=== PATIENT | male | born 1995 | race Caucasian/White ===

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

== ENCOUNTER 2017-02-19 11:28 | Emergency (ER) | payer SELFPAY ==
[~2017-02-19] VITALS: Ht 188 cm; Wt 82.2 kg
[~2017-02-19 11:28] MED LIST changes: +TAMS0.4C38 PO
[2017-02-19 11:32] VITALS: TEMP 36.6; Ht 188 cm; Wt 82.2 kg
[2017-02-19] MEDS ORDERED: ONDANSETRON INJ 2 MG/ML 2 ML VIAL IV STA (11:57)
[2017-02-19] MEDS ORDERED: MoRPHine SULFATE 10 MG/ML CARP/VIAL IV STA (11:57)
[2017-02-19] MEDS ORDERED: SODIUM CHLORIDE 0.9% 1000ML 1,000 ML IV STA (11:57)
[2017-02-19] MEDS ORDERED: KETOROLAC TROMETHAMINE 30 MG/ML VIAL IV STA (11:57)
[2017-02-19] MEDS ORDERED: TAMSULOSIN HCL 0.4 MG CAP PO ONE (12:00)
[2017-02-19 12:14] LABS: URINE APPEARANCE TURBID (CLEAR); URINE BILIRUBIN NEG (NEG); URINE COLOR YELLOW; URINE NITRITE NEG (NEG); URINE PH >= 9.0 (4.5-7.5); URINE SPECIFIC GRAVITY 1.022 (1.000-1.030); UROBILINOGEN NEG (NEG); ZZUR CULT IF INDIC CLEAN CATCH NO
[2017-02-19 12:31] LABS: MANUAL MICROSCOPIC REQUIRED? NO; REVIEW REQ? NO
[2017-02-19 12:34] LABS: SULFASALICYLIC ACID NEG (NEG)
[2017-02-19 12:35] LABS: BASO % 0.2 %; BASO ABS # 0.02 K/uL (0-0.2); COMPLETE YES; EOS % 0.4 %; IG% 0.2 %; LYMPH % 17.4 %; LYMPH ABS # 1.67 K/uL (1.2-3.4); MEAN CELL VOLUME 89.9 fL (80-100); MEAN CORPUSCULAR HEMOGLOBIN 32.1 pg (25-34); MEAN CORPUSCULAR HGB CONC 35.7 g/dl (32-36); MEAN PLATELET VOLUME 10.6 fL (7.4-10.4); MONO % 9.1 %; NEUT % 72.7 %; PLATELET COUNT 213 K/uL (130-400); RED BLOOD COUNT 4.67 M/uL (4.7-6.1); WHITE BLOOD COUNT 9.61 K/uL (4.8-10.8)
[2017-02-19 12:46] LABS: ALT/SGPT 20 U/L (12-78); BLOOD UREA NITROGEN 17 mg/dl (7-18); BUN/CREATININE RATIO 14.6 (10-20); CALCIUM 9.6 mg/dl (8.5-10.1); CARBON DIOXIDE 27 mmol/L (21-32); CHLORIDE 105 mmol/L (98-107); CREATININE 1.19 mg/dl (0.60-1.40); GLUCOSE 117 mg/dl (70-99); POTASSIUM 3.4 mmol/L (3.5-5.1); SODIUM 140 mmol/L (136-145)
--- NOTE | 2017-02-19 12:48 | DIAGNOSTIC IMAGING REPORT ---
CT SCAN OF THE ABDOMEN AND PELVIS WITHOUT IV CONTRAST CLINICAL HISTORY: Right flank pain. COMPARISON STUDY: Abdominal CT dated 07/11/2016 TECHNIQUE: CT scan of the abdomen and pelvis is performed from the lung bases to the proximal femora. Images are reviewed in the axial, sagittal, and coronal planes. IV contrast was not administered for this examination as per the front clinician. A dose lowering technique was utilized adhering to the principles of ALARA. CT DOSE: 661.50 mGy.cm FINDINGS: Lung bases: The heart is normal in size and without pericardial effusion. The lung bases are clear. Liver: The unenhanced liver is normal in size, contour, and attenuation. There is no intrahepatic biliary ductal dilatation. Gallbladder: Unremarkable. Spleen: Normal in size and attenuation. Pancreas: Unremarkable. Adrenal glands: Unremarkable. Kidneys: The unenhanced kidneys are normal in size. There is a 10 mm obstructing calculus identified at the right vesicoureteral junction seen on image #387. This causes moderate right hydroureteronephrosis. There is an additional 5 mm calculus in the distal right ureter approximately 1.5 cm above the larger stone seen on image #379. There are at least 2 additional nonobstructing right renal calculi measuring up to 4 mm. No left renal calculi are identified and there is no left-sided hydronephrosis. There is no evidence of contour deforming renal mass lesion. Abdominal vasculature: The abdominal aorta is normal in course and caliber. Bowel: There is mild to moderate colonic fecal retention. No bowel obstruction is seen. The appendix is well-visualized and normal. Peritoneum: There is no intraperitoneal free air or abdominal ascites. There is a small fat-containing umbilical hernia. Lymphadenopathy: None. Pelvic viscera: The bladder is decompressed and grossly unremarkable. The prostate and seminal vesicles are normal as visualized. Skeletal structures: No lytic or blastic lesions are seen. IMPRESSION: 1. There is a 10 mm obstructing calculus at the right vesicoureteral junction. This causes moderate right hydroureteronephrosis. 2. There is a second calculus in distal right ureter measuring 5 mm. This is located just above the larger and more distal stone. 3. Additional small nonobstructing right renal calculi as above. No left renal calculi are seen. Electronically signed by: Tramaine Garcia M.D. 02/19/2017 12:46 PM Dictated Date/Time: 02/19/2017 12:39 PM
[2017-02-19 12:49] LABS: ALKALINE PHOSPHATASE 96 U/L (45-117); AST/SGOT 20 U/L (15-37)
[2017-02-19] MEDS ORDERED: MoRPHine SULFATE 4 MG/ML 1 ML CARP\\VIAL IV STA (13:14)
[2017-02-19 13:24] VITALS: BP 119/71; PULSE 75; O2SAT 98
--- NOTE | 2017-02-19 14:01 | EMERGENCY ROOM VISIT NOTE ---
History First contact with patient: 11:50 Chief Complaint: FLANK PAIN Stated Complaint: KIDNEY PAIN History of Present Illness The patient is a 21 year old male who presents to the Emergency Room with complaints of right flank pain which started at 8:00 this morning. He rates the pain at a 9 out of 10. He states it starts in the back and comes around his right side. The patient admits to nausea but denies any vomiting. The patient denies any change in bowel habits. The patient does admit to hematuria but denies any other urinary symptoms of frequency, urgency, dysuria. The patient has had multiple kidney stones over the past 18 months. He has seen Dr. Phoenix in the past. He has passed all his stones. He has never needed surgery. Review of Systems 10 system review was performed and was negative unless stated otherwise history of present illness. Family History Kidney disease Kidney stones Social History Smoking Status: Current Every Day Smoker Drug Use: marijuana Marital Status: single Housing Status: lives with family Current/Historical Medications No Active Prescriptions or Reported Meds Physical Exam Vital Signs Date Time Temp Pulse Resp B/P (MAP) Pulse Ox O2 Delivery O2 Flow Rate FiO2 02/19/17 13:24 75 18 119/71 98 Room Air 02/19/17 11:32 36.6 93 18 144/81 99 Room Air Physical Exam GENERAL: 21-year-old white male appears uncomfortable secondary to flank pain. MENTAL STATUS: Alert and oriented 3. MOUTH: Mucosa is moist NECK: Supple, no lymphadenopathy noted. No carotid bruits noted. LUNGS: Clear auscultation without wheezes rales or rhonchi. CARDIAC: Regular rate and rhythm without murmur. Pulses is full and equal throughout. BACK: No CVA tenderness noted. ABDOMEN: Positive bowel sounds all 4 quadrants. Soft, nontender to palpation without organomegaly or masses. EXTREMITIES: No cyanosis or edema noted. Medical Decision & Procedures ER Provider Diagnostic Interpretation: CT SCAN OF THE ABDOMEN AND PELVIS WITHOUT IV CONTRAST CLINICAL HISTORY: Right flank pain. COMPARISON STUDY: Abdominal CT dated 07/11/2016 TECHNIQUE: CT scan of the abdomen and pelvis is performed from the lung bases to the proximal femora. Images are reviewed in the axial, sagittal, and coronal planes. IV contrast was not administered for this examination as per the front clinician. A dose lowering technique was utilized adhering to the principles of ALARA. CT DOSE: 661.50 mGy.cm FINDINGS: Lung bases: The heart is normal in size and without pericardial effusion. The lung bases are clear. Liver: The unenhanced liver is normal in size, contour, and attenuation. There is no intrahepatic biliary ductal dilatation. Gallbladder: Unremarkable. Spleen: Normal in size and attenuation. Pancreas: Unremarkable. Adrenal glands: Unremarkable. Kidneys: The unenhanced kidneys are normal in size. There is a 10 mm obstructing calculus identified at the right vesicoureteral junction seen on image #387. This causes moderate right hydroureteronephrosis. There is an additional 5 mm calculus in the distal right ureter approximately 1.5 cm above the larger stone seen on image #379. There are at least 2 additional nonobstructing right renal calculi measuring up to 4 mm. No left renal calculi are identified and there is no left-sided hydronephrosis. There is no evidence of contour deforming renal mass lesion. Abdominal vasculature: The abdominal aorta is normal in course and caliber. Bowel: There is mild to moderate colonic fecal retention. No bowel obstruction is seen. The appendix is well-visualized and normal. Peritoneum: There is no intraperitoneal free air or abdominal ascites. There is a small fat-containing umbilical hernia. Lymphadenopathy: None. Pelvic viscera: The bladder is decompressed and grossly unremarkable. The prostate and seminal vesicles are normal as visualized. Skeletal structures: No lytic or blastic lesions are seen. IMPRESSION: 1. There is a 10 mm obstructing calculus at the right vesicoureteral junction. This causes moderate right hydroureteronephrosis. 2. There is a second calculus in distal right ureter measuring 5 mm. This is located just above the larger and more distal stone. 3. Additional small nonobstructing right renal calculi as above. No left renal calculi are seen. Electronically signed by: Tramaine Garcia M.D. 02/19/2017 12:46 PM Dictated Date/Time: 02/19/2017 12:39 PM Laboratory Results 02/19/17 12:13 Red Blood Count 4.67, Mean Corpuscular Volume 89.9, Mean Corpuscular Hemoglobin 32.1, Mean Corpuscular Hemoglobin Concent 35.7, Mean Platelet Volume 10.6, Neutrophils (%) (Auto) 72.7, Lymphocytes (%) (Auto) 17.4, Monocytes (%) (Auto) 9.1, Eosinophils (%) (Auto) 0.4, Basophils (%) (Auto) 0.2, Neutrophils # (Auto) 6.99, Lymphocytes # (Auto) 1.67, Monocytes # (Auto) 0.87, Eosinophils # (Auto) 0.04, Basophils # (Auto) 0.02 02/19/17 12:13 Test 02/19/17 12:02 02/19/17 12:13 Urine Color YELLOW Urine Appearance TURBID (CLEAR) Urine pH >= 9.0 (4.5-7.5) Urine Specific [place] 1.022 (1.000-1.030) Urine Protein NEG (NEG) Urine Glucose (UA) NEG (NEG) Urine Ketones NEG (NEG) Urine Occult Blood TRACE (NEG) Urine Nitrite NEG (NEG) Urine Bilirubin NEG (NEG) Urine Urobilinogen NEG (NEG) Urine Leukocyte Esterase NEG (NEG) Urine WBC (Auto) 1-5 /hpf (0-5) Urine RBC (Auto) 5-10 /hpf (0-4) Urine Hyaline Casts (Auto) 1-5 /lpf (0-5) Urine Epithelial Cells (Auto) 5-10 /lpf (0-5) Urine Bacteria (Auto) NEG (NEG) White Blood Count 9.61 K/uL (4.8-10.8) Red Blood Count 4.67 M/uL (4.7-6.1) Hemoglobin 15.0 g/dL (14.0-18.0) Hematocrit 42.0 % (42-52) Mean Corpuscular Volume 89.9 fL (80-100) Mean Corpuscular Hemoglobin 32.1 pg (25-34) Mean Corpuscular Hemoglobin Concent 35.7 g/dl (32-36) Platelet Count 213 K/uL (130-400) Mean Platelet Volume 10.6 fL (7.4-10.4) Neutrophils (%) (Auto) 72.7 % Lymphocytes (%) (Auto) 17.4 % Monocytes (%) (Auto) 9.1 % Eosinophils (%) (Auto) 0.4 % Basophils (%) (Auto) 0.2 % Neutrophils # (Auto) 6.99 K/uL (1.4-6.5) Lymphocytes # (Auto) 1.67 K/uL (1.2-3.4) Monocytes # (Auto) 0.87 K/uL (0.11-0.59) Eosinophils # (Auto) 0.04 K/uL (0-0.5) Basophils # (Auto) 0.02 K/uL (0-0.2) RDW Standard Deviation 40.1 fL (36.4-46.3) RDW Coefficient of Variation 12.3 % (11.5-14.5) Immature Granulocyte % (Auto) 0.2 % Immature Granulocyte # (Auto) 0.02 K/uL (0.00-0.02) Anion Gap 8.0 mmol/L (3-11) Est Creatinine Clear Calc Drug Dose 116.1 ml/min Estimated GFR () 102.0 Estimated GFR (Non- 88.0 BUN/Creatinine Ratio 14.6 (10-20) Calcium Level 9.6 mg/dl (8.5-10.1) Total Bilirubin 0.2 mg/dl (0.2-1) Direct Bilirubin < 0.1 mg/dl (0-0.2) Aspartate Amino Transf (AST/SGOT) 20 U/L (15-37) Alanine Aminotransferase (ALT/SGPT) 20 U/L (12-78) Alkaline Phosphatase 96 U/L (45-117) Total Protein 7.2 gm/dl (6.4-8.2) Albumin 4.0 gm/dl (3.4-5.0) Lipase 159 U/L (73-393) Medications Administered Medications (Trade) Dose Ordered Sig/Alejandro Route Start Time Stop Time Status Last Admin Dose Admin Sodium Chloride 1,000 ml @ 999 mls/hr Q1H1M STAT IV 02/19/17 11:57 02/19/17 12:57 DC 02/19/17 12:25 999 MLS/HR Ondansetron HCl (Zofran Inj) 4 mg NOW STAT IV 02/19/17 11:57 02/19/17 12:03 DC 02/19/17 12:25 4 MG Morphine Sulfate (MoRPHine SULFATE INJ) 6 mg NOW STAT IV 02/19/17 11:57 02/19/17 12:03 DC 02/19/17 12:27 6 MG Ketorolac Tromethamine (Toradol Inj) 30 mg NOW STAT IV 02/19/17 11:57 02/19/17 12:03 DC 02/19/17 12:26 30 MG Tamsulosin HCl (Flomax Cap) 0.4 mg NOW ONCE PO 02/19/17 12:00 02/19/17 12:03 DC 02/19/17 12:25 0.4 MG Morphine Sulfate (MoRPHine SULFATE INJ) 4 mg NOW STAT IV 02/19/17 13:14 02/19/17 13:15 DC 02/19/17 13:27 4 MG ED Course The patient was evaluated. IV access was obtained. The patient's EMR and medication list were reviewed. The patient was given 1 L of normal saline wide- open. The patient was given morphine 6 mg IV, Toradol 30 mg IV and Zofran 4 mg IV push. The patient was also given Flomax 0.4 mg by mouth. CBC and differential, renal profile, LFTs and lipase levels were ordered. Urinalysis was ordered. CT stone study was ordered and interpreted by the radiologist as above with a 10 mm obstructing stone at the right UV junction, a distal ureter stone at 5 mm and also 2 stones in the right kidney. There is moderate [place]. Labs are reviewed. White count was normal. Renal function was normal. The patient was reevaluated and initially was feeling better but then his pain came back. I discussed the case with Dr. Thapa who agreed with treatment plan. Consulted Maya renteria with [facility] u[facility] about the patient. She stated we can get his pain under control he could go home and follow-up with them tomorrow. The patient was given additional 4 mg of morphine and his pain was a 2 or 3 out of 10. He will is in agreement with going home but was instructed if he has any fever, uncontrolled nausea vomiting, uncontrolled pain and returns immediately. He will follow up with urology at 5 PM tomorrow. The patient was discharged home in stable condition.. Medical Decision Differential diagnosis include UTI, pyelonephritis, ureteral calculi [place] Drug Monitoring [place] Search Results: patient reviewed within database Medication Reconcilliation Current Medication List: was personally reviewed by me Blood Pressure Screening Patient's blood pressure: Normal blood pressure Impression Primary Impression: Ureteral calculus, right Departure Information Dispostion Home / Self-Care Condition GOOD Prescriptions No Active Prescriptions or Reported Meds Referrals No Doctor, Assigned (PCP) Elton Phoenix M.D. Forms HOME CARE DOCUMENTATION FORM, IMPORTANT VISIT INFORMATION Patient Instructions Kidney Stones - [facility], My [facility] Additional Instructions Drink a lot of water. Ibuprofen 600 mg every 6 hours with food for pain. Take OxyIR as instructed for more severe pain. Do not drive while taking the OxyIR. Take Flomax as prescribed. Take Zofran as needed for nausea. Keep scheduled appointment with urology tomorrow at 5 PM. If you experience any uncontrolled abdominal pain, uncontrolled nausea vomiting, fever return to ER immediately for admission.
[2017-02-19] MEDS ORDERED: TAMS0.4C38 PO (14:04)
[2017-02-19] MEDS ORDERED: OXYC1TAB3 PO (14:04)
[2017-02-19] MEDS ORDERED: ONDA4TAB10 SL (14:04)
[2017-02-22] MEDS ORDERED: PHEN-775 PO (09:10)
[2017-02-22] MEDS ORDERED: OXYC7.5T65 PO (09:10)
== END 2017-02-19 14:12 | disposition home or self-care (01) ==
LOC: C.EDB 11:30
DX: N13.2 Hydronephrosis with renal and ureteral calculous obstruction (principal); Z87.442 Personal history of urinary calculi; Z84.1 Family history of disorders of kidney and ureter; F17.210 Nicotine dependence, cigarettes, uncomplicated; F12.90 Cannabis use, unspecified, uncomplicated

== ENCOUNTER → 2017-02-22 | Day surgery (SDC) | payer SELFPAY ==
[2017-02-21 15:31] VITALS: Ht 188 cm; Wt 77.3 kg
[~2017-02-22] VITALS: Ht 188 cm; Wt 77.3 kg
[~2017-02-22] MED LIST changes: +ATROPINE SULFATE 0.1 MG/ML 5ML SYR IV PRN; +CIPROFLOXACIN 400MG / D5W IV SCH; +DEXAMETHASONE SOD INJ 4 MG/ML VIAL IV PRN; +EpHEDrine SULFATE INJ 50 MG/ML AMP IV PRN; +FENTANYL CITRATE INJ 50 MCG/1 ML 2 ML VIAL IV PRN; +FENTANYL CITRATE INJ 50 MCG/1 ML 2 ML VIAL ONE; +KETOROLAC TROMETHAMINE 30 MG/ML VIAL IV. PRN; +LABETALOL HCL IV 5 MG/ML 20ML IV PRN; +LACTATED RINGER'S 1000ML 1,000 ML IV SCH; +LIDOCAINE HCL 2% 2 ML VIAL (20MG/ML) ONE; +METOCLOPRAMIDE HCL INJ 5 MG/ML 2 ML VIAL IV PRN; +MIDAZOLAM HCL 1 MG/ML 2ML VIAL ONE; +MoRPHine SULFATE 10 MG/ML CARP/VIAL IV PRN; +ONDANSETRON INJ 2 MG/ML 2 ML VIAL IV PRN; +ONDANSETRON INJ 2 MG/ML 2 ML VIAL ONE; +OXYC7.5T65 PO; +OXYCODONE/ACETAMINOPHEN 5-325 TAB PO PRN; +PHEN-775 PO; +PHENYLEPHRINE 100MCG/ML 5ML SYR IV PRN; -PROM12.57 PO; +PROPOFOL IV EMULSION 10 MG/ML 20 ML VIAL IV ONE; -TAMS0.4C38 PO
--- NOTE | 2017-02-22 08:06 | History & Physical Bridge - [place] ---
H&P Re-Evaluation Bridge Note: I have examined the patient, reviewed the History & Physical and in the interval since the performance of the History & Physical I have noted the following changes of clinical significance: Renal Right stone. No changes noted
--- NOTE | 2017-02-22 09:15 | Discharge Instructions ---
Discharge Instructions Date of Service Feb 22, 2017. Admission Reason for Admission: Stones Discharge Discharge Diagnosis / Problem: Stone Discharge Goals Goal(s): Decrease discomfort, Improve function Activity Recommendations Activity Limitations: resume your previous activity Lifting Limitations: none Exercise/Sports Limitations: none May Resume Sexual Activity: when tolerated Shower/Bathe: no limitations . Instructions / Follow-Up Instructions / Follow-Up May have blood in urine. May have discomfort or burning with urination. May have bruising on flank or back. Current Hospital Diet Hospital Diet(s): Regular Diet Discharge Diet Recommended Diet: Regular Diet Procedures Procedures Performed: Right Extracorporeal Shock Wave Lithotripsy - Ureteral Pending Studies Studies pending at discharge: no Medical Emergencies . Who to Call and When: Medical Emergencies: If at any time you feel your situation is an emergency, please call 911 immediately. . Non-Emergent Contact Non-Emergency issues call your: Primary Care Provider, Urologist Call Non-Emergent contact if: you have a fever, temperature is above 101, temperature is above 101.5, your pain is not controlled, your pain is worsening . . "Provider Documentation" section prepared by Zach Brown,. . VTE Core Measure Inpt VTE Proph given/why not?: SCD's
--- NOTE | 2017-02-22 09:25 | [facility] Operative Report ---
Operative Report Operative Date Feb 22, 2017. Pre-Operative Diagnosis Right Ureteral Stone Post-Operative Diagnosis Same as pre-op Procedure(s) Performed Right Extracorporeal Shock Wave Lithotripsy - Ureteral Surgeon Dr. [facility] Director Surgeon(s) None Estimated Blood Loss 0 mL Findings Large Right stone Ureter Specimens None Anesthesia General Complication(s) None Disposition Recovery Room / PACU Indications Large right stone with symptoms. History of multiple stones. Risks and benefits discussed at length. Patient agreeable and consented. Description of Procedure Patient was consented and brought back to the operating room. Patient was placed under anesthesia in the supine position. Patient was prepped and draped in the regular sterile fashion. A time out was completed. With the time out completed, The patient was assessed with fluoroscopy. The stone was identified and position was triangulated. At this point, the shock waves commenced. The stone was monitored throughout the process with fluoroscopy to assess progression and maintain position. The stone was pulverized with 3000 shocks to the large right stone at a maximum voltage of 6. With the stone treated, the procedure ended. The patient was cleaned, aroused from anesthesia, and transferred to the pacu in stable condition having tolerated the procedure well with no complications. I was present and participated in all aspects of the procedure. The patient will be monitored in the PACU until transferred. I attest to the content of the Intraoperative Record and any orders documented therein. Any exceptions are noted below.
[2017-02-22 10:42] VITALS: TEMP 36.3
--- NOTE | 2017-02-22 11:11 | Anesthesia Progress Nt - [facility] ---
Anesthesia Post Op Note Date & Time Feb 22, 2017 at 11:11 Vital Signs Pain Intensity: 4.0 Vital Signs Past 12 Hours Date Time Temp Pulse Resp B/P (MAP) Pulse Ox O2 Delivery O2 Flow Rate FiO2 02/22/17 10:42 36.3 94 18 127/90 (102) 96 Room Air 02/22/17 10:37 88 16 99 02/22/17 10:37 91 16 02/22/17 10:35 129/80 02/22/17 10:34 36.9 99 Room Air 02/22/17 10:32 100 13 02/22/17 10:32 96 13 99 02/22/17 10:31 95 15 02/22/17 10:31 96 15 99 02/22/17 10:30 131/82 02/22/17 10:26 78 5 02/22/17 10:26 77 5 99 02/22/17 10:25 124/73 02/22/17 10:21 78 9 02/22/17 10:21 78 9 99 02/22/17 10:20 123/72 02/22/17 10:16 77 6 02/22/17 10:16 77 6 100 02/22/17 10:15 125/67 02/22/17 10:11 83 0 02/22/17 10:11 82 0 99 02/22/17 10:10 119/76 02/22/17 10:06 87 10 96 02/22/17 10:06 87 10 02/22/17 10:05 129/70 02/22/17 10:03 86 17 02/22/17 10:03 86 17 96 02/22/17 10:01 124/74 02/22/17 09:58 84 6 97 02/22/17 09:58 84 6 02/22/17 09:57 82 7 02/22/17 09:57 84 7 96 02/22/17 09:55 126/76 02/22/17 09:52 89 20 02/22/17 09:52 88 20 95 02/22/17 09:50 122/78 02/22/17 09:47 115/73 02/22/17 09:47 36.7 83 16 115/73 97 Mask 8 02/22/17 07:46 37.1 100 18 123/85 (98) 94 Room Air Notes Mental Status: alert / awake / arousable, participated in evaluation Pt Amnestic to Procedure: Yes Nausea / Vomiting: adequately controlled Pain: adequately controlled Airway Patency, RR, SpO2: stable & adequate BP & HR: stable & adequate Hydration State: stable & adequate Anesthetic Complications: no major complications apparent
[2017-02-22 11:14] VITALS: BP 132/80; PULSE 85; O2SAT 96
== END | disposition home or self-care (01) ==
LOC: X.SURG 07:31
PROVIDERS: ATTEND Urology
DX: N20.1 Calculus of ureter (principal); L98.9 Disorder of the skin and subcutaneous tissue, unspecified; N20.0 Calculus of kidney; F99 Mental disorder, not otherwise specified; G47.33 Obstructive sleep apnea (adult) (pediatric); F17.200 Nicotine dependence, unspecified, uncomplicated; Z85.828 Personal history of other malignant neoplasm of skin; Z80.1 Family history of malignant neoplasm of trachea, bronchus and lung; Z80.8 Family history of malignant neoplasm of other organs or systems

== ENCOUNTER 2017-06-16 17:17 | Emergency (ER) | payer OTHER ==
[~2017-06-16] VITALS: Ht 190.5 cm; Wt 75.2 kg
[~2017-06-16 17:17] MED LIST changes: -ATROPINE SULFATE 0.1 MG/ML 5ML SYR IV PRN; -CIPROFLOXACIN 400MG / D5W IV SCH; -DEXAMETHASONE SOD INJ 4 MG/ML VIAL IV PRN; -EpHEDrine SULFATE INJ 50 MG/ML AMP IV PRN; -FENTANYL CITRATE INJ 50 MCG/1 ML 2 ML VIAL IV PRN; -FENTANYL CITRATE INJ 50 MCG/1 ML 2 ML VIAL ONE; -KETOROLAC TROMETHAMINE 30 MG/ML VIAL IV. PRN; -LABETALOL HCL IV 5 MG/ML 20ML IV PRN; -LACTATED RINGER'S 1000ML 1,000 ML IV SCH; -LIDOCAINE HCL 2% 2 ML VIAL (20MG/ML) ONE; -METOCLOPRAMIDE HCL INJ 5 MG/ML 2 ML VIAL IV PRN; -MIDAZOLAM HCL 1 MG/ML 2ML VIAL ONE; -MoRPHine SULFATE 10 MG/ML CARP/VIAL IV PRN; -ONDANSETRON INJ 2 MG/ML 2 ML VIAL IV PRN; -ONDANSETRON INJ 2 MG/ML 2 ML VIAL ONE; -OXYCODONE/ACETAMINOPHEN 5-325 TAB PO PRN; -PHEN-775 PO; -PHENYLEPHRINE 100MCG/ML 5ML SYR IV PRN; -PROPOFOL IV EMULSION 10 MG/ML 20 ML VIAL IV ONE
[2017-06-16] MEDS ORDERED: NALOXONE HCL 0.4 MG/1 ML VIAL/CARP ONE (17:31)
[2017-06-16 17:45] VITALS: TEMP 36.8; Ht 190.5 cm; Wt 75.2 kg
--- NOTE | 2017-06-16 17:45 | EMERGENCY ROOM VISIT NOTE ---
History Report prepared by Constantine: Chantale Luis Under the Supervision of: Dr. Radha Saul D.O. First contact with patient: 17:28 Chief Complaint: OVERDOSE (INTENTIONAL) Stated Complaint: OVERDOSE History of Present Illness The patient is a 22 year old male who presents to the Emergency Room brought in by EMS with complaints episodic unresponsiveness [employer]. The patient admits to using Fentanyl today. He states that his girlfriend Lucie tried to convince him not to take the drugs. He reports taking 100 mcg Fentanyl today. He also reports taking 6 mg Clonazepam last night prior to taking an unknown amount of Xanax. Per EMS, the patient's mother notified emergency services when the patient became unresponsive. They state the patient was unconscious with agonal breathing of two to four times per minute upon arrival. EMS administered 0.4 mg Narcan IN and the patient began to wake up. He was then administered 0.4 mg Narcan IV. Patient began to maintain his own respirations. The patient states that he chewed Fentanyl patches. He remembers waking up in the ambulance. He states that he has used Fentanyl in the past, though he had never used this type of Fentanyl before. He reports a regular use of Xanax, though he does not believe he has anxiety problems. He reports a history of Heroin use one year ago. He states his use of Fentanyl was not intentional. He denies any thoughts of self harm. He reports using "all of the above," types of drugs. He does not believe his drug use is a problem. He has a history of kidney stones. 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 Review of Systems See HPI for pertinent positives & negatives. A total of 10 systems reviewed and were otherwise negative. Past Medical & Surgical Medical Problems: (1) Kidney calculi Family History Family history was reviewed; no changes noted. Social History Smoking Status: Current Every Day Smoker Alcohol Use: occasionally Drug Use: marijuana, other (Heroin, Xanax, Fentanyl) Marital Status: in relationship Housing Status: lives with family Occupation Status: unemployed Current/Historical Medications No Active Prescriptions or Reported Meds Allergies Coded Allergies: Nickel (Verified Allergy, Mild, RASH -- FROM CHEAP JEWELRY, 02/22/17) NO KNOWN DRUG ALLERGIES (Verified Allergy, Unknown, ., 02/22/17) Physical Exam Vital Signs Date Time Temp Pulse Resp B/P (MAP) Pulse Ox O2 Delivery O2 Flow Rate FiO2 06/16/17 22:36 106 18 117/65 95 06/16/17 22:19 97 Room Air 06/16/17 22:00 106 18 117/65 95 Room Air 06/16/17 21:35 115 06/16/17 19:59 108 16 135/91 99 Room Air 06/16/17 19:18 93 18 133/82 99 Room Air 06/16/17 17:45 36.8 112 12 131/83 96 Room Air 06/16/17 17:35 110 Physical Exam GENERAL: alert, tearful, well nourished, no distress, non-toxic. EYE EXAM: normal conjunctiva, PERRL and EOM's grossly intact OROPHARYNX: no exudate, no erythema, lips, buccal mucosa, and tongue normal and mucous membranes are moist NECK: supple, no nuchal rigidity, no adenopathy, non-tender LUNGS: Slightly decreased breath sounds, no wheezes, rhonchi, or rales. Normal chest wall mechanics HEART: no murmurs, S1 normal and S2 normal ABDOMEN: abdomen soft, non-tender, normo-active bowel sounds, no masses, no rebound or guarding. BACK: Back is symmetrical on inspection and there is no deformity, no midline tenderness, no CVA tenderness. SKIN: no rashes and no bruising UPPER EXTREMITIES: upper extremities are grossly normal. LOWER EXTREMITIES: No pitting edema. NEURO EXAM: Normal sensorium, cranial nerves II-XII grossly intact, normal speech, no gross weakness of arms, no gross weakness of legs. Medical Decision & Procedures ER Provider Diagnostic Interpretation: Radiology results have been interpreted by the radiologist and reviewed by me. CHEST ONE VIEW PORTABLE CLINICAL HISTORY: agonal resp/OD dyspnea COMPARISON STUDY: 02/21/2017 FINDINGS: The bones soft tissues and hemidiaphragms are normal. The cardiomediastinal silhouette is normal. The lungs are clear. The pulmonary vasculature is normal. IMPRESSION: Negative chest. The above report was generated using voice recognition software. It may contain grammatical, syntax or spelling errors. Electronically signed by: Kar Curry M.D. 06/16/2017 6:05 PM Dictated Date/Time: 06/16/2017 6:04 PM KUB CLINICAL HISTORY: nausea, od pain COMPARISON STUDY: 03/04/2017 FINDINGS: The soft tissues, psoas shadows, renal outlines and intestinal gas pattern appear normal. There is no evidence for bowel obstruction. No abnormal abdominal calcifications are seen. IMPRESSION: Normal study. The above report was generated using voice recognition software. It may contain grammatical, syntax or spelling errors. Electronically signed by: Kar Curry M.D. 06/16/2017 8:52 PM Dictated Date/Time: 06/16/2017 8:51 PM Medications Administered Medications (Trade) Dose Ordered Sig/Alejandro Route Start Time Stop Time Status Last Admin Dose Admin Ondansetron HCl (Zofran Inj) 4 mg NOW STAT IV 06/16/17 19:53 06/16/17 19:55 DC 06/16/17 19:57 4 MG ED Course 1730: The patient was evaluated in room B7. A complete history and physical exam was performed. 1946: I reassessed the patient at this time. I spoke with the patient's family. 1952: Ordered Zofran 4 mg IV 2134: I reassessed the patient at this time. He is feeling better and resting comfortably. I discussed the results and treatment plan with the patient. I answered all pertaining questions that he had. He expressed understanding and verbalized agreement. The patient will be discharged home. Medical Decision Differential diagnosis: Etiologies such as toxicologic, infection, hypoglycemia, electrolyte abnormalities, cardiac sources, intracerebral event, neurologic, as well as others were entertained. Patient did not require any additional Narcan while here, did not require any oxygen supplementation was never hypoxic. Ambulatory pulse ox was normal also. Patient with no additional respiratory distress. On re-exams patient denied any cough or trouble breathing. Discussed with patient at length risks of recreational drug use. Offered additional resources for rehabilitation and outpatient counseling which she declined. Patient states he feels that he can "handle this myself". Discussed with patient and family symptoms to watch and return for, palpitations long-term of recreational drug use, they verbalized understanding were agreeable with plan. No evidence of anoxic brain injury, no dysrhythmias, low suspicion for aspiration pneumonia or pulmonary edema, no evidence or history of trauma. Patient was tolerating by mouth here in and related with a steady gait at time of discharge. Patient's heart rate 90s upon entering the room, however with any additional questioning or movement, heart rate would increase to lower 100s. I feel this is likely related to the stress and anxiety of the situation. Patient tolerating by mouth, possible component of mild dehydration. Doubt occult infectious etiology, doubt PE. Medication Reconcilliation Current Medication List: was personally reviewed by me Blood Pressure Screening Patient's blood pressure: Elevated blood pressure Blood pressure disposition: Elevated BP felt to be situational Impression Primary Impression: Overdose Additional Impression: Narcotic abuse Scribe Attestation The scribe's documentation has been prepared under my direction and personally reviewed by me in its entirety. I confirm that the note above accurately reflects all work, treatment, procedures, and medical decision making performed by me. Departure Information Dispostion Home / Self-Care Prescriptions No Active Prescriptions or Reported Meds Referrals Elton Abarca M.D. (PCP) Forms HOME CARE DOCUMENTATION FORM, IMPORTANT VISIT INFORMATION, WORK / SCHOOL INSTRUCTIONS Patient Instructions My [facility] Additional Instructions Do not use illegal drugs. Use of illegal drugs can result in [facility]ci health complications, incarceration, and even . Complications of your diminished breathing can include aspiration pneumonia and fluid on the lungs. If you have any cough, develop trouble breathing, fevers, vomiting, dizziness, weakness, or you have any other new concerns, please return to the emergency room. Problem Qualifiers Primary Impression: Overdose Encounter type: initial encounter Injury intent: accidental or unintentional Qualified Codes: T50.901A - Poisoning by unspecified drugs, medicaments and biological substances, accidental (unintentional), initial encounter
--- NOTE | 2017-06-16 18:06 | DIAGNOSTIC IMAGING REPORT ---
CHEST ONE VIEW PORTABLE CLINICAL HISTORY: agonal resp/OD dyspnea COMPARISON STUDY: 02/21/2017 FINDINGS: The bones soft tissues and hemidiaphragms are normal. The cardiomediastinal silhouette is normal. The lungs are clear. The pulmonary vasculature is normal. IMPRESSION: Negative chest. The above report was generated using voice recognition software. It may contain grammatical, syntax or spelling errors. Electronically signed by: Kar Curry M.D. 06/16/2017 6:05 PM Dictated Date/Time: 06/16/2017 6:04 PM
[2017-06-16] MEDS ORDERED: ONDANSETRON INJ 2 MG/ML 2 ML VIAL IV STA (19:53)
--- NOTE | 2017-06-16 20:53 | DIAGNOSTIC IMAGING REPORT ---
KUB CLINICAL HISTORY: nausea, od pain COMPARISON STUDY: 03/04/2017 FINDINGS: The soft tissues, psoas shadows, renal outlines and intestinal gas pattern appear normal. There is no evidence for bowel obstruction. No abnormal abdominal calcifications are seen. IMPRESSION: Normal study. The above report was generated using voice recognition software. It may contain grammatical, syntax or spelling errors. Electronically signed by: Kar Curry M.D. 06/16/2017 8:52 PM Dictated Date/Time: 06/16/2017 8:51 PM
[2017-06-16 22:36] VITALS: BP 117/65; PULSE 106; O2SAT 95
== END 2017-06-16 22:37 | disposition home or self-care (01) ==
LOC: EDBD 17:17 → C.EDB 17:19
DX: T50.901A Poisoning by unspecified drugs, medicaments and biological substances, accidental (unintentional), initial encounter (principal); F19.10 Other psychoactive substance abuse, uncomplicated; Z87.442 Personal history of urinary calculi

== ENCOUNTER 2017-06-19 01:39 | Inpatient (IN) | payer OTHER ==
[~2017-06-19] VITALS: Ht 193 cm; Wt 74.3 kg
[2017-06-19 03:06] LABS: BASO % 0.2 %; BASO ABS # 0.02 K/uL (0-0.2); EOS % 0.5 %; EOS ABS # 0.04 K/uL (0-0.5); HEMATOCRIT 44.2 % (42-52); HEMOGLOBIN 15.5 g/dL (14.0-18.0); IG# 0.01 K/uL (0.00-0.02); LYMPH % 18.7 %; LYMPH ABS # 1.56 K/uL (1.2-3.4); MEAN CELL VOLUME 89.1 fL (80-100); MEAN CORPUSCULAR HEMOGLOBIN 31.3 pg (25-34); MEAN CORPUSCULAR HGB CONC 35.1 g/dl (32-36); MEAN PLATELET VOLUME 10.5 fL (7.4-10.4); MONO % 7.2 %; NEUT % 73.3 %; NEUT ABS # 6.13 K/uL (1.4-6.5); PLATELET COUNT 217 K/uL (130-400); RED CELL DISTRIBUTION WIDTH CV 12.4 % (11.5-14.5); WHITE BLOOD COUNT 8.36 K/uL (4.8-10.8)
[2017-06-19 03:26] LABS: ALBUMIN 3.9 gm/dl (3.4-5.0); ALT/SGPT 22 U/L (12-78); AST/SGOT 16 U/L (15-37); BLOOD UREA NITROGEN 7 mg/dl (7-18); CALCIUM 9.2 mg/dl (8.5-10.1); CARBON DIOXIDE 28 mmol/L (21-32); CREATININE 1.09 mg/dl (0.60-1.40); GLUCOSE 92 mg/dl (70-99); POTASSIUM 3.4 mmol/L (3.5-5.1); SODIUM 140 mmol/L (136-145)
[2017-06-19 03:37] LABS: ALKALINE PHOSPHATASE 98 U/L (45-117); TOTAL PROTEIN 7.2 gm/dl (6.4-8.2)
--- NOTE | 2017-06-19 03:45 | EMERGENCY ROOM VISIT NOTE ---
History Report prepared by Constantine: Paty Rodriguez Under the Supervision of: Dr. Bonita Gonzalez M.D. First contact with patient: 01:50 Chief Complaint: MENTAL HEALTH EVALUATION Stated Complaint: SUICIDAL History of Present Illness The patient is a 22 year old male who presents to the Emergency Room for a mental health evaluation. The patient states that he was staying at a friend's house that is a female when he was kicked out. He reports that he had been staying there for 2 days. He states that he was awoken by his ex-best friend that has been starting rumors about him and told to leave. He states that the rumors about him doing hard drugs. The patient reports that the woman did not want him around her kids if he was. He states that when he left he started having suicidal thoughts. He states that he was looking for Fentanyl to overdose on by eating it. He notes that he was here for a Fentanyl overdose three days ago, but that was accidental and was not to commit suicide. The patient's aunt reports that she has been checking up on him since his overdose and when he told her he was having suicidal thoughts tonight, she tried to get him on the phone with the suicide hotline. She reports that it would not go through. She reports that she told him to come to the ED tonight. The aunt states that she lives in [place], but friends were able to get him to bring him here. She reports that she met him here and tried to get a hold of his father. The patient states that he lives with his mother and they are on good terms. He states that he let her know that he was coming to the ED before leaving. The patient reports that he recently has been using methamphetamines, cocaine, Klonopin, and Fentanyl. He states that he only had Klonopin today and notes that he is not prescribed it. He states that he has been using for a month and prior had been sober for 6 months. He denies the woman he was staying with using drugs and reports that she was trying to help him get clean. The patient notes that he has had suicidal thoughts in the past a lot and denies ever being inpatient for mental health. Source of History: patient, family Onset: this evening Position: other (global) Quality: other (mental health) Timing: other (episode) Note: The patient complains of suicidal thoughts. Review of Systems See HPI for pertinent positives & negatives. A total of 10 systems reviewed and were otherwise negative. Past Medical & Surgical Medical Problems: (1) Benzodiazepine abuse, continuous (2) Cannabis abuse (3) Depression (4) Intentional fentanyl overdose (5) Kidney calculi (6) Methamphetamine abuse (7) Nicotine dependence (8) Opiate abuse, continuous Family History Kidney disease Kidney stones Social History Smoking Status: Current Every Day Smoker Alcohol Use: occasionally Drug Use: cocaine, marijuana, other (methamphetamines and Klonopin) Marital Status: in relationship Housing Status: lives with family Occupation Status: unemployed Current/Historical Medications No Active Prescriptions or Reported Meds Allergies Coded Allergies: Nickel (Verified Allergy, Mild, RASH -- FROM CHEAP JEWELRY, 06/19/17) NO KNOWN DRUG ALLERGIES (Verified Allergy, Unknown, ., 06/19/17) Physical Exam Vital Signs Date Time Temp Pulse Resp B/P (MAP) Pulse Ox O2 Delivery O2 Flow Rate FiO2 06/19/17 03:32 95 14 121/67 99 06/19/17 01:43 36.7 86 18 117/78 98 Room Air Physical Exam Vital signs reviewed. General: Well-appearing, in no significant distress. HEENT: No scleral icterus, PERRLA, neck supple. Atraumatic. Cardiovascular: Regular rate and rhythm, no extra sounds. Pulmonary: Clear to auscultation bilaterally, normal work of breathing. Abdomen: Soft, nontender, nondistended, positive bowel sounds. Musculoskeletal: Atraumatic, no peripheral edema. Neurologic: Patient awake alert and oriented x 3, full strength in all 4 extremities. Cranial nerves 2 through 12 grossly intact. Skin: Warm, dry, no rash Psych: Positive SI with a plan. No HI. Medical Decision & Procedures Laboratory Results 06/19/17 02:54 Red Blood Count 4.96, Mean Corpuscular Volume 89.1, Mean Corpuscular Hemoglobin 31.3, Mean Corpuscular Hemoglobin Concent 35.1, Mean Platelet Volume 10.5, Neutrophils (%) (Auto) 73.3, Lymphocytes (%) (Auto) 18.7, Monocytes (%) (Auto) 7.2, Eosinophils (%) (Auto) 0.5, Basophils (%) (Auto) 0.2, Neutrophils # (Auto) 6.13, Lymphocytes # (Auto) 1.56, Monocytes # (Auto) 0.60, Eosinophils # (Auto) 0.04, Basophils # (Auto) 0.02 06/19/17 02:54 Test 06/19/17 01:55 06/19/17 02:54 Urine Color YELLOW Urine Appearance CLOUDY (CLEAR) Urine pH 6.5 (4.5-7.5) Urine Specific [place] 1.016 (1.000-1.030) Urine Protein NEG (NEG) Urine Glucose (UA) NEG (NEG) Urine Ketones NEG (NEG) Urine Occult Blood 1+ (NEG) Urine Nitrite NEG (NEG) Urine Bilirubin NEG (NEG) Urine Urobilinogen NEG (NEG) Urine Leukocyte Esterase NEG (NEG) Urine WBC (Auto) 1-5 /hpf (0-5) Urine RBC (Auto) 10-30 /hpf (0-4) Urine Hyaline Casts (Auto) 1-5 /lpf (0-5) Urine Epithelial Cells (Auto) 5-10 /lpf (0-5) Urine Bacteria (Auto) NEG (NEG) Urine Opiates Screen NEG (NEG) Urine Methadone, Qualitative NEG (NEG) Urine Barbiturates NEG (NEG) Urine Phencyclidine (PCP) Level NEG (NEG) Ur Amphetamine/Methamphetamine POS (NEG) MDMA (Ecstasy) Screen NEG (NEG) Urine Benzodiazepines Screen NEG (NEG) Urine Cocaine Metabolite NEG (NEG) Urine Marijuana (THC) POS (NEG) White Blood Count 8.36 K/uL (4.8-10.8) Red Blood Count 4.96 M/uL (4.7-6.1) Hemoglobin 15.5 g/dL (14.0-18.0) Hematocrit 44.2 % (42-52) Mean Corpuscular Volume 89.1 fL (80-100) Mean Corpuscular Hemoglobin 31.3 pg (25-34) Mean Corpuscular Hemoglobin Concent 35.1 g/dl (32-36) Platelet Count 217 K/uL (130-400) Mean Platelet Volume 10.5 fL (7.4-10.4) Neutrophils (%) (Auto) 73.3 % Lymphocytes (%) (Auto) 18.7 % Monocytes (%) (Auto) 7.2 % Eosinophils (%) (Auto) 0.5 % Basophils (%) (Auto) 0.2 % Neutrophils # (Auto) 6.13 K/uL (1.4-6.5) Lymphocytes # (Auto) 1.56 K/uL (1.2-3.4) Monocytes # (Auto) 0.60 K/uL (0.11-0.59) Eosinophils # (Auto) 0.04 K/uL (0-0.5) Basophils # (Auto) 0.02 K/uL (0-0.2) RDW Standard Deviation 40.0 fL (36.4-46.3) RDW Coefficient of Variation 12.4 % (11.5-14.5) Immature Granulocyte % (Auto) 0.1 % Immature Granulocyte # (Auto) 0.01 K/uL (0.00-0.02) Anion Gap 6.0 mmol/L (3-11) Est Creatinine Clear Calc Drug Dose 117.1 ml/min Estimated GFR () 112.6 Estimated GFR (Non- 97.2 BUN/Creatinine Ratio 6.1 (10-20) Calcium Level 9.2 mg/dl (8.5-10.1) Total Bilirubin 0.4 mg/dl (0.2-1) Direct Bilirubin < 0.1 mg/dl (0-0.2) Aspartate Amino Transf (AST/SGOT) 16 U/L (15-37) Alanine Aminotransferase (ALT/SGPT) 22 U/L (12-78) Alkaline Phosphatase 98 U/L (45-117) Total Protein 7.2 gm/dl (6.4-8.2) Albumin 3.9 gm/dl (3.4-5.0) Thyroid Stimulating Hormone (TSH) 0.270 uIu/ml (0.300-4.500) Salicylates Level 2.4 mg/dl (2.8-20) Acetaminophen Level < 2 ug/ml (10-30) Ethyl Alcohol mg/dL < 3.0 mg/dl (0-3) Laboratory results per my review. ED Course 0218: Past medical records reviewed. The patient was evaluated in room A6. A complete history and physical examination was performed. 0344: The patient is medically cleared. 0539: The patient will be further evaluated by [facility]. Medical Decision Differential diagnosis: Etiologies such as mood disorder, infection, hypoglycemia, electrolyte abnormalities, cardiac sources, intracerebral event, toxicologic, neurologic, as well as others were entertained. This patient was evaluated and appeared to be in no significant distress. Patient is medically cleared and referred for mental health evaluation. He has been accepted to [facility] on a 201 basis. Medication Reconcilliation Current Medication List: was personally reviewed by me Blood Pressure Screening Patient's blood pressure: Normal blood pressure Blood pressure disposition: Did not require urgent referral Impression Primary Impression: Mood disorder Additional Impression: Suicidal ideation Scribe Attestation The scribe's documentation has been prepared under my direction and personally reviewed by me in its entirety. I confirm that the note above accurately reflects all work, treatment, procedures, and medical decision making performed by me. Departure Information Dispostion Mental Health Acute Care Prescriptions No Active Prescriptions or Reported Meds Referrals Elton Abarca M.D. (PCP) Patient Instructions [facility] Problem Qualifiers
[2017-06-19] MEDS ORDERED: NURSING VERBAL MED ORDER ONE (05:30)
[2017-06-19 05:31] VITALS: O2SAT 96
[2017-06-19] MEDS ORDERED: ACETAMINOPHEN 325 MG TAB PO PRN (05:45)
[2017-06-19] MEDS ORDERED: hydrOXYzine HCL 25 MG TAB PO PRN (05:45)
[2017-06-19] MEDS ORDERED: CLONIDINE HCL 0.1 MG TAB PO PRN (05:45)
[2017-06-19] MEDS ORDERED: NICOTINE POLACRILEX 2 MG GUM MT PRN (05:45)
[2017-06-19] MEDS ORDERED: SODIUM CHLORIDE 0.65% NA SOLN 45 ML (OCEAN) PRN (05:45)
[2017-06-19] MEDS ORDERED: BISMUTH SUBSALICYLATE PER ML OMNICELL CHARGE PO PRN (05:45)
[2017-06-19] MEDS ORDERED: MAGNESIUM HYDROXIDE SUSP 30 ML UDC PO PRN (05:45)
[2017-06-19] MEDS ORDERED: ALUMINUM/MAGNESIUM SUSP 30 ML UDC PO PRN (05:45)
[2017-06-19 06:05] VITALS: BP 117/62; PULSE 78; TEMP 36.7; BMI 19.9
[2017-06-19 06:59] VITALS: BP 117/62; PULSE 78; TEMP 36.7
[2017-06-19] MEDS: NICOTINE 21 MG/24 HR TDSY EXT SCH (09:00)
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
[2017-06-20 04:21] VITALS: Ht 193 cm; Wt 74.3 kg
[2017-06-20 06:41] VITALS: BP_SYST 111; BP_SYST 118; BP_DIAS 72; BP_DIAS 75; PULSE 75; PULSE 99; TEMP 36.4
[2017-06-20] MEDS: NICOTINE 21 MG/24 HR TDSY EXT SCH (07:56)
[2017-06-20] MEDS ORDERED: SERTRALINE HCL 50 MG TAB PO ONE (11:30)
--- NOTE | 2017-06-20 13:59 | Psychiatric Progress Notes ---
Progress Note Date of Service Jun 20, 2017. Interval History David Ceron is a 22-year-old male with a history of polysubstance abuse who was admitted on Jun 19, 2017 at 05:24 after he presented to the emergency room with suicidal thoughts to overdose on fentanyl. He currently lives in [place] with his mother and her boyfriend, has no psychiatric history, and no outpatient providers. He was admitted on a 201 voluntary commitment. Patient is admitted from home and was brought to the ED with a friend. Chief Complaint "I am doing about the same ". Subjective Patient was seen & assessed interval progress reviewed with Nursing. Staff reports the patient was irritable yesterday and refused dinner, medications, and activities. They state he appears to be more pleasant today. Family meeting is scheduled with the patient's mother this morning at 11:00. Duty to warn was discussed in regard to potential threats to his "ex best friend". Patient was seen today to assess progress since admission. Patient states his mood is about the same, rating it a 4/10 (10=best). We discussed the patient's substance abuse, and patient denies need for treatment at this time stating, "I was doing well managing it on my own." Patient has a family meeting with his mother this morning, and patient was informed they would likely discuss this more during that meeting. Patient was consented for start of sertraline 25 mg during his admission H&P yesterday. He states he is agreeable to starting that today. Patient denies current suicidal ideation, stating "I feel like if I am on the right medication I will be okay." He denies HI, hallucinations, and other psychosis. He denies additional concerns or needs today. Patient signed 72-hour notice this morning after his family meeting, telling staff he did not want to be here any longer. He then requested meeting with this provider. This was done with his mother in the room with his permission, "to let her ask questions too." Patient is calm and pleasant. We discussed meaning of the 72 hour notice, the plan to continue to titrate dosing of sertraline, and working to establish outpatient psychiatric providers. Patient is agreeable to this. Review of Systems Psych: denies symptoms other than stated above Constitutional: denied Cardiovascular: denied GI: denied Neurologic: denied Remainder of 10 body systems also reviewed and denied other than noted above. Sleep Information Total Hours of Sleep: 7.00 Meal Information Percent of Breakfast Consumed: 10 Percent of Lunch Consumed: 0 Percent of Dinner Consumed: 0 Mental Status Exam During interview pt is: alert and oriented, cooperative Appearance: disheveled (long, unkempt hair) Eye contact is: fair Motor behavior is: no abnormal motor movements Speech: normal in rate, rhythm & volume (more pleasant today) Affect: depressed, constricted Mood is: depressed Thought process: goal directed, clear, coherent Thought content: reality based without delusions Suicidal thought are: denied (previous plan to overdose on fentanyl patches), Plan: denied, Intent: denied Homicidal thoughts are: denied (now denying plan to harm friend) Hallucinations: denies auditory, denies visual Cognition: memory grossly intact, attention grossly intact, language grossly intact Intelligence estimated to be: average Insight: limited Judgement: limited Impression Patient is appearing much more pleasant today. He is interested in starting a trial of sertraline, and we will order a 25 mg dose to be given now with 50 mg qAM starting tomorrow if tolerating well. He remains unwilling to consider substance abuse treatment at this time, and discussed this at length during his family meeting with the social human services assistants. We will continue to encourage this during his stay. He denies suicidal ideation at this time, as well as stating he has no intention to harm his friend. We will plan to continue to monitor language about this friend, as duty to warn may be required. He requires inpatient treatment at this time due to significant risk of harm to self or others if discharged prematurely. Duty to warn will need to be enacted prior to discharge if patient is agreeable to disclosing name. Plan (1) Depression 06/19 -Differential includes substance-induced depression, major depressive disorder, bipolar disorder, and personality disorder. The patient has not had a significant period of sobriety, to the primary recommendation is for substance abuse treatment and sobriety, as many of his mood symptoms could be explained by his drug abuse. -TSH was low, will add a free T4 to assess for thyroid disease. -Spoke with mother today for collateral information, and will schedule a family meeting with mother, whom he is living with. Encouraged her to consider making participation in substance abuse treatment and requirements of returning home, as he is very poorly motivated to change. -Patient would like to start an antidepressant, and after discussion with him, I believe the benefits outweigh the risks. He was advised that antidepressants should be taken daily, that he will need to abstain from substance use in order to see the full benefit of the medication, and that some illicit or recreational drugs may interact with the medication or cause health problems. He would like a trial of sertraline, as he took some from a friend and tolerated it well. Will start 25 mg daily today, and titrate up as tolerated. We reviewed the common side effects, including GI distress. 06/20 - Sertraline 25mg one-time dose ordered. Will order 50mg qAM starting tomorrow. - Will continue to recommend substance abuse treatment at discharge. - Free T4 wnl at 1.18. - Continue to encourage participation in group programming. (2) Suicidal ideation -Every 15 minute checks for safety. -Encourage group attendance and participation, work on healthy coping skills and a discharge safety plan. -Mother confirms no access to guns, and she is going to look for his knife and secure it prior to discharge. (3) Opiate abuse, continuous -Patient abusing fentanyl, and history of heroin abuse. -Provide psychoeducation about the risks of ongoing substance abuse, and recommendations for abstinence. He is unwilling to consider substance abuse treatment, but we will continue to offer education and encourage him to reconsider this, as his substance abuse is severe and if he continues, is at high risk for negative outcomes including . -Would not prescribe any controlled substances to this patient due to the high risk of abuse, misuse, overdose, and negative outcomes. -Recommend substance abuse treatment at discharge, preferably inpatient rehab followed by a [facility] house, due to the high risk of immediate relapse without intensive treatment. Brief intervention was greater than 5 min in length. Brief interventions include: 1. Assess Readiness to Quit, 2. Advise: Help Patient to Reduce or Abstain from Alcohol, 3. Agree: Set Specific, Feasible Goals, 4. Assist: Anticipate barriers, Problem-Solving Solutions. Social work to 5. Arrange: Referrals to appropriate treatment. Summary of intervention: The patient is in precontemplation stage with regards to transtheoretical model of change. The patient is advised to decrease alcohol consumption due to depressant effects and risk of interactions with prescription medications. The patient did not agree to any substance abuse treatment, but was advised that we will continue to offer education and encourage him to reconsider this, and he will be provided with recovery materials to continue to education self on how to cope with their condition without drinking. (4) Benzodiazepine abuse, continuous Patient abusing illicit benzodiazepines, reports taking them several times a month, so low risk for withdrawal. We will monitor vital signs and assess for withdrawal symptoms. Would not prescribe him any controlled substances given the high risk of abuse/ misuse. (5) Methamphetamine abuse Abusing meth daily for the past several weeks. (6) Cannabis abuse Abusing cannabis daily; provide psychoeducation regarding risks of continued substance abuse and recommendations for abstinence as above. (7) Nicotine dependence Smoking cessation education, nicotine patch, and gum as needed. Discharge / Aftercare Planning Primary Care Physician: Name: Dr. Abarca Therapist: Name: luly Brigadier: Name: luly Visit Code E&M Code: 32275 Inventory Assets Strengths: Supportive mother, has housing Needs: Improved insight into substance abuse issues, substance abuse treatment, safety plan Risk Factors Assessment Male: Yes : Yes /single/: Yes Higher / Fall in social status: No Health problems: No Mental Health Diagnoses: No Substance use disorders: Yes Previous attempt: Yes (Admits his fentanyl overdose on June 16, 2017 was a suicide attempt) Previous attempt;highly lethal: Yes Family history of suicide: No Previous psychiatric stay: No Hopelessness: Yes Smoker: Yes Protective Factors Assessment Hinduism beliefs: No : No Responsible for young children: No Employed: No Stable relationships: No Supportive family: Yes Good rapport with provider: No Data Vital Signs Last 24 Hrs: Date Time Temp Pulse Resp B/P (MAP) Pulse Ox O2 Delivery O2 Flow Rate FiO2 06/20/17 06:41 36.4 75 16 118/72 99 111/75 Meds Administered Last 24 Hrs: Meds Administered (Past 24Hrs) Medications (Trade) Dose Ordered Sig/Alejandro Route Start Time Stop Time Status Last Admin Dose Admin Hydroxyzine HCl (Vistaril Tab) 25 mg Q4H PRN PO 06/19/17 05:45 07/19/17 05:44 06/20/17 04:00 25 MG Nicotine (Nicoderm Cq 21MG Patch) 1 patch QAM EXT 06/19/17 09:00 07/19/17 08:59 06/20/17 07:56 1 PATCH Sertraline HCl (Zoloft Tab) 25 mg ONE ONCE PO 06/20/17 11:30 06/20/17 11:45 DC 06/20/17 12:15 25 MG Problem Qualifiers (1) Depression: Depression Type: unspecified Qualified Codes: F32.9 - Major depressive disorder, single episode, unspecified
[2017-06-21] MEDS: hydrOXYzine HCL 25 MG TAB PO PRN ×2 (00:07→23:08)
[2017-06-21 06:33] VITALS: BP_SYST 100; BP_SYST 108; BP_DIAS 55; BP_DIAS 57; PULSE 102; PULSE 83; TEMP 36.9
[2017-06-21] MEDS: NICOTINE 21 MG/24 HR TDSY EXT SCH (09:14)
[2017-06-21] MEDS: SERTRALINE HCL 50 MG TAB PO SCH (09:14)
--- NOTE | 2017-06-21 11:27 | Psychiatric Progress Notes ---
Progress Note Date of Service Jun 21, 2017. Interval History David Ceron is a 22-year-old male with a history of polysubstance abuse who was admitted on Jun 19, 2017 at 05:24 after he presented to the emergency room with suicidal thoughts to overdose on fentanyl. He currently lives in [place] with his mother and her boyfriend, has no psychiatric history, and no outpatient providers. He was admitted on a 201 voluntary commitment. Patient is admitted from home and was brought to the ED with a friend. Chief Complaint "I'm great, thanks". Subjective Patient was seen & assessed interval progress reviewed with Treatment Team. Staff reports the patient's appetite and sleep have been improving during the course of his hospitalization. Pt rated himself a "9" last evening stating, "wanting to be stress-free". Pt was seen today to assess progress since admission. Pt states that he is having a good day today and was able to attend groups yesterday evening and this morning. He currently reports feeling tired and is observed lying in bed. He denies any side effects to his first dose of Zoloft 50mg this morning and states, "I can tell it's been working". Substance abuse treatment options were discussed and patient [facility], and is agreeable to an initial appointments stating, "that way if I need to I can go, but I don't have to". Pt states he was able to achieve a period of sobriety on his own, and thinks he will be able to again. He was encouraged to utilize the supports, however. He has been referred to [facility] for aftercare and medication management. We again reviewed the meaning of his 72-hour notice, as he requested at this encounter to leave. Pt is agreeable to staying until Saturday when his 72-hour notice expires. We discussed the patient's violent threats toward his ex-friend, and patient stated, "I've cooled off, I know violence isn't the way to solve things. I don't think it's in my best interest for him to be a part of my life, but I think I could talk things out with him if we saw each other again." Pt continues to decline to offer the individual's name. Pt denies SI/HI, A/V hallucinations, and other psychosis at this encounter. He denies concerns or needs today. Review of Systems Psych: denies symptoms other than stated above Constitutional: denied Cardiovascular: denied GI: denied Neurologic: denied Remainder of 10 body systems also reviewed and denied other than noted above. Sleep Information Total Hours of Sleep: 6.00 Meal Information Percent of Breakfast Consumed: 100 Percent of Lunch Consumed: 75 Percent of Dinner Consumed: 75 Mental Status Exam During interview pt is: alert and oriented, cooperative Appearance: appropriately dressed (in casual clothing), disheveled (hair unkempt, resting in bed) Eye contact is: fair Motor behavior is: no abnormal motor movements (pt observed while resting in bed) Speech: normal in rate, rhythm & volume Affect: blunted (appears less depressed on the unit) Mood is: other ("I'm great!") Thought process: goal directed, clear, coherent Thought content: reality based without delusions Suicidal thought are: denied (plan to overdose on fentanyl patches prior to admission), Plan: denied, Intent: denied Homicidal thoughts are: denied (states he does not plan to harm his friend) Hallucinations: denies auditory, denies visual Cognition: memory grossly intact, attention grossly intact, language grossly intact Intelligence estimated to be: average Insight: limited Judgement: limited Impression Patient continues to be pleasant and cooperative. He is observed to be interacting appropriately with other patients on the unit. Pt states he is tolerating Zoloft 50mg. His 72-hour notice remains in place and he is hoping for discharge sooner than its expiration on 06/23. Will continue to monitor for mood and language concerning ex-friend. At this point, would remain appropriate for the patient to stay to the end of his 72-hour notice due to concern for harm to self or others if discharged prematurely. He has been more agreeable to the treatment plan and offered resources, such as substance abuse treatment, as his stay progresses. Duty to warn will need to be enacted prior to discharge if patient is agreeable to disclosing name. Plan (1) Depression 06/19 -Differential includes substance-induced depression, major depressive disorder, bipolar disorder, and personality disorder. The patient has not had a significant period of sobriety, to the primary recommendation is for substance abuse treatment and sobriety, as many of his mood symptoms could be explained by his drug abuse. -TSH was low, will add a free T4 to assess for thyroid disease. -Spoke with mother today for collateral information, and will schedule a family meeting with mother, whom he is living with. Encouraged her to consider making participation in substance abuse treatment and requirements of returning home, as he is very poorly motivated to change. -Patient would like to start an antidepressant, and after discussion with him, I believe the benefits outweigh the risks. He was advised that antidepressants should be taken daily, that he will need to abstain from substance use in order to see the full benefit of the medication, and that some illicit or recreational drugs may interact with the medication or cause health problems. He would like a trial of sertraline, as he took some from a friend and tolerated it well. Will start 25 mg daily today, and titrate up as tolerated. We reviewed the common side effects, including GI distress. 06/20 - Sertraline 25mg one-time dose ordered. Will order 50mg qAM starting tomorrow. - Will continue to recommend substance abuse treatment at discharge. - Free T4 wnl at 1.18. - Continue to encourage participation in group programming. 06/21 - Continue medications as above. - Likely discharge over weekend, with expiration of 72-hour notice on Saturday , 06/23. (2) Suicidal ideation -Every 15 minute checks for safety. -Encourage group attendance and participation, work on healthy coping skills and a discharge safety plan. -Mother confirms no access to guns, and she is going to look for his knife and secure it prior to discharge. (3) Opiate abuse, continuous -Patient abusing fentanyl, and history of heroin abuse. -Provide psychoeducation about the risks of ongoing substance abuse, and recommendations for abstinence. He is unwilling to consider substance abuse treatment, but we will continue to offer education and encourage him to reconsider this, as his substance abuse is severe and if he continues, is at high risk for negative outcomes including . -Would not prescribe any controlled substances to this patient due to the high risk of abuse, misuse, overdose, and negative outcomes. -Recommend substance abuse treatment at discharge, preferably inpatient rehab followed by a group home house, due to the high risk of immediate relapse without intensive treatment. Brief intervention was greater than 5 min in length. Brief interventions include: 1. Assess Readiness to Quit, 2. Advise: Help Patient to Reduce or Abstain from Alcohol, 3. Agree: Set Specific, Feasible Goals, 4. Assist: Anticipate barriers, Problem-Solving Solutions. Social work to 5. Arrange: Referrals to appropriate treatment. Summary of intervention: The patient is in precontemplation stage with regards to transtheoretical model of change. The patient is advised to decrease alcohol consumption due to depressant effects and risk of interactions with prescription medications. The patient did not agree to any substance abuse treatment, but was advised that we will continue to offer education and encourage him to reconsider this, and he will be provided with recovery materials to continue to education self on how to cope with their condition without drinking. 06/21 - Agreeable to initial appointment with [facility], unable to guarantee that he will follow through with ongoing treatment after discharge. (4) Benzodiazepine abuse, continuous Patient abusing illicit benzodiazepines, reports taking them several times a month, so low risk for withdrawal. We will monitor vital signs and assess for withdrawal symptoms. Would not prescribe him any controlled substances given the high risk of abuse/ misuse. 06/21 - Agreeable to initial appointment with [facility], unable to guarantee that he will follow through with ongoing treatment after discharge. (5) Methamphetamine abuse Abusing meth daily for the past several weeks. (6) Cannabis abuse Abusing cannabis daily; provide psychoeducation regarding risks of continued substance abuse and recommendations for abstinence as above. 06/21 - Agreeable to initial appointment with [facility], unable to guarantee that he will follow through with ongoing treatment after discharge. (7) Nicotine dependence Smoking cessation education, nicotine patch, and gum as needed. Discharge / Aftercare Planning Primary Care Physician: Name: Dr. Abarca Psychiatrist: Name: [facility] Date of Appointment: Jun 25, 2017 Time of Appointment: 12:45 p.m. Appointment Notes: [facility]ake with L[facility] Pacheco [facility] Therapist: Name: [facility] Date of Appointment: Jun 25, 2017 Time of Appointment: 12:45 p.m. Appointment Notes: Intake with Lacy Pacheco [facility] Patient Financial Services Coordinator: Name: luly Visit Code E&M Code: 68920 Inventory Assets Strengths: Supportive mother, has housing Needs: Improved insight into substance abuse issues, substance abuse treatment, safety plan Risk Factors Assessment Male: Yes : Yes /single/: Yes Higher / Fall in social status: No Health problems: No Mental Health Diagnoses: No Substance use disorders: Yes Previous attempt: Yes (Admits his fentanyl overdose on June 16, 2017 was a suicide attempt) Previous attempt;highly lethal: Yes Family history of suicide: No Previous psychiatric stay: No Hopelessness: Yes Smoker: Yes Protective Factors Assessment Restorationism beliefs: No : No Responsible for young children: No Employed: No Stable relationships: No Supportive family: Yes Good rapport with provider: No Data Vital Signs Last 24 Hrs: Date Time Temp Pulse Resp B/P (MAP) Pulse Ox O2 Delivery O2 Flow Rate FiO2 06/21/17 06:33 36.9 83 18 100/55 102 108/57 Meds Administered Last 24 Hrs: Meds Administered (Past 24Hrs) Medications (Trade) Dose Ordered Sig/Alejandro Route Start Time Stop Time Status Last Admin Dose Admin Miscellaneous (Remove Nicoderm Patch) 1 ea QAM N/A 06/20/17 09:00 07/20/17 08:59 06/21/17 09:14 1 EA Sertraline HCl (Zoloft Tab) 25 mg ONE ONCE PO 06/20/17 11:30 06/20/17 11:45 DC 06/20/17 12:15 25 MG Sertraline HCl (Zoloft Tab) 50 mg QAM PO 06/21/17 09:00 07/21/17 08:59 06/21/17 09:14 50 MG Problem Qualifiers (1) Depression: Depression Type: unspecified Qualified Codes: F32.9 - Major depressive disorder, single episode, unspecified
[2017-06-22 07:07] VITALS: BP_SYST 106; BP_SYST 109; BP_DIAS 62; BP_DIAS 73; PULSE 59; PULSE 61; TEMP 36.6
[2017-06-22] MEDS: SERTRALINE HCL 50 MG TAB PO SCH (09:25)
[2017-06-22] MEDS: NICOTINE 21 MG/24 HR TDSY EXT SCH (10:05)
--- NOTE | 2017-06-22 13:45 | Psychiatric Progress Notes ---
Progress Note Date of Service Jun 22, 2017. Interval History David Ceron is a 22-year-old male with a history of polysubstance abuse who was admitted on Jun 19, 2017 at 05:24 after he presented to the emergency room with suicidal thoughts to overdose on fentanyl. He currently lives in [place] with his mother and her boyfriend, has no psychiatric history, and no outpatient providers. He was admitted on a 201 voluntary commitment. Patient is admitted from home and was brought to the ED with a friend. Chief Complaint "Being here has been a lot more helpful than I expected it to be". Subjective Patient was seen & assessed interval progress reviewed with Nursing. Staff reports the patient has been doing well with interactions with peers. He has been participating in group programming as part of his treatment. Pt has a signed 72-hour notice which expires in the morning on 06/23. Pt was seen today along with Dr. Vallejo, psychiatrist covering the weekend. Pt states that he feels his mood has been improving during his hospitalization and he has been better able to reflect on his current stressors. Pt states he is planning to have an appointment set up at either [facility] or [facility] for substance abuse treatment. Pt was able to engage in a lengthy discussion about his substance abuse history and willingness for treatment. He states he has been able to maintain sobriety for 6-8 months at a time in the past. His most recent period of drug use started 1 month ago and the patient is interested in sobriety again. He is willing to participate in outpatient treatment to assist with this goal. We discussed the patient rescinding his 72-hour notice sharing that he would likely be discharged on Saturday; however, the patient is unwilling to do this and does not clearly meet criteria at this time for 302 petition. Pt states that his SI has subsided and that he no longer has HI toward his friend. He plans to cut ties with this friend as he works toward sobriety, stating he probably will not be in contact with him again. Pt does not report other concerns or needs at this time. Review of Systems Psych: denies symptoms other than stated above Constitutional: denied Cardiovascular: denied GI: denied Neurologic: denied Remainder of 10 body systems also reviewed and denied other than noted above. Sleep Information Total Hours of Sleep: 5.50 Meal Information Percent of Breakfast Consumed: 100 Percent of Lunch Consumed: 60 Percent of Dinner Consumed: 100 Mental Status Exam During interview pt is: alert and oriented, cooperative Appearance: appropriately dressed (in t-shirt and scrub pants), disheveled ( hair and facial hair are unkempt) Eye contact is: good Motor behavior is: steady gait & station, no abnormal motor movements Speech: normal in rate, rhythm & volume Affect: blunted (less depressed; better able to engage in discussion) Mood is: other ("much better") Thought process: goal directed, clear, coherent Thought content: reality based without delusions Suicidal thought are: denied (plan to overdose on fentanyl patches prior to admission), Plan: denied, Intent: denied Homicidal thoughts are: denied (states he does not plan to harm his friend) Hallucinations: denies auditory, denies visual Cognition: memory grossly intact, attention grossly intact, language grossly intact Intelligence estimated to be: consistent with level of education Insight: fair Judgement: fair Impression Patient is cooperative with interaction and is agreeable to discussing more of his substance use history. Pt is planning to look into outpatient substance abuse treatment more closely upon discharge, but is willing to be set up with an initial appointment at either [facility] or [facility]. Pt sounds invested in establishing sobriety; however, understands that he may require extra supports to be successful and is willing for this. He continues to deny interest in inpatient D&A rehabilitation. Pt unwilling to rescind 72-hour notice and does not meet criteria at this time for 302 petition. Will likely be discharged tomorrow at the expiration of his 72-hour notice. Pt requires inpatient mental health treatment at this time in order to successfully arrange aftercare for outpatient D&A treatment/therapy and maintain improvement in mood for a period of time to ensure safe discharge. Pt needs to complete safety plan prior to discharge if planning to leave tomorrow morning. Plan (1) Depression 06/19 -Differential includes substance-induced depression, major depressive disorder, bipolar disorder, and personality disorder. The patient has not had a significant period of sobriety, to the primary recommendation is for substance abuse treatment and sobriety, as many of his mood symptoms could be explained by his drug abuse. -TSH was low, will add a free T4 to assess for thyroid disease. -Spoke with mother today for collateral information, and will schedule a family meeting with mother, whom he is living with. Encouraged her to consider making participation in substance abuse treatment and requirements of returning home, as he is very poorly motivated to change. -Patient would like to start an antidepressant, and after discussion with him, I believe the benefits outweigh the risks. He was advised that antidepressants should be taken daily, that he will need to abstain from substance use in order to see the full benefit of the medication, and that some illicit or recreational drugs may interact with the medication or cause health problems. He would like a trial of sertraline, as he took some from a friend and tolerated it well. Will start 25 mg daily today, and titrate up as tolerated. We reviewed the common side effects, including GI distress. 06/20 - Sertraline 25mg one-time dose ordered. Will order 50mg qAM starting tomorrow. - Will continue to recommend substance abuse treatment at discharge. - Free T4 wnl at 1.18. - Continue to encourage participation in group programming. 06/21 - Continue medications as above. - Likely discharge over weekend, with expiration of 72-hour notice on Saturday , 06/23. 06/22 - Continue Sertraline 50mg dialy - Pt will need to complete safety plan prior to discharge tomorrow - Interested in appointment at either [facility] or [facility] for outpatient D&A treatment - Expiration of 72-hour notice tomorrow 06/23 around 11:00; unwilling to rescind at this time (2) Suicidal ideation -Every 15 minute checks for safety. -Encourage group attendance and participation, work on healthy coping skills and a discharge safety plan. -Mother confirms no access to guns, and she is going to look for his knife and secure it prior to discharge. 06/22 - Denying SI for the past few days. (3) Opiate abuse, continuous -Patient abusing fentanyl, and history of heroin abuse. -Provide psychoeducation about the risks of ongoing substance abuse, and recommendations for abstinence. He is unwilling to consider substance abuse treatment, but we will continue to offer education and encourage him to reconsider this, as his substance abuse is severe and if he continues, is at high risk for negative outcomes including . -Would not prescribe any controlled substances to this patient due to the high risk of abuse, misuse, overdose, and negative outcomes. -Recommend substance abuse treatment at discharge, preferably inpatient rehab followed by a assisted house, due to the high risk of immediate relapse without intensive treatment. Brief intervention was greater than 5 min in length. Brief interventions include: 1. Assess Readiness to Quit, 2. Advise: Help Patient to Reduce or Abstain from Alcohol, 3. Agree: Set Specific, Feasible Goals, 4. Assist: Anticipate barriers, Problem-Solving Solutions. Social work to 5. Arrange: Referrals to appropriate treatment. Summary of intervention: The patient is in precontemplation stage with regards to transtheoretical model of change. The patient is advised to decrease alcohol consumption due to depressant effects and risk of interactions with prescription medications. The patient did not agree to any substance abuse treatment, but was advised that we will continue to offer education and encourage him to reconsider this, and he will be provided with recovery materials to continue to education self on how to cope with their condition without drinking. 06/21 - Agreeable to initial appointment with [facility], unable to guarantee that he will follow through with ongoing treatment after discharge. (4) Benzodiazepine abuse, continuous Patient abusing illicit benzodiazepines, reports taking them several times a month, so low risk for withdrawal. We will monitor vital signs and assess for withdrawal symptoms. Would not prescribe him any controlled substances given the high risk of abuse/ misuse. 06/21 - Agreeable to initial appointment with [facility], unable to guarantee that he will follow through with ongoing treatment after discharge. (5) Methamphetamine abuse Abusing meth daily for the past several weeks. (6) Cannabis abuse Abusing cannabis daily; provide psychoeducation regarding risks of continued substance abuse and recommendations for abstinence as above. 06/21 - Agreeable to initial appointment with [facility], unable to guarantee that he will follow through with ongoing treatment after discharge. (7) Nicotine dependence Smoking cessation education, nicotine patch, and gum as needed. Discharge / Aftercare Planning Primary Care Physician: Name: Dr. Abarca Psychiatrist: Name: [facility] Date of Appointment: Jun 25, 2017 Time of Appointment: 12:45 p.m. Appointment Notes: [facility]: Name: [facility] Date of Appointment: Jun 25, 2017 Time of Appointment: 12:45 p.m. Appointment Notes: [facility] Physician: Name: luly Visit Code E&M Code: 42552 Inventory Assets Strengths: Supportive mother, has housing Needs: Improved insight into substance abuse issues, substance abuse treatment, safety plan Risk Factors Assessment Male: Yes : Yes /single/: Yes Higher / Fall in social status: No Health problems: No Mental Health Diagnoses: No Substance use disorders: Yes Previous attempt: Yes (Admits his fentanyl overdose on June 16, 2017 was a suicide attempt) Previous attempt;highly lethal: Yes Family history of suicide: No Previous psychiatric stay: No Hopelessness: Yes Smoker: Yes Protective Factors Assessment [employer]ology beliefs: No : No Responsible for young children: No Employed: No Stable relationships: No Supportive family: Yes Good rapport with provider: No Data Vital Signs Last 24 Hrs: Date Time Temp Pulse Resp B/P (MAP) Pulse Ox O2 Delivery O2 Flow Rate FiO2 06/22/17 07:07 36.6 59 16 106/62 61 109/73 Meds Administered Last 24 Hrs: Meds Administered (Past 24Hrs) Medications (Trade) Dose Ordered Sig/Alejandro Route Start Time Stop Time Status Last Admin Dose Admin Sertraline HCl (Zoloft Tab) 50 mg QAM PO 06/21/17 09:00 07/21/17 08:59 06/22/17 09:25 50 MG Problem Qualifiers (1) Depression: Depression Type: unspecified Qualified Codes: F32.9 - Major depressive disorder, single episode, unspecified
[2017-06-22] MEDS: hydrOXYzine HCL 25 MG TAB PO PRN (21:08)
[2017-06-23 07:12] VITALS: BP_SYST 120; BP_SYST 121; BP_DIAS 72; BP_DIAS 83; PULSE 56; PULSE 81; TEMP 36.6
[2017-06-23] MEDS: NICOTINE 21 MG/24 HR TDSY EXT SCH (09:43)
[2017-06-23] MEDS: SERTRALINE HCL 50 MG TAB PO SCH (09:44)
--- NOTE | 2017-06-23 09:56 | Discharge Instructions ---
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 Glucose 92 Calcium Level 9.2 Total Bilirubin 0.4 Direct Bilirubin < 0.1 Aspartate Amino Transferase (AST) 16 Alanine Aminotransferase (ALT) 22 Alkaline Phosphatase 98 Total Protein 7.2 Albumin 3.9 Thyroid Stimulating Hormone (TSH) 0.270 Salicylates Level 2.4 Acetaminophen Level < 2 Ethyl Alcohol mg/dL < 3.0 Free Thyroxine 1.18 Total Time Total Time Spent (min): Greater than 30 minutes Total Time Included: examination of the patient, discharge planning, medication reconciliation Tobacco Cessation at Discharge Smoking Status: Current Every Day Smoker FDA approved Prescription: nicotine replacement product (patch and gum, toaddress further counselings in appts as described above, declined chantix/ bupropion) Problem Qualifiers (1) Depression: Depression Type: unspecified Qualified Codes: F32.9 - Major depressive disorder, single episode, unspecified (2) Nicotine dependence: Nicotine product type: cigarettes
[2017-06-23] MEDS ORDERED: ZLF50 PO (09:59)
[2017-06-23] MEDS ORDERED: NCR2 MT (09:59)
[2017-06-23] MEDS ORDERED: NICO21DI4 EXT (09:59)
== END 2017-06-23 10:52 | disposition home or self-care (01) | DRG 881 ==
LOC: C.EDB 01:40 → C.MHU 05:24
PROVIDERS: ADMIT Student in an Organized Health Care Education/Training Program; ATTEND Psychiatry & Neurology Psychiatry
DX: F32.9 Major depressive disorder, single episode, unspecified (principal); R45.851 Suicidal ideations; F11.10 Opioid abuse, uncomplicated; F12.10 Cannabis abuse, uncomplicated; F17.200 Nicotine dependence, unspecified, uncomplicated; Z81.8 Family history of other mental and behavioral disorders

== ENCOUNTER 2017-08-13 04:13 | Inpatient (IN) | payer OTHER ==
[~2017-08-13] VITALS: Ht 190.5 cm; Wt 85.9 kg
[~2017-08-13 04:13] MED LIST changes: +NCR2 MT; +NICO21DI4 EXT; -OXYC1TAB3 PO; -OXYC7.5T65 PO; +ZLF50 PO
[2017-08-13] MEDS ORDERED: ONDANSETRON INJ 2 MG/ML 2 ML VIAL IV STA (04:32)
[2017-08-13] MEDS ORDERED: KETOROLAC TROMETHAMINE 30 MG/ML VIAL IV STA (04:32)
[2017-08-13] MEDS ORDERED: SERT1TAB71 PO (04:36)
[2017-08-13 04:46] LABS: BASO % 0.3 %; BASO ABS # 0.04 K/uL (0-0.2); EOS % 1.3 %; EOS ABS # 0.18 K/uL (0-0.5); HEMATOCRIT 45.5 % (42-52); HEMOGLOBIN 16.5 g/dL (14.0-18.0); IG# 0.03 K/uL (0.00-0.02); LYMPH % 33.6 %; LYMPH ABS # 4.51 K/uL (1.2-3.4); MEAN CELL VOLUME 90.1 fL (80-100); MEAN CORPUSCULAR HEMOGLOBIN 32.7 pg (25-34); MEAN CORPUSCULAR HGB CONC 36.3 g/dl (32-36); MEAN PLATELET VOLUME 9.8 fL (7.4-10.4); MONO % 8.3 %; MONO ABS # 1.11 K/uL (0.11-0.59); NEUT % 56.3 %; NEUT ABS # 7.55 K/uL (1.4-6.5); PLATELET COUNT 282 K/uL (130-400); RED CELL DISTRIBUTION WIDTH CV 12.9 % (11.5-14.5); RED CELL DISTRIBUTION WIDTH SD 42.1 fL (36.4-46.3); WHITE BLOOD COUNT 13.42 K/uL (4.8-10.8)
[2017-08-13 05:09] LABS: ALBUMIN 4.3 gm/dl (3.4-5.0); CALCIUM 9.8 mg/dl (8.5-10.1); CREATININE 1.21 mg/dl (0.60-1.40); POTASSIUM 3.3 mmol/L (3.5-5.1)
[2017-08-13 05:12] LABS: TOTAL PROTEIN 8.2 gm/dl (6.4-8.2)
[2017-08-13] MEDS ORDERED: MoRPHine SULFATE 4 MG/ML 1 ML CARP\\VIAL IV STA (05:27)
[2017-08-13] MEDS ORDERED: CEFTRIAXONE SOD INJ 1 GM ADDVIAL IV STA (05:34)
[2017-08-13 06:55] VITALS: O2SAT 97; Ht 190.5 cm; Wt 85.9 kg
[2017-08-13] MEDS ORDERED: ALUMINUM/MAGNESIUM/SIMETH (MAALOX MAX) 30 ML UDC PO PRN (07:00)
[2017-08-13] MEDS ORDERED: HYDROmorphone INJ 0.5 MG/0.5 ML SYR IV PRN (07:00)
[2017-08-13] MEDS ORDERED: ZOLPIDEM TARTRATE 5 MG TAB PO PRN (07:00)
[2017-08-13] MEDS ORDERED: ACETAMINOPHEN 325 MG TAB PO PRN (07:00)
[2017-08-13] MEDS ORDERED: ONDANSETRON INJ 2 MG/ML 2 ML VIAL IV PRN (07:00)
[2017-08-13] MEDS ORDERED: POLYETHYLENE (MIRALAX) 17 GM PACK PO PRN (07:00)
[2017-08-13] MEDS ORDERED: MAGNESIUM HYDROXIDE SUSP 30 ML UDC PO PRN (07:00)
--- NOTE | 2017-08-13 07:16 | History and Physical ---
History & Physical Date & Time of Service: Aug 13, 2017 at 07:01 Chief Complaint: Vomiting,Kidney Pain Primary Care Physician: Elton Abarca M.D. History of Present Illness Source: patient, hospital records 22 y/o M Hx polysubstance abuse, depression, recurrent renal calculi - required lithotripsy 02/2017. Developed acute R flank pain, rigors, nausea and vomiting. He presented to the ER where a CT abdomen was able to confirm a 10mm obstructing calculus at the R UV junction with resultant hydronephrosis. A UA is equivocal. Mild leukocytosis is present. The pt is afebrile on admission. Past Medical/Surgical History 1) Recurrent renal calculi - required lithotripsy 02/2017 2) Polysubstance abuse - including Benzodiazepines, THC, Methamphetamine, opiates 3) Depression - admitted with suicidal ideation 06/2017 Family History Kidney disease Kidney stones Social History Smokes one pack daily - has abused benzos, THC, opiates and meth at various times - states his primary addiction has been meth Smoking Status: Current Every Day Smoker Drug Use: cocaine, marijuana, other Marital Status: in relationship Occupational Status: unemployed Allergies Coded Allergies: Nickel (Verified Allergy, Mild, RASH -- FROM CHEAP JEWELRY, 08/13/17) Home Medications Scheduled Sertraline Hcl (Zoloft), 50 MG PO QAM Review of Systems Constitutional: + chills Eyes: No worsening of vision ENT: No hearing loss, No unusual epistaxis, No nasal symptoms Respiratory: No cough, No sputum, No wheezing Cardiovascular: No chest pain Abdomen: + nausea, + vomiting, No pain Musculoskeletal: No joint pain, No muscle pain Genitourinary - Male: + dysuria, No hematuria Neurologic: No memory loss, No paralysis Psychiatric: No depression symptoms Endocrine: No fatigue Hematologic / Lymphatic: No abnormal bleeding/bruising Integumentary: No rash Physical Exam Vital Signs Date Time Temp Pulse Resp B/P (MAP) Pulse Ox O2 Delivery O2 Flow Rate FiO2 08/13/17 06:43 79 18 110/47 97 Room Air 08/13/17 05:43 70 18 139/80 97 Room Air 08/13/17 04:19 36.5 76 20 138/87 99 Room Air General Appearance: WD/WN, no apparent distress Head: normocephalic Eyes: normal inspection ENT: normal ENT inspection, pharynx normal Neck: supple, no JVD Respiratory/Chest: chest non-tender, lungs clear, normal breath sounds Cardiovascular: regular rate, rhythm, no edema, no gallop Abdomen/GI: normal bowel sounds, + pertinent finding (Tender R flank) Back: normal inspection, + right CVA tenderness Extremities/Musculoskelatal: normal inspection, no calf tenderness, normal capillary refill 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, no motor/sensory deficits, alert, oriented x 3 Skin: normal color Diagnostics Laboratory Results Results Past 24 Hours Test 08/13/17 04:32 08/13/17 04:34 Range/Units Urine Color RED Urine Appearance TURBID CLEAR Urine pH 4.5-7.5 Urine Specific [place] 1.026 1.000-1.030 Urine Protein POS NEG Urine Glucose (UA) NEG Urine Ketones NEG Urine Occult Blood NEG Urine Nitrite NEG Urine Bilirubin NEG Urine Urobilinogen NEG Urine Leukocyte Esterase NEG Urine RBC >30 0-4 /hpf Urine WBC >30 0-5 /hpf Urine Epithelial Cells >30 0-5 /lpf Urine Bacteria 1+ NEG Urine Mucus PRESENT NONE PRSENT White Blood Count 13.42 4.8-10.8 K/uL Red Blood Count 5.05 4.7-6.1 M/uL Hemoglobin 16.5 14.0-18.0 g/dL Hematocrit 45.5 42-52 % Mean Corpuscular Volume 90.1 80-100 fL Mean Corpuscular Hemoglobin 32.7 25-34 pg Mean Corpuscular Hemoglobin Concent 36.3 32-36 g/dl Platelet Count 282 130-400 K/uL Mean Platelet Volume 9.8 7.4-10.4 fL Neutrophils (%) (Auto) 56.3 % Lymphocytes (%) (Auto) 33.6 % Monocytes (%) (Auto) 8.3 % Eosinophils (%) (Auto) 1.3 % Basophils (%) (Auto) 0.3 % Neutrophils # (Auto) 7.55 1.4-6.5 K/uL Lymphocytes # (Auto) 4.51 1.2-3.4 K/uL Monocytes # (Auto) 1.11 0.11-0.59 K/uL Eosinophils # (Auto) 0.18 0-0.5 K/uL Basophils # (Auto) 0.04 0-0.2 K/uL RDW Standard Deviation 42.1 36.4-46.3 fL RDW Coefficient of Variation 12.9 11.5-14.5 % Immature Granulocyte % (Auto) 0.2 % Immature Granulocyte # (Auto) 0.03 0.00-0.02 K/uL Sodium Level 135 136-145 mmol/L Potassium Level 3.3 3.5-5.1 mmol/L Chloride Level 102 98-107 mmol/L Carbon Dioxide Level 25 21-32 mmol/L Anion Gap 8.0 3-11 mmol/L Blood Urea Nitrogen 15 7-18 mg/dl Creatinine 1.21 0.60-1.40 mg/dl Est Creatinine Clear Calc Drug Dose 116.4 ml/min Estimated GFR () 99.3 Estimated GFR (Non- 85.7 BUN/Creatinine Ratio 12.6 10-20 Random Glucose 101 70-99 mg/dl Calcium Level 9.8 8.5-10.1 mg/dl Total Bilirubin 0.7 0.2-1 mg/dl Direct Bilirubin 0.1 0-0.2 mg/dl Aspartate Amino Transf (AST/SGOT) 18 15-37 U/L Alanine Aminotransferase (ALT/SGPT) 37 12-78 U/L Alkaline Phosphatase 116 45-117 U/L Total Protein 8.2 6.4-8.2 gm/dl Albumin 4.3 3.4-5.0 gm/dl Microbiology Results 08/13/17 Urine Culture, Received Pending Diagnostic Radiology CT abdomen: 10 mm calculus at R UV junction with hydronephrosis Impression Assessment and Plan 22 y/o M Hx polysubstance abuse, depression, recurrent renal calculi - required lithotripsy 02/2017. Developed acute R flank pain, rigors, nausea and vomiting. He presented to the ER where a CT abdomen was able to confirm a 10mm obstructing calculus at the R UV junction with resultant hydronephrosis. A UA is equivocal. Mild leukocytosis is present. The pt is afebrile on admission. 1) Obstructing calculus - Urology is consulted. The pt received narcotics and Toradol. Aggressive IVF provided. Placed on Ceftriaxone due to suspected infection. 2) Polysubstance abuse - states that he has been clean for several months, however, we should minimize narcotic use as possible. 3) Depression - cont Sertraline Full code - SCDs pending likely procedure total time for this admit including review of labs, meds, imaging, records - discussion with pt and ER attending - 35 min Resuscitation Status VTE Prophylaxis Will order VTE Prophylaxis: Yes
--- NOTE | 2017-08-13 07:36 | DIAGNOSTIC IMAGING REPORT ---
ABDOMEN AND PELVIS CT WITHOUT CONTRAST CT DOSE: 771.01 mGy.cm HISTORY: right flank pain TECHNIQUE: Multiaxial CT images of the abdomen and pelvis were performed without the use of intravenous and oral contrast according to the standard department stone protocol. A dose lowering technique was utilized adhering to the principles of ALARA. COMPARISON STUDY: Abdomen and pelvis CT 02/19/2017. FINDINGS: There is a 9 x 5 mm obstructing stone within the distal right ureter immediately proximal to the right ureterovesical junction. This results in moderate right hydroureteronephrosis. There is an additional punctate stone seen within both kidneys. No left-sided hydronephrosis. The lung bases are clear. No fractures within the visualized osseous structures. The unenhanced liver, spleen, adrenal glands, and pancreas are unremarkable. Normal gallbladder. No retroperitoneal lymphadenopathy. The bladder is not well-distended. Suboptimal evaluation for bowel pathology due to the lack of intravenous and oral contrast. However, there is no definite bowel wall thickening or obstruction. Normal appendix. IMPRESSION: 1. A 9 x 5 mm obstructing stone within the distal right ureter resulting in moderate right hydroureteronephrosis. 2. Additional punctate bilateral renal calculi. Electronically signed by: Oleg Murdock M.D. 08/13/2017 7:35 AM Dictated Date/Time: 08/13/2017 7:31 AM
[2017-08-13] MEDS ORDERED: IV FLUIDS COMPLETED PRN (07:45)
[2017-08-13 08:18] VITALS: BP 144/73; PULSE 77; TEMP 36.6; O2SAT 98
[2017-08-13 08:30] VITALS: O2SAT 98
[2017-08-13] MEDS ORDERED: POTASSIUM CHLORIDE 20 MEQ TABCR PO STA (08:56)
[2017-08-13] MEDS: SERTRALINE HCL 50 MG TAB PO SCH (09:40)
[2017-08-13] MEDS: D5NSS + 20MEQ KCL 1,000 ML IV SCH ×3 (09:47→22:25)
[2017-08-13] MEDS ORDERED: TAMSULOSIN HCL 0.4 MG CAP PO ONE (11:45)
--- NOTE | 2017-08-13 12:01 | Urology Consultation ---
History General Date of Service: Aug 13, 2017. Chief Complaint: right flank pain Primary Care Physician: Elton Abarca M.D. Pt seen a urologist before?: Yes (Dr. Brown) If yes, why?: nephrolithiasis History of Present Illness 22 yo male with a hx of polysubstance abuse and suicidal ideations presents to [facility] with c/o 1 day and a half of right flank pain and n/v. CT scan showing a 9mm distal right ureteral stone near the UVJ. The pt has a hx of nephrolithiasis for which he had ESWL for a 1cm stone last fall. He reports his pain has improved this morning. Denies n/v. He is afebrile. White count of 13.42 on admission. Cr is normal at 1.21. UC&S is pending. Imaging Imaging: CT Laboratory Last 24 Hours Test 08/13/17 04:32 08/13/17 04:34 Urine Color RED Urine Appearance TURBID Urine pH Urine Specific [place] 1.026 Urine Protein POS Urine Glucose (UA) Urine Ketones Urine Occult Blood Urine Nitrite Urine Bilirubin Urine Urobilinogen Urine Leukocyte Esterase Urine RBC >30 /hpf Urine WBC >30 /hpf Urine Epithelial Cells >30 /lpf Urine Bacteria 1+ Urine Mucus PRESENT White Blood Count 13.42 K/uL Red Blood Count 5.05 M/uL Hemoglobin 16.5 g/dL Hematocrit 45.5 % Mean Corpuscular Volume 90.1 fL Mean Corpuscular Hemoglobin 32.7 pg Mean Corpuscular Hemoglobin Concent 36.3 g/dl Platelet Count 282 K/uL Mean Platelet Volume 9.8 fL Neutrophils (%) (Auto) 56.3 % Lymphocytes (%) (Auto) 33.6 % Monocytes (%) (Auto) 8.3 % Eosinophils (%) (Auto) 1.3 % Basophils (%) (Auto) 0.3 % Neutrophils # (Auto) 7.55 K/uL Lymphocytes # (Auto) 4.51 K/uL Monocytes # (Auto) 1.11 K/uL Eosinophils # (Auto) 0.18 K/uL Basophils # (Auto) 0.04 K/uL RDW Standard Deviation 42.1 fL RDW Coefficient of Variation 12.9 % Immature Granulocyte % (Auto) 0.2 % Immature Granulocyte # (Auto) 0.03 K/uL Sodium Level 135 mmol/L Potassium Level 3.3 mmol/L Chloride Level 102 mmol/L Carbon Dioxide Level 25 mmol/L Anion Gap 8.0 mmol/L Blood Urea Nitrogen 15 mg/dl Creatinine 1.21 mg/dl Est Creatinine Clear Calc Drug Dose 116.4 ml/min Estimated GFR () 99.3 Estimated GFR (Non- 85.7 BUN/Creatinine Ratio 12.6 Random Glucose 101 mg/dl Calcium Level 9.8 mg/dl Total Bilirubin 0.7 mg/dl Direct Bilirubin 0.1 mg/dl Aspartate Amino Transf (AST/SGOT) 18 U/L Alanine Aminotransferase (ALT/SGPT) 37 U/L Alkaline Phosphatase 116 U/L Total Protein 8.2 gm/dl Albumin 4.3 gm/dl Problem List Medical Problems: (1) Cyst of epididymis Status: Acute (2) Hematuria Status: Acute (3) Kidney stone Status: Acute (4) Mood disorder Status: Acute (5) Narcotic abuse Status: Acute (6) Overdose Status: Acute (7) Renal calculus, right Status: Acute (8) Renal colic on right side Status: Acute (9) Right flank pain Status: Acute (10) Suicidal ideation Status: Acute (11) Symptoms involving urinary system Status: Acute (12) Ureteral calculus, right Status: Acute Past History depression (admitted with suicidal ideation 06/2017), kidney stones, other ( polysubstance abuse- including benzos, THC, methamphetamine, opiates) Past Surgical History: lithotripsy Family History Kidney disease Kidney stones Social History Hx Tobacco Use In Past Year?: Yes (1 PPD) Smokin pack/day Drug use: cocaine, marijuana, other Marital status: in relationship Occupation status: unemployed Allergies Coded Allergies: Nickel (Verified Allergy, Mild, RASH -- FROM CHEAP JEWELRY, 08/13/17) Medications Home Medications: Home Meds and Scripts Medications Dose Route/Sig Max Daily Dose Days Date Category Zoloft (Sertraline Hcl) 50 Mg Tab 50 Mg PO QAM 08/13/17 Reported Inpatient Medications: Current Inpatient Medications Medications (Trade) Dose Ordered Sig/Alejandro Route Start Time Stop Time Status Last Admin Dose Admin Acetaminophen (Tylenol Tab) 650 mg Q4H PRN PO 08/13/17 07:00 09/12/17 06:59 Al Hydrox/Mg Hydrox/Simethicone (Maalox Max Susp) 15 ml Q4H PRN PO 08/13/17 07:00 09/12/17 06:59 Magnesium Hydroxide (Milk Of Magnesia Susp) 30 ml Q6H PRN PO 08/13/17 07:00 09/12/17 06:59 Polyethylene (Miralax Powder Packet) 17 gm DAILY PRN PO 08/13/17 07:00 09/12/17 06:59 Zolpidem Tartrate (Ambien Tab) 5 mg HSZ PRN PO 08/13/17 07:00 09/12/17 06:59 Ondansetron HCl (Zofran Inj) 4 mg Q6H PRN IV 08/13/17 07:00 09/12/17 06:59 Hydromorphone HCl (Dilaudid Inj) 0.5 mg Q3H PRN IV 08/13/17 07:00 08/27/17 06:59 08/13/17 08:44 0.5 MG Ceftriaxone Sodium 1 gm/ Dextrose 50 ml @ 100 mls/hr Q24H IV 08/14/17 08:00 08/24/17 07:59 Potassium Chloride/Dextrose/ Sod Cl 1,000 ml @ 150 mls/hr Q6H40M IV 08/13/17 08:30 08/13/17 21:49 08/13/17 09:47 150 MLS/HR Sertraline HCl (Zoloft Tab) 50 mg QAM PO 08/13/17 09:00 09/12/17 08:59 08/13/17 09:40 50 MG Miscellaneous (Iv Fluids Completed) 1 ea PRN PRN N/A 08/13/17 07:45 08/13/18 07:44 Ketorolac Tromethamine (Toradol Inj) 30 mg Q6H PRN IV 08/13/17 10:00 08/18/17 09:59 Review of Systems Review of Systems Constitutional: No fever, No chills Eyes: No double vision Neurological: No dizzy Endocrine: No excessive thirst Gastrointestinal: No abdominal pain, No nausea, No vomiting Cardiovascular: No chest pain Respiratory: No shortness of breath Skin: No rash Musculoskeletal: No back pain Male : No painful urination, No blood in urine Physical Exam Vital Signs: Vital Signs Past 12 Hours Date Time Temp Pulse Resp B/P (MAP) Pulse Ox O2 Delivery O2 Flow Rate FiO2 08/13/17 08:30 98 Room Air 08/13/17 08:18 36.6 77 18 144/73 (96) 98 Room Air 08/13/17 06:55 97 Room Air 08/13/17 06:43 79 18 110/47 97 Room Air 08/13/17 05:43 70 18 139/80 97 Room Air 08/13/17 04:19 36.5 76 20 138/87 99 Room Air Physical Exam: General Appearance: no apparent distress Eyes: bilateral eyes normal inspection ENT: hearing grossly normal Neck: no JVD Respiratory/Chest: no respiratory distress, no accessory muscle use Cardiovascular: no JVD Extremities: normal inspection Neurologic/Psychiatric: alert, normal mood/affect, oriented x 3 Skin: normal color Assessment & Plan Assessment & Plan A/P: Distal right ureteral stone AFVSS. Treatment options discussed with the pt today have included a trial of passage with MET, cysto with stent placement today, vs ESWL this 08-16-. The pt prefers ESWL this 08-16 if pain is manageable. Will plan to observe today. Will feed him a diet today, and make him NPO after midnight. Will start Flomax. Strain all urine. KUB and labs in AM. Thanks for the consult. Will continue to follow along with primary service.
[2017-08-13 14:59] VITALS: BP_SYST 106; BP_SYST 114; BP_SYST 130; BP_DIAS 64; BP_DIAS 68; BP_DIAS 84; PULSE 64; TEMP 36.6; O2SAT 98
--- NOTE | 2017-08-13 15:25 | Progress Note ---
Progress Note Date of Service Aug 13, 2017. Progress Note Mr. Ceron was admitted early this AM for obstructing 10 mm R renal calculi with hydronephrosis. Pain is currently managed just tired and trying to rest. Not much of an appetite at this time and will monitor. Urology is following with possible ESWL on Saturday. Rocephin initiated for possible UTI with Cx pending. Patient currently stable. Reviewed: Pt Seen/Exam by Me History Physician [employer]or supervision Note: I interviewed and examined the patient. Discussed with RADHA Saul and agree with findings and plan as documented in the note. Any exceptions or clarifications are listed here: Patient improved now, still some pain in the right flank, is eating dinner, no further nausea vomiting. Remains afebrile. Vitals reviewed NAD, alert awake oriented 3 RRR no MGR Clear to auscultation bilaterally, breathing unlabored, no wheezes crackles or rhonchi Abdomen positive bowel sounds soft nontender, positive right CVA tenderness Extremities no edema 22-year-old male here with right-sided 9 mm ureterolithiasis with right-sided hydronephrosis and mild acute renal insufficiency. Abnormal UA suggestive of infection but no fever. Has leukocytosis. -Plan to continue antibiotics, follow urine cultures -Start Flomax, continue IV fluids -Appreciate urology consultation-plan for lithotripsy on Saturday Documented By: Mulu Manuel
[2017-08-13] MEDS ORDERED: NURSING VERBAL MED ORDER ONE (17:30)
[2017-08-13] MEDS ORDERED: TAMSULOSIN HCL 0.4 MG CAP PO SCH (21:00)
[2017-08-13] MEDS: KETOROLAC TROMETHAMINE 30 MG/ML VIAL IV PRN (21:24)
[2017-08-13 22:31] VITALS: BP_SYST 112; BP_SYST 126; BP_SYST 136; BP_DIAS 61; BP_DIAS 75; BP_DIAS 76; PULSE 82; PULSE 83; PULSE 90; TEMP 37.3; O2SAT 96
--- NOTE | 2017-08-13 22:48 | EMERGENCY ROOM VISIT NOTE ---
History First contact with patient: 04:26 Chief Complaint: FLANK PAIN Stated Complaint: VOMITING,KIDNEY PAIN History of Present Illness The patient is a 22 year old male who presents to the Emergency Room with complaints of sudden onset of right flank pain that radiates to his groin described as severe, 8 out of 10. Nothing makes it better or worse. He has had stones before and symptoms feel similar. Patient also complains of vomiting secondary to pain. Patient denies chest pain, dyspnea, fever, chills, cough, congestion, dysuria. Dr. Phoenix he believes this is urologist. Review of Systems An 10 system review of systems was completed with positives and pertinent negatives listed in the HPI. Past Medical/Surgical History Medical Problems: (1) Benzodiazepine abuse, continuous (2) Cannabis abuse (3) Depression (4) Hydronephrosis due to obstruction of ureter (5) Intentional fentanyl overdose (6) Kidney calculi (7) Methamphetamine abuse (8) Nicotine dependence (9) Opiate abuse, continuous (10) Pyelonephritis Family History Kidney disease Kidney stones Social History Smoking Status: Current Every Day Smoker Alcohol Use: occasionally Drug Use: cocaine, marijuana, other Marital Status: in relationship Housing Status: lives with family Occupation Status: unemployed Current/Historical Medications Scheduled Sertraline Hcl (Zoloft), 50 MG PO QAM Physical Exam Vital Signs Date Time Temp Pulse Resp B/P (MAP) Pulse Ox O2 Delivery O2 Flow Rate FiO2 08/13/17 06:43 79 18 110/47 97 Room Air 08/13/17 05:43 70 18 139/80 97 Room Air 08/13/17 04:19 36.5 76 20 138/87 99 Room Air Physical Exam VITALS: Vitals are noted on the nurse's note and reviewed by myself. Vital signs stable. GENERAL: Pleasant male who appears in pain, in no acute distress, nondiaphoretic , well-developed well-nourished. SKIN: Capillary reflex less than 2 seconds. HEENT: Normocephalic. PERRLA. EOMI. Nares patent. Mucous membranes moist. Neck is supple without nuchal rigidity. HEART: Regular rate and rhythm without murmurs gallops or rubs. LUNGS: Clear to auscultation bilaterally without wheezes, rales or rhonchi. No retractions or accessory muscle use. ABDOMEN: Positive bowel sounds x 4. Normal tympanic percussion. Soft, nontender, without masses or organomegaly. Wellington sign negative. No guarding or rebound tenderness. No CVA tenderness MUSCULOSKELETAL: No gross musculoskeletal defects. NEURO: Patient was alert and oriented to person place and time. Normal sensation to light and sharp touch. No focal neurological deficits. Medical Decision & Procedures Laboratory Results 08/13/17 04:34 Red Blood Count 5.05, Mean Corpuscular Volume 90.1, Mean Corpuscular Hemoglobin 32.7, Mean Corpuscular Hemoglobin Concent 36.3, Mean Platelet Volume 9.8, Neutrophils (%) (Auto) 56.3, Lymphocytes (%) (Auto) 33.6, Monocytes (%) (Auto) 8.3, Eosinophils (%) (Auto) 1.3, Basophils (%) (Auto) 0.3, Neutrophils # (Auto) 7.55, Lymphocytes # (Auto) 4.51, Monocytes # (Auto) 1.11, Eosinophils # (Auto) 0.18, Basophils # (Auto) 0.04 08/13/17 04:34 Test 08/13/17 04:32 08/13/17 04:34 Urine Color RED Urine Appearance TURBID (CLEAR) Urine pH (4.5-7.5) Urine Specific [place] 1.026 (1.000-1.030) Urine Protein POS (NEG) Urine Glucose (UA) (NEG) Urine Ketones (NEG) Urine Occult Blood (NEG) Urine Nitrite (NEG) Urine Bilirubin (NEG) Urine Urobilinogen (NEG) Urine Leukocyte Esterase (NEG) Urine RBC >30 /hpf (0-4) Urine WBC >30 /hpf (0-5) Urine Epithelial Cells >30 /lpf (0-5) Urine Bacteria 1+ (NEG) Urine Mucus PRESENT (NONE PRSENT) White Blood Count 13.42 K/uL (4.8-10.8) Red Blood Count 5.05 M/uL (4.7-6.1) Hemoglobin 16.5 g/dL (14.0-18.0) Hematocrit 45.5 % (42-52) Mean Corpuscular Volume 90.1 fL (80-100) Mean Corpuscular Hemoglobin 32.7 pg (25-34) Mean Corpuscular Hemoglobin Concent 36.3 g/dl (32-36) Platelet Count 282 K/uL (130-400) Mean Platelet Volume 9.8 fL (7.4-10.4) Neutrophils (%) (Auto) 56.3 % Lymphocytes (%) (Auto) 33.6 % Monocytes (%) (Auto) 8.3 % Eosinophils (%) (Auto) 1.3 % Basophils (%) (Auto) 0.3 % Neutrophils # (Auto) 7.55 K/uL (1.4-6.5) Lymphocytes # (Auto) 4.51 K/uL (1.2-3.4) Monocytes # (Auto) 1.11 K/uL (0.11-0.59) Eosinophils # (Auto) 0.18 K/uL (0-0.5) Basophils # (Auto) 0.04 K/uL (0-0.2) RDW Standard Deviation 42.1 fL (36.4-46.3) RDW Coefficient of Variation 12.9 % (11.5-14.5) Immature Granulocyte % (Auto) 0.2 % Immature Granulocyte # (Auto) 0.03 K/uL (0.00-0.02) Anion Gap 8.0 mmol/L (3-11) Est Creatinine Clear Calc Drug Dose 116.4 ml/min Estimated GFR () 99.3 Estimated GFR (Non- 85.7 BUN/Creatinine Ratio 12.6 (10-20) Calcium Level 9.8 mg/dl (8.5-10.1) Total Bilirubin 0.7 mg/dl (0.2-1) Direct Bilirubin 0.1 mg/dl (0-0.2) Aspartate Amino Transf (AST/SGOT) 18 U/L (15-37) Alanine Aminotransferase (ALT/SGPT) 37 U/L (12-78) Alkaline Phosphatase 116 U/L (45-117) Total Protein 8.2 gm/dl (6.4-8.2) Albumin 4.3 gm/dl (3.4-5.0) Medications Administered Medications (Trade) Dose Ordered Sig/Alejandro Route Start Time Stop Time Status Last Admin Dose Admin Ketorolac Tromethamine (Toradol Inj) 15 mg NOW STAT IV 08/13/17 04:32 08/13/17 04:34 DC 08/13/17 04:37 15 MG Ondansetron HCl (Zofran Inj) 4 mg NOW STAT IV 08/13/17 04:32 08/13/17 04:34 DC 08/13/17 04:35 4 MG Morphine Sulfate (MoRPHine SULFATE INJ) 4 mg NOW STAT IV 08/13/17 05:27 08/13/17 05:28 DC 08/13/17 05:39 4 MG Ceftriaxone Sodium (Rocephin Inj) 1 gm NOW STAT IV 08/13/17 05:34 08/13/17 05:35 DC 08/13/17 05:42 1 GM ED Course Prior records/ancillary studies reviewed. Triage Nursing notes reviewed. The patient's history was concerning for right flank pain. Differential diagnosis: Etiologies such as renal colic, appendicitis, diverticulitis, mesenteric ischemia, aortic pathology, infections, inflammatory bowel disease, PUD, biliary pathology, UTI, as well as others were entertained. Physical examination findings: As above. ER treatment provided: Toradol, Zofran, home pack OxyIR On reassessment the patient felt better. Diagnostic interpretation by me: The labs revealed stable H&H urinalysis revealed hematuria and greater than 30 white blood cells and sent for culture. Imaging studies: CT of the abdomen and pelvis concerning for 10 mm calculi of the right ureterovesicular junction Consultation: A consultation was placed with Dr. Jordan, hospitalist. It appears that the patient has isolated renal colic from a right sided stone that was 10 mm with moderate hydro-ureter and urine was dirty appearing and was started on antibiotics. Patient was still in severe amount of pain. Medicine was consulted for possible admission. Patient is agreeable to treatment plan. By the evaluation outlined above emergent etiologies such as appendicitis, diverticulitis, mesenteric ischemia, aortic pathology, inflammatory bowel disease, PUD, biliary pathology , as well as others were deemed relatively unlikely. The pt informed about the findings as listed above. All questions were answered and pleased with the treatment. Case reviewed with my attending The chart was completed utilizing [employer] voice recognition software. Grammatical errors, random word insertions, pronoun errors, and incomplete sentences are an occassional consequence of this system due to software limitations, ambient noise, and hardware issues. Any formal questions or concerns about the content, text, or information contained within the body of this dictation should be directly addressed to the physician psych assistant for clarification. Medical Decision As above [place] Drug Monitoring Program Search Results: patient reviewed within database, no issues identified Medication Reconcilliation Current Medication List: was personally reviewed by me Blood Pressure Screening Patient's blood pressure: Normal blood pressure Impression Primary Impression: Renal colic on right side Departure Information Dispostion Being Evaluated By Hospitalist Condition GOOD Referrals Elton Abarca M.D. (PCP) Patient Instructions [facility]
[2017-08-14] MEDS: D5NSS + 20MEQ KCL 1,000 ML IV SCH ×2 (04:30→11:46)
[2017-08-14] MEDS ORDERED: NICOTINE 14 MG/24 HR TDSY TD SCH (06:45)
--- NOTE | 2017-08-14 07:56 | DIAGNOSTIC IMAGING REPORT ---
KUB HISTORY: right ureteral stone COMPARISON: Abdomen and pelvis CT 08/13/2017. FINDINGS: The bowel gas pattern is unremarkable. There are no dilated loops of small bowel to suggest an obstruction. There is again noted a 9 x 5 mm stone within the right ureterovesical junction. Additional small calcifications in the deep pelvis likely represent phleboliths. The patient's known punctate bilateral renal calculi are obscured by overlying bowel. No pneumoperitoneum or pneumatosis. IMPRESSION: A 9 x 5 mm stone within the right ureterovesical junction which is not significantly changed in position. Electronically signed by: Oleg Murdock M.D. 08/14/2017 7:55 AM Dictated Date/Time: 08/14/2017 7:53 AM
[2017-08-14] MEDS ORDERED: CEFTRIAXONE SOD INJ 1 GM in DEXTROSE 5% ADD-VANTAGE 50ML 50 ML IV SCH (08:00)
[2017-08-14 08:34] LABS: HEMATOCRIT 43.5 % (42-52); HEMOGLOBIN 15.2 g/dL (14.0-18.0); MEAN CELL VOLUME 92.6 fL (80-100); MEAN CORPUSCULAR HEMOGLOBIN 32.3 pg (25-34); MEAN CORPUSCULAR HGB CONC 34.9 g/dl (32-36); MEAN PLATELET VOLUME 10.1 fL (7.4-10.4); PLATELET COUNT 228 K/uL (130-400); RED CELL DISTRIBUTION WIDTH CV 12.8 % (11.5-14.5); RED CELL DISTRIBUTION WIDTH SD 43.6 fL (36.4-46.3)
[2017-08-14] MEDS: SERTRALINE HCL 50 MG TAB PO SCH (08:48)
[2017-08-14] MEDS: KETOROLAC TROMETHAMINE 30 MG/ML VIAL IV PRN (08:48)
[2017-08-14 08:59] VITALS: BP 110/78; PULSE 74; TEMP 37.3; O2SAT 97
[2017-08-14 09:14] LABS: CREATININE 1.11 mg/dl (0.60-1.40); POTASSIUM 3.3 mmol/L (3.5-5.1)
[2017-08-14] MEDS ORDERED: POTASSIUM CHLORIDE 20 MEQ TABCR PO STA (09:41)
--- NOTE | 2017-08-14 10:14 | Progress Note ---
Subjective Date of Service: Aug 14, 2017. Subjective Pt evaluation today including: conversation w/ patient, chart review, lab review Voiding: no voiding problems 22 yo male with 9mm right UVJ stone. Pt continues to c/o intermittent right flank pain 11/12. Currently pain free. Denies n/v. + gross hematuria. KUB reviewed this morning. The stone is visible. White count has normalized since admission. Problem List Medical Problems: (1) Cyst of epididymis Status: Acute (2) Hematuria Status: Acute (3) Kidney stone Status: Acute (4) Mood disorder Status: Acute (5) Narcotic abuse Status: Acute (6) Overdose Status: Acute (7) Renal calculus, right Status: Acute (8) Renal colic on right side Status: Acute (9) Renal colic on right side Status: Acute (10) Right flank pain Status: Acute (11) Suicidal ideation Status: Acute (12) Symptoms involving urinary system Status: Acute (13) Ureteral calculus, right Status: Acute Review of Systems Constitutional: No fever, No chills Respiratory: No shortness of breath Cardiac: No chest pain Abdomen: No pain, No nausea, No vomiting Male : + hematuria Heme: No abnormal bleeding/bruising Objective Vital Signs Date Time Temp Pulse Resp B/P (MAP) Pulse Ox O2 Delivery O2 Flow Rate FiO2 08/14/17 08:59 37.3 74 16 110/78 (89) 97 Room Air 08/13/17 23:40 Room Air 08/13/17 22:31 37.3 90 17 126/76 (93) 96 Room Air 82 136/75 (95) 83 112/61 (78) 08/13/17 15:30 Room Air 08/13/17 14:59 36.6 64 18 106/68 (81) 98 Room Air 114/64 (81) 130/84 (99) Physical Exam General Appearance: no apparent distress Eyes: normal inspection ENT: hearing grossly normal Neck: no JVD Respiratory/Chest: lungs clear, normal breath sounds, no respiratory distress, no accessory muscle use Cardiovascular: regular rate, rhythm, no JVD Abdomen: normal bowel sounds, non tender, soft Extremities: normal inspection Neurologic/Psychiatric: alert, normal mood/affect, oriented x 3 Skin: normal color Laboratory Results Last 24 Hours Test 08/14/17 08:02 White Blood Count 7.70 K/uL Red Blood Count 4.70 M/uL Hemoglobin 15.2 g/dL Hematocrit 43.5 % Mean Corpuscular Volume 92.6 fL Mean Corpuscular Hemoglobin 32.3 pg Mean Corpuscular Hemoglobin Concent 34.9 g/dl RDW Standard Deviation 43.6 fL RDW Coefficient of Variation 12.8 % Platelet Count 228 K/uL Mean Platelet Volume 10.1 fL Sodium Level 140 mmol/L Potassium Level 3.3 mmol/L Chloride Level 107 mmol/L Carbon Dioxide Level 28 mmol/L Anion Gap 5.0 mmol/L Blood Urea Nitrogen 9 mg/dl Creatinine 1.11 mg/dl Est Creatinine Clear Calc Drug Dose 126.9 ml/min Estimated GFR () 110.2 Estimated GFR (Non- 95.1 BUN/Creatinine Ratio 8.1 Random Glucose 90 mg/dl Calcium Level 9.0 mg/dl Magnesium Level 2.2 mg/dl Assessment and Plan A/P: 9mm right UVJ stone AFVSS. No evidence for sepsis. The pt's pain is currently controlled. Once again discussed cysto with stent placement vs ESWL this Saturday. The pt continues to prefer ESWL and avoid stent placement if possible. Will plan for right ESWL this Saturday on 08-16. Will discontinue Toradol for this reason. Avoid all NSAIDs and anticoagulation. Will need pain control with other alternative medications. Risks and benefits of the procedure discussed with the pt. All questions answered. Pt agreeable to the procedure at this time. Will check a pre-op chest x-ray and EKG give his hx of smoking and polysubstance abuse. Will provide a diet today. The pt is to f/u in our office upon discharge to complete ESWL scheduling. Pt OK for d/c home from [facility] if pain can be controlled on oral pain medication.
[2017-08-14] MEDS ORDERED: OXYCODONE/ACETAMINOPHEN 5-325 TAB PO PRN (10:30)
--- NOTE | 2017-08-14 11:22 | DIAGNOSTIC IMAGING REPORT ---
CHEST 2 VIEWS ROUTINE HISTORY: pre-op COMPARISON: Chest 06/16/2017. FINDINGS: The lungs are clear. Cardiac silhouette is normal in size. No pleural effusions. No pneumothorax. IMPRESSION: No acute process. Electronically signed by: Oleg Murdock M.D. 08/14/2017 11:21 AM Dictated Date/Time: 08/14/2017 11:20 AM
[2017-08-14] MEDS ORDERED: OXYC-57 PO (15:07)
[2017-08-14] MEDS ORDERED: FLM4 PO (15:07)
[2017-08-14] MEDS ORDERED: CPR500 PO (15:09)
--- NOTE | 2017-08-14 15:13 | Discharge Instructions ---
Discharge Instructions Date of Service Aug 14, 2017. Admission Reason for Admission: Hydronephrosis Due To Obstruction Of Ureter Discharge Discharge Diagnosis / Problem: Kidney Stone Discharge Goals Goal(s): Decrease discomfort, Improve function, Increase independence Activity Recommendations Activity Limitations: resume your previous activity . Instructions / Follow-Up Instructions / Follow-Up Renal Stone: - Please see the urologist when you leave here. - Start Ciprofloxacin twice a day tomorrow as you had antibiotics today - Plan for lithotripsy on Saturday. No Ibuprofen, Advil, Mortin, Aspirin prior to this - You may use Tylenol and will give some Percocet for pain - Continue Flomax daily to help with urinary flow until you get the stone removed Tobacco use-it is VERY IMPORTANT for you to QUIT SMOKING to help prevent you from having NUMEROUS future medical problems. Current Hospital Diet Patient's current hospital diet: Regular Diet Discharge Diet Recommended Diet: Regular Diet Pending Studies Studies pending at discharge: no Medical Emergencies . Who to Call and When: Medical Emergencies: If at any time you feel your situation is an emergency, please call 911 immediately. . Non-Emergent Contact Non-Emergency issues call your: Primary Care Provider Call Non-Emergent contact if: you have a fever, your pain is concerning you, you have any medication questions . . "Provider Documentation" section prepared by Mariella Saul. . [place] Drug Monitoring Program Search Results: patient reviewed within database, no issues identified
[2017-08-14 15:17] VITALS: BP 150/89; PULSE 81; TEMP 37.1; O2SAT 96
[2017-08-14 15:53] VITALS: BP 150/89; PULSE 81; TEMP 37.1; O2SAT 96
[2017-08-14] MEDS ORDERED: ONDA4TAB10 SL (18:27)
--- NOTE | 2017-08-14 20:22 | Discharge Summary ---
Discharge Summary Date of Service Aug 14, 2017. Discharge Summary Admission Date: Aug 13, 2017 at 17:50 Discharge Date: Aug 14, 2017 Discharge Disposition: Home Principal Diagnosis: R Obstructing Renal Stone with Hydronephrosis Problems/Secondary Diagnoses: 1) Recurrent renal calculi - required lithotripsy 02/2017 2) Polysubstance abuse - including Benzodiazepines, THC, Methamphetamine, opiates 3) Depression - admitted with suicidal ideation 06/2017 Hypokalemia Tobacco user Procedures: ABDOMEN AND PELVIS CT WITHOUT CONTRAST FINDINGS: There is a 9 x 5 mm obstructing stone within the distal right ureter immediately proximal to the right ureterovesical junction. This results in moderate right hydroureteronephrosis. There is an additional punctate stone seen within both kidneys. No left-sided hydronephrosis. The lung bases are clear. No fractures within the visualized osseous structures. The unenhanced liver, spleen, adrenal glands, and pancreas are unremarkable. Normal gallbladder. No retroperitoneal lymphadenopathy. The bladder is not well-distended. Suboptimal evaluation for bowel pathology due to the lack of intravenous and oral contrast. However, there is no definite bowel wall thickening or obstruction. Normal appendix. IMPRESSION: 1. A 9 x 5 mm obstructing stone within the distal right ureter resulting in moderate right hydroureteronephrosis. 2. Additional punctate bilateral renal calculi. Consultations: 1. Urology Medication Reconciliation New Medications: Ciprofloxacin (Ciprofloxacin HCl) 500 Mg Tab 500 MG PO BID for 5 Days, #10 TABS Start on 08/15. Ondasetron Odt (Zofran Odt) 4 Mg Tab 4 MG SL Q6H for Nausea for 3 Days, #12 TAB Oxycodone/Acetaminophen 5MG/325MG (Percocet 5MG/325MG) Tab 1-2 TAB PO Q4H PRN for Pain for 3 Days, #20 TAB PAIN Tamsulosin HCl (Tamsulosin HCl) 0.4 Mg Cap 0.4 MG PO HS for 14 Days, #14 CAP Continued Medications: Sertraline Hcl (Zoloft) 50 Mg Tab 50 MG PO QAM, TAB Discharge Exam Review of Systems: Constitutional: No fever, No chills ENT: No nasal symptoms, No sore throat Respiratory: No cough, No shortness of breath Cardiovascular: No chest pain Abdomen: No pain, No nausea, No vomiting, No diarrhea, No constipation Musculoskeletal: No swelling, No calf pain Genitourinary - Male: + problem reported (denies flank pain), No hematuria, No dysuria Hematologic / Lymphatic: No abnormal bleeding/bruising Physical Exam: General Appearance: WD/WN, no apparent distress Eyes: sclerae normal ENT: hearing grossly normal Neck: supple, no JVD, trachea midline Respiratory/Chest: lungs clear, normal breath sounds, no respiratory distress, no accessory muscle use Cardiovascular: regular rate, rhythm, no gallop, no murmur Abdomen / GI: normal bowel sounds, non tender, soft, + pertinent finding ( no CVA tenderness) Extremities: no pedal edema Neurologic/Psychiatric: alert, oriented x 3 Skin: normal color, warm/dry Hospital Course ADMISSION: 22 y/o M Hx polysubstance abuse, depression, recurrent renal calculi - required lithotripsy 02/2017. Developed acute R flank pain, rigors, nausea and vomiting. He presented to the ER where a CT abdomen was able to confirm a 10mm obstructing calculus at the R UV junction with resultant hydronephrosis. A UA is equivocal. Mild leukocytosis is present. The pt is afebrile on admission. HOSPITAL COURSE: Mr. Ceron was admitted for R obstructing renal calculi with hydronephrosis. He opted for ESWL which will be performed on Wednesday 08/16 by [facility]. His UA was suggestive of UTI however Cx with no growth. Utilized Rocephin which resolved his leukocytosis and will complete a course of Ciprofloxacin BID x 7 days given plans for lithotripsy. Will continue Flomax and Zofran if nausea would occur. Did give a 3 days supply of Percocet and he was looked-up in the portal. Would continue to monitor given his H/O polysubstance abuse. Pain currently controlled and tolerated diet. Was instructed to go to the Urology office after discharge today prior to seeing them on Saturday. Total Time Spent: Greater than 30 minutes This includes examination of the patient, discharge planning, medication reconciliation, and communication with other providers. Discharge Instructions Please refer to the electronic Patient Visit Report (Discharge Instructions) for additional information. Additional Copies To Elton Abarca M.D. 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 Discussed with RADHA Saul and agree with findings and plan as documented in the note. Any exceptions or clarifications are listed here: Patient improved now, no further pain in the right flank, is eating, no further nausea vomiting. Remains afebrile. No growth on urine culture Vitals reviewed NAD, alert awake oriented 3 RRR no MGR Clear to auscultation bilaterally, breathing unlabored, no wheezes crackles or rhonchi Abdomen positive bowel sounds soft nontender, no further right CVA tenderness Extremities no edema 22-year-old male here with right-sided 9 mm ureterolithiasis with right-sided hydronephrosis and mild acute renal insufficiency. Abnormal UA suggestive of infection but no fever. Had leukocytosis which now resolved Creatinine improved. Received IV fluids, Flomax, pain control, IV Rocephin, and urology consultation -Discharge on Flomax, Cipro, Percocet as needed pain, encouraged p.o. fluids -Plan for follow-up with urology on Saturday for lithotripsy -Hypokalemia-replaced with oral and IV potassium Stable for discharge to home Tobacco abuse-Strongly encouraged to quit smoking and discussed the use of nicotine replacement therapy for this. Documented By: Mulu Manuel
== END 2017-08-14 16:14 | disposition home or self-care (01) | DRG 694 ==
LOC: C.EDB 04:13 → C.MSW 06:51 → ENRESERV 07:17 → OBSVTOIN 17:50
PROVIDERS: ADMIT Internal Medicine; ATTEND Family Medicine
DX: N13.2 Hydronephrosis with renal and ureteral calculous obstruction (principal); E87.6 Hypokalemia; F11.10 Opioid abuse, uncomplicated; F12.10 Cannabis abuse, uncomplicated; F32.9 Major depressive disorder, single episode, unspecified; F17.200 Nicotine dependence, unspecified, uncomplicated; F19.10 Other psychoactive substance abuse, uncomplicated; Z87.442 Personal history of urinary calculi; Z84.1 Family history of disorders of kidney and ureter

== ENCOUNTER → 2017-08-16 | Day surgery (SDC) | payer OTHER ==
--- NOTE | 2017-08-15 17:05 | [facility] History and Physical ---
History General Date of Service: Aug 15, 2017. Chief Complaint: right flank pain Primary Care Physician: Elton Abarca M.D. Pt seen a urologist before?: Yes (Dr. Brown ) If yes, why?: nephrolithiasis History of Present Illness 22 yo male with hx of nephrolithiasis. Previous ESWL last fall for a 1cm stone. Pt seen in the hospital this week for right flank pain. CT showing a 9mm distal right ureteral stone. KUB from 08-14-17 showed persistent stone at the right UVJ. Pt continues to experience intermittent right flank pain. He declined a stent while inpatient, and preferred right ESWL. Imaging Imaging: CT, KUB Laboratory Labs were reviewed and are within normal limits unless listed below. Labs are available in the chart and at [facility] Problem List Medical Problems: (1) Cyst of epididymis Status: Acute (2) Hematuria Status: Acute (3) Kidney stone Status: Acute (4) Mood disorder Status: Acute (5) Narcotic abuse Status: Acute (6) Overdose Status: Acute (7) Renal calculus, right Status: Acute (8) Renal colic on right side Status: Acute (9) Renal colic on right side Status: Acute (10) Right flank pain Status: Acute (11) Suicidal ideation Status: Acute (12) Symptoms involving urinary system Status: Acute (13) Ureteral calculus, right Status: Acute Past History Past Medical History: depression (admitted with suicidal ideation 06/2017), kidney stones, other (polysubstance abuse- including benzos, THC, methamphetamine, opiates) Past Surgical History: lithotripsy Family History kidney stones, renal disease Social History Hx Tobacco Use In Past Year?: Yes (1 PPD) Smoking Status: Current Every Day Smoker (1 pack per day ) Drug use: cocaine, marijuana, other (benzos, methamphetamine, opiates) Marital status: in relationship Occupation status: unemployed Allergies Coded Allergies: Nickel (Verified Allergy, Mild, RASH -- FROM [employer], 08/13/17) Medications Home Medications: Home Meds and Scripts Medications Dose Route/Sig Max Daily Dose Days Date Category Dose Instructions Zofran Odt (Ondansetron HCl) 4 Mg Tab 4 Mg SL Q6H 3 08/14/17 Rx Ciprofloxacin HCl (Ciprofloxacin) 500 Mg Tab 500 Mg PO BID 5 08/14/17 Rx Start on 08/15. Percocet 5MG/325MG (Oxycodone/Acetaminophen) Tab 1-2 Tab PO Q4H PRN 3 08/14/17 Rx PAIN Tamsulosin HCl 0.4 Mg Cap 0.4 Mg PO HS 14 08/14/17 Rx Zoloft (Sertraline Hcl) 50 Mg Tab 50 Mg PO QAM 08/13/17 Reported Review of Systems Review of Systems Constitutional: No fever, No chills Eyes: No double vision Neurological: No dizzy Endocrine: No excessive thirst, No too hot, No too cold Gastrointestinal: + abdominal pain (intermittent right flank pain ), No nausea , No vomiting Cardiovascular: No chest pain Respiratory: No shortness of breath Skin: No rash Musculoskeletal: No back pain Male : No painful urination, No blood in urine Physical Exam Physical Exam: General Appearance: no apparent distress Eyes: bilateral eyes normal inspection ENT: hearing grossly normal Neck: supple, no JVD Respiratory/Chest: lungs clear, normal breath sounds, no respiratory distress, no accessory muscle use Cardiovascular: regular rate, rhythm, no JVD Gastrointestinal: Abdomen: normal abdomen, pertinent finding (bowel sounds present all 4 quadrants, soft, non-tender, No HSM ) Extremities: normal inspection Neurologic/Psychiatric: alert, normal mood/affect, oriented x 3 Skin: normal color Assessment & Plan Assessment & Plan Treatment Planned: ESWL Assessment & Plan: A/P: 9mm right UVJ stone Will plan to proceed with right ESWL. Risks and benefits of the procedure discussed with the pt. All questions answered. Pt agrees to the procedure at this time.
[~2017-08-16] MED LIST changes: +ATROPINE SULFATE 0.1 MG/ML 5ML SYR IV PRN; +CPR500 PO; +EpHEDrine SULFATE INJ 50 MG/ML AMP IV PRN; +FENTANYL CITRATE INJ 50 MCG/1 ML 2 ML VIAL IV PRN; +FLM4 PO; +FLUMAZENIL 0.1 MG/1 ML 10 ML VIAL IV PRN; +HYDROmorphone INJ 2 MG/ML SYR/VIAL IV PRN; +LABETALOL HCL IV 5 MG/ML 20ML IV PRN; +MEPERIDINE HCL 25 MG/ML CARP IV PRN; +NALOXONE HCL 0.4 MG/1 ML VIAL/CARP IV PRN; -NCR2 MT; -NICO21DI4 EXT; +ONDA4TAB10 SL; +ONDANSETRON INJ 2 MG/ML 2 ML VIAL IV PRN; +OXYC-57 PO; +PHENYLEPHRINE 100MCG/ML 5ML SYR IV PRN; +SERT1TAB71 PO; -ZLF50 PO
--- NOTE | 2017-08-16 10:36 | DIAGNOSTIC IMAGING REPORT ---
KUB HISTORY: Follow-up study in a patient with right-sided kidney stone N20.0 COMPARISON: KUB 08/14/2017, CT 08/13/2017 FINDINGS: The bowel gas pattern is non-obstructive. There is no organomegaly. The previously noted linear 7 mm calculus of the right distal ureter is not identified. Renal shadows are partially obscured by bowel gas. Bilateral nephrolithiasis is not appreciated by plain film radiography. Phleboliths of the pelvis. No pneumoperitoneum or pneumatosis. No fracture. IMPRESSION: The previously noted 7 mm calculus of the distal right ureter is not identified. Electronically signed by: Kaushik Arvizu M.D. 08/16/2017 10:34 AM Dictated Date/Time: 08/16/2017 10:32 AM
== END | disposition home or self-care (01) ==
LOC: X.SURG 09:36
PROVIDERS: ATTEND Urology
DX: N20.0 Calculus of kidney (principal); Z53.8 Procedure and treatment not carried out for other reasons; F32.9 Major depressive disorder, single episode, unspecified; F17.200 Nicotine dependence, unspecified, uncomplicated; F14.10 Cocaine abuse, uncomplicated; F12.10 Cannabis abuse, uncomplicated; Z87.442 Personal history of urinary calculi; Z84.1 Family history of disorders of kidney and ureter

== ENCOUNTER → 2017-08-29 | Outpatient (CLI) | payer OTHER ==
[~2017-08-29] MED LIST changes: -ATROPINE SULFATE 0.1 MG/ML 5ML SYR IV PRN; -EpHEDrine SULFATE INJ 50 MG/ML AMP IV PRN; -FENTANYL CITRATE INJ 50 MCG/1 ML 2 ML VIAL IV PRN; -FLUMAZENIL 0.1 MG/1 ML 10 ML VIAL IV PRN; -HYDROmorphone INJ 2 MG/ML SYR/VIAL IV PRN; -LABETALOL HCL IV 5 MG/ML 20ML IV PRN; -MEPERIDINE HCL 25 MG/ML CARP IV PRN; -NALOXONE HCL 0.4 MG/1 ML VIAL/CARP IV PRN; -ONDA4TAB10 SL; -ONDANSETRON INJ 2 MG/ML 2 ML VIAL IV PRN; -PHENYLEPHRINE 100MCG/ML 5ML SYR IV PRN
--- NOTE | 2017-08-29 11:20 | DIAGNOSTIC IMAGING REPORT ---
EXAMINATION: RENAL ULTRASOUND CLINICAL HISTORY: N20.0 [id number] COMPARISON STUDY: 10/15/2016 FINDINGS: The right kidney measures 11.3 cm. The left kidney measures 10.7 cm. There is no evidence of hydronephrosis. There are no renal masses. No renal calculi were visualized on ultrasonographic evaluation. The bladder was not well-distended. Neither ureteral jet was visualized. The spleen is mildly prominent measuring 12.6 cm IMPRESSION : 1. No renal masses identified 2. No evidence of hydronephrosis. Electronically signed by: Brenden Pritchard M.D. 08/29/2017 11:19 AM Dictated Date/Time: 08/29/2017 11:18 AM
== END | disposition home or self-care (01) ==
LOC: C.ULTR 10:42
PROVIDERS: ATTEND Urology
DX: N20.0 Calculus of kidney (principal)

== ENCOUNTER 2020-04-25 20:21 | Inpatient (IN) ==
[2020-04-25] MEDS ORDERED: LACTATED RINGER'S 1,000 ML IV SCH (21:15)
[2020-04-25] MEDS ORDERED: ONDANSETRON INJ 2 MG/ML 2 ML VIAL IV STA ×2 (21:16→22:03)
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
[2020-04-25 21:38] LABS: Basophils # (auto) 0.01 K/uL (0-0.2); Basophils % (auto) 0.1 %; Hematocrit (blood only) 39.3 % (42-52); Hemoglobin 12.8 g/dL (14.0-18.0); Immature Granulocytes # (auto) 0.04 K/uL (0.00-0.02); Immature Granulocytes % (auto) 0.3 %; Lymphocytes # (auto) 1.93 K/uL (1.2-3.4); Lymphocytes % (auto) 14.6 %; Mean Corpuscular Hgb Conc 32.6 g/dL (32-36); Mean Corpuscular Volume 88.9 fL (80-100); Mean Platelet Volume 9.7 fL (7.4-10.4); Monocytes # (auto) 1.26 K/uL (0.11-0.59); Monocytes % (auto) 9.5 %; Neutrophils # (auto) 10.01 K/uL (1.4-6.5); Neutrophils % (auto) 75.5 %; Platelet Count 484 K/uL (130-400); RDW Coefficient of Variation 13.3 % (11.5-14.5); RDW Standard Deviation 43.5 fL (36.4-46.3); Red Blood Count 4.42 M/uL (4.7-6.1); White Blood Count 13.25 K/uL (4.8-10.8)
[2020-04-25 21:49] LABS: INR 1.2 (0.9-1.1); Partial Thromboplastin Time 27.6 Seconds (21.0-31.0); Prothrombin Time 12.9 Seconds (9.0-12.0)
[2020-04-25 21:56] LABS: Alanine Aminotransferase 37 U/L (12-78); Albumin Level 3.3 gm/dl (3.4-5.0); Aspartate Aminotransferase 32 U/L (15-37); BUN Creatinine Ratio 35.6 (10-20); Blood Urea Nitrogen 22 mg/dl (7-18); Calcium 10.8 mg/dl (8.5-10.1); Carbon Dioxide 30 mmol/L (21-32); Chloride 100 mmol/L (98-107); Creatinine Clr Calc Pharmacy 186.2 ml/min; Est GFR (African American) > 150.0; Est GFR (Non-African American) 140.8; Glucose 112 mg/dl (70-99); Magnesium 1.9 mg/dl (1.8-2.4); Potassium 3.5 mmol/L (3.5-5.1); Sodium 139 mmol/L (136-145)
[2020-04-25 22:01] LABS: Albumin Globulin Ratio 0.6 (0.9-2); Alkaline Phosphatase 108 U/L (45-117); Bilirubin,Total 0.2 mg/dl (0.2-1); Globulin 5.4 gm/dl (2.5-4.0); Total Protein 8.7 gm/dl (6.4-8.2); Troponin I < 0.015 ng/ml (0-0.045)
[2020-04-25 22:20] LABS: Appearance Urine Turbid (Clear); Bacteria Urine Automated 2+ (Negative); Blood Urine 3+ (Negative); Color Urine Dark Yellow; Epithelial Cell Urine Auto >30 /lpf (0-5); Glucose Urine UA Negative (Negative); Ketones Urine 1+ (Negative); Leukocyte Esterase Urine 3+ (Negative); Nitrite Urine Negative (Negative); Protein Urine 2+ (Negative); Specific Gravity Urine 1.033 (1.000-1.030); Urobilinogen Urine Negative (Negative); WBC Urine Automated >30 /hpf (0-5)
[2020-04-25] MEDS ORDERED: LACTATED RINGER'S 1,000 ML IV ONE (22:29)
[2020-04-25 22:41] LABS: Bilirubin Urine Negative (Negative); Ictotest Urine Negative (Negative)
[2020-04-25 23:07] LABS: Calcium Oxalate Crystals Urine Present (None Prsent)
[2020-04-25] MEDS ORDERED: PIPERACILL/TAZOBAC CONSULT ACTIVE PRN (23:17)
[2020-04-25] MEDS ORDERED: PIPERACILLIN/TAZOBACTAM 4.5 GM/120 ML BAG IV ONE (23:17)
[2020-04-25] MEDS ORDERED: METOCLOPRAMIDE HCL INJ 5 MG/ML 2 ML VIAL IV ONE (23:39)
[2020-04-25] MEDS ORDERED: D5W AND 1/2NSS 1,000 ML IV SCH (23:45)
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
[2020-04-26] MEDS ORDERED: COLLOIDAL OATMEAL TOP SCH (03:12)
[2020-04-26] MEDS ORDERED: VANCOMYCIN HCL 1,000 MG in SODIUM CHLORIDE 0.9% 250 ML IV SCH (03:12)
[2020-04-26] MEDS ORDERED: VANCOMYCIN CONSULT ACTIVE PRN (03:12)
[2020-04-26] MEDS ORDERED: D5W AND LACTATED RINGERS 1,000 ML IV SCH (03:12)
[2020-04-26] MEDS ORDERED: PIPERACILL/TAZOBAC CONSULT ACTIVE PRN (03:12)
[2020-04-26] MEDS ORDERED: MAGNESIUM HYDROXIDE SUSP 30 ML UDC PO PRN (03:12)
[2020-04-26] MEDS ORDERED: ACETAMINOPHEN 500 MG TAB PO PRN (03:12)
[2020-04-26] MEDS ORDERED: MELATONIN 3 MG TAB PO PRN (03:17)
[2020-04-26] MEDS ORDERED: SIMETHICONE 80 MG CHEW PO PRN (03:19)
[2020-04-26] MEDS ORDERED: VANCOMYCIN HCL 1,750 MG in SODIUM CHLORIDE 0.9% 500 ML IV SCH (04:00)
[2020-04-26] MEDS: PIPERACILLIN/TAZOBACTAM 3.375 GM in DEXTROSE 5% 100 ML IV SCH ×3 (07:10→21:40)
--- NOTE | 2020-04-26 08:02 | XRay Report ---
XR chest 1V portable CLINICAL HISTORY: SEPSIS COMPARISON STUDY: 06/16/2017 FINDINGS: The cardiac and mediastinal contours are normal. There is no evidence of focal pulmonary co nsolidation. There is no evidence of failure. No pleural effusions are visualized.[There is a thoraci c dextroscoliosis. Postsurgical changes are present within the cervical spine IMPRESSION: No active disease in the chest. ACT 112: Negative or not required by law. Electronically signed by: Brenden Pritchard M.D. 04/26/2020 8:01 AM
[2020-04-26 08:14] LABS: Basophils # (auto) 0.02 K/uL (0-0.2); Basophils % (auto) 0.2 %; Eosinophils # (auto) 0.06 K/uL (0-0.5); Eosinophils % (auto) 0.5 %; Hematocrit (blood only) 35.2 % (42-52); Hemoglobin 11.3 g/dL (14.0-18.0); Immature Granulocytes # (auto) 0.03 K/uL (0.00-0.02); Immature Granulocytes % (auto) 0.2 %; Lymphocytes # (auto) 2.33 K/uL (1.2-3.4); Lymphocytes % (auto) 18.4 %; Mean Corpuscular Hemoglobin 28.8 pg (25-34); Mean Corpuscular Hgb Conc 32.1 g/dL (32-36); Mean Corpuscular Volume 89.8 fL (80-100); Mean Platelet Volume 9.8 fL (7.4-10.4); Monocytes # (auto) 1.25 K/uL (0.11-0.59); Monocytes % (auto) 9.9 %; Neutrophils # (auto) 8.97 K/uL (1.4-6.5); Neutrophils % (auto) 70.8 %; Platelet Count 394 K/uL (130-400); RDW Coefficient of Variation 13.5 % (11.5-14.5); RDW Standard Deviation 44.6 fL (36.4-46.3); Red Blood Count 3.92 M/uL (4.7-6.1); White Blood Count 12.66 K/uL (4.8-10.8)
--- NOTE | 2020-04-26 08:33 | CT Scan Report ---
CT OF THE ABDOMEN AND PELVIS WITHOUT CONTRAST CLINICAL HISTORY: Nausea and vomiting. History of stones. COMPARISON STUDY: CT of the abdomen and pelvis August 13, 2017. KUB August 16, 2017. TECHNIQUE: Axial images of the abdomen and pelvis were obtained without IV contrast. Images were revi ewed in the axial, sagittal, and coronal planes. Automated exposure control was utilized for the minor dy. A dose lowering technique was utilized adhering to the principles of ALARA. FINDINGS: Visualized portions of the lower chest demonstrate subpleural left lower lobe opacity sugge stive of atelectasis. A few small left renal calculi measure up to 3 mm. There are no ureteral calcul i and there is no hydronephrosis or hydroureter. There are multiple small bladder calculi within the left posterior aspect of the bladder. A Dewitt balloon is present within the bladder as well as gas. B ladder is collapsed. No pneumatosis, free air or portal venous gas is present. Evaluation of the abdo men and pelvis is suboptimal on this unenhanced exam. Liver, spleen, adrenal glands and pancreas are unremarkable. The stomach is fluid-filled and distended. The first and second portions of the duodenu m are also fluid-filled and distended. There is caliber change of the duodenum at the level of the ao rta and superior mesenteric artery. The distance between these 2 vessels is diminished. The angle is also decreased. There is minimal presacral infiltration. No lymphadenopathy is present. There is no b iliary or pancreatic ductal dilatation. Note is made of a suspected right sided sacral decubitus ulce r. There is no CT evidence for osteomyelitis. IMPRESSION: 1. Fluid-filled, distended stomach and proximal to mid duodenum with caliber change at the level of t he abdominal aorta and SMA with decreased distance between these vessels. The findings favor SMA synd michael. 2. Small left renal calculi. Small bladder calculi. No ureteral calculi or hydronephrosis. 3. Suspected right-sided sacral decubitus ulcer. No CT evidence for osteomyelitis. ACT 112: Negative or not required by law. Electronically signed by: Akshat Eli M.D. 04/26/2020 8:32 AM
[2020-04-26 08:52] LABS: Alanine Aminotransferase 34 U/L (12-78); Albumin Globulin Ratio 0.7 (0.9-2); Albumin Level 2.9 gm/dl (3.4-5.0); Alkaline Phosphatase 91 U/L (45-117); Aspartate Aminotransferase 28 U/L (15-37); BUN Creatinine Ratio 36.9 (10-20); Bilirubin,Total 0.3 mg/dl (0.2-1); Blood Urea Nitrogen 19 mg/dl (7-18); Carbon Dioxide 31 mmol/L (21-32); Chloride 103 mmol/L (98-107); Creatinine Clr Calc Pharmacy 215.1 ml/min; Est GFR (African American) > 150.0; Est GFR (Non-African American) > 150.0; Globulin 4.4 gm/dl (2.5-4.0); Glucose 104 mg/dl (70-99); Potassium 2.9 mmol/L (3.5-5.1); Sodium 141 mmol/L (136-145); Total Protein 7.3 gm/dl (6.4-8.2)
[2020-04-26] MEDS ORDERED: COLLAGENASE OINT 30 GM TUBE TOP SCH (09:00)
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
[2020-04-26] MEDS: OXYBUTYNIN CHLORIDE 5 MG TAB PO SCH ×2 (09:27→21:38)
[2020-04-26] MEDS: MECLIZINE 12.5 MG TAB PO SCH ×3 (09:27→21:38)
[2020-04-26] MEDS: POLYETHYLENE (MIRALAX) 17 GM PACK PO SCH ×2 (09:27→21:38)
[2020-04-26] MEDS: bisacodyL 10 MG SUPP PR SCH (09:27)
[2020-04-26] MEDS: NYSTATIN POWDER 15GM BTL EXT SCH (09:27)
[2020-04-26] MEDS: SERTRALINE HCL 50 MG TABLET PO SCH (09:28)
[2020-04-26] MEDS: SENNA 8.6 MG TAB PO SCH (09:28)
[2020-04-26] MEDS: GABAPENTIN 300 MG CAP PO SCH ×3 (09:28→21:38)
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
[2020-04-26] MEDS: VANCOMYCIN HCL 1,250 MG in SODIUM CHLORIDE 0.9% 250 ML IV SCH ×2 (12:35→19:59)
[2020-04-26] MEDS: POTASSIUM CHLORIDE / WTR 10 MEQ/100 ML PLCT IV SCH ×4 (12:38→17:41)
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
--- NOTE | 2020-04-26 14:45 | XRay Report ---
XR chest 1V portable HISTORY: 25 years-old Male Acute Hypoxia COMPARISON: Chest radiograph 04/25/2020 TECHNIQUE: Portable AP view of the chest FINDINGS: Cardiac mediastinal and hilar silhouettes are unchanged. The patient is mildly rotated towards the le ft. No pneumothorax, pleural effusion, airspace consolidation or overt pulmonary edema. Bones appear grossly intact. An enteric tube courses below the diaphragm outside the [id number]. Fusion hardwar e of the cervical and upper thoracic spine redemonstrated. IMPRESSION: No acute process. ACT 112: Negative or not required by law. The above report was generated using voice recognition software. It may contain grammatical, syntax o r spelling errors. Electronically signed by: Kaushik Arvizu M.D. 04/26/2020 2:44 PM
--- NOTE | 2020-04-26 14:49 | Hospitalist Progress Note ---
Date of Service April 26, 2020 Assessment & Plan (1) SMAS (superior mesenteric artery syndrome): On CT: Fluid-filled, distended stomach and proximal to mid duodenum with caliber change at the level of the abdominal aorta and SMA with decreased distance between these vessels. The findings favor SMA syndrome. GI and gen surg saw patient - both recommending vascular surgery consult. Unfortunately we do not have any coverage for vascular surgery until May. At this point, patient is stable and abdomen is benign although he will not be able to feel increased pain. Will continue serial abdominal assessments, NG tube, IVF, electrolyte replacement and monitor. I discussed the situation with the patient that we do not have vascular surgery at this time but that I did not feel he needed urgent surgical care and we could see how conservative measures go. His goal is to be at home for John and really wants to avoid transferring to tertiary care or surgery and so would prefer to go this conservative route for now. -continue IVF - NPO - NG tube - if worsens will need to transfer to tertiary care for vascular surgery - antibiotic coverage with IV Zosyn and vancomycin (2) Neurogenic bladder: Patient had Dewitt as his self cath supplies did not come in this week Urology was consulted - no intervention necessary at this time Possible UTI though UA is consistent with indweling catheter, culture growing probable pseudomonas Continue antibiotic coverage (3) Sacral decubitus ulcer, stage IV: Wound care consulted and dressing changed, awaiting recs Continue Zosyn/vanc BC pending (4) Paraplegia following spinal cord injury: (5) Leukocytosis: GI vs UTI vs sacral decubitus infection Continue Zosyn/vanc repeat cbc am (6) Hypoxia: CXR is clear, dopplers lower extremities pending Continuous pulse ox, vital signs q4h Consulted pulm (7) Hypokalemia: Replaced repeat bmp am (8) DVT prophylaxis: Enoxaparin Admission and Anticipated Discharge Date Admission Date: April 26, 2020 Subjective This morning Mr. Ceron was feeling better, not nauseas. However toward afternoon he had desaturation event that was alleviated with suctioning and increased supplemental O2. I returned to the bedside at which time he was rolled on his left side so that wound care could administer to his pressure ulcer. His saturations dropped into the 60s and he felt sob. He was returned to his back to recover which took a number of minutes and 10L on oxymask. When he was back around 90% he was rolled again to finish up putting dressings over his wounds and he again desaturated. He was awake and alert the whole time but did report sob. He recovered his saturations again after laying on his back. Tramaine Jiménez PA-C was on the floor and came to check the patient bedside as pulmonary was consulted. He will place orders for doppler lower extremities and chest Xray Review of Systems Respiratory: + dyspnea; no cough Cardiovascular: no chest pain and no palpitations Gastrointestinal: no abdominal pain, no nausea and no vomiting Genitourinary: no dysuria and no urinary hesitancy Musculoskeletal: quadriplegic, cannot feel below nipple line Integumentary: pressure ulcer Neurologic: + paralysis Physical Exam Physical Exam: General: no distress Eyes: normal inspection, PERLL Respiratory: chest non tender, clear to auscultation, normal breath sounds, no respiratory distress, no accessory muscle use Cardiac: regular rate and rhythm, no rub or gallop, no murmur, no edema, no jvd GI/: active bowel sounds, no abd pain or tenderness, soft, non distended Extremities: quadriplegic, some use of arms but weak with hand contracture Neuro/Psych: alert and oriented x 3, normal mood and affect Skin: normal color, dry Results & Data Results & Data ([facility]) Vital Signs (Past 12 Hours) Vital Signs Temp Pulse Resp BP BP Pulse Ox 04/26/20 07:22 36.9 C 78 15 100/58 L 94 04/26/20 03:18 36.3 C L 80 18 119/61 95 PG Care Time/CCT Total # of Minutes Spent Total Time Spent with Patient: Total time spent is greater than 50% in coord ination of care (as documented) at patient's floor/unit and/or counseling patient: Coding Level of Care Code 85248 Subseq Hosp Care Lvl 3 Diagnoses SMAS (superior mesenteric artery syndrome) K55.1 Neurogenic bladder N31.9 Sacral decubitus ulcer, stage IV L89.154 Paraplegia following spinal cord injury G82.20 Leukocytosis D72.829 Hypoxia R09.02 Hypokalemia E87.6 DVT prophylaxis Z29.9
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
[2020-04-26] MEDS ORDERED: POTASSIUM CHLORIDE 40 MEQ in SODIUM CHLORIDE 0.9% 1000ML 1,000 ML IV SCH (15:00)
--- NOTE | 2020-04-26 15:35 | Ultrasound Report ---
ULTRASOUND BILATERAL LOWER EXTREMITY VENOUS CLINICAL HISTORY: Hypoxia. Paraplegia. COMPARISON STUDY: No priors. TECHNIQUE: Portable real-time, grayscale, and color Doppler sonography of the deep veins of the right and left lower extremity was performed from the inguinal crease to the calf. Compression and augment ation were utilized. FINDINGS: There is no sonographic evidence of deep venous thrombosis identified in the right or left lower extremity. The common femoral, superficial femoral, and popliteal veins are patent and normally compressible bilaterally. The greater saphenous vein and the profunda femoris vein at the junction w ith the common femoral vein are clear in both legs. The visualized calf veins are patent bilaterally. IMPRESSION: There is no sonographic evidence of deep venous thrombosis identified in the right or lef t lower extremity. ACT 112: Negative or not required by law. Electronically signed by: Tramaine Garcia M.D. 04/26/2020 3:33 PM
--- NOTE | 2020-04-26 16:12 | Electrocardiogram Report ---
Test Reason : Blood Pressure : / mmHG Vent. Rate : 074 BPM Atrial Rate : 074 BPM P-R Int : 134 ms QRS Dur : 094 ms QT Int : 496 ms P-R-T Axes : -09 050 065 degrees QTc Int : 550 ms Normal sinus rhythm Incomplete right bundle branch block Nonspecific ST and T wave abnormality Prolonged QT Abnormal ECG When compared with ECG of 14-AUG-2017 10:04, Incomplete right bundle branch block is now Present QT has lengthened Confirmed by Rishi Sapp ([id number]) on 04/26/2020 4:12:33 PM Referred By: REFERRED SELF Confirmed By:Rishi Sapp
[2020-04-26] MEDS ORDERED: guaiFENesin 600 MG TABCR PO SCH (21:00)
--- NOTE | 2020-04-26 23:23 | Billing Data ---
Date of Service April 26, 2020 Coding Level of Care Code 55810 Initial Inpt Care Lvl 3
[2020-04-27] MEDS ORDERED: NSS + 20MEQ KCL 20 MEQ/1,000 ML BAG IV SCH (01:00)
[2020-04-27] MEDS: VANCOMYCIN HCL 1,250 MG in SODIUM CHLORIDE 0.9% 250 ML IV SCH (04:58)
[2020-04-27] MEDS: PIPERACILLIN/TAZOBACTAM 3.375 GM in DEXTROSE 5% 100 ML IV SCH ×3 (05:02→23:19)
[2020-04-27] MEDS: POLYETHYLENE (MIRALAX) 17 GM PACK PO SCH ×2 (08:56→21:40)
[2020-04-27] MEDS: MECLIZINE 12.5 MG TAB PO SCH ×3 (08:56→21:39)
[2020-04-27] MEDS: OXYBUTYNIN CHLORIDE 5 MG TAB PO SCH ×2 (08:56→21:39)
[2020-04-27] MEDS: GABAPENTIN 300 MG CAP PO SCH ×3 (08:57→21:40)
[2020-04-27] MEDS: SERTRALINE HCL 50 MG TABLET PO SCH (08:57)
[2020-04-27] MEDS: SENNA 8.6 MG TAB PO SCH (08:57)
[2020-04-27 09:29] LABS: Basophils # (auto) 0.02 K/uL (0-0.2); Basophils % (auto) 0.1 %; Eosinophils % (auto) 0.7 %; Hematocrit (blood only) 39.6 % (42-52); Hemoglobin 12.5 g/dL (14.0-18.0); Immature Granulocytes # (auto) 0.03 K/uL (0.00-0.02); Immature Granulocytes % (auto) 0.2 %; Lymphocytes # (auto) 1.79 K/uL (1.2-3.4); Lymphocytes % (auto) 12.9 %; Mean Corpuscular Hemoglobin 28.8 pg (25-34); Mean Corpuscular Hgb Conc 31.6 g/dL (32-36); Mean Corpuscular Volume 91.2 fL (80-100); Mean Platelet Volume 9.7 fL (7.4-10.4); Monocytes # (auto) 1.76 K/uL (0.11-0.59); Monocytes % (auto) 12.7 %; Neutrophils # (auto) 10.17 K/uL (1.4-6.5); Neutrophils % (auto) 73.4 %; Platelet Count 324 K/uL (130-400); RDW Coefficient of Variation 13.4 % (11.5-14.5); RDW Standard Deviation 44.7 fL (36.4-46.3); Red Blood Count 4.34 M/uL (4.7-6.1); White Blood Count 13.87 K/uL (4.8-10.8)
[2020-04-27 09:55] LABS: BUN Creatinine Ratio 20.3 (10-20); Calcium 10.1 mg/dl (8.5-10.1); Creatinine Clr Calc Pharmacy 121.9 ml/min; Potassium 3.2 mmol/L (3.5-5.1)
[2020-04-27] MEDS: bisacodyL 10 MG SUPP PR SCH (10:15)
[2020-04-27] MEDS ORDERED: POTASSIUM CHLORIDE 40 MEQ in D5W AND 1/2NSS 1,000 ML IV SCH (10:30)
[2020-04-27] MEDS: ENOXAPARIN INJ 40 MG/0.4 ML SYR SQ SCH (10:33)
[2020-04-27] MEDS: NYSTATIN POWDER 15GM BTL EXT SCH (10:33)
--- NOTE | 2020-04-27 11:22 | Hospitalist Progress Note ---
Date of Service April 27, 2020 Assessment & Plan (1) SMAS (superior mesenteric artery syndrome): On CT: Fluid-filled, distended stomach and proximal to mid duodenum with caliber change at the level of the abdominal aorta and SMA with decreased distance between these vessels. The findings favor SMA syndrome. GI and gen surg saw patient - both recommending vascular surgery consult. Unfortunately we do not have any coverage for vascular surgery until May. At this point, patient is stable and abdomen is benign although he will not be able to feel increased pain. Will continue serial abdominal assessments, NG tube, IVF, electrolyte replacement and monitor. I discussed the situation with the patient that we do not have vascular surgery at this time but that I did not feel he needed urgent surgical care and we could see how conservative measures go. His goal is to be at home for John and really wants to avoid transferring to tertiary care or surgery and so would prefer to go this conservative route for now. -continue IVF but will change to D51/2 NSS 40 k x bag and then 20K after that due to hypernatremia and hypokalemia - NPO - NG tube - patient apparently was drinking water and having ice chips overnight so not sure how accurate his NG tube output is but this morning he has been reliably NPO per nursing and already had put out 300 mls at the time of my assessment. Patient requested that the NG tube be removed and he be allowed to drink Gatorade, will hold off at the moment and monitor output. KUB does not show obstruction today. - Lactic acid 0.9 today - belly is soft with bowel sounds but as patient would not be able to alert us to increased abdominal pain will monitor lactic acid. - if worsens will need to transfer to tertiary care for vascular surgery - antibiotic coverage with IV Zosyn and vancomycin (2) Urinary tract infection: Patient had Dewitt as his self cath supplies did not come in this week Urology was consulted - no intervention necessary at this time Possible UTI though UA is consistent with indweling catheter, culture growing probable pseudomonas Continue antibiotic coverage (3) Hypokalemia: Replaced, IVF as above bmp am (4) Sacral decubitus ulcer, stage IV: Wound care consulted - wound vac placed Continue Zosyn - will dc vancomycin as wound culture growing gram negative but would have a low threshold to resume MRSA coverage should patient worsen as wound cultures can be somewhat unreliable. BC ngtd (5) Hypoxia: 04/26 with sats in the 60s when being rolled for wound care CXR is clear, dopplers lower extremities negative for DVT Will order d-dimer today as still requiring oxygen KUB showed maybe a lower lobe opacity, will await d-dimer and order chest CT vs CXR depending on result Continuous pulse ox, vital signs q4h D - dimer 04/27 1500 - will send for CTA chest Consulted pulm (6) Neurogenic bladder: (7) Hypercalcemia: Calcium corrects to 11 PTH low, vitamin D low Will check TSH tomorrow morning Unclear source of hypercalcemia at present (8) Hypernatremia: Na 148 - will change IVF from NSS 20k to D51/2NSS 40K and then 20K after one bag. Recheck bmp am (9) Paraplegia following spinal cord injury: (10) Nephrolithiasis: (11) H/O polydrug abuse: (12) DVT prophylaxis: Enoxaparin Admission and Anticipated Discharge Date Admission Date: April 26, 2020 Subjective Mr. Ceron feels much better today, no nausea. He requests that the NG tube be removed and he be able to drink Gatorade. He thinks he is passing gas (by smell, he cannot feel it due to paralysis). He does not feel sob. Sats are being maintained on 2L NC Review of Systems Constitutional: no fever, no chills and no body aches Respiratory: no cough and no dyspnea Cardiovascular: no chest pain and no dyspnea Gastrointestinal: no abdominal pain, no nausea and no vomiting Genitourinary: no dysuria and no urinary hesitancy Musculoskeletal: no back pain and no joint pain Integumentary: no rash Physical Exam Physical Exam: General: no distress Eyes: normal inspection, PERLL Respiratory: chest non tender, clear to auscultation, normal breath sounds, no respiratory distress, no accessory muscle use Cardiac: regular rate and rhythm, no rub or gallop, no murmur, no edema, no jvd GI/: active bowel sounds, no abd pain or tenderness, soft, non distended Extremities: paralysis from nipple line down, weakness bilateral arms with hand contractures Neuro/Psych: alert and oriented x 3, normal mood and affect Skin: normal color, dry Results & Data Results & Data ([facility]) Vital Signs (Past 12 Hours) Vital Signs Temp Pulse Resp BP Pulse Ox Pulse Ox 04/27/20 08:30 95 04/27/20 07:21 36.4 C L 58 L 18 137/83 92 04/27/20 03:31 36.9 C 58 L 18 134/71 97 04/26/20 23:37 37.0 C 76 17 125/69 96 PG Care Time/CCT Total # of Minutes Spent Total Time Spent with Patient: Total time spent is greater than 50% in coordination of care (as documented) at patient's floor/unit and/or counseling patient: Coding Level of Care Code 58439 Subseq Hosp Care Lvl 3 Diagnoses SMAS (superior mesenteric artery syndrome) K55.1 Urinary tract infection T83.511A; N39.0 Encounter type: initial encounter Indwelling urinary catheter type: indwelling urethral catheter Urinary tract infection type: catheter-associated UTI Hypokalemia E87.6 Sacral decubitus ulcer, stage IV L89.154 Hypoxia R09.02 Neurogenic bladder N31.9 Hypercalcemia E83.52 Hypernatremia E87.0 Paraplegia following spinal cord injury G82.20 Nephrolithiasis N20.0 H/O polydrug abuse F19.11 DVT prophylaxis Z29.9 (1) Urinary tract infection Encounter type: initial encounter Indwelling urinary catheter type: indwelling urethral catheter Urinary tract infection type: catheter-associated UTI Qualified Code(s): T83.511A - Infection and inflammatory reaction due to indwelling urethral catheter, initial encounter; N39.0 - Urinary tract infection, site not specified
--- NOTE | 2020-04-27 11:25 | XRay Report ---
KUB CLINICAL HISTORY: Small bowel obstruction. COMPARISON STUDY: CT of the abdomen and pelvis April 25, 2020. FINDINGS: Tip of nasogastric tube is within the gastric antrum. There is no evidence for a bowel obst ruction by radiography. There is possible left basilar opacity. Sensitivity is diminished on this sup ine exam, but there is no evidence for free air. IMPRESSION: 1. No evidence for a small bowel obstruction. 2. Interval placement of a nasogastric tube. Probable decrease in gastric distention, difficult to as sess by radiography. 3. Possible of lower lung opacity. ACT 112: Negative or not required by law. Electronically signed by: Akshat Eli M.D. 04/27/2020 11:24 AM
[2020-04-27] MEDS ORDERED: VANCOMYCIN TROUGH ONE (11:30)
[2020-04-27 12:12] LABS: D Dimer 1540 ug/L FEU (0-500)
[2020-04-27] MEDS ORDERED: OPTIRAY 320 125ml IV ONE (13:25)
--- NOTE | 2020-04-27 13:46 | CT Scan Report ---
CT ANGIOGRAM OF THE CHEST CLINICAL HISTORY: Dyspnea. Atypical chest pain. COMPARISON STUDY: Chest x-ray dated 04/26/2020. TECHNIQUE: Following the IV administration of 120 cc of Optiray 320, CT angiogram of the chest was pe rformed from the upper abdomen to the thoracic inlet utilizing the pulmonary embolus protocol. Images are reviewed in the axial, sagittal, and coronal planes. 3-D MIPS images are created and assessed. I V contrast was administered without complication. A dose lowering technique was utilized adhering to the principles of ALARA. CT DOSE: 966.24 mGycm FINDINGS: Thyroid: Imaged portions of the thyroid gland are normal in size and attenuation. Thoracic aorta: The thoracic aorta is normal in caliber and demonstrates standard 3-vessel arch anato my. No dissection is seen. Pulmonary vasculature: The pulmonary trunk is normal in caliber. There are no filling defects identif ied in main, lobar, or segmental pulmonary branches to suggest pulmonary embolus. Heart: The heart is normal in size and without pericardial effusion. Lungs and pleural spaces: Evaluation of the lung parenchyma is degraded by motion artifact. Small ble bs are present at the right apex. There is complete near complete consolidation throughout the left l ower lobe and mild volume loss. Debris-filled the left lower lobe bronchus. Segmental atelectasis is also noted in the lingula. Subsegmental atelectasis is at the right lung base. There is no pleural ef fusion. Debris is noted in the trachea. Mediastinum: There is no mediastinal lymphadenopathy. Ingris: Clear. Axillae: There is no axillary lymphadenopathy. Upper abdomen: An enteric tube extends below the diaphragm into the stomach. There are small nonobstr ucting left renal calculi. Skeletal structures: No lytic or blastic bony lesions are seen. Multiple mild compression deformities are seen in the upper thoracic spine. Extensive fusion hardware is seen at the cervicothoracic junct ion. IMPRESSION: 1. There is no evidence of pulmonary embolus in the main, lobar, or segmental pulmonary arteries. 2. There is near complete consolidation throughout the left lower lobe with mild associated volume lo ss. Additionally, debris-filled the left lower lobe airways. Correlate clinically for evidence of pne umonia, possibly aspiration related. 3. Segmental atelectasis is seen in the lingula. Dependent atelectasis is noted in the right lung bas e. 4. An enteric tube extends below the diaphragm into the stomach. 5. Left-sided nephrolithiasis. ACT 112: Negative or not required by law. Electronically signed by: Tramaine Garcia M.D. 04/27/2020 1:44 PM
[2020-04-27] MEDS: D5W AND 1/2NSS + 20MEQ KCL 20 MEQ/1,000 ML BAG IV SCH (21:40)
[2020-04-28] MEDS: PIPERACILLIN/TAZOBACTAM 3.375 GM in DEXTROSE 5% 100 ML IV SCH ×3 (05:33→21:18)
[2020-04-28] MEDS ORDERED: ALBUT/IPRATROP 3MG/0.5MG NEB 3 ML VIAL ONE (08:35)
[2020-04-28] MEDS: ALBUT/IPRATROP 3MG/0.5MG NEB 3 ML VIAL NEB SCH ×4 (08:45→19:08)
[2020-04-28 09:32] LABS: Hematocrit (blood only) 37.9 % (42-52); Hemoglobin 11.8 g/dL (14.0-18.0); Mean Corpuscular Hemoglobin 28.3 pg (25-34); Mean Corpuscular Hgb Conc 31.1 g/dL (32-36); Mean Corpuscular Volume 90.9 fL (80-100); Mean Platelet Volume 9.5 fL (7.4-10.4); Platelet Count 302 K/uL (130-400); RDW Coefficient of Variation 13.6 % (11.5-14.5); Red Blood Count 4.17 M/uL (4.7-6.1); White Blood Count 10.08 K/uL (4.8-10.8)
[2020-04-28] MEDS: MECLIZINE 12.5 MG TAB PO SCH ×3 (09:37→20:25)
[2020-04-28] MEDS: OXYBUTYNIN CHLORIDE 5 MG TAB PO SCH ×2 (09:38→20:25)
[2020-04-28] MEDS: GABAPENTIN 300 MG CAP PO SCH ×3 (09:38→20:25)
[2020-04-28] MEDS: bisacodyL 10 MG SUPP PR SCH (09:39)
[2020-04-28] MEDS: POLYETHYLENE (MIRALAX) 17 GM PACK PO SCH ×2 (09:39→20:23)
[2020-04-28] MEDS: NYSTATIN POWDER 15GM BTL EXT SCH (09:39)
[2020-04-28] MEDS: SENNA 8.6 MG TAB PO SCH (09:40)
[2020-04-28] MEDS: SERTRALINE HCL 50 MG TABLET PO SCH (09:40)
[2020-04-28] MEDS: ENOXAPARIN INJ 40 MG/0.4 ML SYR SQ SCH (09:40)
[2020-04-28 09:48] LABS: BUN Creatinine Ratio 15.3 (10-20); Calcium 9.8 mg/dl (8.5-10.1); Est GFR (African American) 142.3; Est GFR (Non-African American) 122.8; Magnesium 1.9 mg/dl (1.8-2.4)
[2020-04-28 09:58] LABS: Phosphorus 3.1 mg/dl (2.5-4.9); Thyroid Stimulating Hormone 0.357 uIu/ml (0.300-4.500)
[2020-04-28] MEDS: D5W AND 1/2NSS + 20MEQ KCL 20 MEQ/1,000 ML BAG IV SCH (10:33)
[2020-04-28] MEDS: POTASSIUM CHLORIDE 40 MEQ in D5W AND 1/2NSS 1,000 ML/1,000 ML BAG IV SCH (13:12)
--- NOTE | 2020-04-28 14:48 | Hospitalist Progress Note ---
Date of Service April 28, 2020 Assessment & Plan (1) SMAS (superior mesenteric artery syndrome): On CT: Fluid-filled, distended stomach and proximal to mid duodenum with caliber change at the level of the abdominal aorta and SMA with decreased distance between these vessels. The findings favor SMA syndrome. GI and gen surg saw patient - both recommending vascular surgery consult. Unfortunately we do not have any coverage for vascular surgery until May. At this point, patient is stable and abdomen is benign although he will not be able to feel increased pain. Will continue serial abdominal assessments, NG tube, IVF, electrolyte replacement and monitor. I discussed the situation with the patient that we do not have vascular surgery at this time but that I did not feel he needed urgent surgical care and we could see how conservative measures go. His goal is to be at home for John and really wants to avoid transferring to tertiary care or surgery and so would prefer to go this conservative route for now. -continue IVF but will change to D51/2 NSS 40 k x bag and then 20K after that due to hypernatremia and hypokalemia - NPO with chips and sips - NG tube dc'd 04/27 - KUB does not show obstruction 04/27 - Lactic acid 0.9 today - belly is soft with bowel sounds but as patient would not be able to alert us to increased abdominal pain will monitor lactic acid. - antibiotic coverage with IV Zosyn - Called [facility] to consult with their vascular surgeon, Dr. Tovar. He said that SMA syndrome is a general surgery issue not a vascular one and referred me back to general surgery. I did discuss with surgery the patient's case and should he require surgery he would need to transfer but at this point we can keep him here and monitor while providing conservative care. May need to reconsult GI for ways to increase calorie intake if he is not able to tolerate a high calorie liquid diet as weight gain needed to open the angle of the SMA back up. (2) Urinary tract infection: Patient had Dewitt as his self cath supplies did not come in this week Urology was consulted - no intervention necessary at this time Possible UTI though UA is consistent with indwelling catheter, culture growing pseudomonas and kiley Continue antibiotic coverage (3) Hypokalemia: Replaced, IVF as above bmp am (4) Sacral decubitus ulcer, stage IV: Wound care consulted - wound vac placed Continue Zosyn - discontinued vancomycin as wound culture growing pseudomonas but would have a low threshold to resume MRSA coverage should patient worsen as wound cultures can be somewhat unreliable. BC ngtd (5) Hypoxia: 04/26 with sats in the 60s when being rolled for wound care Initally CXR was clear however patient still hypoxic 04/27 so D-dimer was ordered and was elevated - CTA negative for PE - did show consolidation LLL - discussed with with pulmonology who feel it represents mucous plugging/aspiration - will order chest PT and possible bronch am KUB showed maybe a lower lobe opacity, will await d-dimer and order chest CT vs CXR depending on result Continuous pulse ox, vital signs q4h Consulted pulm (6) Neurogenic bladder: (7) Hypercalcemia: Calcium corrects to 11 PTH low, vitamin D low TSH low normal Unclear source of hypercalcemia at present (8) Hypernatremia: Resolved - continue IVF D5 1/2 nss 40K at 100 ml/hr (9) Paraplegia following spinal cord injury: (10) Nephrolithiasis: (11) H/O polydrug abuse: (12) DVT prophylaxis: Enoxaparin - will hold for tomorrow morning in preparation for bronchoscopy Admission and Anticipated Discharge Date Admission Date: April 26, 2020 Subjective Mr. Ceron is tolerating having the NG tube out well, he is able to have chips and sips. He has no complaints. Review of Systems Constitutional: no fever, no chills and no body aches Respiratory: no cough and no dyspnea Cardiovascular: no chest pain and no dyspnea on exertion Gastrointestinal: no abdominal pain, no nausea and no vomiting Genitourinary: no dysuria and no urinary hesitancy Musculoskeletal: no back pain and no joint pain Integumentary: no rash Physical Exam Physical Exam: General: no distress Eyes: normal inspection, PERLL Respiratory: chest non tender, clear to auscultation, normal breath sounds, no respiratory distress, no accessory muscle use Cardiac: regular rate and rhythm, no rub or gallop, no murmur, no edema, no jvd GI/: active bowel sounds, no abd pain or tenderness, soft, non distended Extremities: paralysis from nipple line down, weakness bilateral arms with hand contractures Neuro/Psych: alert and oriented x 3, normal mood and affect Skin: normal color, dry Results & Data Results & Data ([facility]) Vital Signs (Past 12 Hours) Vital Signs Temp Pulse Resp BP Pulse Ox 04/28/20 08:49 70 18 96 04/28/20 07:34 36.7 C 64 18 119/65 94 04/28/20 05:37 94 04/28/20 03:30 97 PG Care Time/CCT Total # of Minutes Spent Total Time Spent with Patient: Total time spent is greater than 50% in coordination of care (as documented) at patient's floor/unit and/or counseling patient: Coding Level of Care Code 20323 Subseq Hosp Care Lvl 3 Diagnoses SMAS (superior mesenteric artery syndrome) K55.1 Urinary tract infection T83.511A; N39.0 Encounter type: initial encounter Indwelling urinary catheter type: indwelling urethral catheter Urinary tract infection type: catheter-associated UTI Hypokalemia E87.6 Sacral decubitus ulcer, stage IV L89.154 Hypoxia R09.02 Neurogenic bladder N31.9 Hypercalcemia E83.52 Hypernatremia E87.0 Paraplegia following spinal cord injury G82.20 Nephrolithiasis N20.0 H/O polydrug abuse F19.11 DVT prophylaxis Z29.9 (1) Urinary tract infection Encounter type: initial encounter Indwelling urinary catheter type: indwelling urethral catheter Urinary tract infection type: catheter-associated UTI Qualified Code(s): T83.511A - Infection and inflammatory reaction due to indwelling urethral catheter, initial encounter; N39.0 - Urinary tract infection, site not specified
--- NOTE | 2020-04-28 15:55 | Pulmonology Progress Note ---
Date of Service April 28, 2020 Assessment & Plan (1) Atelectasis: CT chest 04/27/2020 personally reviewed: Atelectasis/collapse on the left lower lobe. Motion artifact. No mediastinal lymphadenopathy. No clear infiltrate appreciated --Left lower lobe collapse/atelectasis The likelihood of mucous plugging is high Patient does have poor cough reflex since he has a likely injury Chest vest therapy along with CoughAssist Mucomyst twice daily Guaifenesin Repeat chest x-ray in the morning If there is no improvement in the chest x-ray will do bronchoscopy. --Hypoxia Most likely from the collapse of the left lower lobe Improved from before Patient was saturating 96% on room air while laying on the right side at the time of examination Continue with O2 supplementation Risk and benefits of the procedure explained to the patient in depth. He understands and would go ahead with the procedure if needed. Consent signed, witnessed, dated and put in the chart Plan: N.p.o. post midnight Based on the chest x-ray in the morning was decided the patient will need bronchoscopy Continue with CoughAssist and chest vest therapy 4 times daily. Mucomyst nebulized twice daily along with DuoNeb's. Please note the above document was generated using voice recognition software. It may contain grammatical, syntax or spelling errors.Any formal questions or concerns about the content, text or information contained within the body of this dictation should be directly addressed to the provider for clarification. (2) Hypoxia: Admission and Anticipated Discharge Date Admission Date: April 26, 2020 Subjective Patient seen and examined at bedside. No acute distress, no dizziness overnight. NGT has been removed since yesterday. Patient is able to tolerate ice chips and little bit of water. Denies any belly pain. Shortness of breath is improved as per the patient. He did bring up a lot of phlegm after the NG tube was taken out yesterday. He is tolerating CoughAssist as well as chest vest. Denies any chest pain Review of Systems Review of Systems: All systems reviewed & are unremarkable except as noted in Subjective Physical Exam Physical Exam: Constitutional: No acute distress HEENT: EOMI, PERRLA, tracheostomy scar appreciated Respiratory system: Decreased air entry bilaterally, no wheeze, no rhonchi, no crackles CVS: S1-S2 positive, no murmurs or gallops Abdomen: Soft, nontender, nondistended, positive bowel sounds x4 Extremities: +2 pulses bilaterally radialis/ dorsalis pedis, no cyanosis, no edema Neuro: Awake alert oriented x3 Psych: Normal mood and affect G/U: Positive [place] Skin: no rashes, warm and dry Lymphatic: no cervical or axillary lymphadenopathy Results & Data Results & Data ([facility]) Vital Signs (Past 12 Hours) Vital Signs Temp Pulse Resp BP Pulse Ox 04/28/20 08:49 70 18 96 04/28/20 07:34 36.7 C 64 18 119/65 94 04/28/20 05:37 94 04/28/20 09:22 04/28/20 09:22 PG Care Time/CCT Total # of Minutes Spent Total Time Spent with Patient: Total time spent is greater than 50% in coord ination of care (as documented) at patient's floor/unit and/or counseling patient: Coding Level of Care Code 32524 Subseq Hosp Care Lvl 3 Diagnoses Atelectasis J98.11 Hypoxia R09.02
[2020-04-28] MEDS: ACETYLCYSTEINE 20% INHAL SOLN 4ML ***DISPENSED BY RESP. INH SCH ×2 (19:08→19:16)
[2020-04-29] MEDS ORDERED: D5W AND 1/2NSS 1,000 ML IV SCH
[2020-04-29] MEDS: POTASSIUM CHLORIDE 40 MEQ in D5W AND 1/2NSS 1,000 ML/1,000 ML BAG IV SCH ×2 (01:14→11:06)
[2020-04-29] MEDS: PIPERACILLIN/TAZOBACTAM 3.375 GM in DEXTROSE 5% 100 ML IV SCH ×3 (05:45→21:57)
[2020-04-29] MEDS: ALBUT/IPRATROP 3MG/0.5MG NEB 3 ML VIAL NEB SCH ×3 (07:09→20:09)
[2020-04-29] MEDS: ACETYLCYSTEINE 20% INHAL SOLN 4ML ***DISPENSED BY RESP. INH SCH ×2 (07:10→20:09)
--- NOTE | 2020-04-29 07:10 | XRay Report ---
XR chest 1V portable CLINICAL HISTORY: LLL collapse/mucous plugging COMPARISON STUDY: 04/26/2020 FINDINGS: The heart is normal in size. There is no focal pulmonary consolidation. There are no pleura l effusions. Postsurgical changes are present within the cervicothoracic spine. There is been interva l removal of the nasogastric tube.[ IMPRESSION: No active disease in the chest. ACT 112: Negative or not required by law. Electronically signed by: Brenden Pritchard M.D. 04/29/2020 7:08 AM
[2020-04-29 07:41] LABS: Basophils # (auto) 0.01 K/uL (0-0.2); Basophils % (auto) 0.1 %; Eosinophils # (auto) 0.24 K/uL (0-0.5); Eosinophils % (auto) 2.9 %; Hematocrit (blood only) 37.7 % (42-52); Hemoglobin 12.1 g/dL (14.0-18.0); Immature Granulocytes # (auto) 0.01 K/uL (0.00-0.02); Immature Granulocytes % (auto) 0.1 %; Lymphocytes # (auto) 2.21 K/uL (1.2-3.4); Lymphocytes % (auto) 26.8 %; Mean Corpuscular Hemoglobin 28.7 pg (25-34); Mean Corpuscular Hgb Conc 32.1 g/dL (32-36); Mean Corpuscular Volume 89.5 fL (80-100); Mean Platelet Volume 9.8 fL (7.4-10.4); Monocytes # (auto) 0.72 K/uL (0.11-0.59); Monocytes % (auto) 8.7 %; Neutrophils # (auto) 5.06 K/uL (1.4-6.5); Neutrophils % (auto) 61.4 %; Platelet Count 302 K/uL (130-400); RDW Coefficient of Variation 13.6 % (11.5-14.5); RDW Standard Deviation 44.6 fL (36.4-46.3); Red Blood Count 4.21 M/uL (4.7-6.1); White Blood Count 8.25 K/uL (4.8-10.8)
[2020-04-29] MEDS: SERTRALINE HCL 50 MG TABLET PO SCH (08:07)
[2020-04-29] MEDS: GABAPENTIN 300 MG CAP PO SCH ×3 (08:07→19:56)
[2020-04-29] MEDS: SENNA 8.6 MG TAB PO SCH (08:07)
[2020-04-29] MEDS: OXYBUTYNIN CHLORIDE 5 MG TAB PO SCH ×2 (08:08→19:55)
[2020-04-29] MEDS: bisacodyL 10 MG SUPP PR SCH (08:08)
[2020-04-29] MEDS: NYSTATIN POWDER 15GM BTL EXT SCH (08:08)
[2020-04-29] MEDS: MECLIZINE 12.5 MG TAB PO SCH ×3 (08:08→19:56)
[2020-04-29 08:16] LABS: BUN Creatinine Ratio 11.4 (10-20); Calcium 9.9 mg/dl (8.5-10.1); Creatinine Clr Calc Pharmacy 127.5 ml/min; Est GFR (African American) 141.7; Est GFR (Non-African American) 122.2; Potassium 3.7 mmol/L (3.5-5.1)
--- NOTE | 2020-04-29 08:41 | Pulmonology Progress Note ---
Date of Service April 29, 2020 Assessment & Plan (1) Atelectasis: CT chest 04/27/2020 personally reviewed: Atelectasis/collapse on the left lower lobe. Motion artifact. No mediastinal lymphadenopathy. No clear infiltrate appreciated --Left lower lobe collapse/atelectasis The likelihood of mucous plugging is high Patient does have poor cough reflex since he has history of cervical spine C4-C7 injury Chest vest therapy along with CoughAssist Mucomyst twice daily Guaifenesin --Hypoxia Most likely from the collapse of the left lower lobe Improved from before Patient was saturating 96% on room air while laying on the right side at the time of examination Continue with O2 supplementation Risk and benefits of the procedure explained to the patient in depth. He understands and would go ahead with the procedure if needed. Consent signed, witnessed, dated and put in the chart Plan: Chest x-ray from today shows resolvent of the left lower lobe collapse. No need for bronchoscopy. Recommend continuing with CoughAssist and chest vest therapy 4 times daily. Mucomyst nebulized twice daily along with DuoNeb's. Patient will benefit from CoughAssist as well as chest vest therapy even on discharge as he has poor cough from the previous surgery that he had to the cervical spine. No further recommendations from pulmonary perspective. Please recall if needed. Please note the above document was generated using voice recognition software. It may contain grammatical, syntax or spelling errors.Any formal questions or concerns about the content, text or information contained within the body of this dictation should be directly addressed to the provider for clarification. Admission and Anticipated Discharge Date Admission Date: April 26, 2020 Subjective Patient seen and examined at bedside. No acute distress, no adverse events overnight. Patient has been using incentive spirometry using up to 2050ml He has been using chest vest as well as CoughAssist. Denies any chest pain, shortness of breath significantly improved. Cough is decreased in intensity and the phlegm is also decreasing amount. Patient was lying on his bed mildly rotated to the left. Saturation was 98% on room air. He was not in any acute respiratory distress. Review of Systems Review of Systems: All systems reviewed & are unremarkable except as noted in Subjective Physical Exam Physical Exam: Constitutional: No acute distress HEENT: EOMI, PERRLA, tracheostomy scar appreciated Respiratory system: Decreased air entry bilaterally, no wheeze, no rhonchi, no crackles CVS: S1-S2 positive, no murmurs or gallops Abdomen: Soft, nontender, nondistended, positive bowel sounds x4 Extremities: +2 pulses bilaterally radialis/ dorsalis pedis, no cyanosis, no edema Neuro: Awake alert oriented x3 Psych: Normal mood and affect G/U: Positive Dewitt Skin: no rashes, warm and dry Lymphatic: no cervical or axillary lymphadenopathy Results & Data Results & Data ([facility]) Vital Signs (Past 12 Hours) Vital Signs Temp Pulse Pulse Resp BP Pulse Ox 04/29/20 07:12 74 18 95 04/29/20 06:52 37 C 73 16 113/68 94 04/28/20 22:52 36.8 C 88 16 97/56 L 96 04/29/20 07:23 04/29/20 07:23 PG Care Time/CCT Total # of Minutes Spent Total Time Spent with Patient: Total time spent is greater than 50% in coordination of care (as documented) at patient's floor/unit and/or counseling patient: Coding Level of Care Code 57839 Subseq Hosp Care Lvl 3 Diagnoses Atelectasis J98.11
[2020-04-29] MEDS: POLYETHYLENE (MIRALAX) 17 GM PACK PO SCH ×2 (09:27→19:54)
[2020-04-29] MEDS: D5W AND 1/2NSS + 20MEQ KCL 20 MEQ/1,000 ML BAG IV SCH ×2 (10:26→19:56)
--- NOTE | 2020-04-29 16:01 | Hospitalist Progress Note ---
Date of Service April 29, 2020 Assessment & Plan (1) SMAS (superior mesenteric artery syndrome): On CT: Fluid-filled, distended stomach and proximal to mid duodenum with caliber change at the level of the abdominal aorta and SMA with decreased distance between these vessels. The findings favor SMA syndrome. GI and gen surg saw patient - both recommending vascular surgery consult. Unfortunately we do not have any coverage for vascular surgery until May. Called [facility] 04/27 to consult with their vascular surgeon, Dr. Tovar. He said that SMA syndrome is a general surgery issue not a vascular one and referred me back to general surgery. I did discuss with surgery the patient's case and should he require surgery he would need to transfer, but at this point we can keep him here and monitor while providing conservative care. May need to reconsult GI for ways to increase calorie intake if he is not able to tolerate a high calorie liquid diet as weight gain is needed to open the angle of the SMA back up. -continue IVF D51/2 NSS 20 k x bag and then 20K after that due to hypernatremia and hypokalemia - Advanced diet to clear liquids 04/29 - as above will need to try and advance patient to high calorie liquid diet to promote weight gain. - NG tube dc'd 04/27 - KUB does not show obstruction 04/27 - Lactic acid 0.9 04/28 (2) Urinary tract infection: Patient had Palmer as his self cath supplies did not come in this week Urology was consulted - no intervention necessary at this time Possible UTI though UA is consistent with indwelling catheter, culture growing pseudomonas Continue antibiotic coverage with Zosyn Patient will need urology follow up at discharge (3) Hypokalemia: Replaced, IVF as above bmp am (4) Sacral decubitus ulcer, stage IV: Wound care consulted - wound vac placed Continue Zosyn - discontinued vancomycin as wound culture growing pseudomonas and kiley but would have a low threshold to resume MRSA coverage should patient worsen as wound cultures can be somewhat unreliable. BC ngtd Patient will need to follow with the Wound Center at discharge (5) Hypoxia: 04/26 with sats in the 60s when being rolled for wound care Initally CXR was clear however patient still hypoxic 04/27 so D-dimer was ordered and was elevated - CTA negative for PE - did show consolidation LLL - discussed with with pulmonology who feel it represents mucous plugging/aspiration - ordered chest PT and repeat CXR 04/29 without consolidation. No plans for bronchoscopy at this time Discontinue continuous pulse ox as patient's saturations have been stable. Will continue vital signs q4h Appreciate pulmonology assistance (6) Neurogenic bladder: Self caths at home - continue palmer catheter here (7) Hypercalcemia: Calcium corrects to 10.9 PTH low, vitamin D low TSH low normal Unclear source of hypercalcemia at present, continue to monitor (8) Hypernatremia: Resolved - continue IVF D5 1/2 nss 20K at 100 ml/hr (9) Paraplegia following spinal cord injury: (10) Nephrolithiasis: (11) H/O polydrug abuse: (12) DVT prophylaxis: Enoxaparin Admission and Anticipated Discharge Date Admission Date: April 26, 2020 Subjective Mr. Ceron is feeling better today. No nausea or vomiting, not short of breath today. Patient's mother updated over the phone Review of Systems Constitutional: no fever, no chills and no body aches Respiratory: no cough and no dyspnea Cardiovascular: no chest pain and no palpitations Gastrointestinal: no nausea and no vomiting Genitourinary: no dysuria and no urinary hesitancy (cannot feel bladder due to paraplegia) Musculoskeletal: no back pain and no joint pain Physical Exam Physical Exam: General: no distress Eyes: normal inspection, PERLL Respiratory: chest non tender, clear to auscultation, normal breath sounds, no respiratory distress, no accessory muscle use Cardiac: regular rate and rhythm, no rub or gallop, no murmur, no edema, no jvd GI/: active bowel sounds, no abd pain or tenderness, soft, non distended Extremities: normal range of motion, normal strength, non tender Neuro/Psych: alert and oriented x 3, normal mood and affect Skin: normal color, dry Results & Data Results & Data ([facility]) Vital Signs (Past 12 Hours) Vital Signs Temp Pulse Resp BP Pulse Ox 04/29/20 14:59 36.9 C 83 16 102/60 97 04/29/20 11:27 86 18 96 04/29/20 07:12 74 18 95 04/29/20 06:52 37 C 73 16 113/68 94 PG Care Time/CCT Total # of Minutes Spent Total Time Spent with Patient: Total time spent is greater than 50% in coordination of care (as documented) at patient's floor/unit and/or counseling patient: Coding Level of Care Code 59853 Subseq Hosp Care Lvl 3 Diagnoses SMAS (superior mesenteric artery syndrome) K55.1 Urinary tract infection T83.511A; N39.0 Encounter type: initial encounter Indwelling urinary catheter type: indwelling urethral catheter Urinary tract infection type: catheter-associated UTI Hypokalemia E87.6 Sacral decubitus ulcer, stage IV L89.154 Hypoxia R09.02 Neurogenic bladder N31.9 Hypercalcemia E83.52 Hypernatremia E87.0 Paraplegia following spinal cord injury G82.20 Nephrolithiasis N20.0 H/O polydrug abuse F19.11 DVT prophylaxis Z29.9 (1) Urinary tract infection Encounter type: initial encounter Indwelling urinary catheter type: indwelling urethral catheter Urinary tract infection type: catheter-associated UTI Qualified Code(s): T83.511A - Infection and inflammatory reaction due to indwelling urethral catheter, initial encounter; N39.0 - Urinary tract infection, site not specified
[2020-04-30] MEDS: D5W AND 1/2NSS + 20MEQ KCL 20 MEQ/1,000 ML BAG IV SCH ×3 (05:20→23:39)
[2020-04-30] MEDS: PIPERACILLIN/TAZOBACTAM 3.375 GM in DEXTROSE 5% 100 ML IV SCH ×3 (05:21→21:38)
[2020-04-30 06:36] LABS: Hematocrit (blood only) 39.1 % (42-52); Hemoglobin 12.5 g/dL (14.0-18.0); Mean Corpuscular Hemoglobin 28.5 pg (25-34); Mean Corpuscular Volume 89.1 fL (80-100); Mean Platelet Volume 10.4 fL (7.4-10.4); Platelet Count 340 K/uL (130-400); RDW Coefficient of Variation 13.6 % (11.5-14.5); RDW Standard Deviation 44.7 fL (36.4-46.3); Red Blood Count 4.39 M/uL (4.7-6.1); White Blood Count 7.01 K/uL (4.8-10.8)
[2020-04-30 07:08] LABS: Albumin Level 2.8 gm/dl (3.4-5.0); BUN Creatinine Ratio 7.4 (10-20); Calcium 9.9 mg/dl (8.5-10.1); Creatinine Clr Calc Pharmacy 137.1 ml/min; Est GFR (African American) 145.9; Est GFR (Non-African American) 125.9; Potassium 3.5 mmol/L (3.5-5.1)
[2020-04-30 07:11] LABS: Albumin Globulin Ratio 0.6 (0.9-2); Bilirubin,Total 0.4 mg/dl (0.2-1); Globulin 4.6 gm/dl (2.5-4.0); Total Protein 7.4 gm/dl (6.4-8.2)
[2020-04-30] MEDS: ALBUT/IPRATROP 3MG/0.5MG NEB 3 ML VIAL NEB SCH ×4 (07:20→22:01)
[2020-04-30] MEDS: ACETYLCYSTEINE 20% INHAL SOLN 4ML ***DISPENSED BY RESP. INH SCH ×2 (07:20→22:01)
[2020-04-30] MEDS: bisacodyL 10 MG SUPP PR SCH (08:55)
[2020-04-30] MEDS: MECLIZINE 12.5 MG TAB PO SCH ×3 (08:56→20:49)
[2020-04-30] MEDS: OXYBUTYNIN CHLORIDE 5 MG TAB PO SCH ×2 (08:56→20:49)
[2020-04-30] MEDS: GABAPENTIN 300 MG CAP PO SCH ×3 (08:56→20:49)
[2020-04-30] MEDS: POLYETHYLENE (MIRALAX) 17 GM PACK PO SCH ×2 (08:56→20:19)
[2020-04-30] MEDS: SENNA 8.6 MG TAB PO SCH (08:56)
[2020-04-30] MEDS: SERTRALINE HCL 50 MG TABLET PO SCH (08:56)
[2020-04-30] MEDS: ENOXAPARIN INJ 40 MG/0.4 ML SYR SQ SCH (08:57)
[2020-04-30] MEDS: NYSTATIN POWDER 15GM BTL EXT SCH (08:57)
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
[2020-04-30] MEDS: ONDANSETRON INJ 2 MG/ML 2 ML VIAL IV PRN (20:52)
[2020-04-30] MEDS: PROMETHAZINE HCL 12.5 MG in SODIUM CHLORIDE 0.9% 50 ML IV PRN (23:35)
[2020-05-01] MEDS: ONDANSETRON INJ 2 MG/ML 2 ML VIAL IV PRN ×3 (03:09→16:38)
[2020-05-01] MEDS: PIPERACILLIN/TAZOBACTAM 3.375 GM in DEXTROSE 5% 100 ML IV SCH ×3 (05:53→21:32)
[2020-05-01] MEDS: PROMETHAZINE HCL 12.5 MG in SODIUM CHLORIDE 0.9% 50 ML IV PRN ×3 (06:03→19:37)
[2020-05-01] MEDS: ACETYLCYSTEINE 20% INHAL SOLN 4ML ***DISPENSED BY RESP. INH SCH (07:39)
[2020-05-01] MEDS: ALBUT/IPRATROP 3MG/0.5MG NEB 3 ML VIAL NEB SCH ×2 (07:39→11:21)
[2020-05-01 07:47] LABS: Basophils # (auto) 0.01 K/uL (0-0.2); Basophils % (auto) 0.1 %; Eosinophils # (auto) 0.02 K/uL (0-0.5); Eosinophils % (auto) 0.2 %; Hemoglobin 12.6 g/dL (14.0-18.0); Immature Granulocytes # (auto) 0.02 K/uL (0.00-0.02); Immature Granulocytes % (auto) 0.2 %; Lymphocytes # (auto) 1.25 K/uL (1.2-3.4); Lymphocytes % (auto) 13.5 %; Mean Corpuscular Hemoglobin 28.8 pg (25-34); Mean Corpuscular Hgb Conc 32.3 g/dL (32-36); Mean Platelet Volume 10.5 fL (7.4-10.4); Monocytes # (auto) 0.42 K/uL (0.11-0.59); Monocytes % (auto) 4.5 %; Neutrophils # (auto) 7.57 K/uL (1.4-6.5); Neutrophils % (auto) 81.5 %; Platelet Count 385 K/uL (130-400); RDW Coefficient of Variation 13.6 % (11.5-14.5); RDW Standard Deviation 44.8 fL (36.4-46.3); Red Blood Count 4.38 M/uL (4.7-6.1); White Blood Count 9.29 K/uL (4.8-10.8)
[2020-05-01 08:04] LABS: Alanine Aminotransferase 95 U/L (12-78); Albumin Level 3.1 gm/dl (3.4-5.0); Aspartate Aminotransferase 26 U/L (15-37); BUN Creatinine Ratio 9.1 (10-20); Blood Urea Nitrogen 7 mg/dl (7-18); Calcium 10.5 mg/dl (8.5-10.1); Carbon Dioxide 29 mmol/L (21-32); Chloride 101 mmol/L (98-107); Creatinine Clr Calc Pharmacy 148.2 ml/min; Est GFR (African American) > 150.0; Glucose 134 mg/dl (70-99); Magnesium 1.9 mg/dl (1.8-2.4); Potassium 3.8 mmol/L (3.5-5.1); Sodium 137 mmol/L (136-145)
[2020-05-01 08:07] LABS: Albumin Globulin Ratio 0.6 (0.9-2); Alkaline Phosphatase 117 U/L (45-117); Bilirubin,Total 0.4 mg/dl (0.2-1); Globulin 4.8 gm/dl (2.5-4.0); Total Protein 7.9 gm/dl (6.4-8.2)
[2020-05-01] MEDS: bisacodyL 10 MG SUPP PR SCH (09:30)
[2020-05-01] MEDS: OXYBUTYNIN CHLORIDE 5 MG TAB PO SCH ×2 (09:30→20:28)
[2020-05-01] MEDS: MECLIZINE 12.5 MG TAB PO SCH ×3 (09:30→20:28)
[2020-05-01] MEDS: POLYETHYLENE (MIRALAX) 17 GM PACK PO SCH ×2 (09:31→20:28)
[2020-05-01] MEDS: CHOLECALCIFEROL 1,000 UNITS 25 MCG TAB PO SCH (09:31)
[2020-05-01] MEDS: GABAPENTIN 300 MG CAP PO SCH ×3 (09:31→20:28)
[2020-05-01] MEDS: SERTRALINE HCL 50 MG TABLET PO SCH (09:31)
[2020-05-01] MEDS: NYSTATIN POWDER 15GM BTL EXT SCH (09:31)
[2020-05-01] MEDS: SENNA 8.6 MG TAB PO SCH (09:31)
[2020-05-01] MEDS: ENOXAPARIN INJ 40 MG/0.4 ML SYR SQ SCH (09:32)
[2020-05-01] MEDS: D5W AND 1/2NSS + 20MEQ KCL 20 MEQ/1,000 ML BAG IV SCH ×2 (09:58→21:30)
--- NOTE | 2020-05-01 09:59 | XRay Report ---
XR KUB/Abdomen 1 view CLINICAL HISTORY: SMA syndrome COMPARISON STUDY: 04/27/2020 FINDINGS: The enteric tube has been removed. There is markedly improved aeration of the left lung bas e. A bladder catheter is visualized. The abdomen is relatively gasless. There is no pathologic bowel dilatation. There is suspected mild splenomegaly IMPRESSION: 1. Nonobstructive bowel gas pattern 2. Interval removal of the enteric tube 3. Interval placement of a bladder catheter 4. Mild splenomegaly 5. Marked interval improvement in the aeration of the left lung base ACT 112: Negative or not required by law. Electronically signed by: Brenden Pritchard M.D. 05/01/2020 9:58 AM
[2020-05-01] MEDS ORDERED: ALBUT/IPRATROP 3MG/0.5MG NEB 3 ML VIAL NEB PRN (12:45)
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
[2020-05-01] MEDS ORDERED: ACETAMINOPHEN 1,000 MG/100 ML VIAL IV STA (22:33)
--- NOTE | 2020-05-01 22:33 | Communication Note ---
Date of Service: May 01, 2020 Patient continuing to have worsening emesis. Brown/yellow emesis not feculent. Secondary to bowel obstruction likely SMA syndrome. Will replace NG tube on low intermittent suction and keep patient NPO. IV tylenol for discomfort.
[2020-05-02] MEDS: PIPERACILLIN/TAZOBACTAM 3.375 GM in DEXTROSE 5% 100 ML IV SCH ×2 (06:12→14:51)
[2020-05-02] MEDS ORDERED: ACETAMINOPHEN 1,000 MG/100 ML VIAL IV PRN (06:46)
--- NOTE | 2020-05-02 07:57 | XRay Report ---
KUB HISTORY: NG tube placement COMPARISON: KUB 05/01/2020. FINDINGS: Slightly rotated study. Nasogastric tube terminates below the diaphragm and likely extends into the stomach. There appears to be moderate to severe distention of the gas-filled stomach.. No r enal calculi. No ureteral calculi. No pneumoperitoneum or pneumatosis. IMPRESSION: The nasogastric tube extends below the diaphragm and likely terminates in the stomach. There appears to be moderate to severe distention of the stomach. ACT 112: Negative or not required by law. Electronically signed by: Oleg Murdock M.D. 05/02/2020 7:56 AM
[2020-05-02] MEDS: D5W AND 1/2NSS + 20MEQ KCL 20 MEQ/1,000 ML BAG IV SCH (08:01)
--- NOTE | 2020-05-02 08:24 | XRay Report ---
XR chest 1V portable CLINICAL HISTORY: SOB COMPARISON STUDY: No previous studies for comparison. FINDINGS: The cardiac and mediastinal contours are normal. There is no evidence of focal pulmonary co nsolidation. There is no evidence of failure. No pleural effusions are visualized.[There is been inte rval insertion of an enteric tube, which passes into the stomach. Postsurgical changes are present wi thin the cervicothoracic spine IMPRESSION: 1. Insertion of an enteric tube which passes into the stomach 2. No active disease in the chest. ACT 112: Negative or not required by law. Electronically signed by: Brenden Pritchard M.D. 05/02/2020 8:23 AM
[2020-05-02 08:31] LABS: Creatinine Clr Calc Pharmacy 140.6 ml/min; Est GFR (African American) 147.5; Est GFR (Non-African American) 127.2
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
[2020-05-02] MEDS ORDERED: PANTOprazole 40 MG in SYRINGE 0 ML IV SCH (09:40)
[2020-05-02] MEDS: POLYETHYLENE (MIRALAX) 17 GM PACK PO SCH (09:46)
[2020-05-02] MEDS: MECLIZINE 12.5 MG TAB PO SCH (09:46)
[2020-05-02] MEDS: SERTRALINE HCL 50 MG TABLET PO SCH (09:46)
[2020-05-02] MEDS: SENNA 8.6 MG TAB PO SCH (09:46)
[2020-05-02] MEDS: ENOXAPARIN INJ 40 MG/0.4 ML SYR SQ SCH (09:46)
[2020-05-02] MEDS: CHOLECALCIFEROL 1,000 UNITS 25 MCG TAB PO SCH (09:46)
[2020-05-02] MEDS: NYSTATIN POWDER 15GM BTL EXT SCH (09:46)
[2020-05-02] MEDS: OXYBUTYNIN CHLORIDE 5 MG TAB PO SCH (09:46)
[2020-05-02] MEDS: GABAPENTIN 300 MG CAP PO SCH (09:46)
--- NOTE | 2020-05-02 09:53 | Gastroenterology Progress Note ---
Date of Service May 02, 2020 Assessment & Plan (1) SMAS (superior mesenteric artery syndrome): Given patient has continued to need NG suction and relapsed with advancement of diet, it seems as though he has exhausted conservative measures. I agree with general surgery that he needs to be transferred for the initial recommendation of obtaining a vascular surgery consult. (2) Hematemesis: Questionably related to NG trauma. -Continue Protonix 40 mg BID -Can add Carafate liquid four times daily -Continue to monitor H/H and monitor for further bleeding Admission and Anticipated Discharge Date Admission Date: April 26, 2020 Supervising Physician Co-Signing Physician Notes I personally evaluated the patient and agree with the findings as documented by Eleanor Remy, PAC Exam: abd: soft, nt, nd agree with transfer to tertiary center at this time for SMA syndrome, has not responded to conservative treatment. Subjective Patient is a 25 yo male with SMA syndrome. He has been on NG suction for several days. His diet was advanced last night. He reports that after the advancement, he began having nausea and vomiting. There was reportedly visible blood in the emesis. He reports that since re-insertion of the NG tube he has not had further issues. H/H is 12.6/39.0. He denies other complaints. Review of Systems Constitutional: + fatigue Respiratory: no cough Cardiovascular: no chest pain Gastrointestinal: + nausea, + vomiting and + hematemesis now resolved Physical Exam Constitutional: well developed Neck: normal visual inspection Respiratory: normal respiratory effort Cardiovascular: Extremities: no edema Gastrointestinal (Abdomen): Percussion/Palpation: abdomen soft; abdomen nontender Musculoskeletal: Head/Neck/Chest: normocephalic Psychiatric: A+Ox3, euthymic affect Results & Data Results & Data ([facility]) Vital Signs (Past 12 Hours) Vital Signs Temp Pulse Resp BP Pulse Ox 05/02/20 07:39 36.5 C 119 H 16 95/55 L 84 L 05/02/20 04:26 115 H 24 87 L 05/02/20 04:19 119 H 87 L 05/02/20 04:16 120 H 87 L 05/02/20 04:15 84 L 05/02/20 03:54 91 05/02/20 03:53 120 H 89 L 05/02/20 00:16 36.7 C 84 14 137/89 94 Laboratory Results 04/30/20 04/30/20 04/29/20 Range/Units 06:12 06:12 07:23 WBC 7.01 (4.8-10.8) K/uL RBC 4.39 L (4.7-6.1) M/uL Hgb 12.5 L (14.0-18.0) g/dL Hct 39.1 L (42-52) % MCV 89.1 (80-100) fL MCH 28.5 (25-34) pg MCHC 32.0 (32-36) g/dL RDW Std Deviation 44.7 (36.4-46.3) fL RDW Coeff of Stephen 13.6 (11.5-14.5) % Plt Count 340 (130-400) K/uL MPV 10.4 (7.4-10.4) fL Sodium 141 (136-145) mmol/L Potassium 3.5 (3.5-5.1) mmol/L Chloride 107 (98-107) mmol/L Carbon Dioxide 26 (21-32) mmol/L Anion Gap 8.0 (3-11) BUN 6 L (7-18) mg/dl Creatinine 0.80 (0.6-1.4) mg/dl Est Cr Clr Drug Dosing 137.1 ml/min Est GFR ( Amer) 145.9 Est GFR (Non-Af Amer) 125.9 BUN/Creatinine Ratio 7.4 L (10-20) Glucose 99 (70-99) mg/dl Calcium 9.9 (8.5-10.1) mg/dl Total Bilirubin 0.4 (0.2-1) mg/dl AST 39 H (15-37) U/L ALT 115 H (12-78) U/L Alkaline Phosphatase 117 (45-117) U/L Total Protein 7.4 (6.4-8.2) gm/dl Albumin 2.8 L 2.7 L (3.4-5.0) gm/dl Globulin 4.6 H (2.5-4.0) gm/dl Albumin/Globulin Ratio 0.6 L (0.9-2) Diagnostic Findings CT OF THE ABDOMEN AND PELVIS WITHOUT CONTRAST CLINICAL HISTORY: Nausea and vomiting. History of stones. COMPARISON STUDY: CT of the abdomen and pelvis August 13, 2017. KUB August 16, 2017. TECHNIQUE: Axial images of the abdomen and pelvis were obtained without IV contrast. Images were reviewed in the axial, sagittal, and coronal planes. Automated exposure control was utilized for the study. A dose lowering technique was utilized adhering to the principles of ALARA. FINDINGS: Visualized portions of the lower chest demonstrate subpleural left lower lobe opacity suggestive of atelectasis. A few small left renal calculi measure up to 3 mm. There are no ureteral calculi and there is no hydronephrosis or hydroureter. There are multiple small bladder calculi within the left posterior aspect of the bladder. A Dewitt balloon is present within the bladder as well as gas. Bladder is collapsed. No pneumatosis, free air or portal venous gas is present. Evaluation of the abdomen and pelvis is suboptimal on this unenhanced exam. Liver, spleen, adrenal glands and pancreas are unremarkable. The stomach is fluid-filled and distended. The first and second portions of the duodenum are also fluid-filled and distended. There is caliber change of the duodenum at the level of the aorta and superior mesenteric artery. The distance between these 2 vessels is diminished. The angle is also decreased. There is minimal presacral infiltration. No lymphadenopathy is present. There is no biliary or pancreatic ductal dilatation. Note is made of a suspected right sided sacral decubitus ulcer. There is no CT evidence for osteomyelitis. IMPRESSION: 1. Fluid-filled, distended stomach and proximal to mid duodenum with caliber change at the level of the abdominal aorta and SMA with decreased distance between these vessels. The findings favor SMA syndrome. 2. Small left renal calculi. Small bladder calculi. No ureteral calculi or hydronephrosis. 3. Suspected right-sided sacral decubitus ulcer. No CT evidence for osteomyelitis. CBC Results Results Complete Blood Count Results: RBC 4.37 M/uL (4.7-6.1) L 05/02/20 WBC 18.72 K/uL (4.8-10.8) H 05/02/20 Hgb 12.5 g/dL (14.0-18.0) L 05/02/20 Hct 38.8 % (42-52) L 05/02/20 Plt Count 420 K/uL (130-400) H 05/02/20 PG Care Time/CCT Total # of Minutes Spent Total Time Spent with Patient: Total time spent is greater than 50% in coordination of care (as documented) at patient's floor/unit and/or counseling patient: Coding Level of Care Code 17576 Subseq Hosp Care Lvl 3 Diagnoses SMAS (superior mesenteric artery syndrome) K55.1 Hematemesis K92.0
--- NOTE | 2020-05-02 10:10 | XRay Report ---
XR chest 1V portable CLINICAL HISTORY: hypoxia COMPARISON STUDY: 05/02/2020 FINDINGS: The cardiac and mediastinal contours remain stable. An enteric tube passes the stomach. The re are postsurgical changes within the cervicothoracic spine.[There is no failure. There is no focal pulmonary consolidation. There are no pleural effusions. IMPRESSION: No active disease in the chest. ACT 112: Negative or not required by law. Electronically signed by: Brenden Pritchard M.D. 05/02/2020 10:09 AM
[2020-05-02] MEDS: bisacodyL 10 MG SUPP PR SCH (10:24)
[2020-05-02 10:57] LABS: Hematocrit (blood only) 38.8 % (42-52); Hemoglobin 12.5 g/dL (14.0-18.0); Mean Corpuscular Hemoglobin 28.6 pg (25-34); Mean Corpuscular Volume 88.8 fL (80-100); Mean Platelet Volume 10.1 fL (7.4-10.4); Platelet Count 420 K/uL (130-400); RDW Coefficient of Variation 13.5 % (11.5-14.5); RDW Standard Deviation 43.6 fL (36.4-46.3); Red Blood Count 4.37 M/uL (4.7-6.1); White Blood Count 18.72 K/uL (4.8-10.8)
[2020-05-02 11:05] LABS: Mean Corpuscular Hgb Conc 32.2 g/dL (32-36)
[2020-05-02 11:06] LABS: Base Excess ABG 7.4 mEq/L (-9-1.8); HCO3 ABG 32 mmol/L (19-24); Oxygen Saturation ABG 96.1 % (90-95); PCO2 ABG 42 mmHg (35-46); PO2 ABG 76 mmHg (80-95); pH ABG 7.49 (7.35-7.45)
[2020-05-02 11:07] LABS: Allen Test Pos (Pos)
[2020-05-02 11:09] LABS: INR 1.7 (0.9-1.1); Partial Thromboplastin Time 27.3 Seconds (21.0-31.0); Prothrombin Time 17.2 Seconds (9.0-12.0)
[2020-05-02 11:18] LABS: Albumin Level 3.1 gm/dl (3.4-5.0); BUN Creatinine Ratio 14.7 (10-20); Calcium 10.1 mg/dl (8.5-10.1); Creatinine Clr Calc Pharmacy 121.9 ml/min; Potassium 3.2 mmol/L (3.5-5.1)
[2020-05-02 11:22] LABS: Albumin Globulin Ratio 0.7 (0.9-2); Bilirubin,Total 0.5 mg/dl (0.2-1); Globulin 4.8 gm/dl (2.5-4.0); Total Protein 7.9 gm/dl (6.4-8.2)
[2020-05-02] MEDS ORDERED: NSS + 20MEQ KCL 20 MEQ/1,000 ML BAG IV SCH (11:30)
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
[2020-05-02] MEDS: POTASSIUM CHLORIDE / WTR 10 MEQ/100 ML PLCT IV SCH ×3 (12:37→14:32)
[2020-05-02 15:20] LABS: Hematocrit (blood only) 37.6 % (42-52); Hemoglobin 12.2 g/dL (14.0-18.0); Mean Corpuscular Hemoglobin 28.8 pg (25-34); Mean Corpuscular Hgb Conc 32.4 g/dL (32-36); Mean Corpuscular Volume 88.9 fL (80-100); Platelet Count 409 K/uL (130-400); RDW Coefficient of Variation 13.6 % (11.5-14.5); RDW Standard Deviation 44.6 fL (36.4-46.3); Red Blood Count 4.23 M/uL (4.7-6.1); White Blood Count 16.29 K/uL (4.8-10.8)
== END 2020-05-02 18:00 | disposition short-term general hospital (02) | DRG 393 ==
LOC: ED 20:21 → SUATTDRO 04-26 02:07 → 3W 04-26 02:07 → 1E 05-02 08:03

== ENCOUNTER 2020-05-18 03:09 | Inpatient (IN) ==
[~2020-05-18 03:09] MED LIST changes: -CPR500 PO; -FLM4 PO; -OXYC-57 PO; -SERT1TAB71 PO; +VANCOMYCIN HCL 750 MG in SODIUM CHLORIDE 0.9% 250 ML IV SCH
[2020-05-18] MEDS ORDERED: SODIUM CHLORIDE 0.9% 1000ML 1,000 ML IV ONE ×2 (03:31→05:06)
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
[2020-05-18 03:58] LABS: Basophils # (auto) 0.01 K/uL (0-0.2); Basophils % (auto) 0.1 %; Eosinophils # (auto) 0.01 K/uL (0-0.5); Eosinophils % (auto) 0.1 %; Hematocrit (blood only) 34.9 % (42-52); Hemoglobin 11.5 g/dL (14.0-18.0); Immature Granulocytes # (auto) 0.06 K/uL (0.00-0.02); Immature Granulocytes % (auto) 0.4 %; Lymphocytes # (auto) 2.13 K/uL (1.2-3.4); Lymphocytes % (auto) 12.9 %; Mean Corpuscular Hemoglobin 28.1 pg (25-34); Mean Corpuscular Volume 85.3 fL (80-100); Mean Platelet Volume 10.1 fL (7.4-10.4); Monocytes # (auto) 1.48 K/uL (0.11-0.59); Neutrophils # (auto) 12.84 K/uL (1.4-6.5); Neutrophils % (auto) 77.5 %; Platelet Count 423 K/uL (130-400); RDW Coefficient of Variation 14.4 % (11.5-14.5); RDW Standard Deviation 45.3 fL (36.4-46.3); Red Blood Count 4.09 M/uL (4.7-6.1); White Blood Count 16.53 K/uL (4.8-10.8)
[2020-05-18 04:08] LABS: INR 1.3 (0.9-1.1); Partial Thromboplastin Ratio 1.1; Partial Thromboplastin Time 30.8 Seconds (21.0-31.0)
[2020-05-18 04:16] LABS: Alanine Aminotransferase 67 U/L (12-78); Albumin Level 2.7 gm/dl (3.4-5.0); Aspartate Aminotransferase 28 U/L (15-37); BUN Creatinine Ratio 27.3 (10-20); Blood Urea Nitrogen 19 mg/dl (7-18); Calcium 9.7 mg/dl (8.5-10.1); Carbon Dioxide 25 mmol/L (21-32); Chloride 95 mmol/L (98-107); Est GFR (African American) > 150.0; Est GFR (Non-African American) 132.3; Glucose 103 mg/dl (70-99); Magnesium 1.9 mg/dl (1.8-2.4); Sodium 130 mmol/L (136-145)
[2020-05-18 04:19] LABS: Albumin Globulin Ratio 0.5 (0.9-2); Alkaline Phosphatase 193 U/L (45-117); Bilirubin,Total 0.7 mg/dl (0.2-1); Total Protein 8.7 gm/dl (6.4-8.2)
[2020-05-18] MEDS ORDERED: ACETAMINOPHEN SUSP 1000 MG/31.2 ML UDP PO STA (04:26)
[2020-05-18 04:37] LABS: Influenza A virus by PCR Negative (Neg); Influenza B virus by PCR Negative (Neg); RSV by PCR Negative (Neg); SARS CoV2 RNA(COVID-19) InHosp NEGATIVE (Negative)
[2020-05-18 05:35] LABS: Appearance Urine Turbid (Clear); Bacteria Urine Automated 1+ (Negative); Blood Urine 1+ (Negative); Color Urine Dark Yellow; Epithelial Cell Urine Auto >30 /lpf (0-5); Glucose Urine UA Negative (Negative); Ketones Urine 3+ (Negative); Leukocyte Esterase Urine 3+ (Negative); Nitrite Urine Positive (Negative); Protein Urine 2+ (Negative); Specific Gravity Urine 1.034 (1.000-1.030); Urobilinogen Urine Negative (Negative); WBC Urine Automated >30 /hpf (0-5); pH Urine 6.5 (4.5-7.5)
[2020-05-18 05:38] LABS: Bilirubin Urine 1+ (Negative)
[2020-05-18 05:48] LABS: Cast Urine Automated 0 /lpf (0-5); RBC Urine Automated 0-4 /hpf (0-4)
[2020-05-18] MEDS ORDERED: PIPERACILL/TAZOBAC CONSULT ACTIVE PRN ×2 (06:24→08:49)
[2020-05-18] MEDS ORDERED: PIPERACILLIN/TAZOBACTAM 4.5 GM/120 ML BAG IV ONE (06:24)
--- NOTE | 2020-05-18 06:59 | XRay Report ---
XR chest 1V portable CLINICAL HISTORY: Sepsis. COMPARISON STUDY: Chest radiograph May 02, 2020. FINDINGS: Lung volumes are normal. Lungs are clear. There is no pneumothorax or pleural effusion. Car diac size is normal. Mediastinal contours are normal. There is no evidence for pulmonary edema. Posto perative findings within the cervicothoracic spine are partially imaged. Lucency under the right merna diaphragm suggest pneumoperitoneum. IMPRESSION: 1. No acute cardiopulmonary findings. 2. Lucency under the right hemidiaphragm suggestive of pneumoperitoneum. By report, recent gastrojeju nostomy tube has been placed which can explain this finding. Findings discussed with Dr. Davis at [facility] e of dictation. ACT 112: Negative or not required by law. Electronically signed by: Akshat Eli M.D. 05/18/2020 6:58 AM
[2020-05-18] MEDS: SODIUM CHLORIDE 0.9% 500 ML IV SCH ×2 (07:19→10:46)
[2020-05-18] MEDS ORDERED: ONDANSETRON INJ 2 MG/ML 2 ML VIAL IV PRN (08:49)
[2020-05-18] MEDS ORDERED: POLYETHYLENE (MIRALAX) 17 GM PACK PO PRN (08:49)
[2020-05-18] MEDS ORDERED: MELATONIN 3 MG TAB PO PRN (08:59)
[2020-05-18] MEDS: SODIUM CHLORIDE 0.9% 1000ML 1,000 ML IV SCH ×2 (10:48→19:08)
[2020-05-18] MEDS: ENOXAPARIN INJ 40 MG/0.4 ML SYR SQ SCH (10:50)
[2020-05-18] MEDS: SENNA 8.6 MG TAB PO SCH (10:50)
[2020-05-18] MEDS: DAKIN'S SOLN 0.25% HALF STRENGTH 473ML BTL EXT SCH ×2 (10:51→22:16)
[2020-05-18] MEDS: NYSTATIN POWDER 15GM BTL EXT SCH ×2 (10:51→22:16)
[2020-05-18] MEDS: PIPERACILLIN/TAZOBACTAM 3.375 GM in DEXTROSE 5% 100 ML IV SCH ×2 (12:10→20:40)
--- NOTE | 2020-05-18 14:32 | Electrocardiogram Report ---
Test Reason : Blood Pressure : / mmHG Vent. Rate : 124 BPM Atrial Rate : 124 BPM P-R Int : 230 ms QRS Dur : 118 ms QT Int : 276 ms P-R-T Axes : 000 064 018 degrees QTc Int : 396 ms Poor data quality, interpretation may be adversely affected Sinus tachycardia with 1st degree A-V block Incomplete right bundle branch block Abnormal ECG When compared with ECG of 09-MAY-2020 08:23, DE interval has increased Confirmed by Rishi Sapp ([id number]) on 05/18/2020 2:32:33 PM Referred By: REFERRED SELF Confirmed By:Rishi Sapp
[2020-05-18] MEDS: FIBERSOURCE HN 1.2 CAL 1000 ML BAG GJT SCH (17:00)
[2020-05-18] MEDS ORDERED: VANCOMYCIN CONSULT ACTIVE PRN (18:12)
--- NOTE | 2020-05-18 18:12 | History & Physical Report ---
Date of Service May 18, 2020 Assessment & Plan (1) SIRS (systemic inflammatory response syndrome): Overall concern for infectious etiology with recent GJ tube placement. Large decubitus ulcer present on admission down to the sacrum cannot exclude concomitant infection also with abnormal urinalysis and previous history of neurogenic bladder with previous Pseudomonas cannot exclude that as a source. Cannot explain the bacillus culture from the fourth subsequently will be admitted blood cultures obtained urine culture obtained surgical consultation for large decubitus ulcer Patient was initiated on Zosyn therapy in the emergency department patient has no history of MRSA will initiate vancomycin therapy at this time pending culture results as it can also cover the bacillus species (2) Sacral decubitus ulcer, stage III: Very large sacral decubitus ulcer. Wound care is a very appreciated and management of this issue will General surgical consultation for but likely debridement (3) SMAS (superior mesenteric artery syndrome): Patient returns from [facility] where he had a GJ tube placed for superior mesenteric artery syndrome (4) Neurogenic bladder: History of neurogenic bladder with places him at risk for recurrent infection (5) Depression: Patient currently not on any medication, will discussion with the patient whether he wishes to begin this (6) Severe protein-calorie malnutrition: Patient is markedly underweight BMI of 16 greatly appreciate dietary nutrition consultation initiating tube feeds at this time we will also initiate thiamine therapy to avoid refeeding syndrome and follow laboratories (7) DVT prophylaxis: Lovenox therapy Patient is a full code Admission and Anticipated Discharge Date Admission Date: May 18, 2020 History of Present Illness Primary Care Provider: Pacheco Schultz MD Patient presents after recent discharge from [facility] after prolonged inpatient stay for superior mesenteric artery syndrome with a GJ tube. Patient was progressively weak and lightheaded. In the emergency department there was concern for dehydration and he was given intravenous fluids he has a large sacral decubitus ulcer present on admission which is a least a stage IV which could be a portal of infection and an abnormal urinalysis with concern for UTI. Interestingly there was a blood culture positive for bacillus on 09 May. Patient is very thin he is paraplegic and can only move his upper extremities with weakness to movement Allergies Allergy/AdvReac Type Severity Reaction Status Date / Time nickel Allergy Mild RASH -- Verified 05/18/20 04:07 FROM [employer] Home Medications Medication Instructions Recorded Confirmed Type bisacodyl 10 mg rectal suppository 10 mg TN UD 04/25/20 05/18/20 History collagenase clostridium histo. 250 1 applic TOPICAL QAM 04/25/20 05/18/20 History unit/gram topical ointment enoxaparin 40 mg/0.4 mL 40 mg SUBCUT QAM 04/25/20 05/18/20 History subcutaneous syringe gabapentin 300 mg capsule 600 mg PO TID cap 04/25/20 05/18/20 History magnesium hydroxide 400 mg/5 mL 30 ml PO DAILY PRN 04/25/20 05/18/20 History oral suspension melatonin 3 mg capsule 3 mg PO HS PRN 04/25/20 05/18/20 History nystatin 100,000 unit/gram topical 1 applic TOPICAL AMHS 04/25/20 05/18/20 History powder oxybutynin chloride 5 mg tablet 5 mg PO AMHS 04/25/20 05/18/20 History polyethylene glycol 3350 17 17 g PO DAILY PRN 04/25/20 05/18/20 History gram/dose oral powder sennosides 8.6 mg capsule 17.2 mg PO DAILY 04/25/20 05/18/20 History acetaminophen [Tylenol Extra 1,000 mg PO Q8 PRN 05/18/20 05/18/20 History Strength] alum-mag hydroxide-simeth [Mylanta] 30 ml PO Q4 PRN 05/18/20 05/18/20 History fluoxetine [Prozac] 0 mg PO UD 05/18/20 05/18/20 History fpgoghxg-pidoihakcf-xdwhzlvfi 1 applic TOPICAL QAM 05/18/20 05/18/20 History [Neosporin (nrc-mzj-imbpc)] omeprazole 40 mg PO BID 05/18/20 05/18/20 History sodium hypochlorite [Dakin's 1 applic TOPICAL AMHS 05/18/20 05/18/20 History Solution] Past Med/Surg History Medical History Benzodiazepine abuse, continuous Hydronephrosis due to obstruction of ureter Intentional fentanyl overdose Kidney calculi Methamphetamine abuse Opiate abuse, continuous Pyelonephritis Surgical History Status post lumbar spine surgery for decompression of spinal cord Family History Grandmother (Paternal) Lung cancer Stroke Grandmother (Maternal) Stroke Denies family history of Ovarian cancer Prostate cancer Myocardial infarction Breast cancer Colorectal cancer Social History Smoking Status: Former smoker Second Hand Exposure: No; Do You Dip or Chew Tobacco: No; Tobacco Cessation Education Requested by Patient: No Hx Alcohol Use: No Hx Substance Use: Yes Last Used Substance: Unknown Substance Use Type Other:: history, benzo abuse history Preferred Language: British Communication Ability: in OR Visual Impairment: No Limitations Hearing Ability: Normal Floral Department Specialist Required: No Beliefs That Will Affect Care: None Current Living Situation: Parent current occupational status: disabled Other Information That Helps Us Care for You: No Feels Safe at Home: Yes Safety Concerns: Feels Safe At This Time Physical Activity Frequency: Does not Exercise Assistive Devices: None Review of Systems Review of Systems: Patient is significantly debilitated and ill-appearing no headache, blurry or double vision no speech or swallowing issues does have some coughing with eating at times no chest pain, pressure or palpitations no shortness of breath, cough or wheezes no abdominal pain, GJ tube placed in abdomen no dysuria, hematuria or frequency no focal joint pain or swelling no back pain, CVA tenderness or radicular pain Pre-existing sacral decubitus ulcer Paraplegic no complaints of anxiety or depression.. Physical Exam Physical Exam: The patient appeared extremely thin BMI of 16 fatigued and mild to moderate distress Vital signs as documented. Blood pressure is lower Head exam is normocephalic atraumatic no scleral icterus Neck is without JVD, thyromegaly, or carotid bruits. Lungs are clear to auscultation, creased breath sounds at the bases Cardiac exam, Rhythm is regular.. No murmurs, rubs or gallops. Abdominal exam reveals normal bowel sounds, soft non tender, G-tube is in place Extremities are nonedematous atrophic bilaterally Neurologic exam is alert and oriented, cannot move his lower extremities has movement of his upper extremities against gravity Skin is stage IV decubitus on his sacrum approximately 3 to 4 cm in size down to the bone with surrounding black necrotic skin Results & Data Results & Data ([facility]) Vital Signs (Past 12 Hours) Vital Signs Temp Pulse Pulse Pulse Resp BP BP 05/18/20 15:45 99.1 F 103 H 18 95/57 L 05/18/20 11:59 98.4 F 82 16 109/63 05/18/20 08:50 98.4 F 74 16 99/46 L 05/18/20 08:20 97 H 20 05/18/20 08:15 15 97/62 L 05/18/20 08:10 14 05/18/20 08:01 6 L 05/18/20 08:00 10 L 109/69 05/18/20 07:50 31 H 05/18/20 07:45 113/72 05/18/20 07:40 24 05/18/20 07:31 05/18/20 07:30 114/66 05/18/20 07:20 18 05/18/20 07:15 17 110/66 05/18/20 07:10 16 05/18/20 07:01 15 112/65 05/18/20 07:00 20 05/18/20 06:50 97 H 18 05/18/20 06:45 101 H 18 110/73 05/18/20 06:40 100 H 13 05/18/20 06:31 99 H 15 05/18/20 06:30 100 H 13 105/63 05/18/20 06:20 108 H 17 05/18/20 06:15 105 H 18 104/66 05/18/20 06:09 100.2 F H 107 H 18 05/18/20 06:03 111 H 17 100/60 Pulse Ox 05/18/20 15:45 95 05/18/20 11:59 97 05/18/20 08:50 100 05/18/20 08:20 98 05/18/20 08:15 94 05/18/20 08:10 99 05/18/20 08:01 98 05/18/20 08:00 98 05/18/20 07:50 98 05/18/20 07:45 98 05/18/20 07:40 97 05/18/20 07:31 96 05/18/20 07:30 99 05/18/20 07:20 99 05/18/20 07:15 97 05/18/20 07:10 97 05/18/20 07:01 98 05/18/20 07:00 98 05/18/20 06:50 98 05/18/20 06:45 98 05/18/20 06:40 97 05/18/20 06:31 98 05/18/20 06:30 98 05/18/20 06:20 98 05/18/20 06:15 98 05/18/20 06:09 05/18/20 06:03 98 Code Status & VTE Plan VTE Prophylaxis Plan VTE Prophylaxis will be ordered: Yes PG Care Time/CCT Total # of Minutes Spent Total Time Spent with Patient: Total time spent is greater than 50% in coordination of care (as documented) at patient's floor/unit and/or counseling patient: Coding Level of Care Code 84651 Initial Inpt Care Lvl 3 Diagnoses SIRS (systemic inflammatory response syndrome) R65.10 Sacral decubitus ulcer, stage III L89.153 SMAS (superior mesenteric artery syndrome) K55.1 Neurogenic bladder N31.9 Depression F32.9 Severe protein-calorie malnutrition E43 DVT prophylaxis Z29.9
[2020-05-18] MEDS ORDERED: VANCOMYCIN HCL 1,250 MG in SODIUM CHLORIDE 0.9% 250 ML IV ONE (18:30)
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
--- NOTE | 2020-05-18 22:29 | Pharmacy Report ---
Pharmacy Abx Initial Consult - Date of Service May 18, 2020 - Pharmacy Dosing Scope Date of Consult: 05/18/20 Consultation requested by: Dr. Swan Pharmacy is consulted to initiate vancomycin and Zosyn IV dosing therapy, order appropriate labs and adjust drug dose/frequency. - Subjective The patient is a 25 year old M admitted on 05/18/20 07:46. - Objective Height: 6 ft 3 in Weight: 59 kg Vital Signs (Past 12hrs): Vital Signs Temp Pulse Resp BP Pulse Ox 05/18/20 15:45 37.3 C 103 H 18 95/57 L 95 05/18/20 11:59 36.9 C 82 16 109/63 97 Lab Results (24hrs): Laboratory Tests (24 Hours) 05/18/20 05/18/20 03:40 03:40 WBC 16.53 H Neut # (Auto) 12.84 H Creatinine 0.71 Est Cr Clr Drug Dosing 135.0 Micro Results: 05/18/20 04:56 Urine Culture - Pending Urine,Straight Cath 05/18/20 03:40 Aerobic Blood Culture - Pending Blood Anaerobic Blood Culture - Pending 05/18/20 03:40 Aerobic Blood Culture - Pending Blood Anaerobic Blood Culture - Pending - Assessment & Plan Assessment 25 year old M ordered empiric vancomycin and Zosyn for treatment of SIRS with suspected infectious etiology (possibly infected sacral decubitus ulcer?) Patient will require surgical debridement of ulcer. Patient was recently hospitalized and [facility] where he had a gastrostomy tube placed. Patient is paraplegic and has neurogenic bladder. Leukocytosis of 16 K, SCr: 0.71 mg/dL. Blood/urine cultures obtained. Plan Vancomycin IV * Loading dose: 1250 mg (21 mg/kg) * Maintenance dose: 750 mg IV (13 mg/kg) every 8 hours * Goal trough level for SSTI : 10 to 20 mcg/mL * Trough/Random level ordered for 05/20/20 * Used correction factor of 0.8 for paraplegia (CrCl ~ 108 mL/min) Piperacillin/tazobactam * 3.375 g bolus administered over 30 minutes, then 3.375 g IV extended infusion every 8 hours for CrCl greater than 20 mL/min Pharmacy will continue to follow and will adjust dose/frequency as necessary. Thank you.
[2020-05-19] MEDS: ACETAMINOPHEN SUSP 325 MG/10.15 ML UDC PO PRN (00:13)
[2020-05-19] MEDS: VANCOMYCIN HCL 750 MG in SODIUM CHLORIDE 0.9% 250 ML IV SCH ×3 (02:04→19:10)
[2020-05-19] MEDS: PIPERACILLIN/TAZOBACTAM 3.375 GM in DEXTROSE 5% 100 ML IV SCH ×3 (03:59→19:12)
--- NOTE | 2020-05-19 06:39 | Surgery Progress Note ---
Date of Service May 19, 2020 Assessment & Plan (1) Sacral decubitus ulcer, stage IV: Overt source of sepsis and infection certainly could be his decubitus ulcer I do have him tentatively on the OR schedule for today I have discussed this with the patient and his mother I do not feel it will likely heal with current wound care and will need wide debridement I will check with the wound clinic this morning/wound nurses We will likely proceed later today Admission and Anticipated Discharge Date Admission Date: May 18, 2020 Subjective Fever and tachycardia Results & Data ([facility]) Vital Signs (Past 12 Hours) Vital Signs Temp Pulse Resp BP Pulse Ox 05/19/20 01:00 37.2 C 05/18/20 23:07 38.4 C H 119 H 18 95/47 L 94 PG Care Time/CCT Total # of Minutes Spent Total Time Spent with Patient: Total time spent is greater than 50% in coordination of care (as documented) at patient's floor/unit and/or counseling patient: Coding Level of Care Code None Diagnoses Sacral decubitus ulcer, stage IV L89.154
[2020-05-19] MEDS ORDERED: PROPOFOL IV EMULSION 10 MG/ML 20 ML VIAL IV ONE (06:50)
[2020-05-19] MEDS ORDERED: fentaNYL citrate 100 MCG/2 ML VIAL ONE ×2 (06:50→11:40)
[2020-05-19] MEDS ORDERED: MIDAZOLAM HCL 1 MG/ML 2ML VIAL ONE (06:50)
[2020-05-19] MEDS ORDERED: ONDANSETRON INJ 2 MG/ML 2 ML VIAL ONE ×2 (06:50→11:38)
[2020-05-19] MEDS ORDERED: LIDOCAINE HCL 2% 2 ML VIAL/AMP(20MG/ML) INFIL ONE (06:50)
[2020-05-19] MEDS ORDERED: KETAMINE 50 MG/5 ML SYRINGE ONE (06:53)
--- NOTE | 2020-05-19 07:12 | History & Physical Bridge Note ---
Date of Service May 19, 2020 History & Physical Bridge Note I have examined the patient, reviewed the History & Physical and in the interval since the performance of the History & Physical I have noted the following changes of clinical significance: Patient had fever and is tachycardic most likely from the necrotic/infected cubitus ulcer We will proceed as safe after we stop his tube feeds in approximately 2 to 3 hours
[2020-05-19] MEDS ORDERED: DexMEDEtomidine HCL IV 100 MCG/ML VIAL ONE (07:14)
[2020-05-19] MEDS ORDERED: SODIUM CHLORIDE 0.9% 500 ML IV SCH ×2 (07:15→11:45)
[2020-05-19 07:57] LABS: Hemoglobin 8.7 g/dL (14.0-18.0); Mean Corpuscular Hemoglobin 27.9 pg (25-34); Mean Corpuscular Volume 86.5 fL (80-100); Mean Platelet Volume 9.5 fL (7.4-10.4); Platelet Count 321 K/uL (130-400); RDW Coefficient of Variation 14.3 % (11.5-14.5); RDW Standard Deviation 45.5 fL (36.4-46.3); Red Blood Count 3.12 M/uL (4.7-6.1); White Blood Count 10.43 K/uL (4.8-10.8)
[2020-05-19 08:00] LABS: Mean Corpuscular Hgb Conc 32.2 g/dL (32-36)
[2020-05-19 08:42] LABS: BUN Creatinine Ratio 19.9 (10-20); Blood Urea Nitrogen 7 mg/dl (7-18); Calcium 8.7 mg/dl (8.5-10.1); Carbon Dioxide 23 mmol/L (21-32); Chloride 106 mmol/L (98-107); Est GFR (African American) > 150.0; Est GFR (Non-African American) > 150.0; Glucose 93 mg/dl (70-99); Potassium 3.2 mmol/L (3.5-5.1); Sodium 137 mmol/L (136-145)
[2020-05-19] MEDS: ENOXAPARIN INJ 40 MG/0.4 ML SYR SQ SCH ×2 (09:08→11:37)
[2020-05-19] MEDS: NYSTATIN POWDER 15GM BTL EXT SCH ×2 (09:08→19:18)
[2020-05-19] MEDS: ACETAMINOPHEN 1000 MG/100 ML IV IV PRN ×2 (09:09→16:10)
[2020-05-19] MEDS: SENNA 8.6 MG TAB PO SCH (09:09)
[2020-05-19] MEDS: NEOMYCIN/POLYMYX/BACITR OINT 15 GM TUBE EXT SCH (09:40)
[2020-05-19] MEDS: DAKIN'S SOLN 0.25% HALF STRENGTH 473ML BTL EXT SCH ×2 (09:40→19:18)
[2020-05-19] MEDS ORDERED: BUPIVACAINE 0.5 % 5 MG/1 ML MPF 30ML VIAL ONE (09:44)
--- NOTE | 2020-05-19 10:04 | Anesthesiology Consultation ---
Date of Service May 19, 2020 Assessment & Plan (1) Encounter for pre-operative examination: Chart Review Chart Review: Acceptable Risk for Surgery and Patient NOT seen in Pre Admission Testing Consults Requested none ASA [id number] Proposed Anesthesia Anesthesia Type: General Risk / Benefits Reviewed With: PT / POA / Parent / Guardian, Accepts Plan and Informed Consent Obtained Additional Notes Plan for RSI due to recently drinking milk, can also vent Gtube. Patient with signs of early sepsis - case declared emergent History Surgery Operation Date: 05/19/20 12:00 Proposed Procedures p Debridement sacral decubitus - Francisco Gutierres MD, FACS Height/Weight Height: 6 ft 3 in Weight: 59 kg Allergies Allergy/AdvReac Type Severity Reaction Status Date / Time nickel Allergy Mild RASH -- Verified 05/18/20 04:07 FROM [facility] Medications Home Medications Medication Instructions Recorded Confirmed Last Taken bisacodyl 10 mg rectal suppository 10 mg [place] UD 04/25/20 05/18/20 05/08/20 collagenase clostridium histo. 250 1 applic TOPICAL QAM 04/25/20 05/18/20 05/08/20 unit/gram topical ointment enoxaparin 40 mg/0.4 mL 40 mg SUBCUT QAM 04/25/20 05/18/20 05/08/20 subcutaneous syringe gabapentin 300 mg capsule 600 mg PO TID cap 04/25/20 05/18/20 05/08/20 magnesium hydroxide 400 mg/5 mL 30 ml PO DAILY PRN 04/25/20 05/18/20 05/08/20 oral suspension melatonin 3 mg capsule 3 mg PO HS PRN 04/25/20 05/18/20 05/08/20 nystatin 100,000 unit/gram topical 1 applic TOPICAL AMHS 04/25/20 05/18/20 05/08/20 powder oxybutynin chloride 5 mg tablet 5 mg PO AMHS 04/25/20 05/18/20 05/08/20 polyethylene glycol 3350 17 17 g PO DAILY PRN 04/25/20 05/18/20 05/08/20 gram/dose oral powder sennosides 8.6 mg capsule 17.2 mg PO DAILY 04/25/20 05/18/20 05/08/20 acetaminophen [Tylenol Extra 1,000 mg PO Q8 PRN 05/18/20 05/18/20 Unknown Strength] alum-mag hydroxide-simeth [Mylanta] 30 ml PO Q4 PRN 05/18/20 05/18/20 Unknown fluoxetine [Prozac] 0 mg PO UD 05/18/20 05/18/20 Unknown tvcqmcew-imtjjkttih-uxrvodldy 1 applic TOPICAL QAM 05/18/20 05/18/20 Unknown [Neosporin ([id number])] omeprazole 40 mg PO BID 05/18/20 05/18/20 Unknown sodium hypochlorite [Dakin's 1 applic TOPICAL AMHS 05/18/20 05/18/20 Unknown Solution] Active Medications Generic Name Dose Route Start Last Admin Trade Name Freq PRN Reason Stop Dose Admin Acetaminophen 650 mg 05/18/20 08:49 05/19/20 00:13 Acetaminophen Susp 325 Mg/10.15 Ml Udc PO 06/17/20 08:48 650 mg Q6H PRN Administration Pain or Fever Acetaminophen 1,000 mg 05/19/20 09:01 05/19/20 09:09 Acetaminophen 1000 Mg/100 Ml Iv IV 05/22/20 09:00 1,000 mg Q6H PRN Administration Pain or Fever Enoxaparin Sodium 40 mg 05/18/20 09:00 05/18/20 10:50 Enoxaparin Inj 40 Mg/0.4 Ml Syr SQ 06/17/20 08:59 40 mg QAM JASMIN Administration Enteral Nutritional Formula 1,000 ml 05/18/20 14:45 05/18/20 17:00 Fibersource Hn 1.2 Ritesh 1000 Ml Bag GJT 06/17/20 14:44 1,000 ml UD JASMIN Administration Protocol Fluoxetine HCl 20 mg 05/18/20 09:30 05/18/20 10:51 Fluoxetine Hcl 20 Mg/5 Ml Udp GT 06/17/20 09:29 20 mg DAILY JASMIN Administration Piperacillin Sod/Tazobactam 115 mls @ 28.75 mls/hr 05/18/20 12:00 05/19/20 07:18 Sod 3.375 gm/ Dextrose IV 05/28/20 11:59 Infused Q8H JASMIN Infusion Protocol Vancomycin HCl 750 mg/ Sodium 265 mls @ 200 mls/hr 05/19/20 03:00 05/19/20 03:59 Chloride IV 05/26/20 02:59 Infused Q8H JASMIN Infusion Protocol Neomycin/Polymyxin/Bacitracin 1 appln 05/19/20 09:00 05/19/20 09:40 Neomycin/Polymyx/Bacitr Oint 15 Gm Tube EXT 06/18/20 08:59 Not Given QAM JASMIN Nystatin 1 appln 05/18/20 09:00 05/19/20 09:08 Nystatin Powder 15gm Btl EXT 06/17/20 08:59 1 appln AMHS JASMIN Administration Sennosides 17.2 mg 05/18/20 09:00 05/19/20 09:09 Senna 8.6 Mg Tab PO 06/17/20 08:59 Not Given DAILY JASMIN Sodium Hypochlorite 1 appln 05/18/20 09:00 05/19/20 09:40 Dakin's Soln 0.25% Half Strength 473ml Btl EXT 06/17/20 08:59 Not Given AMHS JASMIN NPO Date Last Intake of Fluids: 05/19/20 Time Last Intake of Fluids: 07:30 Last Intake of Fluids Comment: pt drank a carton of milk at that time Past Medical History Medical History Benzodiazepine abuse, continuous Hydronephrosis due to obstruction of ureter Intentional fentanyl overdose Kidney calculi Methamphetamine abuse Opiate abuse, continuous Pyelonephritis Exercise / Class Metabolic Activity IV < 2 Limit ADL/Bedbound Past Family History Family History Grandmother (Paternal) Lung cancer Stroke Grandmother (Maternal) Stroke Denies family history of Ovarian cancer Prostate cancer Myocardial infarction Breast cancer Colorectal cancer Past Surgical History Surgical History Status post lumbar spine surgery for decompression of spinal cord Past Anesthesia History No Hx of Anesthesia Complications History of PONV No Hx of PONV Social History Smoking Status: Former smoker Do You Dip or Chew Tobacco: No Hx Alcohol Use: No Hx Substance Use: Yes substance use type: marijuana, opiates and methamphetamine Substance Use Type Other:: history, benzo abuse history Last Used Substance: Unknown Review of Systems Negative for chest pain or shortness of breath. Patient denies active symptoms of GERD. Physical Exam Vital Signs Last Vital Signs Temp 37.6 C H 01/14/21 09:40 Pulse 20 L 05/19/20 09:40 Resp 20 05/19/20 09:40 BP 127/64 05/19/20 09:40 Pulse Ox 95 05/19/20 09:40 Constitutional + cachectic ENMT Mouth: no TMJ abnormality and oral opening not small Thyromental Distance: > or= 3.5 Finger Breadths Mallampati Class: II Neck normal visual inspection and + facial hair; neck extension not limited evidence of prior trach Respiratory + abnormal respiratory effort (diminished) Auscultation: lungs clear to auscultation bilaterally and + rhonchi Cardiovascular Rate/Rhythm: regular rate and regular rhythm Heart Sounds: no murmur Neurologic + does not move all extremities (paraplegic - weak in b/l upper arms) Psychiatric Orientation: alert and oriented x 3 Testing Laboratory Results 05/19/20 07:42 05/19/20 07:42 PT 14.0 Seconds (9.0-12.0) H 05/18/20 03:40 INR 1.3 (0.9-1.1) H 05/18/20 03:40 APTT 30.8 Seconds (21.0-31.0) 05/18/20 03:40 Urine Color Dark Yellow 05/18/20 04:56 Urine Appearance Turbid (Clear) A 05/18/20 04:56 Urine pH 6.5 (4.5-7.5) 05/18/20 04:56 Ur Specific [place] 1.034 (1.000-1.030) H 05/18/20 04:56 Urine Protein 2+ (Negative) H 05/18/20 04:56 Urine Glucose (UA) Negative (Negative) 05/18/20 04:56 Urine Ketones 3+ (Negative) H 05/18/20 04:56 Urine Nitrite Positive (Negative) A 05/18/20 04:56 Ur Leukocyte Esterase 3+ (Negative) H 05/18/20 04:56 Urine WBC (Auto) >30 /hpf (0-5) H 05/18/20 04:56 Urine RBC (Auto) 0-4 /hpf (0-4) 05/18/20 04:56 U Hyaline Cast (Auto) 0 /lpf (0-5) 05/18/20 04:56 U Epithel Cells (Auto) >30 /lpf (0-5) H 05/18/20 04:56 Urine Bacteria (Auto) 1+ (Negative) H 05/18/20 04:56 05/18/20 04:56 Urine Culture - Preliminary Urine,Straight Cath Probable Pseudomonas species 05/18/20 03:40 Aerobic Blood Culture - Preliminary Blood No growth in Aerobic bottle after 24 hours. Anaerobic Blood Culture - Preliminary No growth in Anaerobic bottle after 24 hours. 05/18/20 03:40 Aerobic Blood Culture - Preliminary Blood No growth in Aerobic bottle after 24 hours. Anaerobic Blood Culture - Preliminary No growth in Anaerobic bottle after 24 hours.
[2020-05-19] MEDS ORDERED: fentaNYL citrate 100 MCG/2 ML VIAL IV PRN (10:13)
[2020-05-19] MEDS ORDERED: ePHEDrine sulfate 50 MG/ML AMP IV PRN (10:13)
[2020-05-19] MEDS ORDERED: ONDANSETRON INJ 2 MG/ML 2 ML VIAL IV PRN (10:13)
[2020-05-19] MEDS ORDERED: ATROPINE SULFATE 0.1 MG/ML 10ML SYR IV PRN (10:13)
[2020-05-19] MEDS ORDERED: PHENYLEPHRINE 100MCG/ML 5ML SYR ONE (11:08)
[2020-05-19] MEDS ORDERED: SUGAMMADEX SODIUM 200 MG/2 ML VIAL IV ONE (11:08)
[2020-05-19] MEDS ORDERED: ROCURONIUM BROMIDE 10 MG/ML 5 ML VIAL IV ONE (11:09)
--- NOTE | 2020-05-19 11:32 | Post Operative Brief Note ---
PG Immediate Post Op with CF Date of Surgery May 19, 2020 Pre & Post Diagnosis Operation Date: 05/19/20 12:00 Pre-Op Diagnosis: Sacral decubitus ulcer, stage IV Post-Op Diagnosis: Sacral decubitus ulcer, stage IV I identified the patient and participated in the time-out.: Yes Procedure Operation Date: 05/19/20 12:00 Actual Procedures p Debridement sacral decubitus(Not Applicable) - Francisco Gutierres MD, FACS Skin, subcu, muscle, fascia Surgeon Francisco Gutierres MD, FACS Infertility Medical Assistant Jet Saldaña Estimated Blood Loss 20 Findings Consistent with Post-Op Diagnosis Specimens Specimen Description: A. Sacral ulcer
[2020-05-19] MEDS ORDERED: ACETAMINOPHEN 1,000 MG/100 ML VIAL IV ONE (11:35)
[2020-05-19] MEDS ORDERED: FLOSEAL HEMOSTATIC MATRIX 10ML TOP ONE (11:37)
--- NOTE | 2020-05-19 12:21 | Operative Report (OR) ---
DATE OF OPERATION: 05/19/2020 NAME OF OPERATION: Debridement of decubitus ulcer of the sacrum. PREOPERATIVE DIAGNOSIS: Stage IV decubitus ulcer. POSTOPERATIVE DIAGNOSIS: Stage IV decubitus ulcer. STAFF SURGEON: Francisco Gutierres MD. FINANCIAL ADVOCATE: Padmini Saldaña PA-C. ANESTHESIA: General. DESCRIPTION OF PROCEDURE: The patient was brought in the operating room. He was on his bed. They intubated him on the bed. He was placed on the table in the prone position. His sacral area was prepped and draped in usual fashion. We did clip the hair widely around the area. He had an opening of approximately 4 cm with necrotic skin around that and significant undermining. My autopsy assistant helped with prepping, draping, excision of the tissue and dressing placement. We were able to patrick the undermining skin, which did track significantly superiorly/cephalad with 2 sites of extension of purulent fluid and abscess. The necrotic tissue was excised. The fascia and muscle were also excised down to viable tissue. Two openings were made cephalad into the abscess cavities, tissue appeared to be viable, but there was purulent fluid. Some of the necrotic tissue was cultured. After appropriate hemostasis, FloSeal was applied, then Betadine gauze applied. Dressings applied and the patient was transferred to recovery room in stable condition. I attest to the content of the Intraoperative Record and any orders documented therein. Any exception s are noted below.
--- NOTE | 2020-05-19 12:26 | Anesthesiology Progress Note ---
Date of Service May 19, 2020 Anesthesia Post Procedure Vital Signs Vital Signs: Temp Pulse Pulse Resp BP Pulse Ox 05/19/20 12:15 37.0 C 86 14 97/53 L 97 05/19/20 12:05 83 14 99/58 L 98 05/19/20 11:55 86 14 106/61 99 05/19/20 11:47 37.4 C 92 H 12 96/57 L 97 05/19/20 09:40 37.6 C H 20 L 88 20 127/64 95 05/19/20 07:56 38.3 C H 83 20 121/79 94 05/19/20 01:00 37.2 C 05/18/20 23:07 38.4 C H 119 H 18 95/47 L 94 05/18/20 15:45 37.3 C 103 H 18 95/57 L 95 Transfer of Care Handoff Completed per policy Notes Mental Status: alert / awake / arousable and participated in evaluation Patient Amnestic to Procedure: Yes Nausea / Vomiting: adequately controlled Pain: adequately controlled Airway Patency, RR, SpO2: stable & adequate BP & HR: stable & adequate Hydration State: stable & adequate Anesthetic Complications: no major complications apparent and Pt Satisfied with anesthetic care
[2020-05-19] MEDS: FIBERSOURCE HN 1.2 CAL 1000 ML BAG GJT SCH (18:26)
[2020-05-20] MEDS: VANCOMYCIN HCL 750 MG in SODIUM CHLORIDE 0.9% 250 ML IV SCH ×2 (04:33→11:06)
[2020-05-20] MEDS: PIPERACILLIN/TAZOBACTAM 3.375 GM in DEXTROSE 5% 100 ML IV SCH ×3 (04:33→20:02)
--- NOTE | 2020-05-20 07:48 | Surgery Progress Note ---
Date of Service May 20, 2020 Assessment & Plan (1) Sacral decubitus ulcer: Patient appears to be stable status post debridement of decubitus ulcer Wound care team will evaluate and possible VAC placement Continue IV antibiotics as he did have areas of significant purulent fluid We will need to be very careful that follow-up wound care is in place before the patient is sent home This sacral ulcer has become a life-threatening situation for this patient Admission and Anticipated Discharge Date Admission Date: May 18, 2020 Results & Data ([facility]) Vital Signs (Past 12 Hours) Vital Signs Temp Pulse Pulse Resp BP Pulse Ox 05/20/20 04:49 37 C 84 16 124/82 96 05/19/20 23:00 37.3 C 83 15 106/61 96 05/19/20 20:01 37.1 C 78 16 100/55 L 96 PG Care Time/CCT Total # of Minutes Spent Total Time Spent with Patient: Total time spent is greater than 50% in coordination of care (as documented) at patient's floor/unit and/or counseling patient: Coding Level of Care Code None Diagnoses Sacral decubitus ulcer L89.156 Pressure injury stage: pressure injury of deep tissue (1) Sacral decubitus ulcer Pressure injury stage: pressure injury of deep tissue Qualified Code(s): L89.156 - Pressure-induced deep tissue damage of sacral region
[2020-05-20] MEDS: NYSTATIN POWDER 15GM BTL EXT SCH ×2 (08:57→20:03)
[2020-05-20] MEDS: NEOMYCIN/POLYMYX/BACITR OINT 15 GM TUBE EXT SCH (08:59)
[2020-05-20] MEDS: ENOXAPARIN INJ 40 MG/0.4 ML SYR SQ SCH (08:59)
[2020-05-20] MEDS: SENNA 8.6 MG TAB PO SCH (09:00)
[2020-05-20] MEDS: HYDROmorphone INJ 0.5 MG/0.5 ML SYR IV PRN ×5 (09:51→23:38)
--- NOTE | 2020-05-20 09:54 | Hospitalist Progress Note ---
Date of Service May 20, 2020 Assessment & Plan (1) SIRS (systemic inflammatory response syndrome): Overall concern for infectious etiology with recent GJ tube placement. Large decubitus ulcer present on admission down to the sacrum cannot exclude concomitant infection also with abnormal urinalysis and previous history of neurogenic bladder with previous Pseudomonas cannot exclude that as a source. Cannot explain the bacillus culture from the fourth subsequently will be admitted blood cultures obtained urine culture obtained surgical consultation for large decubitus ulcer Patient was initiated on Zosyn therapy in the emergency department patient has no history of MRSA will initiate vancomycin therapy at this time pending culture results as it can also cover the bacillus species POD#1 s/p debridement of stage IV decubitus ulcer with Dr. Gutierres on 05/19 Pathology pending Miscommunication in OR and culture initially not sent. Repeated today and is pending Vanco trough subtherapeutic and increased dose by pharmacy Continue Zosyn/Vancomycin for now Await wound cx and then will reach out to ID regarding abx therapy moving forward BCx NGTD Wound vac placed today -- will need close follow-up Close follow up will be required. Can do telehealth nutrition f/u if needed Would consider repeat abd imaging to ensure resolution of SMA in approx 2 weeks after able to be at goal feeding Sources: Urine with Psuedomonas (covered by Zosyn) vs Decubitus ulcer (cx pending) WBC 10.0k. Afebrile. (2) Sacral decubitus ulcer, stage III: Very large sacral decubitus ulcer. Wound care is a very appreciated and management of this issue General surgery consulted s/p debridement as above Wound vac placed 05/19 f/u will be required (3) SMAS (superior mesenteric artery syndrome): Patient returns from [facility] where he had a GJ tube placed for superior mesenteric artery syndrome Rec repeat imaging in next couple of weeks for re-assessment Nutrition consulted -- planned for increased tube feeds, continuous while inpatient, with goal of 85cc/hr and plans for outpatient at 14 hour feeds to help provide some time not hooked up. Patient happy with current plan. Also ordered cerovite 15ml daily Hypokalemia on BMP K 3.1 -- provided 40meq supplementation Monitor nutrition labs -- replacement as needed (4) Neurogenic bladder: History of neurogenic bladder with places him at risk for recurrent infection Pseudomonas grew as above Continue Zosyn (5) Depression: Patient currently not on any medication, will discussion with the patient whether he wishes to begin this tomorrow Previous days reported feeling quite down, but is hopeful now that issues are being addressed (6) Severe protein-calorie malnutrition: Patient is markedly underweight BMI of 18 greatly appreciate dietary nutrition consultation initiating tube feeds at this time we will also initiate thiamine therapy to avoid refeeding syndrome and follow laboratories (7) DVT prophylaxis: Lovenox therapy while inpatient Patient is a full code Dispo: continued inpatient stay Admission and Anticipated Discharge Date Admission Date: May 18, 2020 Subjective Patient evaluated this afternoon. In good spirits. To trial some mashed potatoes for comfort today. Does have some sharp pain to his buttocks today, which is the first time he has had sensation in that area in quite some time. Pain controlled with ordered medications. Discussed culture and need for repeat today as well as urine culture findings and that we will continue abx. Discussed consultation with nutrition and plan for feeding moving forward to promote wound healing but will need very close follow-up. Plans for continuous feeding while in the hospital with a goal of 85cc/hr and will hope for d/c on 14 hour feeding until able to improve his fat stores/pad and increase his diet safely. Discussed significant risk for mortality and patient to likely remain in the hospital for several more days at a minimum prior to discharge to rehab. Wishes are for [place]. His aunt Kecia is also helping with getting him to [place] where she is close by. Denies fevers, chills (he did have significant sweats prior to admission and that's what prompted him coming to the ER), chest pain, shortness of breath. Some resistance with tube feeds reported but has not had issues per nursing. No abdominal pain. Wound vac placed today by wound care nursing. Questions/concerns addressed at this time. Review of Systems Review of Systems: All systems reviewed & are unremarkable except as noted in HPI & below Physical Exam Physical Exam: The patient appeared extremely thin BMI of 18. Sitting up in bed, NAD Head atraumatic, normocephalic. Neck without JVD. Trachea midline. Old tracheostomy scar healed noted Lung CTAB, no w/c/r. decreased BS bases b/l Cardiac RRR no m/r/g Abd +BS. Gtube in place and hooked to feeding Extremities atrophic bilaterally. Mobility of RUE and repositions self in bed Neuro AOx3 Skin -- wound vac to stage IV decubitus on sacrum s/p debridement Results & Data Results & Data ([facility]) Vital Signs (Past 12 Hours) Vital Signs Temp Pulse Resp BP Pulse Ox 05/20/20 08:29 37.4 C 83 18 108/62 97 05/20/20 04:49 37 C 84 16 124/82 96 05/19/20 23:00 37.3 C 83 15 106/61 96 Laboratory Results 05/20/20 05/20/20 05/20/20 Range/Units 10:34 10:34 10:34 WBC 10.07 (4.8-10.8) K/uL RBC 3.42 L (4.7-6.1) M/uL Hgb 9.6 L (14.0-18.0) g/dL Hct 30.0 L (42-52) % MCV 87.7 (80-100) fL MCH 28.1 (25-34) pg MCHC 32.0 (32-36) g/dL RDW Std Deviation 45.5 (36.4-46.3) fL RDW Coeff of Stephen 14.4 (11.5-14.5) % Plt Count 396 (130-400) K/uL MPV 9.4 (7.4-10.4) fL Immature Gran % (Auto) 0.3 % Neut % (Auto) 68.8 % Lymph % (Auto) 22.2 % [place] % (Auto) 7.2 % Eos % (Auto) 1.3 % Baso % (Auto) 0.2 % Neut # (Auto) 6.92 H (1.4-6.5) K/uL Lymph # (Auto) 2.24 (1.2-3.4) K/uL [place] # (Auto) 0.73 H (0.11-0.59) K/uL Eos # (Auto) 0.13 (0-0.5) K/uL Baso # (Auto) 0.02 (0-0.2) K/uL Immature Gran # (Auto) 0.03 H (0.00-0.02) K/uL Sodium 136 (136-145) mmol/L Potassium 3.1 L (3.5-5.1) mmol/L Chloride 102 (98-107) mmol/L Carbon Dioxide 27 (21-32) mmol/L Anion Gap 7.0 (3-11) BUN 4 L (7-18) mg/dl Creatinine 0.36 L (0.6-1.4) mg/dl Est Cr Clr Drug Dosing 309.2 ml/min Est GFR ( Amer) > 150.0 Est GFR (Non-Af Amer) > 150.0 BUN/Creatinine Ratio 10.0 (10-20) Glucose 124 H (70-99) mg/dl Calcium 9.1 (8.5-10.1) mg/dl Phosphorus 3.2 (2.5-4.9) mg/dl Magnesium 1.9 (1.8-2.4) mg/dl Total Bilirubin 0.4 (0.2-1) mg/dl AST 21 (15-37) U/L ALT 46 (12-78) U/L Alkaline Phosphatase 223 H (45-117) U/L Total Protein 7.0 (6.4-8.2) gm/dl Albumin 2.1 L (3.4-5.0) gm/dl Globulin 4.9 H (2.5-4.0) gm/dl Albumin/Globulin Ratio 0.4 L (0.9-2) Vancomycin Trough 10.2 (See Comment) mcg/ml PG Care Time/CCT Total # of Minutes Spent Total Time Spent with Patient: Total time spent is greater than 50% in coordination of care (as documented) at patient's floor/unit and/or counseling patient: Coding Level of Care Code 77473 Subseq Hosp Care Lvl 2 Diagnoses SIRS (systemic inflammatory response syndrome) R65.10 Sacral decubitus ulcer, stage III L89.153 SMAS (superior mesenteric artery syndrome) K55.1 Neurogenic bladder N31.9 Depression F32.9 Severe protein-calorie malnutrition E43 DVT prophylaxis Z29.9
[2020-05-20] MEDS ORDERED: VANCOMYCIN TROUGH ONE (10:30)
[2020-05-20 10:41] LABS: Basophils # (auto) 0.02 K/uL (0-0.2); Basophils % (auto) 0.2 %; Eosinophils # (auto) 0.13 K/uL (0-0.5); Eosinophils % (auto) 1.3 %; Hemoglobin 9.6 g/dL (14.0-18.0); Immature Granulocytes # (auto) 0.03 K/uL (0.00-0.02); Immature Granulocytes % (auto) 0.3 %; Lymphocytes # (auto) 2.24 K/uL (1.2-3.4); Lymphocytes % (auto) 22.2 %; Mean Corpuscular Hemoglobin 28.1 pg (25-34); Mean Corpuscular Volume 87.7 fL (80-100); Mean Platelet Volume 9.4 fL (7.4-10.4); Monocytes # (auto) 0.73 K/uL (0.11-0.59); Monocytes % (auto) 7.2 %; Neutrophils # (auto) 6.92 K/uL (1.4-6.5); Neutrophils % (auto) 68.8 %; Platelet Count 396 K/uL (130-400); RDW Coefficient of Variation 14.4 % (11.5-14.5); RDW Standard Deviation 45.5 fL (36.4-46.3); Red Blood Count 3.42 M/uL (4.7-6.1); White Blood Count 10.07 K/uL (4.8-10.8)
[2020-05-20] MEDS: DAKIN'S SOLN 0.25% HALF STRENGTH 473ML BTL EXT SCH ×2 (11:06→19:45)
[2020-05-20 11:10] LABS: Alanine Aminotransferase 46 U/L (12-78); Albumin Level 2.1 gm/dl (3.4-5.0); Aspartate Aminotransferase 21 U/L (15-37); Blood Urea Nitrogen 4 mg/dl (7-18); Calcium 9.1 mg/dl (8.5-10.1); Carbon Dioxide 27 mmol/L (21-32); Chloride 102 mmol/L (98-107); Creatinine Clr Calc Pharmacy 309.2 ml/min; Est GFR (African American) > 150.0; Est GFR (Non-African American) > 150.0; Glucose 124 mg/dl (70-99); Magnesium 1.9 mg/dl (1.8-2.4); Potassium 3.1 mmol/L (3.5-5.1); Sodium 136 mmol/L (136-145)
[2020-05-20 11:13] LABS: Albumin Globulin Ratio 0.4 (0.9-2); Alkaline Phosphatase 223 U/L (45-117); Bilirubin,Total 0.4 mg/dl (0.2-1); Globulin 4.9 gm/dl (2.5-4.0); Phosphorus 3.2 mg/dl (2.5-4.9)
--- NOTE | 2020-05-20 11:51 | Pharmacy Report ---
Pharmacy Abx Dose Short Note - Date of Service May 20, 2020 - Assessment & Plan Assessment 25 year old M receiving vancomycin/Zosyn for treatment of decubitus ulcer/ UTI Day # 3 of antimicrobial therapy. Plan Vancomycin * Trough level of 10.2 mcg/mL is subtherapeutic. * Change to 1000 mg IV every 8 hours (start 3 hours early) * Goal trough level for decubitus ulcer with potential for MRSA : 15 to 20 mcg/mL * Trough ordered for: 05/21/20 prior to 0800 dose to ensure level is approaching therapeutic. May require therapy change if not possible. Pharmacy will continue to follow and will adjust dose/frequency as necessary. Thank you.
[2020-05-20] MEDS ORDERED: POTASSIUM CHLORIDE 20 MEQ/15 ML UDC PO STA (12:08)
[2020-05-20] MEDS: MULTI VIT W/MINERALS LIQUID 15 ML UDP PO SCH (14:40)
[2020-05-20] MEDS: IMPACT LIQD 1.0 CAL 1,000 ML BAG GJT SCH (14:40)
[2020-05-20] MEDS: VANCOMYCIN HCL 1,000 MG in SODIUM CHLORIDE 0.9% 250 ML IV SCH ×2 (16:21→23:38)
[2020-05-21] MEDS: HYDROmorphone INJ 0.5 MG/0.5 ML SYR IV PRN ×7 (02:52→23:25)
[2020-05-21] MEDS: PIPERACILLIN/TAZOBACTAM 3.375 GM in DEXTROSE 5% 100 ML IV SCH ×3 (04:00→20:16)
[2020-05-21] MEDS ORDERED: VANCOMYCIN TROUGH ONE ×2 (07:30→15:30)
[2020-05-21] MEDS ORDERED: POTASSIUM CHLORIDE 20 MEQ/15 ML UDC GT STA (08:28)
--- NOTE | 2020-05-21 08:29 | Surgery Progress Note ---
Date of Service May 21, 2020 Assessment & Plan (1) Sacral decubitus ulcer: POD#2 debridement of sacral decubitus ulcer Patient has since been afebrile >24 hours. WBC: 7.3 Wound care evaluated patient yesterday and was able to place a wound vac Continue IV abx Will need to ensure follow up wound care is set up for home prior to patient's discharge We will follow peripherally, please call with any questions/concerns Admission and Anticipated Discharge Date Admission Date: May 18, 2020 Subjective Patient says he is doing okay. Tolerated wound vac to sacral wound yesterday, he says is holding in place well. Has some burning sensation from the area that he says is tolerable. Physical Exam Physical Exam: awake/alert Skin: wound vac to sacral area in place Results & Data ([facility]) Vital Signs (Past 12 Hours) Vital Signs Temp Pulse Resp BP Pulse Ox 05/21/20 07:18 37.1 C 88 16 104/66 97 05/20/20 23:27 37.4 C 91 H 18 102/61 97 PG Care Time/CCT Total # of Minutes Spent Total Time Spent with Patient: Total time spent is greater than 50% in coordination of care (as documented) at patient's floor/unit and/or counseling patient: Coding Level of Care Code None Diagnoses Sacral decubitus ulcer L89.156 Pressure injury stage: pressure injury of deep tissue (1) Sacral decubitus ulcer Pressure injury stage: pressure injury of deep tissue Qualified Code(s): L89.156 - Pressure-induced deep tissue damage of sacral region
--- NOTE | 2020-05-21 08:37 | Hospitalist Progress Note ---
Date of Service May 21, 2020 Assessment & Plan (1) SIRS (systemic inflammatory response syndrome): Overall concern for infectious etiology with recent GJ tube placement. Large decubitus ulcer present on admission down to the sacrum cannot exclude concomitant infection also with abnormal urinalysis and previous history of neurogenic bladder with previous Pseudomonas cannot exclude that as a source. Cannot explain the bacillus culture from the fourth subsequently will be admitted blood cultures obtained urine culture obtained surgical consultation for large decubitus ulcer Patient was initiated on Zosyn therapy in the emergency department patient has no history of MRSA will initiate vancomycin therapy at this time pending culture results as it can also cover the bacillus species POD#2 s/p debridement of stage IV decubitus ulcer with Dr. Gutierres on 05/19 Pathology c/w inflammatory process Wound culture day after OR with gram negative bacilli -- likely stool?? Will d/c Vancomycin and continue Zosyn BCx NGTD 48 hrs, follow Consider getting ID input on saturday regarding abx therapy at discharge if blood cx poritive or wound cx grows out other species Wound vac placed 05/20 -- will need close follow-up Sources: Urine with Psuedomonas (covered by Zosyn) vs Decubitus ulcer (cx gram negative, although likely stool but will follow) Continues to be afebrile, WBC 7.3k down from 16k on admission Continue to monitor daily labs (2) Sacral decubitus ulcer, stage III: Very large sacral decubitus ulcer. Wound care is a very appreciated and management of this issue General surgery consulted s/p debridement as above Wound vac placed 05/19 f/u will be required (3) SMAS (superior mesenteric artery syndrome): Patient returns from [facility] where he had a GJ tube placed for superior mesenteric artery syndrome Rec repeat imaging in next couple of weeks for re-assessment Nutrition consulted -- planned for increased tube feeds, continuous while inpatient, with goal of 85cc/hr and plans for outpatient at 14 hour feeds to help provide some time not hooked up. Patient happy with current plan. Also ordered cerovite 15ml daily Hypokalemia on BMP K 3.4 -- provided 20meq supplementation . Mag 1.7 -- IV replacement ordered Monitor nutrition labs -- replacement as needed (4) Neurogenic bladder: History of neurogenic bladder with places him at risk for recurrent infection Pseudomonas grew as above Continue Zosyn (5) Depression: Patient currently not on any medication, will discussion with the patient whether he wishes to begin this tomorrow Previous days reported feeling quite down, but is hopeful now that issues are being addressed Discussed this with patient on 05/21 and will increase his prozac to 40mg daily and can f/u outpatient for further titrations He did seem to be in better spirits today and yesterday than in the past and endorses good care (6) Severe protein-calorie malnutrition: Patient is markedly underweight BMI of 18 greatly appreciate dietary nutrition consultation initiating tube feeds at this time we will also initiate thiamine therapy to avoid refeeding syndrome and follow laboratories (7) DVT prophylaxis: Lovenox therapy while inpatient Patient is a full code Dispo: continued inpatient stay Admission and Anticipated Discharge Date Admission Date: May 18, 2020 Subjective Patient evaluated this morning. Feeling better. Eating mashed potatoes and pudding. Denies abdominal pain at this time. No fever, chills, chest pain, shortness of breath or nausea. Tube feeding without difficulty at this time. Will continue with current diet for feeds for comfort but not advance yet. Discussed wound cx with gram negative bacilli and may be able to discontinue the vancomycin. Still with some electrolyte issues but mild and being replaced. Patient laying low in bed and discussed getting repositioned. Bedding wet, appears palmer may have been kinked. Concerns for wound vac becoming dislodged, and assisted nursing to get patient changed and repositioned which showed wound vac intact and functioning. Palmer stopped leaking -- issues last admission and needed larger size. If persists, consider changing in the future. Will continue to attempt to increase nutrition as tolerated to promote wound healing. We did discussed depression/anxiety. He hasn't been getting his prozac, but he does feel an increase in dose is warranted and willing to try. Questions/concerns addressed at this time. Review of Systems Review of Systems: All systems reviewed & are unremarkable except as noted in HPI & below Physical Exam 2 Physical Exam: The patient appeared extremely thin BMI of 18.9 Laying in bed, low position with tray in front of him, slouched down but appearing comfortable. Bedding changed and patient boosted in bed, more comfortable appearing. NAD Head atraumatic, normocephalic. Neck without JVD. Trachea midline. Old tracheostomy scar healed noted Lung CTAB, no w/c/r. decreased BS bases b/l Cardiac RRR no m/r/g Abd +BS. Gtube in place Extremities atrophic bilaterally. Mobility of RUE and repositions self in bed Neuro AOx3 - palmer draining yellow urine Skin -- wound vac to stage IV decubitus on sacrum s/p debridement. intact and functioning Results & Data Results & Data ([facility]) Vital Signs (Past 12 Hours) Vital Signs Temp Pulse Resp BP Pulse Ox 05/21/20 07:18 37.1 C 88 16 104/66 97 05/20/20 23:27 37.4 C 91 H 18 102/61 97 Laboratory Results 05/21/20 05/21/20 Range/Units 08:46 08:46 WBC 7.34 (4.8-10.8) K/uL RBC 3.30 L (4.7-6.1) M/uL Hgb 9.1 L (14.0-18.0) g/dL Hct 28.8 L (42-52) % MCV 87.3 (80-100) fL MCH 27.6 (25-34) pg MCHC 31.6 L (32-36) g/dL RDW Std Deviation 45.7 (36.4-46.3) fL RDW Coeff of Stephen 14.4 (11.5-14.5) % Plt Count 422 H (130-400) K/uL MPV 9.5 (7.4-10.4) fL Immature Gran % (Auto) 0.1 % Neut % (Auto) 59.1 % Lymph % (Auto) 27.8 % [place] % (Auto) 10.4 % Eos % (Auto) 2.2 % Baso % (Auto) 0.4 % Neut # (Auto) 4.34 (1.4-6.5) K/uL Lymph # (Auto) 2.04 (1.2-3.4) K/uL [place] # (Auto) 0.76 H (0.11-0.59) K/uL Eos # (Auto) 0.16 (0-0.5) K/uL Baso # (Auto) 0.03 (0-0.2) K/uL Immature Gran # (Auto) 0.01 (0.00-0.02) K/uL Sodium 138 (136-145) mmol/L Potassium 3.4 L (3.5-5.1) mmol/L Chloride 103 (98-107) mmol/L Carbon Dioxide 28 (21-32) mmol/L Anion Gap 7.0 (3-11) BUN 4 L (7-18) mg/dl Creatinine 0.45 L (0.6-1.4) mg/dl Est Cr Clr Drug Dosing 247.4 ml/min Est GFR ( Amer) > 150.0 Est GFR (Non-Af Amer) > 150.0 BUN/Creatinine Ratio 9.5 L (10-20) Glucose 99 (70-99) mg/dl Calcium 9.7 (8.5-10.1) mg/dl Phosphorus 3.5 (2.5-4.9) mg/dl Magnesium 1.7 L (1.8-2.4) mg/dl Total Bilirubin 0.3 (0.2-1) mg/dl AST 19 (15-37) U/L ALT 44 (12-78) U/L Alkaline Phosphatase 194 H (45-117) U/L Total Protein 6.8 (6.4-8.2) gm/dl Albumin 2.0 L (3.4-5.0) gm/dl Globulin 4.8 H (2.5-4.0) gm/dl Albumin/Globulin Ratio 0.4 L (0.9-2) PG Care Time/CCT Total # of Minutes Spent Total Time Spent with Patient: Total time spent is greater than 50% in coordination of care (as documented) at patient's floor/unit and/or counseling patient: Coding Level of Care Code 38898 Subseq Hosp Care Lvl 3 Diagnoses SIRS (systemic inflammatory response syndrome) R65.10 Sacral decubitus ulcer, stage III L89.153 SMAS (superior mesenteric artery syndrome) K55.1 Neurogenic bladder N31.9 Depression F32.9 Severe protein-calorie malnutrition E43 DVT prophylaxis Z29.9
[2020-05-21] MEDS: VANCOMYCIN HCL 1,000 MG in SODIUM CHLORIDE 0.9% 250 ML IV SCH (09:14)
[2020-05-21] MEDS: ENOXAPARIN INJ 40 MG/0.4 ML SYR SQ SCH (09:14)
[2020-05-21] MEDS: MULTI VIT W/MINERALS LIQUID 15 ML UDP PO SCH (09:15)
[2020-05-21] MEDS: DAKIN'S SOLN 0.25% HALF STRENGTH 473ML BTL EXT SCH ×2 (09:15→20:16)
[2020-05-21] MEDS: NYSTATIN POWDER 15GM BTL EXT SCH ×2 (09:15→20:16)
[2020-05-21] MEDS: NEOMYCIN/POLYMYX/BACITR OINT 15 GM TUBE EXT SCH (09:16)
[2020-05-21] MEDS: SENNA 8.6 MG TAB PO SCH (09:16)
[2020-05-21 09:34] LABS: Basophils # (auto) 0.03 K/uL (0-0.2); Basophils % (auto) 0.4 %; Eosinophils # (auto) 0.16 K/uL (0-0.5); Eosinophils % (auto) 2.2 %; Hematocrit (blood only) 28.8 % (42-52); Hemoglobin 9.1 g/dL (14.0-18.0); Immature Granulocytes # (auto) 0.01 K/uL (0.00-0.02); Immature Granulocytes % (auto) 0.1 %; Lymphocytes # (auto) 2.04 K/uL (1.2-3.4); Lymphocytes % (auto) 27.8 %; Mean Corpuscular Hemoglobin 27.6 pg (25-34); Mean Corpuscular Hgb Conc 31.6 g/dL (32-36); Mean Corpuscular Volume 87.3 fL (80-100); Mean Platelet Volume 9.5 fL (7.4-10.4); Monocytes # (auto) 0.76 K/uL (0.11-0.59); Monocytes % (auto) 10.4 %; Neutrophils # (auto) 4.34 K/uL (1.4-6.5); Neutrophils % (auto) 59.1 %; Platelet Count 422 K/uL (130-400); RDW Coefficient of Variation 14.4 % (11.5-14.5); RDW Standard Deviation 45.7 fL (36.4-46.3); White Blood Count 7.34 K/uL (4.8-10.8)
[2020-05-21 10:07] LABS: Alanine Aminotransferase 44 U/L (12-78); Aspartate Aminotransferase 19 U/L (15-37); BUN Creatinine Ratio 9.5 (10-20); Blood Urea Nitrogen 4 mg/dl (7-18); Calcium 9.7 mg/dl (8.5-10.1); Carbon Dioxide 28 mmol/L (21-32); Chloride 103 mmol/L (98-107); Creatinine Clr Calc Pharmacy 247.4 ml/min; Est GFR (African American) > 150.0; Est GFR (Non-African American) > 150.0; Glucose 99 mg/dl (70-99); Magnesium 1.7 mg/dl (1.8-2.4); Potassium 3.4 mmol/L (3.5-5.1); Sodium 138 mmol/L (136-145)
[2020-05-21 10:11] LABS: Albumin Globulin Ratio 0.4 (0.9-2); Alkaline Phosphatase 194 U/L (45-117); Bilirubin,Total 0.3 mg/dl (0.2-1); Globulin 4.8 gm/dl (2.5-4.0); Phosphorus 3.5 mg/dl (2.5-4.9); Total Protein 6.8 gm/dl (6.4-8.2)
[2020-05-21] MEDS: MAGNESIUM SULFATE / D5W 1 GM/100 ML BAG IV SCH ×2 (11:30→13:59)
[2020-05-21] MEDS ORDERED: POTASSIUM CHLORIDE 20 MEQ/15 ML UDC GT ONE (11:30)
[2020-05-21] MEDS: ACETAMINOPHEN 1000 MG/100 ML IV IV PRN (16:36)
[2020-05-21] MEDS ORDERED: SODIUM CHLORIDE 0.9% 1000ML 500 ML IV SCH (17:45)
[2020-05-21] MEDS: IMPACT LIQD 1.0 CAL 1,000 ML BAG GJT SCH (19:51)
[2020-05-22] MEDS: HYDROmorphone INJ 0.5 MG/0.5 ML SYR IV PRN ×8 (02:37→21:45)
[2020-05-22] MEDS: PIPERACILLIN/TAZOBACTAM 3.375 GM in DEXTROSE 5% 100 ML IV SCH (04:25)
[2020-05-22 06:06] LABS: Basophils # (auto) 0.02 K/uL (0-0.2); Basophils % (auto) 0.3 %; Eosinophils # (auto) 0.19 K/uL (0-0.5); Eosinophils % (auto) 2.8 %; Hematocrit (blood only) 28.6 % (42-52); Hemoglobin 9.1 g/dL (14.0-18.0); Immature Granulocytes # (auto) 0.03 K/uL (0.00-0.02); Immature Granulocytes % (auto) 0.4 %; Lymphocytes # (auto) 2.41 K/uL (1.2-3.4); Lymphocytes % (auto) 35.5 %; Mean Corpuscular Hemoglobin 27.8 pg (25-34); Mean Corpuscular Hgb Conc 31.8 g/dL (32-36); Mean Corpuscular Volume 87.5 fL (80-100); Mean Platelet Volume 9.5 fL (7.4-10.4); Monocytes # (auto) 0.68 K/uL (0.11-0.59); Neutrophils # (auto) 3.45 K/uL (1.4-6.5); Platelet Count 430 K/uL (130-400); RDW Coefficient of Variation 14.4 % (11.5-14.5); RDW Standard Deviation 46.2 fL (36.4-46.3); Red Blood Count 3.27 M/uL (4.7-6.1); White Blood Count 6.78 K/uL (4.8-10.8)
[2020-05-22 06:33] LABS: Alanine Aminotransferase 40 U/L (12-78); Aspartate Aminotransferase 14 U/L (15-37); BUN Creatinine Ratio 11.8 (10-20); Blood Urea Nitrogen 5 mg/dl (7-18); Calcium 9.1 mg/dl (8.5-10.1); Carbon Dioxide 30 mmol/L (21-32); Chloride 100 mmol/L (98-107); Creatinine Clr Calc Pharmacy 285.4 ml/min; Est GFR (African American) > 150.0; Est GFR (Non-African American) > 150.0; Glucose 156 mg/dl (70-99); Magnesium 2.2 mg/dl (1.8-2.4); Potassium 3.5 mmol/L (3.5-5.1); Sodium 135 mmol/L (136-145)
[2020-05-22 06:35] LABS: Albumin Globulin Ratio 0.4 (0.9-2); Alkaline Phosphatase 174 U/L (45-117); Bilirubin,Total 0.3 mg/dl (0.2-1); Globulin 4.8 gm/dl (2.5-4.0); Phosphorus 3.8 mg/dl (2.5-4.9); Total Protein 6.8 gm/dl (6.4-8.2)
[2020-05-22] MEDS: ENOXAPARIN INJ 40 MG/0.4 ML SYR SQ SCH (08:03)
[2020-05-22] MEDS: SENNA 8.6 MG TAB PO SCH (08:05)
[2020-05-22] MEDS: MULTI VIT W/MINERALS LIQUID 15 ML UDP PO SCH (08:05)
[2020-05-22] MEDS: FLUoxetine HCL 20 MG/5 ML 120ML BTL GT SCH (08:05)
[2020-05-22] MEDS: POLYETHYLENE (MIRALAX) 17 GM PACK PO SCH (08:55)
--- NOTE | 2020-05-22 09:07 | Hospitalist Progress Note ---
Date of Service May 22, 2020 Assessment & Plan (1) SIRS (systemic inflammatory response syndrome): Overall concern for infectious etiology with recent GJ tube placement. Large decubitus ulcer present on admission down to the sacrum cannot exclude concomitant infection also with abnormal urinalysis and previous history of neurogenic bladder with previous Pseudomonas cannot exclude that as a source. Cannot explain the bacillus culture from the fourth subsequently will be admitted blood cultures obtained urine culture obtained surgical consultation for large decubitus ulcer Patient was initiated on Zosyn therapy in the emergency department patient has no history of MRSA will initiate vancomycin therapy at this time pending culture results as it can also cover the bacillus species POD#3 s/p debridement of stage IV decubitus ulcer with Dr. Gutierres on 05/19 Pathology c/w inflammatory process Wound culture from OR with Pseudomonas -- RESISTANT TO ZOSYN (vanco had been d/c on 05/21) --> Will transition to Meropenem IV (day #1) ID consulted for tomorrow for rec's at discharge BCx NGTD 48 hrs, follow Wound vac placed 05/20 -- will need close follow-up at discharge Sources: Urine with Pseudomonas (covered by Zosyn) vs Decubitus ulcer (resistant pseudomonas as above) Continues to be afebrile, WBC 6.7k, down from 16k on admission Given 1L IVF yesterday for low BP Continue to monitor daily labs (2) Sacral decubitus ulcer, stage III: Very large sacral decubitus ulcer. Wound care is a very appreciated and management of this issue General surgery consulted s/p debridement as above Wound vac placed 05/19 f/u will be required (3) SMAS (superior mesenteric artery syndrome): Patient returns from [facility] where he had a GJ tube placed for superior mesenteric artery syndrome Rec repeat imaging in next couple of weeks for re-assessment Nutrition consulted -- planned for increased tube feeds, continuous while inpatient, with goal of 85cc/hr and plans for outpatient at 14 hour feeds to help provide some time not hooked up. Patient happy with current plan.--> He is currently at the 85cc/hr and tolerating well Also ordered Cerovite 15ml daily Hypokalemia on BMP K 3.4 -- provided 20meq supplementation as well as mag replacement for mag of 1.7 K 3.5 and wnl and mag 2.2 qnl on AM labs Continue to monitor nutrition labs -- replacement as needed (4) Neurogenic bladder: History of neurogenic bladder with places him at risk for recurrent infection Pseudomonas grew as above Resumed his oxybutynin BID Continue Zosyn (5) Depression: Patient currently not on any medication, will discussion with the patient whether he wishes to begin this tomorrow Previous days reported feeling quite down, but is hopeful now that issues are being addressed Discussed this with patient on 05/21 and increase his prozac to 40mg daily and can f/u outpatient for further titrations He did seem to be in better spirits today and yesterday than in the past and endorses good care (6) Severe protein-calorie malnutrition: Patient is markedly underweight BMI of 18 greatly appreciate dietary nutrition consultation initiating tube feeds at this time we will also initiate thiamine therapy to avoid refeeding syndrome and follow laboratories (7) DVT prophylaxis: Lovenox therapy while inpatient Patient is a full code Dispo: continued inpatient stay Admission and Anticipated Discharge Date Admission Date: May 18, 2020 Subjective Patient evaluated this morning. Feeling well. Pain controlled to wound with pain medication just administered. Had some resistance with G tube but nursing just flushed debris and now functioning without issue. Denies abdominal pain. Still without BM but just took some miralax. Has not gotten his oxybutynin for bladder spasm and we will resume this. Eating for comfort without issue. Had palmer exchanged last evening and currently draining yellow/clear urine. Discussed that wound actually growing pseudomonas resistant to Zosyn and transitioned abx and will get ID on board tomorrow for recommendations at discharge but will likely remain in the hospital several more days. Tube feeding up to 85cc/hr and at goal. Plans for rehab at [facility] but no bed available until at least mid-next week. No fever, chills, chest pain, nausea, vomiting. Physical Exam Physical Exam: The patient appeared extremely thin BMI of 18.9 Laying in bed, low position with tray in front of him, comfortable appearing. NAD Head atraumatic, normocephalic. Neck without JVD. Trachea midline. Old tracheostomy scar healed noted Lung CTAB, no w/c/r. decreased BS bases b/l Cardiac RRR no m/r/g Abd +BS. Gtube in place. non-tender to palpation. Extremities atrophic bilaterally. Decreased mobility of RUE and repositions self in bed Neuro AOx3 - palmer draining yellow urine. no evidence of leak Skin -- wound vac to stage IV decubitus on sacrum s/p debridement. intact and functioning Results & Data Results & Data ([facility]) Vital Signs (Past 12 Hours) Vital Signs Temp Pulse Resp BP Pulse Ox 05/22/20 07:57 36.6 C 69 16 103/67 96 05/21/20 23:24 36.6 C 82 18 103/65 97 Laboratory Results 05/22/20 05/22/20 Range/Units 05:45 05:45 WBC 6.78 (4.8-10.8) K/uL RBC 3.27 L (4.7-6.1) M/uL Hgb 9.1 L (14.0-18.0) g/dL Hct 28.6 L (42-52) % MCV 87.5 (80-100) fL MCH 27.8 (25-34) pg MCHC 31.8 L (32-36) g/dL RDW Std Deviation 46.2 (36.4-46.3) fL RDW Coeff of Stephen 14.4 (11.5-14.5) % Plt Count 430 H (130-400) K/uL MPV 9.5 (7.4-10.4) fL Immature Gran % (Auto) 0.4 % Neut % (Auto) 51.0 % Lymph % (Auto) 35.5 % [place] % (Auto) 10.0 % Eos % (Auto) 2.8 % Baso % (Auto) 0.3 % Neut # (Auto) 3.45 (1.4-6.5) K/uL Lymph # (Auto) 2.41 (1.2-3.4) K/uL [place] # (Auto) 0.68 H (0.11-0.59) K/uL Eos # (Auto) 0.19 (0-0.5) K/uL Baso # (Auto) 0.02 (0-0.2) K/uL Immature Gran # (Auto) 0.03 H (0.00-0.02) K/uL Sodium 135 L (136-145) mmol/L Potassium 3.5 (3.5-5.1) mmol/L Chloride 100 (98-107) mmol/L Carbon Dioxide 30 (21-32) mmol/L Anion Gap 5.0 (3-11) BUN 5 L (7-18) mg/dl Creatinine 0.39 L (0.6-1.4) mg/dl Est Cr Clr Drug Dosing 285.4 ml/min Est GFR ( Amer) > 150.0 Est GFR (Non-Af Amer) > 150.0 BUN/Creatinine Ratio 11.8 (10-20) Glucose 156 H (70-99) mg/dl Calcium 9.1 (8.5-10.1) mg/dl Phosphorus 3.8 (2.5-4.9) mg/dl Magnesium 2.2 (1.8-2.4) mg/dl Total Bilirubin 0.3 (0.2-1) mg/dl AST 14 L (15-37) U/L ALT 40 (12-78) U/L Alkaline Phosphatase 174 H (45-117) U/L Total Protein 6.8 (6.4-8.2) gm/dl Albumin 2.0 L (3.4-5.0) gm/dl Globulin 4.8 H (2.5-4.0) gm/dl Albumin/Globulin Ratio 0.4 L (0.9-2) PG Care Time/CCT Total # of Minutes Spent Total Time Spent with Patient: Total time spent is greater than 50% in coordination of care (as documented) at patient's floor/unit and/or counseling patient: Coding Level of Care Code 40435 Subseq Hosp Care Lvl 3 Diagnoses SIRS (systemic inflammatory response syndrome) R65.10 Sacral decubitus ulcer, stage III L89.153 SMAS (superior mesenteric artery syndrome) K55.1 Neurogenic bladder N31.9 Depression F32.9 Severe protein-calorie malnutrition E43 DVT prophylaxis Z29.9
[2020-05-22] MEDS: DAKIN'S SOLN 0.25% HALF STRENGTH 473ML BTL EXT SCH ×2 (09:21→20:00)
[2020-05-22] MEDS: NEOMYCIN/POLYMYX/BACITR OINT 15 GM TUBE EXT SCH (09:22)
[2020-05-22] MEDS: NYSTATIN POWDER 15GM BTL EXT SCH ×2 (09:22→20:21)
[2020-05-22] MEDS ORDERED: MEROPENEM CONSULT ACITVE PRN (09:58)
[2020-05-22] MEDS: MEROPENEM 500 MG in SYRINGE 0 ML IV SCH ×3 (10:49→21:49)
[2020-05-22] MEDS: OXYBUTYNIN CHLORIDE 5 MG TAB PO SCH ×2 (13:50→20:21)
[2020-05-22] MEDS: IMPACT LIQD 1.0 CAL 1,000 ML BAG GJT SCH (20:05)
[2020-05-23] MEDS: HYDROmorphone INJ 0.5 MG/0.5 ML SYR IV PRN ×7 (00:48→20:18)
[2020-05-23] MEDS: MEROPENEM 500 MG in SYRINGE 0 ML IV SCH ×4 (03:56→22:44)
[2020-05-23 06:39] LABS: Hematocrit (blood only) 26.4 % (42-52); Hemoglobin 8.3 g/dL (14.0-18.0); Mean Corpuscular Hemoglobin 27.6 pg (25-34); Mean Corpuscular Hgb Conc 31.4 g/dL (32-36); Mean Corpuscular Volume 87.7 fL (80-100); Mean Platelet Volume 9.7 fL (7.4-10.4); Platelet Count 495 K/uL (130-400); RDW Coefficient of Variation 14.6 % (11.5-14.5); RDW Standard Deviation 46.4 fL (36.4-46.3); Red Blood Count 3.01 M/uL (4.7-6.1); White Blood Count 6.48 K/uL (4.8-10.8)
[2020-05-23 07:17] LABS: Alanine Aminotransferase 35 U/L (12-78); Albumin Level 2.1 gm/dl (3.4-5.0); Aspartate Aminotransferase 11 U/L (15-37); BUN Creatinine Ratio 12.8 (10-20); Bilirubin Direct 0.1 mg/dl (0-0.2); Blood Urea Nitrogen 5 mg/dl (7-18); Carbon Dioxide 27 mmol/L (21-32); Chloride 101 mmol/L (98-107); Creatinine Clr Calc Pharmacy 278.3 ml/min; Est GFR (African American) > 150.0; Est GFR (Non-African American) > 150.0; Glucose 86 mg/dl (70-99); Potassium 3.7 mmol/L (3.5-5.1); Sodium 137 mmol/L (136-145)
[2020-05-23 07:20] LABS: Alkaline Phosphatase 159 U/L (45-117); Bilirubin,Total 0.2 mg/dl (0.2-1); Phosphorus 3.6 mg/dl (2.5-4.9); Total Protein 7.1 gm/dl (6.4-8.2)
[2020-05-23] MEDS: DAKIN'S SOLN 0.25% HALF STRENGTH 473ML BTL EXT SCH ×2 (08:11→20:28)
[2020-05-23] MEDS: OXYBUTYNIN CHLORIDE 5 MG TAB PO SCH ×2 (08:14→20:22)
[2020-05-23] MEDS: ENOXAPARIN INJ 40 MG/0.4 ML SYR SQ SCH (08:14)
[2020-05-23] MEDS: SENNA 8.6 MG TAB PO SCH (08:14)
[2020-05-23] MEDS: MULTI VIT W/MINERALS LIQUID 15 ML UDP PO SCH (08:15)
[2020-05-23] MEDS: POLYETHYLENE (MIRALAX) 17 GM PACK PO SCH (08:15)
[2020-05-23] MEDS: FLUoxetine HCL 20 MG/5 ML 120ML BTL GT SCH (08:15)
[2020-05-23] MEDS: NYSTATIN POWDER 15GM BTL EXT SCH ×2 (09:48→20:27)
[2020-05-23] MEDS: NEOMYCIN/POLYMYX/BACITR OINT 15 GM TUBE EXT SCH (09:48)
--- NOTE | 2020-05-23 16:13 | Hospitalist Progress Note ---
Date of Service May 23, 2020 Assessment & Plan (1) SIRS (systemic inflammatory response syndrome): Overall concern for infectious etiology with recent GJ tube placement. Large decubitus ulcer present on admission down to the sacrum cannot exclude concomitant infection also with abnormal urinalysis and previous history of neurogenic bladder with previous Pseudomonas cannot exclude that as a source. Cannot explain the bacillus culture from the fourth subsequently will be admitted blood cultures obtained urine culture obtained surgical consultation for large decubitus ulcer initially on Zosyn and Vanco POD#4 s/p debridement of stage IV decubitus ulcer with Dr. Gutierres on 05/19 Pathology c/w inflammatory process Wound culture from OR with Pseudomonas -- RESISTANT TO ZOSYN (vanco had been d/c on 05/21) --> Will transition to Meropenem IV (day #2) ID consulted, done today, awaiting consult to be uploaded for recommendations BCx NGTD 72 hrs, follow Wound vac placed 05/20 -- will need close follow-up at discharge Sources: Urine with Pseudomonas (covered by Zosyn) vs Decubitus ulcer (resistant pseudomonas as above) Continues to be afebrile, WBC 6k, down from 16k on admission no further fluids needed today, continue tube feeds (2) Sacral decubitus ulcer, stage III: Very large sacral decubitus ulcer. Wound care is a very appreciated and management of this issue General surgery consulted s/p debridement as above Wound vac placed 05/20 f/u will be required (3) SMAS (superior mesenteric artery syndrome): Patient returns from [facility] where he had a GJ tube placed for superior mesenteric artery syndrome Rec repeat imaging in next couple of weeks for re-assessment Nutrition consulted -- planned for increased tube feeds, continuous while inpatient, with goal of 85cc/hr and plans for outpatient at 14 hour feeds to help provide some time not hooked up. Patient happy with current plan.--> He is currently at the 85cc/hr and tolerating well Also ordered Cerovite 15ml daily K is 3.7 today check BMP tomorrow (4) Neurogenic bladder: History of neurogenic bladder with places him at risk for recurrent infection Pseudomonas grew as above continue oxybutynin BID Continue Meropenem for UTI (5) Depression: Previous days reported feeling quite down, but is hopeful now that issues are being addressed Discussed this with patient on 05/21 and increase his prozac to 40mg daily and can f/u outpatient for further titrations mood seems stable today (6) Severe protein-calorie malnutrition: Patient is markedly underweight BMI of 18 greatly appreciate dietary nutrition consultation initiating tube feeds at this time we will also initiate thiamine therapy to avoid refeeding syndrome and follow laboratories (7) DVT prophylaxis: Lovenox therapy while inpatient Patient is a full code Dispo: continued inpatient stay Admission and Anticipated Discharge Date Admission Date: May 18, 2020 Subjective patient doing okay, he says he has some pain but it is relieved with Dilaudid 0.5mg IV he has some concerns about his tube feeds, he says the bag was hung at 8pm last night at rate of 85cc/hr however, still has half the bag left, at this point it should have finished at 8am d/w RN, other than having to flush it a few times he has not noticed a major issue, will continue to monitor reviewed chart, he is on Meropenem for Pseudomonas in sacral wound no fevers today, WBC normal, Hb 8, Cr 0.4 and electrolytes stable Review of Systems Review of Systems: All systems reviewed & are unremarkable except as noted in Subjective Integumentary: + wounds (sacral decubitus) Physical Exam Constitutional: well developed, + thin and + frail appearing; no acute distress Neck: trachea midline, no thyromegaly Respiratory: normal respiratory effort, lungs clear to auscultation Cardiovascular: RRR, no murmur, no edema Gastrointestinal (Abdomen): Inspection/Auscultation: abdomen normal to inspection (PEG in place) and normal bowel sounds; abdomen not distended Percussion/Palpation: abdomen soft; abdomen nontender and no guarding Musculoskeletal: Head/Neck/Chest: normocephalic, head atraumatic and neck supple Extremities: + abnormal strength and + muscle atrophy; no cyanosis, no clubbing and no petechiae Skin: + wound (sacral decubitus with wound vac in place) Neurologic: patellar DTR's 2+ bilat, sensation intact and PERRL, EOMI, accommodation nl, no face palsy, no dysarthria Psychiatric: Orientation: alert and oriented x 3 Affect: + depressed affect Lymphatic: no cervical or axillary lymphadenopathy Results & Data Results & Data ([facility]) Vital Signs (Past 12 Hours) Vital Signs Temp Pulse Resp BP Pulse Ox 05/23/20 15:13 36.6 C 100 H 18 91/50 L 97 05/23/20 07:39 36.7 C 85 16 93/55 L 97 Laboratory Results Laboratory Results - last 24 hr 05/23/20 05/23/20 05:47 05:47 WBC 6.48 RBC 3.01 L Hgb 8.3 L Hct 26.4 L MCV 87.7 MCH 27.6 MCHC 31.4 L RDW Std Deviation 46.4 H RDW Coeff of Stephen 14.6 H Plt Count 495 H MPV 9.7 Sodium 137 Potassium 3.7 Chloride 101 Carbon Dioxide 27 Anion Gap 8.0 BUN 5 L Creatinine 0.40 L Est Cr Clr Drug Dosing 278.3 Est GFR ( Amer) > 150.0 Est GFR (Non-Af Amer) > 150.0 BUN/Creatinine Ratio 12.8 Glucose 86 Calcium 10.0 Phosphorus 3.6 Magnesium 2.0 Total Bilirubin 0.2 Direct Bilirubin 0.1 AST 11 L ALT 35 Alkaline Phosphatase 159 H Total Protein 7.1 Albumin 2.1 L Medications Administered Current Inpatient Medications Acetaminophen (Acetaminophen Susp 325 Mg/10.15 Ml Udc) 650 mg PO Q6H PRN PRN Reason: Pain or Fever Stop: 06/17/20 08:48 Last Admin: 05/19/20 00:13 Dose: 650 mg Documented by: Enoxaparin Sodium (Enoxaparin Inj 40 Mg/0.4 Ml Syr) 40 mg SQ QAM [facility] Stop: 06/19/20 08:59 Last Admin: 05/23/20 08:14 Dose: 40 mg Documented by: Enteral Nutritional Formula (Impact Liqd 1.0 Ritesh 1,000 Ml Bag) 1,000 ml GJT [facility]; Protocol Stop: 06/19/20 13:29 Last Admin: 05/22/20 20:05 Dose: 1,000 ml Documented by: Fluoxetine HCl (Fluoxetine Hcl 20 Mg/5 Ml 120ml Btl) 40 mg GT DAILY [facility] Stop: 06/21/20 08:59 Last Admin: 05/23/20 08:15 Dose: 40 mg Documented by: Hydromorphone HCl (Hydromorphone Inj 0.5 Mg/0.5 Ml Syr) 0.5 mg IV Q3HWA PRN PRN Reason: Pain Stop: 06/02/20 11:36 Last Admin: 05/23/20 13:50 Dose: 0.5 mg Documented by: Meropenem 500 mg/ Syringe 10 mls @ 2 mls/min IV Q6H [facility]; Protocol Stop: 05/29/20 09:59 Last Admin: 05/23/20 09:48 Dose: 2 mls/min Documented by: Melatonin (Melatonin 3 Mg Tab) 3 mg PO HS PRN; Protocol PRN Reason: Sleep Stop: 06/17/20 08:58 Miscellaneous Information (Meropenem Consult Acitve) 1 ea N/A UD PRN PRN Reason: Consult Stop: 06/21/20 09:57 Multivitamins/Minerals (Multi Vit W/Minerals Liquid 15 Ml Udp) 15 ml PO QAM [facility] Stop: 06/19/20 13:59 Last Admin: 05/23/20 08:15 Dose: 15 ml Documented by: Neomycin/Polymyxin/Bacitracin (Neomycin/Polymyx/Bacitr Oint 15 Gm Tube) 1 appln EXT QAM [facility] Stop: 06/18/20 08:59 Last Admin: 05/23/20 09:48 Dose: 1 appln Documented by: Nystatin (Nystatin Powder 15gm Btl) 1 appln EXT AMHS [facility] Stop: 06/17/20 08:59 Last Admin: 05/23/20 09:48 Dose: 1 appln Documented by: Ondansetron HCl (Ondansetron Inj 2 Mg/Ml 2 Ml Vial) 4 mg IV Q6H PRN PRN Reason: Nausea Stop: 06/17/20 08:48 Oxybutynin Chloride (Oxybutynin Chloride 5 Mg Tab) 5 mg PO BID [facility] Stop: 06/21/20 12:59 Last Admin: 05/23/20 08:14 Dose: 5 mg Documented by: Polyethylene Glycol (Polyethylene (Miralax) 17 Gm Pack) 17 gm PO DAILY [facility] Stop: 06/21/20 08:59 Last Admin: 05/23/20 08:15 Dose: 17 gm Documented by: Sennosides (Senna 8.6 Mg Tab) 17.2 mg PO DAILY [facility] Stop: 06/17/20 08:59 Last Admin: 05/23/20 08:14 Dose: 17.2 mg Documented by: Sodium Hypochlorite (Dakin's Soln 0.25% Half Strength 473ml Btl) 1 appln EXT AMHS [facility] Stop: 06/17/20 08:59 Last Admin: 05/23/20 08:11 Dose: Not Given Documented by: PG Care Time/CCT Total # of Minutes Spent Total Time Spent with Patient: Total time spent is greater than 50% in coordination of care (as documented) at patient's floor/unit and/or counseling patient: Coding Level of Care Code 02259 Subseq Hosp Care Lvl 2 Diagnoses SIRS (systemic inflammatory response syndrome) R65.10 Sacral decubitus ulcer, stage III L89.153 SMAS (superior mesenteric artery syndrome) K55.1 Neurogenic bladder N31.9 Depression F32.9 Severe protein-calorie malnutrition E43 DVT prophylaxis Z29.9
[2020-05-24] MEDS: HYDROmorphone INJ 0.5 MG/0.5 ML SYR IV PRN ×5 (00:02→15:23)
[2020-05-24] MEDS: MEROPENEM 500 MG in SYRINGE 0 ML IV SCH ×4 (03:03→22:32)
[2020-05-24] MEDS: DAKIN'S SOLN 0.25% HALF STRENGTH 473ML BTL EXT SCH ×2 (09:00→22:31)
[2020-05-24] MEDS: ENOXAPARIN INJ 40 MG/0.4 ML SYR SQ SCH (09:01)
[2020-05-24] MEDS: POLYETHYLENE (MIRALAX) 17 GM PACK PO SCH (09:02)
[2020-05-24] MEDS: NYSTATIN POWDER 15GM BTL EXT SCH ×2 (09:02→22:31)
[2020-05-24] MEDS: OXYBUTYNIN CHLORIDE 5 MG TAB PO SCH ×2 (09:02→22:32)
[2020-05-24] MEDS: NEOMYCIN/POLYMYX/BACITR OINT 15 GM TUBE EXT SCH (09:03)
[2020-05-24] MEDS: MULTI VIT W/MINERALS LIQUID 15 ML UDP PO SCH (09:03)
[2020-05-24] MEDS: FLUoxetine HCL 20 MG/5 ML 120ML BTL GT SCH (09:03)
[2020-05-24] MEDS: SENNA 8.6 MG TAB PO SCH (09:04)
[2020-05-24] MEDS ORDERED: oxyCODONE HCL SOLN 5 MG/5 ML UDC GT PRN (10:47)
[2020-05-24] MEDS ORDERED: metroNIDAZOLE 500 MG TAB PO SCH (14:00)
[2020-05-24] MEDS ORDERED: CEFEPIME 2,000 MG in SYRINGE 0 ML IV SCH (14:00)
[2020-05-24] MEDS: IMPACT LIQD 1.0 CAL 1,000 ML BAG GJT SCH (18:25)
[2020-05-24] MEDS: oxyCODONE HCL SOLN 5 MG/5 ML UDC GT PRN ×2 (18:29→22:33)
--- NOTE | 2020-05-24 22:50 | Hospitalist Progress Note ---
Date of Service May 24, 2020 Assessment & Plan (1) SIRS (systemic inflammatory response syndrome): Overall concern for infectious etiology with recent GJ tube placement. Large decubitus ulcer present on admission down to the sacrum cannot exclude concomitant infection also with abnormal urinalysis and previous history of neurogenic bladder with previous Pseudomonas cannot exclude that as a source. Cannot explain the bacillus culture from the fourth subsequently will be admitted blood cultures obtained urine culture obtained surgical consultation for large decubitus ulcer initially on Zosyn and Vanco POD#5 s/p debridement of stage IV decubitus ulcer with Dr. Gutierres on 05/19 Pathology c/w inflammatory process Wound culture from OR with Pseudomonas -- RESISTANT TO ZOSYN (vanco had been d/c on 05/21) --> Will transition to Meropenem IV (day #3) ID consulted, needs 14 days total, thus 11 more days from today BCx NGTD Wound vac placed 05/20 -- will need close follow-up at discharge Sources: Urine with Pseudomonas (covered by Zosyn) vs Decubitus ulcer (resistant pseudomonas as above) Continues to be afebrile, WBC normal continue tube feeds (2) Sacral decubitus ulcer, stage III: Very large sacral decubitus ulcer. Wound care is a very appreciated and management of this issue General surgery consulted s/p debridement as above Wound vac placed 05/20 f/u will be required (3) SMAS (superior mesenteric artery syndrome): Patient returns from [facility] where he had a gastro- jejunostomy tube placed for superior mesenteric artery syndrome important as the feedings go beyond the duodenum Rec repeat imaging in next couple of weeks for re-assessment Nutrition consulted -- plan to continue feeds at 85cc/hr and plans for outpatient at 14 hour feeds to help provide some time not hooked up. Patient happy with current plan.--> He is currently at the 85cc/hr and tolerating well Also ordered Cerovite 15ml daily K is stable at 3.6 check BMP tomorrow (4) Neurogenic bladder: History of neurogenic bladder with places him at risk for recurrent infection Pseudomonas grew as above continue oxybutynin BID Continue Meropenem for UTI (5) Depression: Previous days reported feeling quite down, but is hopeful now that issues are being addressed Discussed this with patient on 05/21 and increase his prozac to 40mg daily and can f/u outpatient for further titrations mood seems stable today (6) Severe protein-calorie malnutrition: Patient is markedly underweight BMI of 18 greatly appreciate dietary nutrition consultation initiating tube feeds at this time we will also initiate thiamine therapy to avoid refeeding syndrome and follow laboratories (7) DVT prophylaxis: Lovenox therapy while inpatient Patient is a full code Dispo: continued inpatient stay Admission and Anticipated Discharge Date Admission Date: May 18, 2020 Subjective patient doing okay, very flat affect he has not had a BM in a few days despite tube fees abdomen is soft, NT, ND breathing well, no chest pain, no cough labs are stable plan for rehab in near future Review of Systems Review of Systems: All systems reviewed & are unremarkable except as noted in Subjective Gastrointestinal: + constipation Musculoskeletal: + muscle weakness Neurologic: + paralysis Physical Exam Constitutional: well developed, + thin and + frail appearing; no acute distress Neck: trachea midline, no thyromegaly Respiratory: normal respiratory effort, lungs clear to auscultation Cardiovascular: RRR, no murmur, no edema Gastrointestinal (Abdomen): Inspection/Auscultation: abdomen normal to inspection (PEG in place) and normal bowel sounds; abdomen not distended Percussion/Palpation: abdomen soft; abdomen nontender and no guarding Musculoskeletal: Head/Neck/Chest: normocephalic, head atraumatic and neck supple Extremities: + abnormal strength and + muscle atrophy; no cyanosis, no clubbing and no petechiae Skin: + wound (sacral decubitus with wound vac in place) Neurologic: patellar DTR's 2+ bilat, sensation intact and PERRL, EOMI, accommodation nl, no face palsy, no dysarthria Psychiatric: Orientation: alert and oriented x 3 Affect: + depressed affect Lymphatic: no cervical or axillary lymphadenopathy Results & Data Results & Data ([facility]) Vital Signs (Past 12 Hours) Vital Signs Temp Pulse Resp BP Pulse Ox 05/24/20 16:06 37.2 C 98 H 18 101/65 97 Medications Administered Current Inpatient Medications Acetaminophen (Acetaminophen Susp 325 Mg/10.15 Ml Udc) 650 mg PO Q6H PRN PRN Reason: Pain or Fever Stop: 06/17/20 08:48 Last Admin: 05/19/20 00:13 Dose: 650 mg Documented by: Enoxaparin Sodium (Enoxaparin Inj 40 Mg/0.4 Ml Syr) 40 mg SQ QAM [facility] Stop: 06/19/20 08:59 Last Admin: 05/24/20 09:01 Dose: 40 mg Documented by: Enteral Nutritional Formula (Impact Liqd 1.0 Ritesh 1,000 Ml Bag) 1,000 ml GJT UD [facility]; Protocol Stop: 06/19/20 13:29 Last Admin: 05/24/20 18:25 Dose: 1,000 ml Documented by: Fluoxetine HCl (Fluoxetine Hcl 20 Mg/5 Ml 120ml Btl) 40 mg GT DAILY [facility] Stop: 06/21/20 08:59 Last Admin: 05/24/20 09:03 Dose: 40 mg Documented by: Meropenem 500 mg/ Syringe 10 mls @ 2 mls/min IV Q6H [facility]; Protocol Stop: 05/29/20 09:59 Last Admin: 05/24/20 22:32 Dose: 2 mls/min Documented by: Melatonin (Melatonin 3 Mg Tab) 3 mg PO HS PRN; Protocol PRN Reason: Sleep Stop: 06/17/20 08:58 Miscellaneous Information (Meropenem Consult Acitve) 1 ea N/A UD PRN PRN Reason: Consult Stop: 06/21/20 09:57 Multivitamins/Minerals (Multi Vit W/Minerals Liquid 15 Ml Udp) 15 ml PO QAM [facility] Stop: 06/19/20 13:59 Last Admin: 05/24/20 09:03 Dose: 15 ml Documented by: Neomycin/Polymyxin/Bacitracin (Neomycin/Polymyx/Bacitr Oint 15 Gm Tube) 1 appln EXT QAM [facility] Stop: 06/18/20 08:59 Last Admin: 05/24/20 09:03 Dose: Not Given Documented by: Nystatin (Nystatin Powder 15gm Btl) 1 appln EXT AMHS [facility] Stop: 06/17/20 08:59 Last Admin: 05/24/20 22:31 Dose: 1 appln Documented by: Ondansetron HCl (Ondansetron Inj 2 Mg/Ml 2 Ml Vial) 4 mg IV Q6H PRN PRN Reason: Nausea Stop: 06/17/20 08:48 Oxybutynin Chloride (Oxybutynin Chloride 5 Mg Tab) 5 mg PO BID [facility] Stop: 06/21/20 12:59 Last Admin: 05/24/20 22:32 Dose: 5 mg Documented by: Oxycodone HCl (Oxycodone Hcl Soln 5 Mg/5 Ml Udc) 10 mg GT Q4H PRN PRN Reason: Pain Stop: 06/07/20 10:46 Last Admin: 05/24/20 22:33 Dose: 10 mg Documented by: Polyethylene Glycol (Polyethylene (Miralax) 17 Gm Pack) 17 gm PO DAILY [facility] Stop: 06/21/20 08:59 Last Admin: 05/24/20 09:02 Dose: Not Given Documented by: Sennosides (Senna 8.6 Mg Tab) 17.2 mg PO DAILY [facility] Stop: 06/17/20 08:59 Last Admin: 05/24/20 09:04 Dose: 17.2 mg Documented by: Sodium Hypochlorite (Dakin's Soln 0.25% Half Strength 473ml Btl) 1 appln EXT AM HS [facility] Stop: 06/17/20 08:59 Last Admin: 05/24/20 22:31 Dose: Not Given Documented by: PG Care Time/CCT Total # of Minutes Spent Total Time Spent with Patient: Total time spent is greater than 50% in coordination of care (as documented) at patient's floor/unit and/or counseling patient: Coding Level of Care Code 84508 Subseq Hosp Care Lvl 2 Diagnoses SIRS (systemic inflammatory response syndrome) R65.10 Sacral decubitus ulcer, stage III L89.153 SMAS (superior mesenteric artery syndrome) K55.1 Neurogenic bladder N31.9 Depression F32.9 Severe protein-calorie malnutrition E43 DVT prophylaxis Z29.9
[2020-05-25] MEDS: oxyCODONE HCL SOLN 5 MG/5 ML UDC GT PRN (02:42)
[2020-05-25] MEDS: MEROPENEM 500 MG in SYRINGE 0 ML IV SCH ×4 (04:59→21:58)
[2020-05-25 08:01] LABS: Hematocrit (blood only) 29.2 % (42-52); Hemoglobin 9.3 g/dL (14.0-18.0); Mean Corpuscular Hemoglobin 27.8 pg (25-34); Mean Corpuscular Hgb Conc 31.8 g/dL (32-36); Mean Corpuscular Volume 87.2 fL (80-100); Mean Platelet Volume 9.1 fL (7.4-10.4); Platelet Count 527 K/uL (130-400); RDW Coefficient of Variation 14.5 % (11.5-14.5); RDW Standard Deviation 46.2 fL (36.4-46.3); Red Blood Count 3.35 M/uL (4.7-6.1); White Blood Count 7.54 K/uL (4.8-10.8)
[2020-05-25 08:28] LABS: Alanine Aminotransferase 32 U/L (12-78); Albumin Level 2.2 gm/dl (3.4-5.0); Aspartate Aminotransferase 13 U/L (15-37); BUN Creatinine Ratio 35.4 (10-20); Blood Urea Nitrogen 15 mg/dl (7-18); Calcium 9.5 mg/dl (8.5-10.1); Carbon Dioxide 28 mmol/L (21-32); Chloride 100 mmol/L (98-107); Creatinine Clr Calc Pharmacy 258.9 ml/min; Est GFR (African American) > 150.0; Est GFR (Non-African American) > 150.0; Glucose 96 mg/dl (70-99); Magnesium 1.7 mg/dl (1.8-2.4); Potassium 3.6 mmol/L (3.5-5.1); Sodium 134 mmol/L (136-145)
[2020-05-25 08:30] LABS: Albumin Globulin Ratio 0.4 (0.9-2); Alkaline Phosphatase 135 U/L (45-117); Bilirubin,Total 0.2 mg/dl (0.2-1); Globulin 5.1 gm/dl (2.5-4.0); Total Protein 7.3 gm/dl (6.4-8.2)
[2020-05-25] MEDS: oxyCODONE HCL IR 5 MG TAB (IMMEDIATE RELEASE) PO PRN ×4 (08:38→21:04)
[2020-05-25] MEDS: SENNA 8.6 MG TAB PO SCH (08:38)
[2020-05-25] MEDS: OXYBUTYNIN CHLORIDE 5 MG TAB PO SCH ×2 (08:39→21:09)
[2020-05-25] MEDS: ENOXAPARIN INJ 40 MG/0.4 ML SYR SQ SCH (08:41)
[2020-05-25] MEDS: FLUoxetine HCL 20 MG/5 ML 120ML BTL GT SCH (08:42)
[2020-05-25] MEDS: DAKIN'S SOLN 0.25% HALF STRENGTH 473ML BTL EXT SCH ×2 (08:42→21:51)
[2020-05-25] MEDS: ACETAMINOPHEN SUSP 325 MG/10.15 ML UDC PO PRN ×2 (08:42→14:28)
[2020-05-25] MEDS: MULTI VIT W/MINERALS LIQUID 15 ML UDP PO SCH (08:42)
[2020-05-25] MEDS: NYSTATIN POWDER 15GM BTL EXT SCH ×2 (08:43→21:30)
[2020-05-25] MEDS: POLYETHYLENE (MIRALAX) 17 GM PACK PO SCH (08:43)
[2020-05-25] MEDS: NEOMYCIN/POLYMYX/BACITR OINT 15 GM TUBE EXT SCH (08:43)
[2020-05-25] MEDS: IMPACT LIQD 1.0 CAL 1,000 ML BAG GJT SCH ×2 (08:45→21:42)
--- NOTE | 2020-05-25 22:44 | Hospitalist Progress Note ---
Date of Service May 25, 2020 Assessment & Plan (1) SIRS (systemic inflammatory response syndrome): Overall concern for infectious etiology with recent GJ tube placement. Large decubitus ulcer present on admission down to the sacrum cannot exclude concomitant infection also with abnormal urinalysis and previous history of neurogenic bladder with previous Pseudomonas cannot exclude that as a source. Cannot explain the bacillus culture from the fourth subsequently will be admitted blood cultures obtained urine culture obtained surgical consultation for large decubitus ulcer initially on Zosyn and Vanco POD#6 s/p debridement of stage IV decubitus ulcer with Dr. Gutierres on 05/19 Pathology c/w inflammatory process Wound culture from OR with Pseudomonas -- RESISTANT TO ZOSYN (vanco had been d/c on 05/21) --> Will transition to Meropenem IV (day #4) ID consulted, needs 14 days total, thus 10 more days from today BCx NGTD Wound vac placed 05/20 -- will need close follow-up at discharge, can be managed at [facility] rehab Sources: Urine with Pseudomonas (covered by Zosyn) vs Decubitus ulcer (resistant pseudomonas as above) Continues to be afebrile, WBC normal continue tube feeds for SMA syndrome, needs nutrition to help wound heal (2) Sacral decubitus ulcer, stage III: Very large sacral decubitus ulcer. Wound care is a very appreciated and management of this issue General surgery consulted s/p debridement as above Wound vac placed 05/20 f/u will be required could follow up with Dr. Gutierres with [facility] or surgeon at [facility] since he will be there for rehab (3) SMAS (superior mesenteric artery syndrome): Patient returns from [facility] where he had a gastro- jejunostomy tube placed for superior mesenteric artery syndrome important as the feedings go beyond the duodenum Rec repeat imaging in next couple of weeks for re-assessment Nutrition consulted -- plan to continue feeds at 85cc/hr and plans for outpatient at 14 hour feeds to help provide some time not hooked up. Patient happy with current plan.--> He is currently at the 85cc/hr and tolerating well if he has a BM will increase tube feeds to 100cc/hr, provide 14 hours a day and unhook for 10 hours a day Also ordered Cerovite 15ml daily K is stable (4) Neurogenic bladder: History of neurogenic bladder with places him at risk for recurrent infection Pseudomonas grew as above continue oxybutynin BID Continue Meropenem for UTI (5) Depression: Previous days reported feeling quite down, but is hopeful now that issues are being addressed Discussed this with patient on 05/21 and increased his prozac to 40mg daily and can f/u outpatient for further titrations mood seems stable today, he is much happier knowing he can go to [facility] rehab (6) Severe protein-calorie malnutrition: Patient is markedly underweight BMI of 18 greatly appreciate dietary nutr ition consultation initiating tube feeds at this time we will also initiate thiamine therapy to avoid refeeding syndrome and follow laboratories (7) DVT prophylaxis: Lovenox therapy while inpatient Patient is a full code Dispo: continued inpatient stay Admission and Anticipated Discharge Date Admission Date: May 18, 2020 Subjective patient tolerating tube feeds, still no BM, he took the Miralax this morning he feels optimistic about going to rehab, wants to go to get stronger spoke with Dr. Bello at [facility] rehab in [place], specialized in spine rehab she knows the patient really well, excited to get him back and help him get stronger discussed the SMA syndrome with the GJ tube feeds, she hopes to have him have a BM prior to discharge vitals and labs stable if he moves bowels then transfer to rehab on 05/26 I called the patient's mother and updated her, she is excited about him going to [facility] rehab Review of Systems Review of Systems: All systems reviewed & are unremarkable except as noted in Subjective Gastrointestinal: + constipation Musculoskeletal: + muscle weakness Integumentary: + wounds (sacral decubitus) Neurologic: + paralysis Physical Exam Constitutional: well developed, + thin and + frail appearing; no acute distress Neck: trachea midline, no thyromegaly Respiratory: normal respiratory effort, lungs clear to auscultation Cardiovascular: RRR, no murmur, no edema Gastrointestinal (Abdomen): Inspection/Auscultation: abdomen normal to inspection (PEG in place) and normal bowel sounds; abdomen not distended Percussion/Palpation: abdomen soft; abdomen nontender and no guarding Musculoskeletal: Head/Neck/Chest: normocephalic, head atraumatic and neck supple Extremities: + abnormal strength and + muscle atrophy; no cyanosis, no clubbing and no petechiae Skin: + wound (sacral decubitus with wound vac in place) Neurologic: patellar DTR's 2+ bilat, sensation intact and PERRL, EOMI, accommodation nl, no face palsy, no dysarthria Psychiatric: Orientation: alert and oriented x 3 Affect: + depressed affect Lymphatic: no cervical or axillary lymphadenopathy Results & Data Results & Data ([facility]) Vital Signs (Past 12 Hours) Vital Signs Temp Pulse Resp BP Pulse Ox 05/25/20 15:19 36.6 C 90 18 90/49 L 96 Laboratory Results Laboratory Results - last 24 hr 05/25/20 05/25/20 05/25/20 07:38 07:38 13:42 WBC 7.54 RBC 3.35 L Hgb 9.3 L Hct 29.2 L MCV 87.2 MCH 27.8 MCHC 31.8 L RDW Std Deviation 46.2 RDW Coeff of Stephen 14.5 Plt Count 527 H MPV 9.1 Sodium 134 L Potassium 3.6 Chloride 100 Carbon Dioxide 28 Anion Gap 6.0 BUN 15 Creatinine 0.43 L Est Cr Clr Drug Dosing 258.9 Est GFR ( Amer) > 150.0 Est GFR (Non-Af Amer) > 150.0 BUN/Creatinine Ratio 35.4 H Glucose 96 Calcium 9.5 Phosphorus 3.0 Magnesium 1.7 L Total Bilirubin 0.2 AST 13 L ALT 32 Alkaline Phosphatase 135 H Total Protein 7.3 Albumin 2.2 L Globulin 5.1 H Albumin/Globulin Ratio 0.4 L SARS-CoV-2 Ag (Rapid) Negative Medications Administered Current Inpatient Medications Acetaminophen (Acetaminophen Susp 325 Mg/10.15 Ml Udc) 650 mg PO Q6H PRN PRN Reason: Pain or Fever Stop: 06/17/20 08:48 Last Admin: 05/25/20 14:28 Dose: 650 mg Documented by: Enoxaparin Sodium (Enoxaparin Inj 40 Mg/0.4 Ml Syr) 40 mg SQ QAM [facility] Stop: 06/19/20 08:59 Last Admin: 05/25/20 08:41 Dose: 40 mg Documented by: Enteral Nutritional Formula (Impact Liqd 1.0 Ritesh 1,000 Ml Bag) 1,000 ml GJT UD [facility]; Protocol Stop: 06/19/20 13:29 Last Admin: 05/25/20 21:42 Dose: 1,000 ml Documented by: Fluoxetine HCl (Fluoxetine Hcl 20 Mg/5 Ml 120ml Btl) 40 mg GT DAILY [facility] Stop: 06/21/20 08:59 Last Admin: 05/25/20 08:42 Dose: 40 mg Documented by: Meropenem 500 mg/ Syringe 10 mls @ 2 mls/min IV Q6H [facility]; Protocol Stop: 06/02/20 09:59 Last Admin: 05/25/20 21:58 Dose: 2 mls/min Documented by: Melatonin (Melatonin 3 Mg Tab) 3 mg PO HS PRN; Protocol PRN Reason: Sleep Stop: 06/17/20 08:58 Miscellaneous Information (Meropenem Consult Acitve) 1 ea N/A UD PRN PRN Reason: Consult Stop: 06/02/20 09:57 Multivitamins/Minerals (Multi Vit W/Minerals Liquid 15 Ml Udp) 15 ml PO QAM [facility] Stop: 06/19/20 13:59 Last Admin: 05/25/20 08:42 Dose: 15 ml Documented by: Neomycin/Polymyxin/Bacitracin (Neomycin/Polymyx/Bacitr Oint 15 Gm Tube) 1 appln EXT QAM [facility] Stop: 06/18/20 08:59 Last Admin: 05/25/20 08:43 Dose: 1 appln Documented by: Nystatin (Nystatin Powder 15gm Btl) 1 appln EXT AMHS [facility] Stop: 06/17/20 08:59 Last Admin: 05/25/20 21:30 Dose: Not Given Documented by: Ondansetron HCl (Ondansetron Inj 2 Mg/Ml 2 Ml Vial) 4 mg IV Q6H PRN PRN Reason: Nausea Stop: 06/17/20 08:48 Oxybutynin Chloride (Oxybutynin Chloride 5 Mg Tab) 5 mg PO BID [facility] Stop: 06/21/20 12:59 Last Admin: 05/25/20 21:09 Dose: 5 mg Documented by: Oxycodone HCl (Oxycodone Hcl Ir 5 Mg Tab (Immediate Release)) 10 mg PO Q4H PRN PRN Reason: Pain Stop: 06/08/20 03:22 Last Admin: 05/25/20 21:04 Dose: 10 mg Documented by: Polyethylene Glycol (Polyethylene (Miralax) 17 Gm Pack) 17 gm PO DAILY [facility] Stop: 06/21/20 08:59 Last Admin: 05/25/20 08:43 Dose: 17 gm Documented by: Sennosides (Senna 8.6 Mg Tab) 17.2 mg PO DAILY [facility] Stop: 06/17/20 08:59 Last Admin: 05/25/20 08:38 Dose: 17.2 mg Documented by: Sodium Hypochlorite (Dakin's Soln 0.25% Half Strength 473ml Btl) 1 appln EXT AMHS [facility] Stop: 06/17/20 08:59 Last Admin: 05/25/20 21:51 Dose: Not Given Documented by: PG Care Time/CCT Total # of Minutes Spent Total Time Spent with Patient: Total time spent is greater than 50% in coordination of care (as documented) at patient's floor/unit and/or counseling patient: Coding Level of Care Code 49524 Subseq Hosp Care Lvl 3 Diagnoses SIRS (systemic inflammatory response syndrome) R65.10 Sacral decubitus ulcer, stage III L89.153 SMAS (superior mesenteric artery syndrome) K55.1 Neurogenic bladder N31.9 Depression F32.9 Severe protein-calorie malnutrition E43 DVT prophylaxis Z29.9
[2020-05-26] MEDS: oxyCODONE HCL IR 5 MG TAB (IMMEDIATE RELEASE) PO PRN ×4 (01:17→13:25)
[2020-05-26] MEDS: MEROPENEM 500 MG in SYRINGE 0 ML IV SCH ×2 (04:51→09:39)
[2020-05-26] MEDS: DAKIN'S SOLN 0.25% HALF STRENGTH 473ML BTL EXT SCH (08:36)
[2020-05-26] MEDS: ENOXAPARIN INJ 40 MG/0.4 ML SYR SQ SCH (09:38)
[2020-05-26] MEDS: ACETAMINOPHEN SUSP 325 MG/10.15 ML UDC PO PRN (09:38)
[2020-05-26] MEDS: OXYBUTYNIN CHLORIDE 5 MG TAB PO SCH (09:39)
[2020-05-26] MEDS: NEOMYCIN/POLYMYX/BACITR OINT 15 GM TUBE EXT SCH (09:40)
[2020-05-26] MEDS: NYSTATIN POWDER 15GM BTL EXT SCH (09:40)
[2020-05-26] MEDS: FLUoxetine HCL 20 MG/5 ML 120ML BTL GT SCH (09:41)
[2020-05-26] MEDS: MULTI VIT W/MINERALS LIQUID 15 ML UDP PO SCH (09:41)
[2020-05-26] MEDS: SENNA 8.6 MG TAB PO SCH (09:44)
[2020-05-26] MEDS: IMPACT LIQD 1.0 CAL 1,000 ML BAG GJT SCH (09:44)
[2020-05-26] MEDS: POLYETHYLENE (MIRALAX) 17 GM PACK PO SCH (10:08)
--- NOTE | 2020-05-26 10:44 | Discharge Summary ---
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 Patient was progressively weak and lightheaded. In the emergency department there was concern for dehydration and he was given intravenous fluids he has a large sacral decubitus ulcer present on admission which is a least a stage IV which could be a portal of infection and an abnormal urinalysis with concern for UTI. Interestingly there was a blood culture positive for bacillus on 09 May. Patient is very thin he is paraplegic and can only move his upper extremities with weakness to movement Principal Diagnosis Sacral decubitus ulcer, Pseudomonas infection Discharge Exam Constitutional well developed, + thin and + frail appearing; no acute distress Neck trachea midline, no thyromegaly Respiratory normal respiratory effort, lungs clear to auscultation Cardiovascular RRR, no murmur, no edema Gastrointestinal (Abdomen) Inspection/Auscultation: abdomen normal to inspection (PEG in place) and normal bowel sounds; abdomen not distended Percussion/Palpation: abdomen soft; abdomen nontender and no guarding Musculoskeletal Head/Neck/Chest: normocephalic, head atraumatic and neck supple Extremities: + abnormal strength and + muscle atrophy; no cyanosis, no clubbing and no petechiae Skin + wound (sacral decubitus with wound vac in place) Neurologic CN's II-XI intact bilaterally, + focal motor deficit (paraplegia) and awake Psychiatric Orientation: alert and oriented x 3 Affect: euthymic affect Lymphatic no cervical or axillary lymphadenopathy Discharge Data Allergies Allergy/AdvReac Type Severity Reaction Status Date / Time nickel Allergy Mild RASH -- Verified 05/18/20 04:07 FROM [facility] Consultations 05/18/20 06:28 ED Decision to Admit Stat 05/18/20 08:49 Consult Case Management - Discharge Planning Routine 05/18/20 18:12 Consult General Surgery Routine 05/22/20 13:51 Consult Infectious Diseases Routine Procedures Performed Operation Date: 05/19/20 12:00 Actual Procedures p Debridement sacral decubitus(Not Applicable) - Francisco Gutierres MD, FACS Hospital Course (1) SIRS (systemic inflammatory response syndrome): Overall concern for infectious etiology with recent GJ tube placement. Large decubitus ulcer present on admission down to the sacrum cannot exclude concomitant infection also with abnormal urinalysis and previous history of neurogenic bladder with previous Pseudomonas cannot exclude that as a source. Cannot explain the bacillus culture from the fourth subsequently will be admitted blood cultures obtained urine culture obtained surgical consultation for large decubitus ulcer POD#7 s/p debridement of stage IV decubitus ulcer with Dr. Gutierres on 05/19 Pathology c/w inflammatory process Wound culture from OR with Pseudomonas -- RESISTANT TO ZOSYN which he had been on since admission changed to Meropenem on 05/22 ID consulted, needs 14 days total, thus 9 more days from today blood cultures with no growth Wound vac placed 05/20 -- will need close follow-up at discharge, can be managed at [facility] rehab Continues to be afebrile, WBC normal continue tube feeds for SMA syndrome, needs nutrition to help wound heal (2) Sacral decubitus ulcer, stage III: Very large sacral decubitus ulcer. Wound care is a very appreciated and management of this issue General surgery consulted s/p debridement as above Wound vac placed 05/20 f/u will be required could follow up with Dr. Gutierres with [facility] or surgeon at [facility] since he will be there for rehab (3) SMAS (superior mesenteric artery syndrome): Patient returns from [facility] where he had a gastro- jejunostomy tube placed for superior mesenteric artery syndrome important as the feedings go beyond the duodenum needs repeat CT abd/pelvis in 4 weeks to assessment placement of tube Nutrition consulted -- continue Impact at 100mL/hr x 14 hours and disconnect for 10 hours a day Also ordered Cerovite 15ml daily BMP is stable, follow once a week (4) Neurogenic bladder: History of neurogenic bladder with places him at risk for recurrent infection Pseudomonas grew as above, not a resistant strain continue oxybutynin BID Continue Meropenem for UTI (5) Depression: Previous days reported feeling quite down, but is hopeful now that issues are being addressed Discussed this with patient on 05/21 and increased his prozac to 40mg daily and can f/u outpatient for further titrations mood is better, much happier knowing he can go to [facility] rehab, optimistic about getting stronger (6) Severe protein-calorie malnutrition: Patient is markedly underweight BMI of 18 greatly appreciate dietary nutrition consultation initiating tube feeds at this time we will also initiate thiamine therapy to avoid refeeding syndrome and follow laboratories (7) DVT prophylaxis: Lovenox therapy since he is bed bound Patient is a full code Dispo: transfer to [facility] rehab Total Time Total Time Spent Total Time Spent (In Minutes): 36 minutes Total Time Includes: Examination of the Patient, Discharge Planning, Medication Reconciliation and Communication With Other Providers Discharge Plan Discharge Items Patient Disposition: Transfer Inpatient Rehab Fac Reason For Visit: FEBRILE ILLNESS,UTI POA Discharge Diagnosis: Sacral decubitus ulcer, Pseudomonas SMA syndrome Paraplegic Condition on Discharge: Good Goals: go to rehab for spine rehab, improve strength and mobility Activity: Resume your previous activity Non-emergency contact: Primary Care Provider Call non-emergency contact if: you have any medication questions Follow-up/Referrals: Pacheco Schultz MD [Primary Care Provider] - Diet: Regular Addtl Attending Provider Instructions: Medications: - MEROPENEM: prescribed for resistant Pseudomonas on sacral decubitus culture, n eed to treat for 9 more days to complete 14 days total 500mg IV q6, patient has US guided peripheral IV, placed 05/24 - PROZAC: increased the dose from 20mg daily to 40mg daily for depressed mood, tolerating well - OXYCODONE: 10mg every 4 hours, would try to titrate down to 5mg every 4 hours as his sacrum heals and pain improves - CENTRUM VITAMIN: 15mL daily - IMPACT TUBE FEEDS: nutrition recommends giving 100mL/hr x 14 hours a day and then can disconnect for 10 hours a day Sacral decubitus ulcer with infection, debrided by Dr. Gutierres, POD 7 deep wound culture grew out Pseudomonas that was resistant to Zosyn and Cefepime, sensitive to Meropenem changed to Meropenem once culture result came back, today is day 5 of Meropenem needs 14 days total per ID consultation, will continue for 9 more days, can finish at rehab continue with wound vac, would recommend a referral to local wound care or general surgeon to help manage UTI: catheter associated, indwelling palmer with neurogenic bladder grew out Pseudomonas that was NOT resistant, adequately treated with Meropenem SMA syndrome: he had gastrojejunostomy tube placed at [facility], so the feeds are passed the duodenum had a BM on 05/25 and 05/26 in the morning continue bowel regimen he should have repeat imaging, CT abdomen/pelvis in 4 weeks to document that the tube is still in correct position as above, nutrition recommends Impact tube feeds 100mL/hr x 14 hours and then disconnect 10 hours Pending Studies at Discharge: No Stand-Alone Forms: My [facility] Skilled Items Patient informed of condition?: Yes DNR: No Discharge Level of Care: Acute rehab Communicable Disease: No Discharge Prognosis: Improving Lines: US Guided Peripheral IV Urinary Catheter: Yes Medications and DC Order Prescriptions: New fluoxetine 20 mg/5 mL (4 mg/mL) Solution 40 mg G-tube DAILY 30 Days Qty: 300 RF: 0 oxycodone 5 mg Tablet 10 mg PO Q4H PRN (Reason: pain) 10 Days Qty: 60 RF: 0 Impact 1 Ritesh 0.06-1 gram-kcal/mL Liquid 1,000 ea GJT UD 30 Days Qty: 6000 RF: 6 [id number] gluconate [Centrum] 9 mg iron/15 mL Liquid 15 ml PO QAM 30 Days Qty: 450 RF: 3 meropenem 500 mg recon soln 500 mg IV Q6H 9 Days Qty: 36 RF: 0 Continued Santyl 250 unit/gram ointment 1 applic topical QAM RF: 0 enoxaparin [Lovenox] 40 mg/0.4 mL syringe 40 mg subcut QAM RF: 0 gabapentin 300 mg capsule 600 mg PO TID RF: 0 nystatin 100,000 unit/gram powder 1 applic topical AMHS RF: 0 oxybutynin chloride 5 mg tablet 5 mg PO AMHS RF: 0 senna 8.6 mg capsule 17.2 mg PO DAILY RF: 0 bisacodyl [Dulcolax (bisacodyl)] 10 mg suppository 10 mg RI UD RF: 0 magnesium hydroxide [Milk of Magnesia] 400 mg/5 mL suspension 30 ml PO DAILY PRN (Reason: Constipation) RF: 0 melatonin 3 mg capsule 3 mg PO HS PRN (Reason: Sleep) RF: 0 polyethylene glycol 3350 [Miralax] 17 gram/dose powder 17 g PO DAILY PRN (Reason: Constipation) RF: 0 omeprazole 40 mg capsule,delayed release(DR/EC) 40 mg PO BID RF: 0 acetaminophen [Tylenol Extra Strength] 500 mg Tablet 1,000 mg PO Q8 PRN (Reason: Mild Pain (Scale Score 1-4)) RF: 0 alum-mag hydroxide-simeth [Mylanta] 200-200-20 mg/5 mL Suspension 30 ml PO Q4 PRN (Reason: Dyspepsia) RF: 0 Neosporin ([id number]) Packet 1 applic TOPICAL QAM RF: 0 Dakin's Solution 0.25 % Solution 1 applic TOPICAL AMHS RF: 0 Discontinued fluoxetine [Prozac] 20 mg/5 mL (4 mg/mL) Solution 0 mg PO UD RF: 0 Discharge Orders: Discharge Order (Routine); Ordered 05/26/20 Ordered By: Yossi Maki Admission Data Admit Date/Time: 05/18/20 07:46 Attending Provider: Yossi Maki Admit Provider: Glynn Swan Primary Care Provider: Pacheco Schultz V. Other Providers: Glynn Swan ; Gerber Gillis ; Alejandro Mckee ; Gaby Amos ; Sadiq Banks I. ; Keith Perez II ; Parul Verdin ; Kar Ambriz Coding Level of Care Code D/C Day Management >30 mins Diagnoses SIRS (systemic inflammatory response syndrome) R65.10 Sacral decubitus ulcer, stage III L89.153 SMAS (superior mesenteric artery syndrome) K55.1 Neurogenic bladder N31.9 Depression F32.9 Severe protein-calorie malnutrition E43 DVT prophylaxis Z29.9
[2020-05-26] MEDS ORDERED: HYDROmorphone INJ 0.5 MG/0.5 ML SYR IV STA (12:53)
== END 2020-05-26 13:55 | DRG 853 ==
LOC: ED 03:09 → 2N 07:46 → SUATTDRO 07:46 → 2N 08:20 → 3N 05-19 12:31

== ENCOUNTER 2020-07-11 18:39 | Inpatient (IN) ==
[2020-07-11] MEDS ORDERED: SODIUM CHLORIDE 0.9% 1000ML 2,000 ML IV ONE (18:47)
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
[2020-07-11] MEDS ORDERED: MEROPENEM CONSULT ACITVE PRN (18:51)
[2020-07-11 19:20] LABS: Basophils # (auto) 0.03 K/uL (0-0.2); Basophils % (auto) 0.3 %; Eosinophils # (auto) 0.31 K/uL (0-0.5); Eosinophils % (auto) 3.4 %; Hematocrit (blood only) 34.3 % (42-52); Hemoglobin 11.1 g/dL (14.0-18.0); Immature Granulocytes # (auto) 0.01 K/uL (0.00-0.02); Immature Granulocytes % (auto) 0.1 %; Lymphocytes % (auto) 33.4 %; Mean Corpuscular Hemoglobin 27.7 pg (25-34); Mean Corpuscular Hgb Conc 32.4 g/dL (32-36); Mean Corpuscular Volume 85.5 fL (80-100); Mean Platelet Volume 9.1 fL (7.4-10.4); Monocytes # (auto) 0.81 K/uL (0.11-0.59); Neutrophils # (auto) 4.83 K/uL (1.4-6.5); Neutrophils % (auto) 53.8 %; Platelet Count 433 K/uL (130-400); RDW Coefficient of Variation 15.5 % (11.5-14.5); RDW Standard Deviation 49.4 fL (36.4-46.3); Red Blood Count 4.01 M/uL (4.7-6.1); White Blood Count 8.99 K/uL (4.8-10.8)
[2020-07-11 19:25] LABS: iSTAT Creatinine 0.3 mg/dl (0.6-1.3); iSTAT Hemoglobin 11.6 g/dl (14.0-18.0); iSTAT Ionized Calcium 1.35 mmol/l (1.12-1.32)
[2020-07-11] MEDS: MEROPENEM 500 MG in SYRINGE 0 ML IV SCH (19:29)
[2020-07-11 19:31] LABS: INR 1.1 (0.9-1.1); Partial Thromboplastin Time 26.1 Seconds (21.0-31.0); Prothrombin Time 10.7 Seconds (9.0-12.0)
[2020-07-11 19:37] LABS: Alanine Aminotransferase 46 U/L (12-78); Albumin Level 2.9 gm/dl (3.4-5.0); Aspartate Aminotransferase 23 U/L (15-37); BUN Creatinine Ratio 54.2 (10-20); Blood Urea Nitrogen 25 mg/dl (7-18); Calcium 10.5 mg/dl (8.5-10.1); Carbon Dioxide 31 mmol/L (21-32); Chloride 102 mmol/L (98-107); Creatinine Clr Calc Pharmacy 233.4 ml/min; Est GFR (African American) > 150.0; Est GFR (Non-African American) > 150.0; Glucose 80 mg/dl (70-99); Magnesium 1.7 mg/dl (1.8-2.4); Potassium 3.9 mmol/L (3.5-5.1); Sodium 137 mmol/L (136-145)
[2020-07-11 19:41] LABS: Albumin Globulin Ratio 0.5 (0.9-2); Alkaline Phosphatase 113 U/L (45-117); Bilirubin,Total 0.2 mg/dl (0.2-1); Globulin 5.3 gm/dl (2.5-4.0); Total Protein 8.2 gm/dl (6.4-8.2); Troponin I < 0.015 ng/ml (0-0.045)
[2020-07-11] MEDS ORDERED: OPTIRAY 320 100ml IV ONE (19:44)
[2020-07-11 19:45] LABS: Appearance Urine Turbid (Clear); Bilirubin Urine Negative (Negative); Blood Urine 3+ (Negative); Color Urine Yellow; Glucose Urine UA Negative (Negative); Ketones Urine Negative (Negative); Leukocyte Esterase Urine 3+ (Negative); Nitrite Urine Positive (Negative); Specific Gravity Urine 1.018 (1.000-1.030); Urobilinogen Urine Negative (Negative)
[2020-07-11 20:03] LABS: Protein Urine 2+ (Negative)
[2020-07-11 20:13] LABS: WBC Urine >30 /hpf (0-5)
[2020-07-11 20:14] LABS: Amorphous Sediment Urine Present (None Prsent)
--- NOTE | 2020-07-11 20:15 | CT Scan Report ---
CT SCAN OF THE ABDOMEN AND PELVIS WITH IV CONTRAST CLINICAL HISTORY: Sepsis. COMPARISON STUDY: Abdominal CT dated 05/09/2020. TECHNIQUE: Following the IV administration of 94 cc of Optiray 320, CT scan of the abdomen and pelvi s is performed from the lung bases to the proximal femora. Images are reviewed in the axial, sagittal , and coronal planes. IV contrast was administered without complication. A dose lowering technique wa s utilized adhering to the principles of ALARA. CT DOSE: 296.07 mGy.cm FINDINGS: Lung bases: The heart is normal in size and without pericardial effusion. The lung bases are clear no ting dependent atelectasis. Liver: The contrast-enhanced liver is normal in size, contour, and attenuation. There is no intrahepa tic biliary ductal dilatation. The hepatic veins and portal veins are patent. Gallbladder: Unremarkable. Spleen: Normal in size and attenuation. Pancreas: Unremarkable. Adrenal glands: Unremarkable. Kidneys: The contrast enhanced kidneys are normal in size and without hydronephrosis. The kidneys enh ance symmetrically. Numerous tiny right renal calculi are suggested. There is also likely a small sudhir culus in the left renal pelvis. Urothelial thickening and enhancement is suggested involving the uret ers and renal pelvis bilaterally, left greater than right. Abdominal vasculature: The abdominal aorta is normal in course and caliber. Stomach and bowel: A gastrojejunostomy tube is in place. A double there are colostomy is noted in the left lower quadrant. No bowel obstruction is seen. The appendix is well-visualized and normal. Peritoneum: There is no intraperitoneal free air or abdominal ascites. Lymphadenopathy: None. Pelvic viscera: A Dewitt catheter is in place. The bladder wall is markedly thickened with mucosal hyp eremia. There is pericystic inflammation, and the appearance suggests cystitis. Hyperdense intralumin al debris may represent numerous small calculi. The prostate and seminal vesicles are normal as image d. There is presacral soft tissue infiltration. Skeletal structures: The skeletal structures are osteopenic. There is sclerosis and erosion involving S5 and S6. This is due to decubitus ulcer and likely represents osteomyelitis. No lytic or blastic l esions are seen. Soft tissues: There is evidence of a healing right-sided decubitus ulcer on axial image #399. This ov erlies the right gluteus maximum muscle in the right ischial tuberosity. Induration within the right gluteus cristina an overlying the ischial tuberosity has significantly improved as compared to . A large decubitus ulcer is also seen overlying the sacrum with evidence of surrounding cellulitis. No organized fluid collection is identified. There is infiltration of the paraspinous musculature at L5 and S1. Myositis is not excluded. Calcifications within the paraspinous musculature are new from previous. There is a 2 cm fluid collection overlying the left ischial tuberosity on image #448 with m ild surrounding soft tissue induration. IMPRESSION: 1. Findings are consistent with cystitis. Correlation with clinical findings and urinalysis will be r equired. 2. Mild urothelial thickening and enhancement is suggested within the renal pelvis bilaterally and in volving both ureters, left greater than right. Correlate clinically for evidence of ascending urinary tract infection. 3. Numerous layering hyperdense foci within the bladder lumen likely represent bladder stones. 4. Numerous small bilateral nonobstructing renal calculi are suspected. 5. There is evidence of sacral osteomyelitis involving S5 and S6. This is new from previous. 6. There is a large sacral decubitus ulceration with evidence of surrounding cellulitis. This appears worsened as compared to 05/09/2020. 7. Induration and heterogeneity within the posterior paraspinous musculature at L5 and S1 is new from previous. An infectious myositis is suspected. 8. No organized fluid collection is seen to suggest abscess. 9. There has been significant improvement of the right-sided decubitus ulceration overlying the glute us cristina muscle with associated myositis. 10. There is a 2 cm fluid collection overlying the left ischial tuberosity at the site of the hamstri ngs origin with surrounding soft tissue infiltration. This may represent pressure phenomenon/bursitis . Infection is not excluded. No overlying cutaneous ulceration is identified. 11. Additional findings as above. ACT 112: Negative or not required by law. Electronically signed by: Tramaine Garcia M.D. 07/11/2020 8:13 PM
[2020-07-11 20:16] LABS: Bacteria Urine Negative (Negative); Mucus Urine Present (None Prsent)
[2020-07-11 20:17] LABS: Hyaline Casts Urine 0-5 /lpf (0-5)
[2020-07-11] MEDS ORDERED: VANCOMYCIN CONSULT ACTIVE PRN (20:33)
[2020-07-11] MEDS ORDERED: VANCOMYCIN HCL 1,750 MG in SODIUM CHLORIDE 0.9% 500 ML IV ONE (20:33)
--- NOTE | 2020-07-11 20:43 | XRay Report ---
SINGLE VIEW CHEST CLINICAL HISTORY: Sepsis. FINDINGS: 2 AP, portable, upright chest radiographs are compared to study dated 05/18/2020. The cardio mediastinal silhouette is unremarkable. The lungs and pleural spaces are clear. No pneumothorax is se en. The bony thorax is grossly intact. Fusion hardware is noted at the cervicothoracic junction. IMPRESSION: No active disease in the chest. ACT 112: Negative or not required by law. Electronically signed by: Tramaine Garcia M.D. 07/11/2020 8:42 PM
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
[2020-07-12] MEDS ORDERED: GABAPENTIN 600 MG TAB PO PRN (00:09)
[2020-07-12] MEDS ORDERED: DOCUSATE SODIUM 100 MG CAP PO PRN (00:09)
[2020-07-12] MEDS ORDERED: TOBRAMYCIN CONSULT ACTIVE PRN (00:30)
[2020-07-12] MEDS ORDERED: DEXTROSE 5% IV SCH (01:00)
[2020-07-12] MEDS ORDERED: TOBRAMYCIN SULFATE IV SCH (01:00)
[2020-07-12] MEDS: MEROPENEM 500 MG in SYRINGE 0 ML IV SCH ×3 (03:07→17:34)
[2020-07-12] MEDS ORDERED: DAPTOmycin 350 MG in SYRINGE 0 ML IV SCH (04:00)
[2020-07-12] MEDS ORDERED: ACETAMINOPHEN 325 MG TAB PO PRN (05:26)
[2020-07-12] MEDS ORDERED: POLYETHYLENE (MIRALAX) 17 GM PACK PO PRN (05:26)
[2020-07-12] MEDS ORDERED: MAGNESIUM HYDROXIDE SUSP 30 ML UDC PO PRN (05:26)
[2020-07-12] MEDS ORDERED: ONDANSETRON INJ 2 MG/ML 2 ML VIAL IV PRN (05:26)
[2020-07-12] MEDS: SODIUM CHLORIDE 0.9% 1000ML 1,000 ML IV SCH ×2 (05:50→15:51)
[2020-07-12] MEDS: OXYBUTYNIN CHLORIDE 5 MG TAB PO SCH ×3 (07:39→20:58)
[2020-07-12] MEDS: FLUoxetine HCL 20 MG CAP PO SCH (07:39)
[2020-07-12] MEDS: MIDODRINE HCL 10 MG TAB PO SCH ×2 (07:39→20:58)
[2020-07-12] MEDS: HEPARIN SOD 5,000 UNIT/0.5 ML VIAL SQ SCH ×2 (07:43→20:58)
[2020-07-12 08:10] LABS: Creatinine Clr Calc Pharmacy 238.8 ml/min; Est GFR (African American) > 150.0; Est GFR (Non-African American) > 150.0
--- NOTE | 2020-07-12 10:46 | Electrocardiogram Report ---
Test Reason : Blood Pressure : / mmHG Vent. Rate : 099 BPM Atrial Rate : 099 BPM P-R Int : 130 ms QRS Dur : 090 ms QT Int : 346 ms P-R-T Axes : 069 054 039 degrees QTc Int : 444 ms Poor data quality, interpretation may be adversely affected Normal sinus rhythm Normal ECG When compared with ECG of 18-MAY-2020 03:19, T wave inversion no longer evident in Anterior leads Confirmed by Rishi Sapp ([id number]) on 07/12/2020 10:45:55 AM Referred By: REFERRED SELF Confirmed By:Rishi Sapp
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
[2020-07-12] MEDS: DAPTOmycin 400 MG in SYRINGE 0 ML IV SCH (20:57)
--- NOTE | 2020-07-12 22:15 | Hospitalist Progress Note ---
Date of Service July 12, 2020 Assessment & Plan (1) Osteomyelitis: 25 yo paraplegic male admitted for fever, found to have UTI, osteomyelitis and myositis. UTI - hx pseudomonas resistant to multiple abx in urine. Sensitive to meropenem and tobramycin. resistant to zosyn. - UA 3+ nitrites, LE, blood, mucus, Ucx pending - meropenem and tobramycin started based on previous cultures - ID consult placed for assistance with length of treatment/medication optimization given multiple infections Osteomyelitis + myositis - osteomyelitis of S5, S6 and myositis of paraspinous posterior musculature at L5 and S1 per CT - given sacral decub ulcer and frequent infections, risk of MRSA infection - daptomycin for soft tissue penetration. received 1 dose vanc in ER - monitor fever curve - blood cultures pending Sacral Decubitus ulcer, stage IV -Consulted gen surgery. Recommended transfer to tertiary center, Discussed with [facility], unable to take him Called Dony who was agreeable. updated mother and patient. -concern over osteomyelitis - MRSA coverage as above - wound nurse consult - wound culture pending - consider trending CRP for evaluation of acute infection resolution, CRP AM ordered. - cont home oxycodone 5 mg Q6H for pain control Severe protein calorie malnutrition - regular diet - consider boost supplements - albumin 2.9 - CMP AM Neurogenic Bladder - cont oxybutynin, gabapentin Anemia - appears chronic - hg higher than normal at 11.1 compared to 9.0 - possibly related to malnutrition, consider folate, b12, iron study workup Thrombocytosis - Plt remain elevated - appears to stay between 300 -530 - hemoconcentration vs. essential thrombocytosis? DVT ppx:heparin BID FEN/GI: NS 100 ml/hr maintenance, regular diet Code Status: FUll COde Dispo: Med/Surg with tele (2) Myositis: (3) Severe protein-calorie malnutrition: (4) Sacral decubitus ulcer, stage IV: (5) Urinary tract infection: (6) SMAS (superior mesenteric artery syndrome): (7) Fever: (8) Paraplegia following spinal cord injury: Admission and Anticipated Discharge Date Admission Date: July 11, 2020 Subjective Patient reports having generalized malaise. Review of Systems Review of Systems: All systems reviewed & are unremarkable except as noted in HPI & below Physical Exam Physical Exam: Constitutional: young man laying in bed in the dark Eyes: EOMI, pupils equal and reactive bilaterally Cardiac: RRR, no murmurs, gallops or rubs. Normal S1, S2 Pulm: CTA BL, no wheezes, rhonchi, crackles or rubs, moving air well throughout both lungs Abd: soft, nontender, nondistended, normal bowel sounds, no rebound or guarding Extremities: 2+ peripheral pulses, no edema Neuro: moving upper limbs without issue, lower extremities chronically paralyzed, A&Ox3 Results & Data Results & Data ([facility]) Vital Signs (Past 12 Hours) Vital Signs Temp Pulse Pulse Resp BP Pulse Ox 07/12/20 18:53 37.2 C 80 18 108/66 97 07/12/20 15:28 37.7 C H 79 18 98/54 L 97 07/12/20 15:05 96 H 07/12/20 11:16 36.9 C 71 16 98/58 L 98 PG Care Time/CCT Total # of Minutes Spent Total Time Spent with Patient: Total time spent is greater than 50% in coordination of care (as documented) at patient's floor/unit and/or counseling patient: Prolonged Care Time Prolonged Care Time: Yes Total Prolonged Care Time: 70 10:00 to 10:20 14:00 to 14:10 17:00 to 17:30 18:40 to 18:50 Coding Level of Care Code 23942 Subseq Hosp Care Lvl 3 Diagnoses Osteomyelitis M86.9 Osteomyelitis location: unspecified site Osteomyelitis type: unspecified type Myositis M60.009 Myositis location: unspecified site Myositis type: infective Severe protein-calorie malnutrition E43 Sacral decubitus ulcer, stage IV L89.154 Urinary tract infection T83.511A; N39.0 Encounter type: initial encounter Indwelling urinary catheter type: indwelling urethral catheter Urinary tract infection type: catheter-associated UTI SMAS (superior mesenteric artery syndrome) K55.1 Fever R50.9 Fever type: unspecified Paraplegia following spinal cord injury G82.20 Additional Codes Prolonged Care Time - Prolonged Care Time: Yes ([id number]) (1) Osteomyelitis Osteomyelitis location: unspecified site Osteomyelitis type: unspecified type Qualified Code(s): M86.9 - Osteomyelitis, unspecified (2) Myositis Myositis location: unspecified site Myositis type: infective Qualified Code(s): M60.009 - Infective myositis, unspecified site (3) Urinary tract infection Encounter type: initial encounter Indwelling urinary catheter type: indwelling urethral catheter Urinary tract infection type: catheter-associated UTI Qualified Code(s): T83.511A - Infection and inflammatory reaction due to indwelling urethral catheter, initial encounter; N39.0 - Urinary tract infection, site not specified (4) Fever Fever type: unspecified Qualified Code(s): R50.9 - Fever, unspecified
--- NOTE | 2020-07-12 23:02 | Billing Data ---
Date of Service July 12, 2020 Coding Level of Care Code 68107 Initial Inpt Care Lvl 3
[2020-07-13] MEDS: MEROPENEM 500 MG in SYRINGE 0 ML IV SCH ×4 (00:21→18:21)
[2020-07-13] MEDS: oxyCODONE HCL IR 5 MG TAB (IMMEDIATE RELEASE) PO PRN ×3 (00:25→14:58)
[2020-07-13] MEDS: SODIUM CHLORIDE 0.9% 1000ML 1,000 ML IV SCH ×3 (01:29→20:53)
[2020-07-13 07:31] LABS: Basophils # (auto) 0.03 K/uL (0-0.2); Basophils % (auto) 0.4 %; Eosinophils # (auto) 0.16 K/uL (0-0.5); Eosinophils % (auto) 1.9 %; Hematocrit (blood only) 33.2 % (42-52); Hemoglobin 10.5 g/dL (14.0-18.0); Immature Granulocytes # (auto) 0.02 K/uL (0.00-0.02); Immature Granulocytes % (auto) 0.2 %; Lymphocytes # (auto) 2.72 K/uL (1.2-3.4); Lymphocytes % (auto) 31.9 %; Mean Corpuscular Hemoglobin 26.9 pg (25-34); Mean Corpuscular Hgb Conc 31.6 g/dL (32-36); Mean Corpuscular Volume 84.9 fL (80-100); Monocytes % (auto) 11.7 %; Neutrophils # (auto) 4.59 K/uL (1.4-6.5); Neutrophils % (auto) 53.9 %; Platelet Count 348 K/uL (130-400); RDW Coefficient of Variation 15.3 % (11.5-14.5); Red Blood Count 3.91 M/uL (4.7-6.1); White Blood Count 8.52 K/uL (4.8-10.8)
[2020-07-13] MEDS: HEPARIN SOD 5,000 UNIT/0.5 ML VIAL SQ SCH ×2 (07:50→20:53)
[2020-07-13] MEDS: MIDODRINE HCL 10 MG TAB PO SCH ×2 (07:51→20:53)
[2020-07-13] MEDS: FLUoxetine HCL 20 MG CAP PO SCH (07:51)
[2020-07-13] MEDS: OXYBUTYNIN CHLORIDE 5 MG TAB PO SCH ×3 (07:51→20:52)
[2020-07-13 08:07] LABS: Alanine Aminotransferase 34 U/L (12-78); Albumin Globulin Ratio 0.6 (0.9-2); Albumin Level 2.7 gm/dl (3.4-5.0); Alkaline Phosphatase 100 U/L (45-117); Aspartate Aminotransferase 15 U/L (15-37); BUN Creatinine Ratio 22.5 (10-20); Bilirubin,Total 0.3 mg/dl (0.2-1); Blood Urea Nitrogen 10 mg/dl (7-18); C Reactive Protein 3.78 mg/dl (0-0.29); Calcium 10.5 mg/dl (8.5-10.1); Carbon Dioxide 29 mmol/L (21-32); Chloride 104 mmol/L (98-107); Est GFR (African American) > 150.0; Est GFR (Non-African American) > 150.0; Globulin 4.8 gm/dl (2.5-4.0); Glucose 88 mg/dl (70-99); Potassium 3.6 mmol/L (3.5-5.1); Sodium 138 mmol/L (136-145); Total Protein 7.5 gm/dl (6.4-8.2)
[2020-07-13] MEDS: DAPTOmycin 400 MG in SYRINGE 0 ML IV SCH (20:52)
--- NOTE | 2020-07-13 22:07 | Hospitalist Progress Note ---
Date of Service July 13, 2020 Assessment & Plan (1) Osteomyelitis: 25 yo paraplegic male admitted for fever, found to have UTI, osteomyelitis and myositis. UTI - hx pseudomonas resistant to multiple abx in urine. Sensitive to meropenem and tobramycin. resistant to zosyn. - UA 3+ nitrites, LE, blood, mucus, Ucx pending - meropenem and tobramycin started based on previous cultures - ID consult placed for assistance with length of treatment/medication optimization given multiple infections -ID does not feel patient requires transfer to tertiary center. Discussed multiple options: and discussed with patient. For now will treat for 6 weeks of IV antibiotics and recommend reassessing patient. Osteomyelitis + myositis - osteomyelitis of S5, S6 and myositis of paraspinous posterior musculature at L5 and S1 per CT - given sacral decub ulcer and frequent infections, risk of MRSA infection - daptomycin for soft tissue penetration. received 1 dose vanc in ER - monitor fever curve - blood cultures pending Sacral Decubitus ulcer, stage IV -Consulted gen surgery. -Consulted ID Holding off transfer for now. -concern over osteomyelitis - MRSA coverage as above - wound nurse consult - wound culture pending - consider trending CRP for evaluation of acute infection resolution, CRP AM ordered. - cont home oxycodone 5 mg Q6H for pain control Severe protein calorie malnutrition - regular diet - consider boost supplements - albumin 2.9 - CMP AM Neurogenic Bladder - cont oxybutynin, gabapentin Anemia - appears chronic - hg higher than normal at 11.1 compared to 9.0 - possibly related to malnutrition, consider folate, b12, iron study workup Thrombocytosis - Plt remain elevated - appears to stay between 300 -530 - hemoconcentration vs. essential thrombocytosis? DVT ppx:heparin BID FEN/GI: NS 100 ml/hr maintenance, regular diet Code Status: FUll COde Dispo: Med/Surg with tele (2) Myositis: (3) Severe protein-calorie malnutrition: (4) Sacral decubitus ulcer, stage IV: (5) Urinary tract infection: (6) SMAS (superior mesenteric artery syndrome): (7) Fever: (8) Paraplegia following spinal cord injury: Admission and Anticipated Discharge Date Admission Date: July 11, 2020 Subjective 25 YO MALE reports feeling better. He has no new complaints. Review of Systems Review of Systems: All systems reviewed & are unremarkable except as noted in HPI & below Physical Exam Physical Exam: Constitutional: young man laying in bed in the dark Eyes: EOMI, pupils equal and reactive bilaterally Cardiac: RRR, no murmurs, gallops or rubs. Normal S1, S2 Pulm: CTA BL, no wheezes, rhonchi, crackles or rubs, moving air well throughout both lungs Abd: soft, nontender, nondistended, normal bowel sounds, no rebound or guarding Extremities: 2+ peripheral pulses, no edema Neuro: moving upper limbs without issue, lower extremities chronically paralyzed, A&Ox3 Results & Data Results & Data ([facility]) Vital Signs (Past 12 Hours) Vital Signs Temp Pulse Resp BP BP Pulse Ox 07/13/20 19:07 37.3 C 80 20 101/63 98 07/13/20 17:00 36.9 C 73 18 105/66 97 07/13/20 11:58 37.0 C 62 18 129/69 98 07/13/20 11:56 36.5 C 64 19 119/80 93 PG Care Time/CCT Total # of Minutes Spent Total Time Spent with Patient: Total time spent is greater than 50% in coordination of care (as documented) at patient's floor/unit and/or counseling patient: Coding Level of Care Code 07275 Subseq Hosp Care Lvl 3 Diagnoses Osteomyelitis M86.9 Osteomyelitis location: unspecified site Osteomyelitis type: unspecified type Myositis M60.009 Myositis location: unspecified site Myositis type: infective Severe protein-calorie malnutrition E43 Sacral decubitus ulcer, stage IV L89.154 Urinary tract infection T83.511A; N39.0 Encounter type: initial encounter Indwelling urinary catheter type: indwelling urethral catheter Urinary tract infection type: catheter-associated UTI SMAS (superior mesenteric artery syndrome) K55.1 Fever R50.9 Fever type: unspecified Paraplegia following spinal cord injury G82.20 Time Spent (min) 35 (1) Osteomyelitis Osteomyelitis location: unspecified site Osteomyelitis type: unspecified type Qualified Code(s): M86.9 - Osteomyelitis, unspecified (2) Myositis Myositis location: unspecified site Myositis type: infective Qualified Code(s): M60.009 - Infective myositis, unspecified site (3) Urinary tract infection Encounter type: initial encounter Indwelling urinary catheter type: indwelling urethral catheter Urinary tract infection type: catheter-associated UTI Qualified Code(s): T83.511A - Infection and inflammatory reaction due to indwelling urethral catheter, initial encounter; N39.0 - Urinary tract infection, site not specified (4) Fever Fever type: unspecified Qualified Code(s): R50.9 - Fever, unspecified
[2020-07-14] MEDS: MEROPENEM 500 MG in SYRINGE 0 ML IV SCH ×4 (01:09→18:17)
[2020-07-14] MEDS: oxyCODONE HCL IR 5 MG TAB (IMMEDIATE RELEASE) PO PRN ×3 (01:13→17:10)
[2020-07-14] MEDS: SODIUM CHLORIDE 0.9% 1000ML 1,000 ML IV SCH ×2 (07:11→18:16)
[2020-07-14 07:28] LABS: Basophils # (auto) 0.02 K/uL (0-0.2); Basophils % (auto) 0.3 %; Eosinophils # (auto) 0.22 K/uL (0-0.5); Eosinophils % (auto) 3.1 %; Hematocrit (blood only) 32.8 % (42-52); Hemoglobin 10.3 g/dL (14.0-18.0); Immature Granulocytes # (auto) 0.01 K/uL (0.00-0.02); Immature Granulocytes % (auto) 0.1 %; Lymphocytes # (auto) 2.41 K/uL (1.2-3.4); Lymphocytes % (auto) 33.8 %; Mean Corpuscular Hemoglobin 26.6 pg (25-34); Mean Corpuscular Hgb Conc 31.4 g/dL (32-36); Mean Corpuscular Volume 84.8 fL (80-100); Mean Platelet Volume 8.7 fL (7.4-10.4); Monocytes % (auto) 9.8 %; Neutrophils # (auto) 3.77 K/uL (1.4-6.5); Neutrophils % (auto) 52.9 %; Platelet Count 352 K/uL (130-400); RDW Coefficient of Variation 15.3 % (11.5-14.5); RDW Standard Deviation 47.2 fL (36.4-46.3); Red Blood Count 3.87 M/uL (4.7-6.1); White Blood Count 7.13 K/uL (4.8-10.8)
[2020-07-14 08:03] LABS: Albumin Level 2.7 gm/dl (3.4-5.0); Aspartate Aminotransferase 12 U/L (15-37); Blood Urea Nitrogen 11 mg/dl (7-18); C Reactive Protein 2.44 mg/dl (0-0.29); Calcium 10.4 mg/dl (8.5-10.1); Carbon Dioxide 28 mmol/L (21-32); Chloride 103 mmol/L (98-107); Creatinine Clr Calc Pharmacy 234.9 ml/min; Est GFR (African American) > 150.0; Est GFR (Non-African American) > 150.0; Glucose 85 mg/dl (70-99); Potassium 3.5 mmol/L (3.5-5.1); Sodium 137 mmol/L (136-145)
[2020-07-14 08:08] LABS: Alanine Aminotransferase 32 U/L (12-78); Albumin Globulin Ratio 0.6 (0.9-2); Alkaline Phosphatase 101 U/L (45-117); Bilirubin,Total 0.3 mg/dl (0.2-1); Globulin 4.7 gm/dl (2.5-4.0); Total Protein 7.4 gm/dl (6.4-8.2)
[2020-07-14] MEDS: OXYBUTYNIN CHLORIDE 5 MG TAB PO SCH ×3 (08:46→21:20)
[2020-07-14] MEDS: FLUoxetine HCL 20 MG CAP PO SCH (08:46)
[2020-07-14] MEDS: HEPARIN SOD 5,000 UNIT/0.5 ML VIAL SQ SCH ×2 (08:47→21:20)
[2020-07-14] MEDS: MIDODRINE HCL 10 MG TAB PO SCH ×2 (08:47→21:20)
[2020-07-14] MEDS ORDERED: Nursing to Pharmacy Communication SCH (14:15)
--- NOTE | 2020-07-14 20:41 | Hospitalist Progress Note ---
Date of Service July 14, 2020 Assessment & Plan (1) Osteomyelitis: 25 yo paraplegic male admitted for fever, found to have UTI, osteomyelitis and myositis. UTI - hx pseudomonas resistant to multiple abx in urine. Sensitive to meropenem and tobramycin. resistant to zosyn. - UA 3+ nitrites, LE, blood, mucus, Ucx pending - meropenem and tobramycin started based on previous cultures - ID consult placed for assistance with length of treatment/medication optimization given multiple infections -ID does not feel patient requires transfer to tertiary center. Discussed multiple options: and discussed with patient. For now will treat for 6 weeks of IV antibiotics and recommend reassessing patient. Cultures came back sensitive: MSSA and pseudomonas sensitive for meropenem It is multi drug resistant. Osteomyelitis + myositis - osteomyelitis of S5, S6 and myositis of paraspinous posterior musculature at L5 and S1 per CT - given sacral decub ulcer and frequent infections, risk of MRSA infection - daptomycin for soft tissue penetration. received 1 dose vanc in ER - monitor fever curve - blood cultures completed Sacral Decubitus ulcer, stage IV -Consulted gen surgery. -Consulted ID Holding off transfer for now. -concern over osteomyelitis - MRSA coverage as above - wound nurse consult - wound culture pending - consider trending CRP for evaluation of acute infection resolution, CRP AM ordered. - cont home oxycodone 5 mg Q6H for pain control Severe protein calorie malnutrition - regular diet - consider boost supplements - albumin 2.9 - CMP AM Neurogenic Bladder - cont oxybutynin, gabapentin Anemia - appears chronic - hg higher than normal at 11.1 compared to 9.0 - possibly related to malnutrition, consider folate, b12, iron study workup Thrombocytosis - Plt remain elevated - appears to stay between 300 -530 - hemoconcentration vs. essential thrombocytosis? DVT ppx:heparin BID FEN/GI: NS 100 ml/hr maintenance, regular diet Code Status: FUll COde Dispo: Med/Surg with tele (2) Myositis: (3) Severe protein-calorie malnutrition: (4) Sacral decubitus ulcer, stage IV: (5) Urinary tract infection: (6) SMAS (superior mesenteric artery syndrome): (7) Fever: (8) Paraplegia following spinal cord injury: Admission and Anticipated Discharge Date Admission Date: July 11, 2020 Subjective Patient reports feeling well. He has no new complaints at this time. Review of Systems Review of Systems: All systems reviewed & are unremarkable except as noted in HPI & below Physical Exam Physical Exam: Constitutional: young man laying in bed in the dark Eyes: EOMI, pupils equal and reactive bilaterally Cardiac: RRR, no murmurs, gallops or rubs. Normal S1, S2 Pulm: CTA BL, no wheezes, rhonchi, crackles or rubs, moving air well throughout both lungs Abd: soft, nontender, nondistended, normal bowel sounds, no rebound or guarding Extremities: 2+ peripheral pulses, no edema Neuro: moving upper limbs without issue, lower extremities chronically paralyzed, A&Ox3 Results & Data Results & Data ([facility]) Vital Signs (Past 12 Hours) Vital Signs Temp Pulse Pulse Resp BP BP Pulse Ox 07/14/20 19:42 36.5 C 87 18 98/60 L 97 07/14/20 15:00 79 07/14/20 14:34 36.9 C 61 18 98/57 L 98 07/14/20 11:11 36.7 C 83 18 112/67 97 PG Care Time/CCT Total # of Minutes Spent Total Time Spent with Patient: Total time spent is greater than 50% in coordination of care (as documented) at patient's floor/unit and/or counseling patient: Coding Level of Care Code 07685 Subseq Hosp Care Lvl 3 Diagnoses Osteomyelitis M86.9 Osteomyelitis location: unspecified site Osteomyelitis type: unspecified type Myositis M60.009 Myositis location: unspecified site Myositis type: infective Severe protein-calorie malnutrition E43 Sacral decubitus ulcer, stage IV L89.154 Urinary tract infection T83.511A; N39.0 Encounter type: initial encounter Indwelling urinary catheter type: indwelling urethral catheter Urinary tract infection type: catheter-associated UTI SMAS (superior mesenteric artery syndrome) K55.1 Fever R50.9 Fever type: unspecified Paraplegia following spinal cord injury G82.20 (1) Urinary tract infection Encounter type: initial encounter Indwelling urinary catheter type: indwelling urethral catheter Urinary tract infection type: catheter-associated UTI Qualified Code(s): T83.511A - Infection and inflammatory reaction due to indwelling urethral catheter, initial encounter; N39.0 - Urinary tract infection, site not specified (2) Fever Fever type: unspecified Qualified Code(s): R50.9 - Fever, unspecified (3) Myositis Myositis location: unspecified site Myositis type: infective Qualified Code(s): M60.009 - Infective myositis, unspecified site (4) Osteomyelitis Osteomyelitis location: unspecified site Osteomyelitis type: unspecified type Qualified Code(s): M86.9 - Osteomyelitis, unspecified
[2020-07-15] MEDS: MEROPENEM 500 MG in SYRINGE 0 ML IV SCH ×5 (00:20→23:35)
[2020-07-15] MEDS: SODIUM CHLORIDE 0.9% 1000ML 1,000 ML IV SCH (03:32)
[2020-07-15] MEDS: oxyCODONE HCL IR 5 MG TAB (IMMEDIATE RELEASE) PO PRN ×3 (03:32→21:42)
[2020-07-15] MEDS: FLUoxetine HCL 20 MG CAP PO SCH (08:42)
[2020-07-15] MEDS: ASCORBIC ACID 500 MG TAB PO SCH (08:43)
[2020-07-15] MEDS: CEROVITE ADV FORMULA TAB PO SCH (08:43)
[2020-07-15] MEDS: OXYBUTYNIN CHLORIDE 5 MG TAB PO SCH ×3 (08:43→21:42)
[2020-07-15] MEDS: MIDODRINE HCL 10 MG TAB PO SCH ×2 (08:44→21:42)
[2020-07-15] MEDS: HEPARIN SOD 5,000 UNIT/0.5 ML VIAL SQ SCH ×2 (08:44→21:42)
[2020-07-15] MEDS: DAPTOmycin 400 MG in SYRINGE 0 ML IV SCH (12:04)
--- NOTE | 2020-07-15 22:48 | Hospitalist Progress Note ---
Date of Service July 15, 2020 Assessment & Plan (1) Osteomyelitis: 25 yo paraplegic male admitted for fever, found to have UTI, osteomyelitis and myositis. UTI - hx pseudomonas resistant to multiple abx in urine. Sensitive to meropenem and tobramycin. resistant to zosyn. - UA 3+ nitrites, LE, blood, mucus, Ucx pending - meropenem and tobramycin started based on previous cultures - ID consult placed for assistance with length of treatment/medication optimization given multiple infections -ID does not feel patient requires transfer to tertiary center. Discussed multiple options: and discussed with patient. For now will treat for 6 weeks of IV antibiotics: meropenem and recommend reassessing patient. Cultures came back sensitive: MSSA and pseudomonas sensitive for meropenem It is multi drug resistant. Osteomyelitis + myositis - osteomyelitis of S5, S6 and myositis of paraspinous posterior musculature at L5 and S1 per CT - given sacral decub ulcer and frequent infections, risk of MRSA infection - daptomycin for soft tissue penetration. received 1 dose vanc in ER - monitor fever curve - blood cultures completed Sacral Decubitus ulcer, stage IV -Consulted gen surgery. -Consulted ID Holding off transfer for now. -concern over osteomyelitis - MRSA coverage as above - wound nurse consult - wound culture pending - consider trending CRP for evaluation of acute infection resolution, CRP AM ordered. - cont home oxycodone 5 mg Q6H for pain contro -will discharge on daptomycin and meropenem.l Severe protein calorie malnutrition - regular diet - consider boost supplements - albumin 2.9 - CMP AM Neurogenic Bladder - cont oxybutynin, gabapentin Anemia - appears chronic - hg higher than normal at 11.1 compared to 9.0 - possibly related to malnutrition, consider folate, b12, iron study workup Thrombocytosis - Plt remain elevated - appears to stay between 300 -530 - hemoconcentration vs. essential thrombocytosis? DVT ppx:heparin BID (2) Myositis: (3) Severe protein-calorie malnutrition: (4) Sacral decubitus ulcer, stage IV: (5) Urinary tract infection: (6) SMAS (superior mesenteric artery syndrome): (7) Fever: (8) Paraplegia following spinal cord injury: Admission and Anticipated Discharge Date Admission Date: July 11, 2020 Subjective Patient reports feeling well. He has no new complaints. Review of Systems Review of Systems: All systems reviewed & are unremarkable except as noted in HPI & below Physical Exam Physical Exam: Constitutional: young man laying in bed in the dark Eyes: EOMI, pupils equal and reactive bilaterally Cardiac: RRR, no murmurs, gallops or rubs. Normal S1, S2 Pulm: CTA BL, no wheezes, rhonchi, crackles or rubs, moving air well throughout both lungs Abd: soft, nontender, nondistended, normal bowel sounds, no rebound or guarding Extremities: 2+ peripheral pulses, no edema Neuro: moving upper limbs without issue, lower extremities chronically paralyzed, A&Ox3 Results & Data Results & Data ([facility]) Vital Signs (Past 12 Hours) Vital Signs Temp Pulse Pulse Resp BP Pulse Ox 07/15/20 18:36 36.9 C 63 17 94/50 L 98 07/15/20 16:00 88 07/15/20 15:15 36.8 C 59 L 17 126/72 98 07/15/20 11:45 36.5 C 60 18 101/58 L 98 PG Care Time/CCT Total # of Minutes Spent Total Time Spent with Patient: Total time spent is greater than 50% in coordination of care (as documented) at patient's floor/unit and/or counseling patient: Coding Level of Care Code 50703 Subseq Hosp Care Lvl 2 Diagnoses Osteomyelitis M86.9 Osteomyelitis location: unspecified site Osteomyelitis type: unspecified type Myositis M60.009 Myositis location: unspecified site Myositis type: infective Severe protein-calorie malnutrition E43 Sacral decubitus ulcer, stage IV L89.154 Urinary tract infection T83.511A; N39.0 Encounter type: initial encounter Indwelling urinary catheter type: indwelling urethral catheter Urinary tract infection type: catheter-associated UTI SMAS (superior mesenteric artery syndrome) K55.1 Fever R50.9 Fever type: unspecified Paraplegia following spinal cord injury G82.20 Time Spent (min) 25 (1) Urinary tract infection Encounter type: initial encounter Indwelling urinary catheter type: indwelling urethral catheter Urinary tract infection type: catheter-associated UTI Qualified Code(s): T83.511A - Infection and inflammatory reaction due to indwelling urethral catheter, initial encounter; N39.0 - Urinary tract infection, site not specified (2) Fever Fever type: unspecified Qualified Code(s): R50.9 - Fever, unspecified (3) Myositis Myositis location: unspecified site Myositis type: infective Qualified Code(s): M60.009 - Infective myositis, unspecified site (4) Osteomyelitis Osteomyelitis location: unspecified site Osteomyelitis type: unspecified type Qualified Code(s): M86.9 - Osteomyelitis, unspecified
[2020-07-16] MEDS: MEROPENEM 500 MG in SYRINGE 0 ML IV SCH (06:04)
[2020-07-16] MEDS ORDERED: MEROPENEM 500 MG in SYRINGE 0 ML IV SCH (07:45)
[2020-07-16] MEDS: ASCORBIC ACID 500 MG TAB PO SCH (08:02)
[2020-07-16] MEDS: OXYBUTYNIN CHLORIDE 5 MG TAB PO SCH (08:02)
[2020-07-16] MEDS: MIDODRINE HCL 10 MG TAB PO SCH (08:02)
[2020-07-16] MEDS: FLUoxetine HCL 20 MG CAP PO SCH (08:03)
[2020-07-16] MEDS: HEPARIN SOD 5,000 UNIT/0.5 ML VIAL SQ SCH (08:03)
[2020-07-16] MEDS: CEROVITE ADV FORMULA TAB PO SCH (08:03)
[2020-07-16] MEDS: DAPTOmycin 400 MG in SYRINGE 0 ML IV SCH (11:04)
[2020-07-16] MEDS: oxyCODONE HCL IR 5 MG TAB (IMMEDIATE RELEASE) PO PRN (11:17)
--- NOTE | 2020-07-16 16:35 | Discharge Summary ---
Date of Service July 16, 2020 Principal Diagnosis UTI Osteomyelitis Discharge Exam Constitutional WD/WN, vitals as above Eyes EOM intact bilaterally; no conjunctival abnormality ENMT external ear and nose normal, oropharynx normal Neck trachea midline, no thyromegaly normal visual inspection Respiratory normal respiratory effort, lungs clear to auscultation no respiratory distress Cardiovascular RRR, no murmur, no edema Gastrointestinal (Abdomen) Inspection/Auscultation: abdomen normal to inspection; abdomen not distended Skin no rashes, warm and dry Neurologic awake; + does not move all extremities Psychiatric Orientation: alert, oriented to person and cooperative Discharge Data Allergies Allergy/AdvReac Type Severity Reaction Status Date / Time nickel Allergy Mild RASH -- Verified 07/11/20 19:59 FROM [employer] Consultations 07/11/20 20:39 ED Decision to Admit Stat 07/12/20 05:26 Consult Infectious Diseases Routine 07/12/20 10:10 Consult General Surgery Routine 07/12/20 16:01 Burn CD for patient Routine Ordered Studies 07/11/20 18:52 CT abd pelvis IV con only Stat Hospital Course (1) Osteomyelitis: 25 yo paraplegic male admitted for fever, found to have UTI, osteomyelitis and myositis. UTI - hx pseudomonas resistant to multiple abx in urine. Sensitive to meropenem and tobramycin. resistant to zosyn. - UA 3+ nitrites, LE, blood, mucus, Ucx pending - meropenem and tobramycin started based on previous cultures - ID consult placed for assistance with length of treatment/medication optimization given multiple infections -ID does not feel patient requires transfer to tertiary center. Discussed multiple options: and discussed with patient. For now will treat for 6 weeks of IV antibiotics: meropenem and recommend reassessing patient. Cultures came back sensitive: MSSA and pseudomonas sensitive for meropenem It is multi drug resistant. Osteomyelitis + myositis - osteomyelitis of S5, S6 and myositis of paraspinous posterior musculature at L5 and S1 per CT - given sacral decub ulcer and frequent infections, risk of MRSA infection - daptomycin for soft tissue penetration. received 1 dose vanc in ER - monitor fever curve - blood cultures completed Sacral Decubitus ulcer, stage IV -Consulted gen surgery. -Consulted ID -concern over osteomyelitis - MRSA coverage as above - wound nurse consult - wound culture pending - consider trending CRP for evaluation of acute infection resolution, CRP AM ordered. - cont home oxycodone 5 mg Q6H for pain contro -will discharge on daptomycin and meropenem x 6 weeks. Severe protein calorie malnutrition - regular diet - consider boost supplements - albumin 2.9 - CMP AM Neurogenic Bladder - cont oxybutynin, gabapentin Anemia - appears chronic - hg higher than normal at 11.1 compared to 9.0 - possibly related to malnutrition, consider folate, b12, iron study workup Thrombocytosis - Plt remain elevated - appears to stay between 300 -530 - hemoconcentration vs. essential thrombocytosis? DVT ppx:heparin BID (2) Myositis: (3) Severe protein-calorie malnutrition: (4) Sacral decubitus ulcer, stage IV: (5) Urinary tract infection: (6) SMAS (superior mesenteric artery syndrome): (7) Fever: (8) Paraplegia following spinal cord injury: Total Time Total Time Spent Total Time Spent (In Minutes): 35 Discharge Plan Discharge Items Patient Disposition: Home - Home Health Services Reason For Visit: FEVER Discharge Diagnosis: Decubitus ulcer and UTI Activity: Resume your previous activity Non-emergency contact: Primary Care Provider Call non-emergency contact if: you have any medication questions Follow-up/Referrals: Pacheco Schultz MD [Primary Care Provider] - Alejandro Phoenix MD [Physician] - (Please follow up with Dr. Phoenix or another urologist to discuss the issues with your Dewitt catheter and consideration of a suprapubic catheter.) Aroldo Villar, [Physician] - (Please follow up with Dr. Villar in 1-2 weeks for labs and Infectious Disease follow up.) Diet: Regular Addtl Attending Provider Instructions: Mr. Ceron, You were admitted with infection. This was likely from a UTI from your Dewitt catheter and also the decubitus ulcer from your paraplegia. We have cultured you, and Pseudomonas grew from your catheter. MRSA and Pseudomonas grew from the wound on your decubitus ulcer. The Infectious Disease doctors recommended you follow up with Urology to be sure your catheter works properly and to consider a "suprapubic" catheter which is a safer long-term catheter. You should also follow up with the Infectious Disease doctors either at [facility] or Dr. Aroldo Villar who is an infectious disease doctor in [place]. Her office number is [phone]. While you are on antibiotics, you will need weekly blood draws that your PCP or an Infectious Disease doctor should follow. These include a CBC, BMP, and CK. Will be discharged with Home health. Will be on meropenem 1 gr Q8H. next dose will be at 2pm. Will be discharged on daptomycin 1 gr IV daily Patient will continue with antibiotics for 4-6 weeks. Pending Studies at Discharge: No Stand-Alone Forms: My [facility], Smoking Cessation Medications and DC Order Prescriptions: New meropenem 500 mg Recon Soln 1 dose Not Applicable UD Qty: 20 RF: 0 daptomycin [Cubicin] 500 mg Recon Soln 1 dose Not Applicable UD Qty: 20 RF: 0 oxycodone 5 mg tablet 5 mg PO Q6H PRN (Reason: Breakthough Pain) Qty: 15 RF: 0 Continued fluoxetine 20 mg capsule 40 mg PO QAM RF: 0 midodrine 5 mg tablet 10 mg PO BID RF: 0 oxybutynin chloride 5 mg tablet 5 mg PO TID RF: 0 gabapentin 300 mg capsule 600 mg PO TID PRN (Reason: Nerve Pain) RF: 0 docusate sodium [Colace] 100 mg capsule 100 mg PO DAILY PRN (Reason: Constipation) RF: 0 Discharge Orders: Discharge Order (Routine); Ordered 07/16/20 Ordered By: Grey Saucedo Admission Data Admit Date/Time: 07/11/20 21:38 Attending Provider: Grey Saucedo Admit Provider: Dariana Shane Primary Care Provider: Pacheco Schultz V. Other Providers: Alejandro Mckee ; Gaby Amos ; Sadiq Banks I. ; Keith Perez II ; Parul Verdin ; Kar Ambriz ; [facility] ; Francisco Gutierres ; Grey Saucedo Other Interventions: Discharge Summary Assessment (RN) Last Done: 07/16/20 11:25 Coding Level of Care Code D/C Day Management >30 mins Diagnoses Osteomyelitis M86.9 Osteomyelitis location: unspecified site Osteomyelitis type: unspecified type Myositis M60.009 Myositis location: unspecified site Myositis type: infective Severe protein-calorie malnutrition E43 Sacral decubitus ulcer, stage IV L89.154 Urinary tract infection T83.511A; N39.0 Encounter type: initial encounter Indwelling urinary catheter type: indwelling urethral catheter Urinary tract infection type: catheter-associated UTI SMAS (superior mesenteric artery syndrome) K55.1 Fever R50.9 Fever type: unspecified Paraplegia following spinal cord injury G82.20
== END 2020-07-16 12:27 | disposition home health service (06) | DRG 592 ==
LOC: ED 18:39 → 2W 21:38 → SUATTDRO 21:38 → 2W 23:36

== ENCOUNTER 2020-09-27 17:50 | Observation (INO) ==
[2020-09-27] MEDS ORDERED: ONDANSETRON INJ 2 MG/ML 2 ML VIAL IV STA (19:39)
[2020-09-27] MEDS ORDERED: SODIUM CHLORIDE 0.9% 1000ML 1,000 ML IV STA (19:39)
[2020-09-27] MEDS ORDERED: PROMETHAZINE 6.25 MG/50.25 ML BAG IV STA (19:39)
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
[2020-09-27 20:15] LABS: Basophils # (auto) 0.03 K/uL (0-0.2); Basophils % (auto) 0.2 %; Eosinophils # (auto) 0.02 K/uL (0-0.5); Eosinophils % (auto) 0.1 %; Hematocrit (blood only) 35.4 % (42-52); Hemoglobin 11.4 g/dL (14.0-18.0); Immature Granulocytes # (auto) 0.02 K/uL (0.00-0.02); Immature Granulocytes % (auto) 0.1 %; Lymphocytes # (auto) 3.08 K/uL (1.2-3.4); Lymphocytes % (auto) 21.1 %; Mean Corpuscular Hemoglobin 26.5 pg (25-34); Mean Corpuscular Hgb Conc 32.2 g/dL (32-36); Mean Corpuscular Volume 82.1 fL (80-100); Monocytes # (auto) 1.37 K/uL (0.11-0.59); Monocytes % (auto) 9.4 %; Neutrophils # (auto) 10.05 K/uL (1.4-6.5); Neutrophils % (auto) 69.1 %; Platelet Count 781 K/uL (130-400); RDW Coefficient of Variation 15.4 % (11.5-14.5); RDW Standard Deviation 46.4 fL (36.4-46.3); Red Blood Count 4.31 M/uL (4.7-6.1); White Blood Count 14.57 K/uL (4.8-10.8)
[2020-09-27 20:43] LABS: Appearance Urine Turbid (Clear); Bacteria Urine Automated Negative (Negative); Blood Urine 3+ (Negative); Color Urine Dark Yellow; Glucose Urine UA Negative (Negative); Ketones Urine Trace (Negative); Leukocyte Esterase Urine 1+ (Negative); Nitrite Urine Negative (Negative); Protein Urine 1+ (Negative); Specific Gravity Urine 1.026 (1.000-1.030); Urobilinogen Urine Negative (Negative); WBC Urine Automated >30 /hpf (0-5); pH Urine 5.5 (4.5-7.5)
--- NOTE | 2020-09-27 20:47 | XRay Report ---
XR chest 1V portable CLINICAL HISTORY: Pain, radiating to the abdomen. COMPARISON STUDY: 09/15/2020 FINDINGS: Postsurgical changes are present within the cervicothoracic spine. There is a dextroscolios is. The heart is normal in size. There is no failure. There is no focal pulmonary consolidation. Ther e are no pleural effusions. There is no pneumoperitoneum.[ IMPRESSION: No active disease in the chest. ACT 112: Negative or not required by law. Electronically signed by: Brenden Pritchard M.D. 09/27/2020 8:45 PM
[2020-09-27 20:51] LABS: Bilirubin Urine 1+ (Negative)
[2020-09-27 20:56] LABS: Alanine Aminotransferase 19 U/L (12-78); Albumin Globulin Ratio 0.6 (0.9-2); Albumin Level 3.4 gm/dl (3.4-5.0); Alkaline Phosphatase 115 U/L (45-117); Aspartate Aminotransferase 15 U/L (15-37); BUN Creatinine Ratio 29.5 (10-20); Bilirubin,Total 0.3 mg/dl (0.2-1); Blood Urea Nitrogen 18 mg/dl (7-18); Calcium 12.4 mg/dl (8.5-10.1); Carbon Dioxide 30 mmol/L (21-32); Chloride 97 mmol/L (98-107); Creatinine Clr Calc Pharmacy 154.9 ml/min; Est GFR (African American) > 150.0 ml/min; Est GFR (Non-African American) 139.8 ml/min; Globulin 6.2 gm/dl (2.5-4.0); Glucose 115 mg/dl (70-99); Lipase 182 U/L (73-393); Magnesium 1.9 mg/dl (1.8-2.4); Potassium 3.6 mmol/L (3.5-5.1); Sodium 134 mmol/L (136-145); Total Protein 9.6 gm/dl (6.4-8.2)
[2020-09-27 20:57] LABS: Cast Urine Automated 0 /lpf (0-5)
[2020-09-27] MEDS ORDERED: OPTIRAY 320 100ml IV ONE (21:10)
[2020-09-27] MEDS ORDERED: SODIUM CHLORIDE 0.9% 1000ML 500 ML IV ONE (21:11)
[2020-09-27] MEDS ORDERED: diphenhydrAMINE 50 MG/ML VIAL IV STA (21:32)
[2020-09-27] MEDS ORDERED: PROMETHAZINE 12.5 MG/50.5 ML BAG IV STA (21:32)
[2020-09-27] MEDS ORDERED: LORazepam 0.5 MG/1 ML VIAL IV STA (23:00)
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
--- NOTE | 2020-09-28 03:04 | Discharge Summary ---
Date of Service September 28, 2020 Admission HPI Per Admitting Provider Patient is a 25 year old male with PMHx 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 Patient notes as well that 2 days ago he was using his G-tube when something happened and it was no longer working properly anymore. He currently states that he is over all feeling poor and that he notes primarily nausea and abdominal discomfort. He has vomited multiple times throughout the day and 3 times here while in the ED. He denies any fever, chills, cough, diarrhea, shortness of breath. He was given IV Zofran, Phenergan, Benadryl, and IV Saline 1.5L in the ED. 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, Anxiety, Depression, GERD, Hx SMA syndrome, Sacral ulcer Surg Hx: Hx Trach (now removed), Suprapubic urinary catheter, Ostomy, G-tube, Lumbar spine surgery Soc Hx: Smokes 3/4 PPD, Smokes marijuana, no alcohol use Admission Exam Per Admitting Provider Constitutional: + physical limitations, + disheveled, cooperative and + underweight Eyes: PERRL, conjunctivae normal, anicteric sclerae ENMT: external ear and nose normal, oropharynx normal Respiratory: normal respiratory effort, lungs clear to auscultation Cardiovascular: Rate/Rhythm: regular rate and regular rhythm Heart Sounds: no murmur Gastrointestinal (Abdomen): Inspection/Auscultation: + abdomen distended and + hypoactive bowel sounds Percussion/Palpation: + abdomen tender (throughout) and abdomen soft; no guarding and abdomen not rigid G tube and Ostomy present Musculoskeletal: Movement of both upper extremities with minimal effort. Paralysis of the LE b/l Neurologic: PERRL, EOMI, accommodation nl, no face palsy, no dysarthria Limited sensation below the level of the nipple line Paralysis of the LE b/l Psychiatric: Orientation: alert and oriented x 3 Eye Contact: + poor eye contact Affect: + flat affect Genitourinary: Suprapubic cathter present Principal Diagnosis SMA syndrome Discharge Exam Constitutional + physical limitations, + disheveled, cooperative and + underweight Eyes PERRL, conjunctivae normal, anicteric sclerae ENMT external ear and nose normal, oropharynx normal Respiratory normal respiratory effort, lungs clear to auscultation Cardiovascular Rate/Rhythm: regular rate and regular rhythm Heart Sounds: no murmur Gastrointestinal (Abdomen) Inspection/Auscultation: + abdomen distended and + hypoactive bowel sounds Percussion/Palpation: + abdomen tender (throughout) and abdomen soft; no guarding and abdomen not rigid Neurologic PERRL, EOMI, accommodation nl, no face palsy, no dysarthria Psychiatric Orientation: alert and oriented x 3 Eye Contact: + poor eye contact Affect: + flat affect Discharge Data Allergies Allergy/AdvReac Type Severity Reaction Status Date / Time nickel Allergy Mild Rash (from Verified 09/27/20 21:05 jewelry) Consultations 09/27/20 22:10 ED Decision to Admit Stat Ordered Studies 09/27/20 19:39 CT abd pelvis IV con only Urgent Hospital Course (1) SMAS (superior mesenteric artery syndrome): Patient is a 25 year old male with PMHx 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 SMA syndrome leading to nausea and vomiting -Stat rad report noting a distended stomach and duodenum to the level of the SMA. No pneumatosis or free air. -Surgery consulted who recommended decompression -Decompression attempted with G-tube while in the ED with no success -Multiple attempts to place NG tube (8) without success -Discussed again with our General Surgery team who recommended that due to the inability to provide decompression to the patient, that transfer to a tertiary center would be most beneficial to the patient at this time. -Discussed case with Dr. Delgado at [facility] in [place], [place] who accepted the patient for transfer to their facility -Continued with Zofran PRN for nausea -Continued NPO -Continued NSS +KCl 100ml/hr, discontinued at time of transfer. -Remainder of PO meds were held Sacral Ulcer -Most recently seen in our wound care center on 09/22/20 -Pressure ulcer stage 3 - consulted wound care -Switched Bactrim to IV while NPO Dispo: Tansfer to [facility] Total Time Total Time Spent Total Time Spent (In Minutes): <30 Discharge Plan Discharge Items Patient Disposition: Transfer Acute Care Hospital Reason For Visit: ABDOMINAL PAIN, VOMITING, SMA SYNDROME Discharge Diagnosis: SMA syndrome Condition on Discharge: Fair Activity: Per Instructions section Non-emergency contact: Primary Care Provider Call non-emergency contact if: you have any medication questions Follow-up/Referrals: Pacheco Schultz MD [Primary Care Provider] - Diet: Regular Addtl Attending Provider Instructions: You were admitted due to SMA syndrome while awaiting transfer to [facility] for surgical evaluation. Pending Studies at Discharge: No Stand-Alone Forms: My [facility] Skilled Items Patient informed of condition?: Yes DNR: No Discharge Level of Care: Other Communicable Disease: No Discharge Prognosis: Stable Lines: Peripheral IV Urinary Catheter: Yes Medications and DC Order Prescriptions: Continued fluoxetine [Prozac] 20 mg capsule 40 mg PO QAM RF: 0 midodrine 5 mg tablet 10 mg PO BID PRN (Reason: orthostatic hypotension) RF: 0 ondansetron 4 mg tablet,disintegrating 4 mg translingual Q8H PRN (Reason: nausea and vomiting) Qty: 30 RF: 0 sulfamethoxazole-trimethoprim [Bactrim DS] 800-160 mg tablet 1 tab PO BID 14 Days Qty: 28 RF: 0 gabapentin 300 mg capsule 600 mg PO TID PRN (Reason: Nerve Pain) RF: 0 oxybutynin chloride 5 mg tablet 5 mg PO TID PRN (Reason: bladder spasms) Qty: 60 RF: 6 docusate sodium [Colace] 100 mg capsule 100 mg PO BID PRN (Reason: Constipation) Qty: 60 RF: 1 ferrous sulfate 325 mg (65 mg iron) tablet 325 mg PO BID Qty: 60 RF: 6 hydrocodone-acetaminophen 5-325 mg tablet 1 tab PO Q6H PRN (Reason: pain) Qty: 20 RF: 0 pantoprazole [Protonix] 40 mg tablet,delayed release (DR/EC) 40 mg PO QAM RF: 0 Narcan 4 mg/actuation spray,non-aerosol 1 spray intranasal Q2M PRN (Reason: overdose) Qty: 2 RF: 1 Discharge Orders: Discharge Order (Routine); Ordered 09/28/20 Ordered By: Tasha Brady Admission Data Admit Date/Time: 09/28/20 03:03 Attending Provider: Cooper Vinson Admit Provider: Glynn Puente Primary Care Provider: Pacheco Schultz V. Other Providers: Dave Jamison Other Interventions: Discharge Summary Assessment (RN) Last Done: 09/28/20 09:13 Supervising Physician Co-Signing Physician Notes resting comfortably, for transfer to tertiary. otherwise as above. Resident Activity Tracking Resident Involvement: Resident Care Provided Care Provided: Adult Hospital Medicine
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
[2020-09-28] MEDS ORDERED: ONDANSETRON INJ 2 MG/ML 2 ML VIAL IV STA (03:51)
[2020-09-28] MEDS ORDERED: SULFA IV SCH (05:17)
[2020-09-28] MEDS ORDERED: TRIMETH IV SCH (05:17)
[2020-09-28] MEDS ORDERED: ONDANSETRON INJ 2 MG/ML 2 ML VIAL IV PRN (05:17)
[2020-09-28] MEDS ORDERED: NSS + 20MEQ KCL 20 MEQ/1,000 ML BAG IV SCH (05:17)
[2020-09-28] MEDS ORDERED: DILUENT IV SCH (05:17)
[2020-09-28] MEDS ORDERED: SULFA/TRIMETH 80/16MG/ML 160 MG in DEXTROSE 5% 250 ML IV SCH (06:00)
[2020-09-28] MEDS ORDERED: PROMETHAZINE HCL 25 MG in SODIUM CHLORIDE 0.9% 50 ML IV ONE (08:30)
[2020-09-28] MEDS ORDERED: MoRPHine SULFATE 4 MG/ML 1 ML CARP\\VIAL IV STA (08:42)
--- NOTE | 2020-09-28 09:41 | CT Scan Report ---
CT SCAN OF THE ABDOMEN AND PELVIS WITH IV CONTRAST CLINICAL HISTORY: Generalized abdominal pain. Vomiting. COMPARISON STUDY: Abdominal CT dated 07/11/2020. TECHNIQUE: Following the IV administration of 84 cc of Optiray 320, CT scan of the abdomen and pelvi s is performed from the lung bases to the proximal femora. Images are reviewed in the axial, sagittal , and coronal planes. IV contrast was administered without complication. A dose lowering technique wa s utilized adhering to the principles of ALARA. CT DOSE: 277.21 mGy.cm FINDINGS: Lung bases: The heart is normal in size and without pericardial effusion. The lung bases are clear no ting dependent atelectasis. Liver: The contrast-enhanced liver is normal in size, contour, and attenuation. There is no intrahepa tic biliary ductal dilatation. The hepatic veins and portal veins are patent. Gallbladder: Unremarkable. Spleen: Normal in size and attenuation. Pancreas: Unremarkable. Adrenal glands: Unremarkable. Kidneys: The contrast enhanced kidneys are normal in size and without hydronephrosis. The kidneys enh ance symmetrically. Numerous tiny right renal calculi are suggested. There is also likely a small sudhir culus in the left renal pelvis. Abdominal vasculature: The abdominal aorta is normal in course and caliber. Stomach and bowel: A gastrojejunostomy tube is in place. There is marked distention of the stomach an d proximal duodenum which are filled with fluid. This focally transitions in the mid to distal duoden um at the level of the superior mesenteric artery. The distal duodenum and small bowel loops are rela tively decompressed. The appearance suggests gastroduodenal obstruction. 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 The appendix is well-visualized and normal. Peritoneum: There is no intraperitoneal free air or abdominal ascites. Lymphadenopathy: None. Pelvic viscera: The bladder is decompressed around a suprapubic catheter and not well evaluated. Ther e are bladder calculi and significant intraluminal gas. Mild pericystic inflammation persists. The pr ostate and seminal vesicles are normal as imaged. There is presacral soft tissue infiltration. Skeletal structures: The skeletal structures are osteopenic. There is sclerosis and osseous erosion i nvolving S5 and S6. This is deep to the decubitus ulcer and likely represents osteomyelitis. No lytic or blastic lesions are seen. Soft tissues: The patient is cachectic. There is a decubitus ulceration with wound and surrounding so ft tissue inflammation overlying the right ischium on image #440. This has worsened as compared to 07/11/2020. A large decubitus ulcer is again seen overlying the sacrum. This extends superiorly to the le beltran of L5-S1 where there is underlying soft tissue infiltration, as well as infiltration of the nena pinous musculature. Decubitus ulceration and simultaneous fluid overlying the left ischial tuberosity on image #438 has improved from previous. IMPRESSION: 1. A gastrojejunostomy tube is in place. 2. 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 3. The small bowel loops are decompressed. A double barrel colostomy is again noted in the left lower quadrant. 4. Decubitus ulcerations are again noted with evidence of surrounding cellulitis and osteomyelitis of the sacrum. These findings were also seen previously. See above. 5. The bladder is decompressed around a suprapubic catheter. Mild pericystic infiltration is noted. C orrelate with urinalysis. 6. Bladder calculi are noted. 7. Punctate renal calculi are suspected. 8. Additional findings as above. ACT 112: Negative or not required by law. Electronically signed by: Tramaine Garcia M.D. 09/28/2020 9:39 AM
--- NOTE | 2020-09-29 01:13 | Billing Data ---
Date of Service September 29, 2020 Coding Level of Care Code 56835 Initial Inpt Care Lvl 3
--- NOTE | 2020-09-29 01:14 | Billing Data ---
Date of Service September 29, 2020 Coding Level of Care Code D/C Day Management >30 mins
== END 2020-09-28 11:01 | disposition short-term general hospital (02) ==
LOC: 2E 17:50 → ED 17:50 → SUATTDRO 09-28 03:03 → 2E 09-28 04:33

== ENCOUNTER 2021-09-27 15:12 | Inpatient (IN) ==
[2021-09-27] MEDS ORDERED: ONDANSETRON INJ 2 MG/ML 2 ML VIAL ONE (15:21)
[2021-09-27] MEDS ORDERED: ONDANSETRON INJ 2 MG/ML 2 ML VIAL IV STA (15:22)
[2021-09-27] MEDS ORDERED: PANTOprazole 80 MG in DEXTROSE 5% 100 ML IV STA (15:29)
[2021-09-27] MEDS ORDERED: SODIUM CHLORIDE 0.9% 1000ML 1,000 ML IV STA (15:29)
[2021-09-27] MEDS ORDERED: fentaNYL citrate 100 MCG/2 ML VIAL IV ONE (15:30)
[2021-09-27] MEDS ORDERED: LACTATED RINGER'S 1,000 ML IV ONE ×4 (15:31→23:06)
--- NOTE | 2021-09-27 15:36 | Emergency Department Note ---
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 diagnosis. The small bowel is decompressed as is the colon. Ostomy is again seen in the left lower quadrant. No inflammatory changes or free air are identified. Liver: There is homogeneous attenuation of the liver parenchyma. There is no evidence for enhancing mass lesion. Spleen: There is homogeneous attenuation of the splenic parenchyma. There is no enhancing mass lesion. Pancreas: There is homogeneous attenuation of the pancreatic parenchyma. There is no evidence for mass lesion or peripancreatic fluid collection. Gall Bladder: The gallbladder is well distended with no evidence for intraluminal calculi, wall thickening or pericholecystic edema. Adrenal glands: The adrenal glands are normal in size and attenuation. There is no evidence for enhancing mass lesion. Kidneys: There is homogeneous attenuation of the renal parenchyma bilaterally. There is no evidence for renal calculus or hydronephrosis. There is no evidence for enhancing mass. Bladder: Suprapubic catheter is in place. : There is no evidence for pelvic mass or adenopathy. There is no evidence for pelvic ascites. Vasculature: There is no evidence for aneurysmal dilatation of the abdominal aorta. Osseous structures: There is no acute osseous pathology. IMPRESSION: 1. CT findings characteristic of marked gastric outlet obstruction. In a patient of this age, gastric ulcer disease would be the main differential diagnosis. 2. There is associated marked distention of the stomach and moderate distention of the imaged portion distal esophagus with fluid. ACT 112: Negative or not required by law. Electronically signed by: Yusuf Rdz M.D. 09/27/2021 5:04 PM KUB X-Ray 09/27/21 18:58 XR KUB/Abdomen 1 view CLINICAL HISTORY: ng placement TECHNIQUE: 1 view of the abdomen was obtained. Comparison: Comparison is made to abdomen radiograph 03/08/2021 FINDINGS: Enteric tube side-port is just above the diaphragm. The osseous structures are grossly unremarkable. The bowel gas pattern is nonobstructive. A moderate amount of stool is noted within the large bowel. Contrast is noted in the renal collecting systems and ureters. IMPRESSION: Enteric tube side-port is above the diaphragm and could be advanced approximately 8 cm for improved positioning. ACT 112: Negative or not required by law. Electronically signed by: Yossi Arechiga M.D. 09/27/2021 7:14 PM KUB X-Ray 09/27/21 19:48 XR KUB/Abdomen 1 view CLINICAL HISTORY: NG tube placement TECHNIQUE: 1 view of the abdomen was obtained. Comparison: Comparison is made to abdomen radiograph 09/27/2021 at 1902 hours FINDINGS: Interval advancement of the enteric tube, the side-port and tip now lies below the diaphragm. The osseous structures are grossly unremarkable. The bowel gas pattern is nonobstructive. IMPRESSION: Interval advancement of the enteric tube which is now in satisfactory position. ACT 112: Negative or not required by law. Electronically signed by: Yossi Arechiga M.D. 09/27/2021 8:15 PM Discharge Plan Visit Data Chief Complaint: Cardiac Assessment ED Provider: Yousif [place] Discharge Problem: Tachycardia, Gastric outlet obstruction, Coffee ground emesis, Decubitus ulcer, stage 4 with infection, Hypokalemia, Paraplegia following spinal cord injury Patient Disposition: Being Evaluated by Hospitalist Forms Stand Alone Forms: [facility] Prescriptions Prescriptions: No Action ondansetron 4 mg tablet,disintegrating 4 mg translingual Q8H PRN (Reason: nausea and vomiting) Qty: 30 RF: 0 misoprostol 200 mcg tablet 200 mcg PO QID Qty: 120 RF: 0 bupropion HCl [Wellbutrin XL] 150 mg tablet extended release 24 hr 150 mg PO QAM Qty: 90 RF: 1 gabapentin 300 mg capsule 300 mg PO QID Qty: 120 RF: 5 oxybutynin chloride 5 mg tablet 5 mg PO BID Qty: 60 RF: 5 fluoxetine [Prozac] 20 mg capsule 40 mg PO QAM Qty: 60 RF: 3 ferrous sulfate 325 mg (65 mg iron) tablet 325 mg PO Q OTHER DAY Qty: 90 RF: 3 midodrine 5 mg tablet 5 - 10 mg PO TID RF: 0 docusate sodium [Colace] 100 mg capsule 100 mg PO BID PRN (Reason: Constipation) Qty: 60 RF: 1 naloxone [Narcan] 4 mg/actuation spray,non-aerosol 1 spray intranasal Q2M PRN (Reason: overdose) Qty: 2 RF: 1 Referrals Referrals: BalPacheco Toussaint MD [Primary Care Provider] -
[2021-09-27 15:42] LABS: Basophils # (auto) 0.02 K/uL (0-0.2); Basophils % (auto) 0.1 %; Hematocrit (blood only) 46.9 % (42-52); Hemoglobin 15.7 g/dL (14.0-18.0); Immature Granulocytes # (auto) 0.06 K/uL (0.00-0.02); Immature Granulocytes % (auto) 0.3 %; Lymphocytes % (auto) 6.5 %; Mean Corpuscular Hemoglobin 30.1 pg (25-34); Mean Corpuscular Hgb Conc 33.5 g/dL (32-36); Mean Corpuscular Volume 89.8 fL (80-100); Mean Platelet Volume 11.4 fL (7.4-10.4); Monocytes # (auto) 1.19 K/uL (0.11-0.59); Monocytes % (auto) 6.5 %; Neutrophils # (auto) 15.89 K/uL (1.4-6.5); Neutrophils % (auto) 86.6 %; Platelet Count 511 K/uL (130-400); RDW Coefficient of Variation 14.8 % (11.5-14.5); RDW Standard Deviation 49.1 fL (36.4-46.3); Red Blood Count 5.22 M/uL (4.7-6.1); White Blood Count 18.36 K/uL (4.8-10.8)
--- NOTE | 2021-09-27 16:03 | XRay Report ---
XR chest 1V portable CLINICAL HISTORY: weak, vomiting TECHNIQUE: Single frontal radiograph of the chest was obtained. Comparison: Comparison is made to chest radiograph 01/23/2021 FINDINGS: Cervical fixation hardware is seen. The cardiomediastinal silhouette is normal. The lungs are clear. No evidence of pleural effusion or pneumothorax. IMPRESSION: No acute chest disease. ACT 112: Negative or not required by law. Electronically signed by: Yossi Arechiga M.D. 09/27/2021 4:01 PM
[2021-09-27] MEDS ORDERED: DAPTOmycin 475 MG in SYRINGE 0 ML IV STA (16:04)
[2021-09-27] MEDS ORDERED: metroNIDAZOLE 500 MG/100 ML BAG IV STA (16:05)
[2021-09-27 16:18] LABS: Alanine Aminotransferase 10 U/L (7-52); Albumin Level 4.7 gm/dl (3.4-5.0); Alkaline Phosphatase 112 U/L (34-104); BUN Creatinine Ratio 25.5 (10-20); Bilirubin,Total 0.7 mg/dl (0.2-1.0); Blood Urea Nitrogen 25 mg/dl (6-23); Calcium 10.6 mg/dl (8.5-10.1); Carbon Dioxide 26 mmol/L (21-32); Chloride 90 mmol/L (98-107); Creatinine Clr Calc Pharmacy 99.1 ml/min; Est GFR (African American) 124.6 ml/min; Est GFR (Non-African American) 107.5 ml/min; Globulin 4.5 gm/dl (2.5-4.0); Glucose 173 mg/dl (70-99(Fasting)); Lipase 35 U/L (11-82); Total Protein 9.2 gm/dl (6.0-8.3); Troponin I High Sensitivity 27.4 pg/ml (0-20)
[2021-09-27 16:36] LABS: iSTAT Creatinine 0.7 mg/dl (0.6-1.3); iSTAT Hemoglobin 15.3 g/dl (14.0-18.0); iSTAT Ionized Calcium 1.01 mmol/l (1.12-1.32); iSTAT Potassium 3.4 mmol/L (3.3-5.0)
[2021-09-27] MEDS ORDERED: OPTIRAY 320 100ml IV ONE (16:43)
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
[2021-09-27] MEDS ORDERED: fentaNYL citrate 100 MCG/2 ML VIAL IV STA ×3 (17:15→23:06)
[2021-09-27 17:30] LABS: Magnesium 1.6 mg/dl (1.7-2.4); Potassium 3.3 mmol/L (3.5-5.1)
[2021-09-27 17:32] LABS: INR 1.3 (0.9-1.1)
[2021-09-27] MEDS ORDERED: MAGNESIUM SULFATE / D5W 1 GM/100 ML BAG IV STA (18:30)
[2021-09-27] MEDS ORDERED: MoRPHine SULFATE 2 MG/ML CARP IV STA ×2 (18:31→20:32)
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
--- NOTE | 2021-09-27 19:15 | XRay Report ---
XR KUB/Abdomen 1 view CLINICAL HISTORY: ng placement TECHNIQUE: 1 view of the abdomen was obtained. Comparison: Comparison is made to abdomen radiograph 03/08/2021 FINDINGS: Enteric tube side-port is just above the diaphragm. The osseous structures are grossly unremarkable. The bowel gas pattern is nonobstructive. A moderate amount of stool is noted within the large bowel. Contrast is noted in the renal collecting systems and ureters. IMPRESSION: Enteric tube side-port is above the diaphragm and could be advanced approximately 8 cm for improved p ositioning. ACT 112: Negative or not required by law. Electronically signed by: Yossi Arechiga M.D. 09/27/2021 7:14 PM
[2021-09-27] MEDS: PANTOprazole 40 MG in DEXTROSE 5% 100 ML IV SCH (19:29)
--- NOTE | 2021-09-27 20:16 | XRay Report ---
XR KUB/Abdomen 1 view CLINICAL HISTORY: NG tube placement TECHNIQUE: 1 view of the abdomen was obtained. Comparison: Comparison is made to abdomen radiograph 09/27/2021 at 1902 hours FINDINGS: Interval advancement of the enteric tube, the side-port and tip now lies below the diaphragm. The oss eous structures are grossly unremarkable. The bowel gas pattern is nonobstructive. IMPRESSION: Interval advancement of the enteric tube which is now in satisfactory position. ACT 112: Negative or not required by law. Electronically signed by: Yossi Arechiga M.D. 09/27/2021 8:15 PM
[2021-09-27] MEDS ORDERED: ADENOSINE IV SOLN 3 MG/ML 2 ML VIAL IV STA (20:43)
[2021-09-27] MEDS: POTASSIUM CHLORIDE / WTR 10 MEQ/100 ML PLCT IV SCH ×2 (21:06→22:24)
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
[2021-09-27 21:16] LABS: Base Excess VBG 0.9 mEq/L; Oxygen Saturation VBG 70.7 %; pH VBG 7.41 (7.36-7.41)
[2021-09-27 21:44] LABS: BUN Creatinine Ratio 23.3 (10-20); Calcium 9.3 mg/dl (8.5-10.1); Creatinine Clr Calc Pharmacy 94.3 ml/min; Est GFR (African American) 117.3 ml/min; Est GFR (Non-African American) 101.2 ml/min; Potassium 3.7 mmol/L (3.5-5.1)
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
[2021-09-27 22:02] LABS: Hemoglobin 14.7 g/dL (14.0-18.0); Mean Corpuscular Hemoglobin 28.4 pg (25-34); Mean Corpuscular Hgb Conc 31.3 g/dL (32-36); Mean Corpuscular Volume 90.7 fL (80-100); Mean Platelet Volume 10.9 fL (7.4-10.4); Platelet Count 348 K/uL (130-400); RDW Coefficient of Variation 14.9 % (11.5-14.5); RDW Standard Deviation 49.7 fL (36.4-46.3); Red Blood Count 5.18 M/uL (4.7-6.1); White Blood Count 16.47 K/uL (4.8-10.8)
[2021-09-27] MEDS ORDERED: ICU PROTOCOL FOR HYPERGLYCEMIA PRN (22:15)
[2021-09-27] MEDS: LACTATED RINGER'S 1,000 ML IV SCH (22:23)
[2021-09-27] MEDS ORDERED: METOPROLOL TARTRATE 1 MG/ML VIAL IV STA (22:57)
[2021-09-27] MEDS ORDERED: METOPROLOL TARTRATE 1 MG/ML VIAL IV ONE (22:58)
[2021-09-27] MEDS: fentaNYL citrate 100 MCG/2 ML VIAL IV STA ×2 (23:00→23:03)
[2021-09-27] MEDS ORDERED: fentaNYL citrate 100 MCG/2 ML VIAL IV PRN (23:13)
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
[2021-09-27] MEDS: CEFEPIME 2,000 MG in SYRINGE 0 ML IV SCH (23:40)
[2021-09-27] MEDS: METOPROLOL TARTRATE 1 MG/ML VIAL IV SCH (23:41)
[2021-09-27 23:49] LABS: Hematocrit (blood only) 37.7 % (42-52); Hemoglobin 12.5 g/dL (14.0-18.0)
[2021-09-28] MEDS ORDERED: ALBUMIN 5% 250 ML IV ONE (00:02)
[2021-09-28 00:07] LABS: Calcium 8.9 mg/dl (8.5-10.1); Creatinine Clr Calc Pharmacy 101.2 ml/min; Est GFR (African American) 127.7 ml/min; Est GFR (Non-African American) 110.2 ml/min; Magnesium 1.8 mg/dl (1.7-2.4); Phosphorus 3.3 mg/dl (2.5-4.9); Potassium 4.1 mmol/L (3.5-5.1)
[2021-09-28] MEDS: PANTOprazole 40 MG in DEXTROSE 5% 100 ML IV SCH ×3 (00:10→10:02)
[2021-09-28] MEDS ORDERED: CALCIUM CHLORIDE 10% 1,000 MG in DEXTROSE 5% 50 ML IV STA (00:13)
[2021-09-28] MEDS ORDERED: THIAMINE HCL 100 MG in SYRINGE 9 ML IV ONE (00:15)
[2021-09-28] MEDS: MAGNESIUM SULFATE / D5W 1 GM/100 ML BAG IV SCH ×2 (00:58→02:59)
[2021-09-28] MEDS: ALBUMIN 25% 12.5 GM/50 ML VIAL IV SCH ×3 (01:30→18:27)
[2021-09-28 03:02] LABS: Appearance Urine Turbid (Clear); Bilirubin Urine Negative (Negative); Blood Urine 2+ (Negative); Color Urine Yellow; Epithelial Cell Urine Auto >30 /lpf (0-5); Glucose Urine UA Negative (Negative); Ketones Urine 2+ (Negative); Leukocyte Esterase Urine 2+ (Negative); Nitrite Urine Positive (Negative); Specific Gravity Urine 1.042 (1.000-1.030); Urobilinogen Urine Negative (Negative); WBC Urine Automated >30 /hpf (0-5)
[2021-09-28 03:12] LABS: Protein Urine 1+ (Negative)
[2021-09-28 03:33] LABS: Bacteria Urine Automated 2+ (Negative); Calcium Oxalate Crystals Urine Present (None Prsent)
[2021-09-28 03:34] LABS: Cast Urine Automated 0 /lpf (0-5)
[2021-09-28 03:35] LABS: Amorphous Sediment Urine Present (None Prsent); Mucus Urine Present (None Prsent)
[2021-09-28] MEDS ORDERED: LACTATED RINGER'S 500 ML IV ONE (03:54)
[2021-09-28] MEDS: METOPROLOL TARTRATE 1 MG/ML VIAL IV SCH ×5 (04:00→19:59)
[2021-09-28] MEDS: LACTATED RINGER'S 1,000 ML IV SCH ×3 (04:41→20:01)
[2021-09-28 05:44] LABS: Basophils # (auto) 0.01 K/uL (0-0.2); Basophils % (auto) 0.1 %; Hematocrit (blood only) 30.7 % (42-52); Immature Granulocytes # (auto) 0.02 K/uL (0.00-0.02); Immature Granulocytes % (auto) 0.2 %; Lymphocytes # (auto) 1.99 K/uL (1.2-3.4); Lymphocytes % (auto) 15.8 %; Mean Corpuscular Hemoglobin 29.2 pg (25-34); Mean Corpuscular Hgb Conc 32.6 g/dL (32-36); Mean Corpuscular Volume 89.8 fL (80-100); Mean Platelet Volume 10.4 fL (7.4-10.4); Monocytes % (auto) 8.7 %; Neutrophils # (auto) 9.46 K/uL (1.4-6.5); Neutrophils % (auto) 75.2 %; Platelet Count 259 K/uL (130-400); RDW Coefficient of Variation 14.8 % (11.5-14.5); RDW Standard Deviation 48.8 fL (36.4-46.3); Red Blood Count 3.42 M/uL (4.7-6.1); White Blood Count 12.58 K/uL (4.8-10.8)
[2021-09-28 06:00] LABS: BUN Creatinine Ratio 27.5 (10-20); Calcium 9.1 mg/dl (8.5-10.1); Creatinine Clr Calc Pharmacy 121.4 ml/min; Est GFR (African American) 144.9 ml/min; Magnesium 2.3 mg/dl (1.7-2.4); Potassium 3.5 mmol/L (3.5-5.1)
[2021-09-28 06:07] LABS: Troponin I High Sensitivity 164.8 pg/ml (0-20)
[2021-09-28] MEDS: CEFEPIME 2,000 MG in SYRINGE 0 ML IV SCH ×3 (06:09→23:41)
[2021-09-28 06:29] LABS: INR 1.4 (0.9-1.1); Prothrombin Time 14.2 Seconds (9.0-12.0)
[2021-09-28] MEDS: POTASSIUM CHLORIDE / WTR 10 MEQ/100 ML PLCT IV SCH ×3 (07:39→10:02)
[2021-09-28] MEDS ORDERED: FOLIC ACID 1 MG in SYRINGE 9.8 ML IV SCH (09:00)
[2021-09-28] MEDS ORDERED: THIAMINE HCL 100 MG in SYRINGE 9 ML IV SCH (09:00)
--- NOTE | 2021-09-28 09:11 | Critical Care Progress Note ---
Date of Service September 28, 2021 Assessment & Plan (1) Gastric outlet obstruction: Plan: Reason Critically Ill: 26-year-old male with extensive past medical history presents to the ICU from the emergency department with gastric outlet obstruction. Awaiting transport to [facility] and undergoing medical management in ICU for now. Neuro - Bipolar disorder: We will hold meds due to gastric outlet obstruction for now as he is currently n.p.o. -Monitor for now, could consider Zyprexa if needed Severe protein malnutritionpatient emaciated on exam. Would likely benefit from albumin as pressures have been rather soft. - Unfortunately he is n.p.o. at this time. Nutrition consulted. -Thiamine and folate ordered Cardiac - Tachycardiainitial EKG in the ED showed sinus tachycardia with heart rate 160s. Improved with IV fluid resuscitation. -Patient did receive adenosine without benefit -Heart rate improved to 130s with fluid resuscitation on arrival to the ICU -Continue with IV fluid resuscitation -We will start on IV MTP 2.5 mg every 4 hours -Follow-up troponin -Follow-up echo -Continuous monitor on telemetry Respiratory - No history of pulmonary disease. Chest x-ray unremarkable. Currently maintaining oxygen saturation on room air, continuous monitoring on pulse ox. GI - Gastric outlet obstructionpatient with extensive GI history including SMA syndrome, colostomy, neurogenic bowel -NG tube inserted and patient produced 3 L coffee ground and/brown gastric content. We will keep n.p.o. and NG tube to low intermittent suction -Gastroccult positive, continue PPI drip and trend H&H. No indication for transfusion at this time -GI consult, general surgery consult. Follow-up recommendations -Patient awaiting transfer to [facility] due to crest with prior relationship with surgery there, will manage in ICU as transport is delayed by 1 to 2 days. RENAL/LYTES - Creatinine within normal limits. Hypomagnesemia and hypokalemia likely secondary to malnutrition and decreased p.o. intake. Continue to replete elec trolytes and monitor routine BMPs. Continue LR at 125 mL/h Lactic acidosislikely secondary to sepsis. Improving with fluid resuscitation. No indication for bicarb at this time. Trend - Ileostomy secondary to neurogenic bladder from paralysismonitor strict I's and O's ENDO - No history of diabetes or thyroid disease HEME - H&H stable, monitor routine CBCs and replete electrolytes as indicated ID - Severe sepsislikely secondary to decubitus ulcer which has purulent drainage and tunneling. History of MRSA, VRE, and pseudomonal infections as well -Elevated WBC and lactic acid. Procalcitonin unremarkable and afebrile at this time -Blood cultures and urine culture pending -Continue broad-spectrum antibiotics daptomycin and cefepime -Wound consulted for decubitus ulcer. Will follow up recommendations LINES/IV ACCESS - Peripheral IVs DVT PROPHYLAXIS - SCDs, hold anticoagulation as patient may have GI bleed Patient stable for downgrade out of ICU. Communicated to hospitalist. (2) Tachycardia: (3) Bipolar disorder: (4) Colostomy in place: (5) Severe protein-calorie malnutrition: (6) Hypokalemia: (7) Hypomagnesemia: (8) Decubitus ulcer, stage 4 with infection: (9) Coffee ground emesis: (10) Severe sepsis: (11) Hx of gastrostomy: (12) Suprapubic catheter: (13) H/O polydrug abuse: (14) SMAS (superior mesenteric artery syndrome): (15) Osteomyelitis: (16) Neurogenic bladder: (17) Paraplegia following spinal cord injury: Admission and Anticipated Discharge Date Admission Date: September 27, 2021 Subjective Patient seen and examined this morning. Denies any significant complaint. No nausea or vomiting. NG tube in place to intermittent suction. Review of Systems Review of Systems: All systems reviewed & are unremarkable except as noted in HPI & below Physical Exam Constitutional: + cachectic and comfortable Eyes: PERRL, conjunctivae normal, anicteric sclerae ENMT: external ear and nose normal, oropharynx normal Neck: trachea midline, no thyromegaly Respiratory: normal respiratory effort, lungs clear to auscultation Cardiovascular: Regular rate, tachycardic. S1-S2 auscultated. No edema, no JVD. Gastrointestinal (Abdomen): Abdominal pain with palpation all 4 quadrants. Bowel sounds auscultated normal. Colostomy lower left. Suprapubic catheter Musculoskeletal: Paralysis to lower extremities. Full strength bilaterally in upper lower extremities Skin: Large sacral wound appears to be intact if with purulent drainage and tunneling Neurologic: PERRL, EOMI, accommodation nl, no face palsy, no dysarthria Psychiatric: Orientation: oriented to person and oriented to place Genitourinary: Suprapubic catheter Results & Data Results & Data ([facility]) Vital Signs (Past 12 Hours) Vital Signs Temp Pulse Pulse Resp BP BP Pulse Ox 09/28/21 08:30 113 H 15 97 09/28/21 08:26 113 H 15 133/78 98 09/28/21 08:00 118 H 12 133/81 99 09/28/21 07:46 113 H 9 L 99/53 L 98 09/28/21 07:30 113 H 12 96 09/28/21 07:00 118 H 118 H 13 94/56 L 94/56 L 97 09/28/21 06:30 109 H 29 H 98 09/28/21 06:02 111 H 25 H 99/61 L 97 09/28/21 06:00 112 H 21 87/56 L 98 09/28/21 05:00 110 H 25 H 91/61 L 97 09/28/21 04:00 106 H 20 115/69 95 09/28/21 03:59 37.2 C 09/28/21 03:52 115 H 10 L 77/51 L 97 09/28/21 03:01 117 H 10 L 82/55 L 96 09/28/21 03:00 121 H 15 73/51 L 96 09/28/21 02:00 122 H 12 09/28/21 01:00 120 H 16 113/78 97 09/28/21 00:43 124 H 14 77/56 L 96 09/28/21 00:00 122 H 15 78/51 L 97 09/27/21 23:56 121 H 25 H 92/63 L 97 09/27/21 23:41 131 H 118/83 09/27/21 23:12 117 H 21 118/83 99 09/27/21 23:01 150 H 16 86/71 L 97 09/27/21 23:00 36.5 C 153 H 18 93 09/27/21 22:54 137 H 09/27/21 22:15 36.5 C 09/27/21 22:00 157 H 18 108/74 96 09/27/21 21:58 158 H 20 90/63 L 95 09/27/21 21:50 158 H 24 98 09/27/21 21:15 157 H 20 130/80 09/27/21 21:10 163 H 18 114/92 Coding Level of Care Code 07370 Subseq Hosp Care Lvl 2 Diagnoses Gastric outlet obstruction K31.1 Tachycardia R00.0 Bipolar disorder F31.[address] Z93.3 Severe protein-calorie malnutrition E43 Hypokalemia E87.6 Hypomagnesemia E83.42 Decubitus ulcer, stage 4 with infection L89.94; L08.9 Coffee ground emesis K92.0 Severe sepsis A41.9; R65.20 Hx of gastrostomy Z98.890 Suprapubic catheter Z93.59 H/O polydrug abuse F19.11 SMAS (superior mesenteric artery syndrome) K55.1 Osteomyelitis M86.9 Osteomyelitis location: unspecified site Osteomyelitis type: unspecified type Neurogenic bladder N31.9 Paraplegia following spinal cord injury G82.20 (1) Osteomyelitis Osteomyelitis location: unspecified site Osteomyelitis type: unspecified type Qualified Code(s): M86.9 - Osteomyelitis, unspecified
[2021-09-28] MEDS ORDERED: PHYTONADIONE 5 MG in DEXTROSE 5% 50 ML IV ONE (09:21)
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
--- NOTE | 2021-09-28 10:35 | Surgery Progress Note ---
Date of Service September 28, 2021 Assessment & Plan (1) Gastric outlet obstruction: Plan: Keep NG tube in place and n.p.o. Continue PPI drip and await GI consultation No plans for any surgical intervention for his GOO or decubitus ulcers [facility] Will follow (2) Sacral decubitus ulcer, stage IV: (3) SMAS (superior mesenteric artery syndrome): Admission and Anticipated Discharge Date Admission Date: September 27, 2021 Subjective Patient seen and examined. No acute events overnight. His abdomen is less painful than on admission. Afebrile. Review of Systems Constitutional: no fever and no chills Physical Exam Constitutional: Awake, alert, oriented Respiratory: normal respiratory effort Cardiovascular: Rate/Rhythm: regular rhythm and + tachycardic Gastrointestinal (Abdomen): Soft, minimally tenderness to palpation in the epigastrium, left lower quadrant ostomy with no output Musculoskeletal: no cyanosis or clubbing, extremities motor strength 5/5 Skin: Sacral and ischial ulcers without fabiola purulence or necrosis Psychiatric: A+Ox3, euthymic affect Results & Data ([facility]) Vital Signs (Past 12 Hours) Vital Signs Temp Pulse Pulse Resp BP BP Pulse Ox 09/28/21 10:10 99 H 25 H 95 09/28/21 10:00 95 H 23 107/51 L 95 09/28/21 09:50 99 H 19 96 09/28/21 09:40 98 H 22 94 09/28/21 09:30 98 H 14 99 09/28/21 09:20 98 H 21 98 09/28/21 09:10 103 H 14 97 09/28/21 09:00 102 H 14 96/48 L 97 09/28/21 08:50 115 H 12 98 09/28/21 08:40 99 H 17 100 09/28/21 08:30 113 H 15 97 09/28/21 08:26 113 H 15 133/78 98 09/28/21 08:00 118 H 12 133/81 99 09/28/21 07:46 113 H 9 L 99/53 L 98 09/28/21 07:30 113 H 12 96 09/28/21 07:00 118 H 118 H 13 94/56 L 94/56 L 97 09/28/21 06:30 109 H 29 H 98 09/28/21 06:02 111 H 25 H 99/61 L 97 09/28/21 06:00 112 H 21 87/56 L 98 09/28/21 05:00 110 H 25 H 91/61 L 97 09/28/21 04:00 106 H 20 115/69 95 09/28/21 03:59 37.2 C 09/28/21 03:52 115 H 10 L 77/51 L 97 09/28/21 03:01 117 H 10 L 82/55 L 96 09/28/21 03:00 121 H 15 73/51 L 96 09/28/21 02:00 122 H 12 09/28/21 01:00 120 H 16 113/78 97 09/28/21 00:43 124 H 14 77/56 L 96 09/28/21 00:00 122 H 15 78/51 L 97 09/27/21 23:56 121 H 25 H 92/63 L 97 09/27/21 23:41 131 H 118/83 09/27/21 23:12 117 H 21 118/83 99 09/27/21 23:01 150 H 16 86/71 L 97 09/27/21 23:00 36.5 C 153 H 18 93 09/27/21 22:54 137 H PG Care Time/CCT Total # of Minutes Spent Total Time Spent with Patient: Total time spent is greater than 50% in coordination of care (as documented) at patient's floor/unit and/or counseling patient: Coding Level of Care Code 95960 Subseq Hosp Care Lvl 1 Diagnoses Gastric outlet obstruction K31.1 Sacral decubitus ulcer, stage IV L89.154 SMAS (superior mesenteric artery syndrome) K55.1
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
[2021-09-28 11:26] LABS: Hematocrit (blood only) 27.4 % (42-52); Hemoglobin 8.9 g/dL (14.0-18.0)
[2021-09-28] MEDS ORDERED: fentaNYL citrate 100 MCG/2 ML VIAL ONE (11:32)
[2021-09-28] MEDS ORDERED: LIDOCAINE 2% 2 ML VIAL/AMP(20MG/ML) INFIL ONE (11:45)
[2021-09-28] MEDS ORDERED: PROPOFOL IV EMULSION 10 MG/ML 20 ML VIAL IV ONE (11:45)
--- NOTE | 2021-09-28 11:54 | Procedure Note ---
Procedure Note Date of Service September 28, 2021 Note GI brief procedure note EGD findings: gastric outlet obstruction is noted in the distal stomach with ischemic changes and a severe stricture narrowing, unable to advance past it with the scope. significant food debris in the stomach. no evidence of GI bleeding. recs: -- urgent surgical evaluation now for treatment of his outlet obstruction --continue NG tube, NPO --IVFs, supportive care Eron Ramos MD Gastroenterology Coding
--- NOTE | 2021-09-28 12:00 | GI REPORT ---
Patient Name: David Ceron Procedure Date: 09/28/2021 11:28 AM Date of : 1995 Admit Type: Inpatient Age: 26 Gender: Male Attending MD: Eron Ramos MD Procedure: Upper GI endoscopy Providers: Eron Ramos MD Referring MD: Nicolas Knutson Indications: Coffee-ground emesis Medicines: Monitored Anesthesia Care Complications: No immediate complications. Estimated blood loss: None. Estimated Blood Loss: Estimated blood loss: none. Procedure: Pre-Anesthesia Assessment: - Prior Anticoagulants: The patient has taken no previous anticoagulant or antiplatelet agents. - ASA Grade Assessment: IV - A patient with severe systemic disease that is a constant threat to life. After obtaining informed consent, the endoscope was passed under direct vision. Throughout the procedure, the patient's blood pressure, pulse, and oxygen saturations were monitored continuously. The Endoscope was introduced through the mouth, with the intention of advancing to the duodenum. The scope was advanced to the prepyloric antrum before the procedure was aborted. Medications were given. The upper GI endoscopy was accomplished without difficulty. The patient tolerated the procedure well. Findings: The examined esophagus was normal. A severe stenosis was found in the distal stomach with ischemic changes/ulceration consistent with gastric outlet obstruction. This was non-traversed. significant food buildup/debris noted in proximal stomach. no evidence of GI bleeding. unable to advance beyond outlet obstruction, procedure aborted. Impression: - Normal esophagus. - Gastric stenosis was found. - No specimens collected. Recommendation: - Return patient to ICU for ongoing care. NPO urgent surgical evaluation now for treatment of his gastric outlet obstruction IVFs supportive care Eron Ramos MD 09/28/2021 11:59:37 AM This report has been signed electronically. Note Initiated On: 09/28/2021 11:28 AM Number of Addenda: 0 I attest to the content of the Intraoperative Record and orders documented therein, exceptions below {[id number]}
--- NOTE | 2021-09-28 12:04 | Anesthesiology Progress Note ---
Date of Service September 28, 2021 Anesthesia Post Procedure Vital Signs Vital Signs: Temp Pulse Pulse Pulse Resp BP BP 09/28/21 11:02 36.8 C 94 H 18 114/63 09/28/21 10:10 99 H 25 H 09/28/21 10:00 95 H 23 107/51 L 09/28/21 09:50 99 H 19 09/28/21 09:40 98 H 22 09/28/21 09:30 98 H 14 09/28/21 09:20 98 H 21 09/28/21 09:10 103 H 14 09/28/21 09:00 102 H 14 96/48 L 09/28/21 08:50 115 H 12 09/28/21 08:40 99 H 17 09/28/21 08:30 113 H 15 09/28/21 08:26 113 H 15 133/78 09/28/21 08:00 118 H 12 133/81 09/28/21 07:46 113 H 9 L 99/53 L 09/28/21 07:30 113 H 12 09/28/21 07:00 118 H 118 H 13 94/56 L 94/56 L 09/28/21 06:30 109 H 29 H 09/28/21 06:02 111 H 25 H 99/61 L 09/28/21 06:00 112 H 21 87/56 L 09/28/21 05:00 110 H 25 H 91/61 L 09/28/21 04:00 106 H 20 115/69 09/28/21 03:59 37.2 C 09/28/21 03:52 115 H 10 L 77/51 L 09/28/21 03:01 117 H 10 L 82/55 L 09/28/21 03:00 121 H 15 73/51 L 09/28/21 02:00 122 H 12 09/28/21 01:00 120 H 16 113/78 09/28/21 00:43 124 H 14 77/56 L 09/28/21 00:00 122 H 15 78/51 L 09/27/21 23:56 121 H 25 H 92/63 L 09/27/21 23:41 131 H 118/83 09/27/21 23:12 117 H 21 118/83 09/27/21 23:01 150 H 16 86/71 L 09/27/21 23:00 36.5 C 153 H 18 09/27/21 22:54 137 H 09/27/21 22:15 36.5 C 09/27/21 22:00 157 H 18 108/74 09/27/21 21:58 158 H 20 90/63 L 09/27/21 21:50 158 H 24 09/27/21 21:15 157 H 20 130/80 09/27/21 21:10 163 H 18 114/92 09/27/21 21:05 169 H 22 120/72 09/27/21 21:00 164 H 18 120/93 09/27/21 20:55 163 H 30 H 137/94 09/27/21 20:50 162 H 25 H 131/97 09/27/21 20:45 165 H 26 H 119/87 09/27/21 20:40 171 H 26 H 97/80 L 09/27/21 20:35 95/79 L 09/27/21 20:33 174 H 12 09/27/21 20:30 178 H 16 110/82 09/27/21 20:26 178 H 16 117/76 09/27/21 20:20 174 H 25 H 125/76 09/27/21 20:16 176 H 23 121/97 09/27/21 20:11 175 H 21 134/102 H 09/27/21 20:10 174 H 19 09/27/21 20:05 176 H 29 H 110/75 09/27/21 20:00 181 H 20 113/83 09/27/21 19:59 177 H 24 114/95 09/27/21 19:50 182 H 19 09/27/21 19:43 165 H 156/116 H 09/27/21 19:42 171 H 16 156/116 H 09/27/21 19:30 160 H 22 09/27/21 19:00 115 H 25 H 09/27/21 18:30 153 H 14 09/27/21 18:00 160 H 16 09/27/21 17:30 150 H 24 09/27/21 17:00 156 H 19 09/27/21 16:30 161 H 23 09/27/21 16:00 153 H 25 H 09/27/21 15:30 124 H 23 09/27/21 15:25 153 H 17 146/116 H 09/27/21 15:20 36.5 C 155 H 19 146/116 H 09/27/21 15:19 147 H 19 09/27/21 15:02 Pulse Ox 09/28/21 11:02 94 09/28/21 10:10 95 09/28/21 10:00 95 09/28/21 09:50 96 09/28/21 09:40 94 09/28/21 09:30 99 09/28/21 09:20 98 09/28/21 09:10 97 09/28/21 09:00 97 09/28/21 08:50 98 09/28/21 08:40 100 09/28/21 08:30 97 09/28/21 08:26 98 09/28/21 08:00 99 09/28/21 07:46 98 09/28/21 07:30 96 09/28/21 07:00 97 09/28/21 06:30 98 09/28/21 06:02 97 09/28/21 06:00 98 09/28/21 05:00 97 09/28/21 04:00 95 09/28/21 03:59 09/28/21 03:52 97 09/28/21 03:01 96 09/28/21 03:00 96 09/28/21 02:00 09/28/21 01:00 97 09/28/21 00:43 96 09/28/21 00:00 97 09/27/21 23:56 97 09/27/21 23:41 09/27/21 23:12 99 09/27/21 23:01 97 09/27/21 23:00 93 09/27/21 22:54 09/27/21 22:15 09/27/21 22:00 96 09/27/21 21:58 95 09/27/21 21:50 98 09/27/21 21:15 09/27/21 21:10 09/27/21 21:05 09/27/21 21:00 09/27/21 20:55 09/27/21 20:50 09/27/21 20:45 09/27/21 20:40 09/27/21 20:35 09/27/21 20:33 09/27/21 20:30 09/27/21 20:26 09/27/21 20:20 09/27/21 20:16 09/27/21 20:11 93 09/27/21 20:10 91 09/27/21 20:05 88 L 09/27/21 20:00 90 09/27/21 19:59 69 L 09/27/21 19:50 90 09/27/21 19:43 90 09/27/21 19:42 91 09/27/21 19:30 92 09/27/21 19:00 95 09/27/21 18:30 100 09/27/21 18:00 96 09/27/21 17:30 98 09/27/21 17:00 97 09/27/21 16:30 09/27/21 16:00 96 09/27/21 15:30 99 09/27/21 15:25 98 09/27/21 15:20 98 09/27/21 15:19 99 09/27/21 15:02 96 Pain Intensity Abdomen: Pain Intensity: 6 Transfer of Care Handoff Completed per policy Notes Mental Status: alert / awake / arousable Patient Amnestic to Procedure: Yes Nausea / Vomiting: adequately controlled Pain: adequately controlled Airway Patency, RR, SpO2: stable & adequate BP & HR: stable & adequate Hydration State: stable & adequate Anesthetic Complications: no major complications apparent
[2021-09-28] MEDS: HYDROmorphone INJ 0.5 MG/0.5 ML SYR IV PRN ×2 (12:36→19:58)
[2021-09-28 16:58] LABS: Hematocrit (blood only) 26.6 % (42-52); Hemoglobin 8.3 g/dL (14.0-18.0)
--- NOTE | 2021-09-28 17:49 | XCELERA ---
[id number]
[2021-09-28] MEDS ORDERED: DAPTOmycin 350 MG in SYRINGE 0 ML IV SCH (18:00)
[2021-09-28] MEDS ORDERED: DAPTOmycin 475 MG in SYRINGE 0 ML IV SCH (18:00)
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
[2021-09-28] MEDS ORDERED: PANTOprazole 40 MG in SYRINGE 0 ML IV SCH (21:00)
--- NOTE | 2021-09-28 22:01 | Electrocardiogram Report ---
Test Reason : Blood Pressure : / mmHG Vent. Rate : 162 BPM Atrial Rate : 162 BPM P-R Int : 084 ms QRS Dur : 080 ms QT Int : 290 ms P-R-T Axes : 065 064 061 degrees QTc Int : 476 ms Poor data quality, interpretation may be adversely affected Sinus tachycardia Nonspecific ST abnormality Abnormal ECG When compared with ECG of 28-DEC-2020 18:22, ST now depressed in Lateral leads T wave amplitude has increased in Anterolateral leads Confirmed by Sreedhar Jenkins ([id number]) on 09/28/2021 10:01:40 PM Referred By: REFERRED SELF Confirmed By:Sredehar Jenkins
--- NOTE | 2021-09-28 22:03 | Billing Data ---
Date of Service September 28, 2021 Coding Level of Care Code Critical Care ea addt'l 30 min
--- NOTE | 2021-09-28 22:03 | Billing Data ---
Date of Service September 28, 2021 Coding Level of Care Code Critical Care 1st - mins
--- NOTE | 2021-09-28 22:04 | Billing Data ---
Date of Service September 28, 2021 Coding Level of Care Code Critical Care ea addt'l 30 min
--- NOTE | 2021-09-28 22:07 | Communication Note ---
Date of Service: September 28, 2021 total care time today 140 minutes (critical care time - in light of urgent nature of his gastric outlet obstruction and need for securing a hospital that can provide surgical intervention for such). complex care coordination including numerous phone calls to [facility] Cameron/Radha/Satya, speaking with pt's step-father, corresponding with GI and General surgery here, reviewing old records, coordinating/planning discharge and discharge paper work, etc. Nicolas Knutson MD
--- NOTE | 2021-09-28 22:20 | Electrocardiogram Report ---
Test Reason : Blood Pressure : / mmHG Vent. Rate : 168 BPM Atrial Rate : 168 BPM P-R Int : 084 ms QRS Dur : 074 ms QT Int : 274 ms P-R-T Axes : 070 -51 064 degrees QTc Int : 458 ms Sinus tachycardia with short AR Left axis deviation Nonspecific ST abnormality Abnormal ECG When compared with ECG of 27-SEP-2021 19:49, ST now depressed in Inferior leads ST more depressed in anterolateral leads Confirmed by Sreedhar Jenkins ([id number]) on 09/28/2021 10:20:47 PM Referred By: REFERRED SELF Confirmed By:Sreedhar Jenkins
--- NOTE | 2021-09-28 22:23 | Electrocardiogram Report ---
Test Reason : Blood Pressure : / mmHG Vent. Rate : 166 BPM Atrial Rate : 166 BPM P-R Int : 084 ms QRS Dur : 072 ms QT Int : 284 ms P-R-T Axes : 063 -05 052 degrees QTc Int : 471 ms Sinus tachycardia with short [place] Nonspecific ST abnormality Abnormal ECG When compared with ECG of 27-SEP-2021 15:20, ST more depressed Anterior leads Confirmed by Sreedhar Jenkins ([id number]) on 09/28/2021 10:23:05 PM Referred By: REFERRED SELF Confirmed By:Sreedhar Jenkins
--- NOTE | 2021-09-28 22:24 | Electrocardiogram Report ---
Test Reason : Blood Pressure : / mmHG Vent. Rate : 111 BPM Atrial Rate : 111 BPM P-R Int : 122 ms QRS Dur : 088 ms QT Int : 376 ms P-R-T Axes : 068 058 052 degrees QTc Int : 511 ms Sinus tachycardia Possible Left atrial enlargement Nonspecific T wave abnormality Abnormal ECG When compared with ECG of 27-SEP-2021 20:55, Vent. rate has decreased BY 57 BPM QRS axis Shifted right ST no longer depressed in Inferior leads ST no longer depressed in Anterolateral leads Nonspecific T wave abnormality now evident in Inferior leads Confirmed by Sreedhar Jenkins ([id number]) on 09/28/2021 10:23:45 PM Referred By: REFERRED SELF Confirmed By:Sreedhar Jenkins
[2021-09-28 23:30] LABS: Hematocrit (blood only) 25.6 % (42-52); Hemoglobin 8.2 g/dL (14.0-18.0)
== END 2021-09-29 00:06 | disposition short-term general hospital (02) | DRG 871 ==
LOC: ED 15:12 → 1E 20:38

== ENCOUNTER 2022-01-01 08:17 | Inpatient (IN) ==
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
[~2022-01-01 08:17] MED LIST changes: +DEXAMETHASONE SOD INJ 4 MG/ML VIAL ONE; +LIDOCAINE 2% MPF LOCAL 5 ML VIAL INFIL ONE; +LR 15ML/HR IV SCH; +MIDAZOLAM HCL 1 MG/ML 2ML VIAL ONE; +ONDANSETRON INJ 2 MG/ML 2 ML VIAL ONE; +PHENYLEPHRINE 100MCG/ML 5ML SYR ONE; +PROPOFOL IV EMULSION 10 MG/ML 20 ML VIAL IV ONE; +ROCURONIUM BROMIDE 10 MG/ML 5 ML VIAL IV ONE; -VANCOMYCIN HCL 750 MG in SODIUM CHLORIDE 0.9% 250 ML IV SCH; +ceFAZolin 2000MG 2,000 MG/15 ML SYR IV SCH; +ePHEDrine sulfate 50 MG/ML SYR ONE; +fentaNYL citrate 100 MCG/2 ML VIAL ONE
[2022-01-01] MEDS ORDERED: MIDAZOLAM HCL 1 MG/ML 2ML VIAL ONE (08:34)
[2022-01-01] MEDS ORDERED: fentaNYL citrate 100 MCG/2 ML VIAL ONE (08:35)
[2022-01-01] MEDS ORDERED: LIDOCAINE 1%/EPINEPHRINE 1:100,000 50 ML VIAL ONE (08:37)
[2022-01-01] MEDS ORDERED: EpINEphrine HCL INJ 1 MG/ML 1ML SYRINGE ONE (08:38)
[2022-01-01] MEDS ORDERED: PROPOFOL IV EMULSION 10 MG/ML 20 ML VIAL IV ONE (08:44)
[2022-01-01] MEDS ORDERED: ROCURONIUM BROMIDE 10 MG/ML 5 ML VIAL IV ONE (08:44)
--- NOTE | 2022-01-01 08:45 | History & Physical Bridge Note ---
Date of Service January 01, 2022 History & Physical Bridge Note I have examined the patient, reviewed the History & Physical and in the interval since the performance of the History & Physical I have noted the following changes of clinical significance: no changes noted
[2022-01-01] MEDS ORDERED: SUGAMMADEX SODIUM 200 MG/2 ML VIAL IV ONE (08:48)
[2022-01-01] MEDS ORDERED: DEXAMETHASONE SOD INJ 4 MG/ML VIAL ONE (10:13)
[2022-01-01] MEDS ORDERED: ONDANSETRON INJ 2 MG/ML 2 ML VIAL ONE (10:13)
[2022-01-01] MEDS ORDERED: diphenhydrAMINE 50 MG/ML VIAL ONE (10:13)
[2022-01-01] MEDS ORDERED: ONDANSETRON INJ 2 MG/ML 2 ML VIAL IV PRN (10:17)
[2022-01-01] MEDS ORDERED: fentaNYL citrate 100 MCG/2 ML VIAL IV PRN (10:17)
[2022-01-01] MEDS ORDERED: ePHEDrine sulfate 50 MG/ML AMP IV PRN (10:17)
[2022-01-01] MEDS ORDERED: ATROPINE SULFATE 0.1 MG/ML 10ML SYR IV PRN (10:17)
[2022-01-01] MEDS ORDERED: METHYLENE BLUE 0.5% 10 ML VIAL ONE (10:22)
[2022-01-01] MEDS ORDERED: TISSEEL FIBRIN SEALANT 10ML TOP ONE (10:44)
--- NOTE | 2022-01-01 11:55 | Post Operative Brief Note ---
PG Immediate Post Op with CF Date of Surgery January 01, 2022 Pre & Post Diagnosis Operation Date: 01/01/22 09:50 Pre-Op Diagnosis: Pressure Ulcers Post-Op Diagnosis: Pressure Ulcers I identified the patient and participated in the time-out.: Yes Procedure Operation Date: 01/01/22 09:50 Actual Procedures p Debridement of Left Hip Wound, Right Ischial Wound and Sacral Wound with Split Thickness Skin Grafting to Left Hip Wound and Sacral wound, Bone Biopsy Right Ischium, Application of wound vac's. (Bilateral) - Shey Quevedo MD Surgeon Shey Quevedo MD Sales Estimator Aida Burgos PA-C Estimated Blood Loss 25 Findings See Below (exposed bone post debridement right ischial wound, bone firm without evidence of acute osteomyelitis) Specimens Specimen Description: Culture 1. Left Hip tissue (then permanant) Culture 2. Right Ischial tissue (then permanant) Culture 3. Right Ischial bone A. Right ischial bone biospy
--- NOTE | 2022-01-01 12:24 | Anesthesiology Progress Note ---
Date of Service January 01, 2022 Anesthesia Post Procedure Vital Signs Vital Signs: Temp Pulse Resp BP Pulse Ox O2 Del Method 01/01/22 08:36 36.5 C 67 16 167/106 H 100 Room Air Transfer of Care Handoff Completed per policy Notes Mental Status: alert / awake / arousable and participated in evaluation Patient Amnestic to Procedure: Yes Nausea / Vomiting: adequately controlled Pain: adequately controlled Airway Patency, RR, SpO2: stable & adequate BP & HR: stable & adequate Hydration State: stable & adequate Anesthetic Complications: no major complications apparent and Pt Satisfied with anesthetic care
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
[2022-01-01] MEDS ORDERED: oxyCODONE/ACETAMINOPHEN 5mg/325mg TAB PO PRN (13:36)
[2022-01-01] MEDS ORDERED: OR MISCELLANEOUS MED ONE (13:36)
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
[2022-01-01] MEDS: MoRPHine SULFATE 4 MG/ML 1 ML CARP\\VIAL IV PRN (14:38)
[2022-01-01] MEDS: GABAPENTIN 300 MG CAP PO SCH ×2 (15:59→21:32)
[2022-01-01] MEDS: miSOPROStoL 200 MCG TAB PO SCH ×4 (15:59→21:31)
[2022-01-01] MEDS: D5W AND 1/2NSS + 20MEQ KCL 20 MEQ/1,000 ML BAG IV SCH (16:00)
[2022-01-01] MEDS: MIDODRINE HCL 2.5 MG TAB PO SCH (17:41)
[2022-01-01] MEDS: ceFAZolin 2000MG 2,000 MG/15 ML SYR IV SCH (17:41)
[2022-01-01] MEDS: oxyCODONE/ACETAMINOPHEN 5mg/325mg TAB PO PRN (21:30)
[2022-01-01] MEDS: BACLOFEN 10 MG TAB PO SCH (21:31)
[2022-01-01] MEDS: OXYBUTYNIN CHLORIDE 5 MG TAB PO SCH (21:31)
[2022-01-01] MEDS: MoRPHine SULFATE 2 MG/ML CARP IV PRN (22:42)
[2022-01-02] MEDS: GABAPENTIN 300 MG CAP PO SCH ×4 (02:27→19:25)
[2022-01-02] MEDS: ceFAZolin 2000MG 2,000 MG/15 ML SYR IV SCH (02:27)
[2022-01-02] MEDS: oxyCODONE/ACETAMINOPHEN 5mg/325mg TAB PO PRN (05:27)
[2022-01-02] MEDS: D5W AND 1/2NSS + 20MEQ KCL 20 MEQ/1,000 ML BAG IV SCH ×2 (05:28→19:25)
[2022-01-02] MEDS: MIDODRINE HCL 2.5 MG TAB PO SCH ×3 (06:23→17:54)
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
[2022-01-02 08:00] LABS: Basophils # (auto) 0.03 K/uL (0-0.2); Basophils % (auto) 0.3 %; Eosinophils % (auto) 1.1 %; Hematocrit (blood only) 30.9 % (40.1-51.0); Hemoglobin 9.7 g/dl (14.0-18.0); Immature Granulocytes # (auto) 0.02 K/uL (0.00-0.02); Immature Granulocytes % (auto) 0.2 %; Lymphocytes # (auto) 2.69 K/uL (1.2-3.4); Lymphocytes % (auto) 29.9 %; Mean Corpuscular Hemoglobin 25.6 pg (25.0-34.0); Mean Corpuscular Hgb Conc 31.4 g/dL (32.0-36.0); Mean Corpuscular Volume 81.5 fL (80.0-100.0); Mean Platelet Volume 10.1 fL (9.4-12.4); Monocytes # (auto) 0.78 K/uL (0.24-0.82); Monocytes % (auto) 8.7 %; Neutrophils # (auto) 5.37 K/uL (1.4-6.5); Neutrophils % (auto) 59.8 %; Platelet Count 326 K/uL (130-400); RDW Coefficient of Variation 13.9 % (11.5-14.5); Red Blood Count 3.79 M/uL (4.63-6.08); White Blood Count 8.99 K/ul (4.8-10.8)
[2022-01-02 08:30] LABS: Albumin Globulin Ratio 1.1 (0.9-2); Albumin Level 3.5 gm/dl (3.4-5.0); BUN Creatinine Ratio 21.3 (10-20); Bilirubin,Total 0.2 mg/dl (0.2-1.0); Calcium 8.9 mg/dl (8.5-10.1); Creatinine Clr Calc Pharmacy 118.1 ml/min; Est GFR (African American) 148.8 ml/min; Est GFR (Non-African American) 128.4 ml/min; Globulin 3.2 gm/dl (2.5-4.0); Magnesium 1.7 mg/dl (1.7-2.4); Potassium 3.8 mmol/L (3.5-5.1); Total Protein 6.7 gm/dl (6.0-8.3)
[2022-01-02] MEDS: BACLOFEN 10 MG TAB PO SCH ×3 (08:44→21:09)
[2022-01-02] MEDS: MoRPHine SULFATE 4 MG/ML 1 ML CARP\\VIAL IV PRN (08:45)
[2022-01-02] MEDS: miSOPROStoL 200 MCG TAB PO SCH ×4 (08:46→21:04)
[2022-01-02] MEDS: FLUoxetine HCL 20 MG CAP PO SCH (08:46)
[2022-01-02] MEDS: buPROPion XL 150 MG TABCR PO SCH (08:47)
[2022-01-02] MEDS: OXYBUTYNIN CHLORIDE 5 MG TAB PO SCH ×2 (08:47→21:09)
[2022-01-02 10:22] LABS: Ferritin 7.6 ng/ml (8-388)
[2022-01-02] MEDS ORDERED: IRON SUCROSE 200 MG in 0.9 % SODIUM CHLORIDE 100 ML IV ONE (11:30)
--- NOTE | 2022-01-02 12:26 | Surgery Progress Note ---
Date of Service January 02, 2022 Assessment & Plan (1) Decubitus ulcer of sacral region, stage 4: (2) Pressure ulcer of trochanteric region of right hip: (3) Pressure ulcer of left hip, stage 2: Plan S/P Debridement of Left Hip Wound, Right Ischial Wound and Sacral Wound with Split Thickness Skin Grafting to Left Hip Wound and Sacral wound, Bone Biopsy Right Ischium, Application of wound vac's. POD#1 Vacs functioning. Donor site dressing changed today Will continue to monitor ov ernight for pain control. Plan to d/c home tomorrow. Will need vac change right ischium prior to discharge home. Patient was seen today by Dr. Quevedo. Admission and Anticipated Discharge Date Admission Date: January 01, 2022 Supervising Physician Co-Signing Physician Notes I personally saw and examined this patient and agree with the assessment and plan. Will plan to keep another night for pain control, which will also allow for his first VAC change on the right ischium prior to discharge. EARL Hernandez is being seen one day s/p debridement of Left Hip Wound, Right Ischial Wou nd and Sacral Wound with Split Thickness Skin Grafting to Left Hip Wound and Sacral wound, Bone Biopsy Right Ischium, Application of wound vac's. He is doing well, complains of sacral pain but reports it is improving. Morphine is working to control pain. Tolerating regular diet. Cultures all pending. Hospitalists on board for medical management. Physical Exam Physical Exam: wound vacs in place, functioning well. donor site dressing changed today. Results & Data ([facility]) Vital Signs (Past 12 Hours) Vital Signs Temp Pulse Resp BP Pulse Ox O2 Del Method 01/02/22 11:22 37.0 C 84 16 98/51 L 94 Room Air 01/02/22 08:15 37.2 C 91 H 16 99/59 L 97 Room Air 01/02/22 05:28 96 H 105/62 01/02/22 02:29 37.4 C 92 H 18 118/67 97 Room Air PG Care Time/CCT Total # of Minutes Spent Total Time Spent with Patient: Total time spent is greater than 50% in coordination of care (as documented) at patient's floor/unit and/or counseling patient: Coding Level of Care Code None Diagnoses Decubitus ulcer of sacral region, stage 4 L89.154 Pressure ulcer of trochanteric region of right hip L89.219 Pressure ulcer of left hip, stage 2 L89.222
[2022-01-02] MEDS: IRON SUCROSE 200 MG in 0.9 % SODIUM CHLORIDE 100 ML IV SCH (14:50)
[2022-01-02] MEDS: MoRPHine SULFATE 2 MG/ML CARP IV PRN (19:27)
[2022-01-03] MEDS: GABAPENTIN 300 MG CAP PO SCH ×3 (01:28→14:10)
[2022-01-03] MEDS: MIDODRINE HCL 2.5 MG TAB PO SCH ×2 (06:12→12:09)
[2022-01-03] MEDS: oxyCODONE/ACETAMINOPHEN 5mg/325mg TAB PO PRN ×2 (06:15→12:34)
[2022-01-03 06:31] LABS: Hematocrit (blood only) 31.7 % (40.1-51.0); Hemoglobin 9.8 g/dl (14.0-18.0); Mean Corpuscular Hemoglobin 25.7 pg (25.0-34.0); Mean Corpuscular Hgb Conc 30.9 g/dL (32.0-36.0); Mean Corpuscular Volume 83.2 fL (80.0-100.0); Mean Platelet Volume 10.5 fL (9.4-12.4); Platelet Count 206 K/uL (130-400); RDW Standard Deviation 42.4 fL (36.4-46.3); Red Blood Count 3.81 M/uL (4.63-6.08); White Blood Count 5.09 K/ul (4.8-10.8)
[2022-01-03 07:07] LABS: Anion Gap 5 (3-11); Blood Urea Nitrogen 12 mg/dl (6-23); Calcium 9.2 mg/dl (8.5-10.1); Carbon Dioxide 28 mmol/L (21-32); Chloride 101 mmol/L (98-107); Creatinine Clr Calc Pharmacy 140.7 ml/min; Est GFR (African American) > 150.0 ml/min; Est GFR (Non-African American) 137.9 ml/min; Glucose 87 mg/dl (70-99(Fasting)); Magnesium 1.6 mg/dl (1.7-2.4); Potassium 4.3 mmol/L (3.5-5.1); Sodium 134 mmol/L (136-145)
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
[2022-01-03] MEDS: MoRPHine SULFATE 4 MG/ML 1 ML CARP\\VIAL IV PRN ×2 (08:53→14:23)
[2022-01-03] MEDS: miSOPROStoL 200 MCG TAB PO SCH ×2 (08:56→12:09)
[2022-01-03] MEDS: OXYBUTYNIN CHLORIDE 5 MG TAB PO SCH (08:56)
[2022-01-03] MEDS: D5W AND 1/2NSS + 20MEQ KCL 20 MEQ/1,000 ML BAG IV SCH (08:56)
[2022-01-03] MEDS: MAGNESIUM SULFATE / D5W 1 GM/100 ML BAG IV SCH ×2 (08:56→11:08)
[2022-01-03] MEDS: BACLOFEN 10 MG TAB PO SCH ×2 (08:57→14:09)
[2022-01-03] MEDS: FLUoxetine HCL 20 MG CAP PO SCH (08:59)
[2022-01-03] MEDS: buPROPion XL 150 MG TABCR PO SCH (08:59)
--- NOTE | 2022-01-03 09:43 | Surgery Progress Note ---
Date of Service January 03, 2022 Assessment & Plan (1) Decubitus ulcer of sacral region, stage 4: (2) Pressure ulcer of ischium, stage 3: (3) Pressure ulcer of left hip, stage 2: (4) Pressure ulcer of trochanteric region of right hip: Plan S/P Debridement of Left Hip Wound, Right Ischial Wound and Sacral Wound with Split Thickness Skin Grafting to Left Hip Wound and Sacral wound, Bone Biopsy Right Ischium, Application of wound vac's. POD#2 Vacs functioning. Donor site dressing changed today and right ischium vac changed. Plan to d/c home today. Home health nurse to come Saturday and change right ischium vac only, left thigh donor site. Patient will follow-up Saturday at [facility] for change of vacs to graft sites. Admission and Anticipated Discharge Date Admission Date: January 02, 2022 Subjective is feel well, pain is much better today. He has a good appetite and is tolerating regular diet. Physical Exam Physical Exam: wound vacs functioning. Vac to right ischium changed with assistance from Danielle wound care. Wound bed has improved granulation. left thigh donor site dressing changed- moderate serous drainage on dressing Results & Data ([facility]) Vital Signs (Past 12 Hours) Vital Signs Temp Pulse Resp BP Pulse Ox O2 Del Method 01/03/22 07:45 37.4 C 89 16 109/64 96 Room Air 01/03/22 06:14 90 105/67 01/02/22 22:31 37.0 C 109 H 18 110/68 97 Room Air PG Care Time/CCT Total # of Minutes Spent Total Time Spent with Patient: Total time spent is greater than 50% in coordination of care (as documented) at patient's floor/unit and/or counseling patient: Coding Level of Care Code None Diagnoses Decubitus ulcer of sacral region, stage 4 L89.154 Pressure ulcer of ischium, stage 3 L89.303 Pressure ulcer of left hip, stage 2 L89.222 Pressure ulcer of trochanteric region of right hip L89.219
[2022-01-03] MEDS: IRON SUCROSE 200 MG in 0.9 % SODIUM CHLORIDE 100 ML IV SCH (13:36)
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
== END 2022-01-03 18:22 | disposition home health service (06) | DRG 573 ==
LOC: ASU 08:17 → 3E 08:17

== ENCOUNTER 2022-07-03 06:40 | Inpatient (IN) ==
[2022-07-03] MEDS ORDERED: SODIUM CHLORIDE 0.9% 1000ML 2,000 ML IV ONE (06:55)
[2022-07-03] MEDS ORDERED: HYDROmorphone INJ 0.5 MG/0.5 ML SYR IV STA ×2 (06:55→08:44)
[2022-07-03] MEDS ORDERED: ONDANSETRON INJ 2 MG/ML 2 ML VIAL IV STA (06:55)
--- NOTE | 2022-07-03 06:57 | Emergency Department Note ---
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 destruction and sclerosis of the sacrum/coccyx and right ischial tuberosity. There is also patchy sclerosis within the right posterior iliac bone. This has slightly progressed and favors an acute on chronic osteomyelitis at these locations. Mini mal superior endplate compression deformities within the L2-L4 vertebral bodies, unchanged. The liver, gallbladder, spleen, adrenal glands, and pancreas are unremarkable. There is a new 9 mm hypodense lesion within the right kidney. This is technically too small to characterize but favors a cyst. There is a punctate stone within the lower pole of the left kidney. Heterogeneous enhancement within the upper pole of the left kidney favors scarring. A pyelonephritis could also have a similar appearance. The main portal vein is patent. Normal caliber abdominal aorta. The bladder is decompressed by a suprapubic catheter. Bladder wall thickening and multiple bladder stones are noted. No retroperitoneal lymphadenopathy. Small amount of pelvic free fluid. A left lower quadrant colostomy is again noted. Thickened loops of small bowel within the deep pelvis may be due to underdistention. A low-grade enteritis could also have a similar appearance. Mildly distended and fluid-filled esophagus. Postoperative changes suggestive of a prior distal gastrectomy with gastrojejunostomy anastomosis. The residual stomach and proximal jejunostomy loop are severely distended and filled with fluid. There is a focal transition point at the proximal jejunostomy loop on image 262 proximal to an area of mesenteric twisting. Therefore, this likely represents a high-grade proximal small bowel obstruction due to an internal hernia. Mesenteric edema is present. This suspected internal hernia is located within the right midabdomen. IMPRESSION: 1. High-grade proximal small bowel obstruction with twisting of the mesentery within the right midabdomen resulting in the transition point at the proximal gastrojejunostomy loop. Therefore, this is highly suspicious for an internal hernia. Urgent surgical consultation recommended. 2. Questionable thickening of the distal small bowel loops within the pelvis with mesenteric edema. This is likely due to underdistention. A low-grade enteritis is not excluded. 3. Slight progression of the acute on chronic osteomyelitis within the sacrum/coccyx and right ischial tuberosity. 4. Patchy areas of decreased enhancement within the upper pole of the left kidney which favors scarring. A pyelonephritis could also have a similar appearance. Recommend correlate with urinalysis. 5. The bladder is decompressed by a suprapubic catheter. There are multiple bladder stones and bladder wall thickening noted. 6. Small amount of pelvic free fluid. 7. Additional findings as described above. ACT 112: Negative or not required by law. Electronically signed by: Oleg Murdock M.D. 07/03/2022 8:35 AM Chest X-Ray 07/03/22 06:55 XR chest 1V portable CLINICAL HISTORY: Sepsis TECHNIQUE: Single frontal radiograph of the chest was obtained. Comparison: Comparison is made to chest radiograph 10/16/2021 FINDINGS: Cervical fixation hardware is seen. The cardiomediastinal silhouette is normal. The lungs are clear. No evidence of pleural effusion or pneumothorax. IMPRESSION: No acute abnormalities and in particular no evidence of pneumonia. ACT 112: Negative or not required by law. Electronically signed by: Yossi Arechiga M.D. 07/03/2022 7:37 AM Discharge Plan Visit Data Chief Complaint: Abdominal Pain Stated Complaint: VOMIT,ABDOMINAL PAIN, UNABLE TO VOID ED Provider: Ankit Pavon Discharge Problem: Small bowel obstruction, Internal hernia, Lactic acidosis Patient Disposition: Admitted As Inpatient Discharge Instructions Interventions: ED Discharge Assessment Last Done: 07/03/22 10:15
[2022-07-03 07:35] LABS: iSTAT Hemoglobin 16.3 g/dl (14.0-18.0); iSTAT Ionized Calcium 1.13 mmol/l (1.12-1.32); iSTAT Potassium 4.2 mmol/L (3.3-5.0)
--- NOTE | 2022-07-03 07:39 | XRay Report ---
XR chest 1V portable CLINICAL HISTORY: Sepsis TECHNIQUE: Single frontal radiograph of the chest was obtained. Comparison: Comparison is made to chest radiograph 10/16/2021 FINDINGS: Cervical fixation hardware is seen. The cardiomediastinal silhouette is normal. The lungs are clear. No evidence of pleural effusion or pneumothorax. IMPRESSION: No acute abnormalities and in particular no evidence of pneumonia. ACT 112: Negative or not required by law. Electronically signed by: Yossi Arechiga M.D. 07/03/2022 7:37 AM
[2022-07-03] MEDS ORDERED: OPTIRAY 350 100ml IV ONE (07:52)
[2022-07-03] MEDS ORDERED: LORazepam 2 MG/1 ML VIAL IV STA (07:53)
[2022-07-03 08:16] LABS: Influenza A virus by PCR Negative (Neg); Influenza B virus by PCR Negative (Neg); RSV by PCR Negative (Neg); SARS CoV2 RNA(COVID-19) Ceph NEGATIVE (Negative)
--- NOTE | 2022-07-03 08:36 | CT Scan Report ---
ABDOMEN AND PELVIS CT WITH IV CONTRAST CT DOSE: 291.96 mGy.cm HISTORY: Diffuse abdominal pain, vomiting, tachy TECHNIQUE: Multiaxial CT images of the abdomen and pelvis were performed following the use of intrave nous contrast. A dose lowering technique was utilized adhering to the principles of ALARA. COMPARISON STUDY: None. FINDINGS: There is new 4 mm subpleural nodule within the surrounding groundglass density within the l eft lower lobe posteriorly. This favors a small focus of inflammatory/infectious change. No pneumoper itoneum. No pneumatosis. Decubitus ulcers are seen within the lower pelvis posteriorly with partial d estruction and sclerosis of the sacrum/coccyx and right ischial tuberosity. There is also patchy scle rosis within the right posterior iliac bone. This has slightly progressed and favors an acute on server manager ace osteomyelitis at these locations. Minimal superior endplate compression deformities within the L2 -L4 vertebral bodies, unchanged. The liver, gallbladder, spleen, adrenal glands, and pancreas are unr emarkable. There is a new 9 mm hypodense lesion within the right kidney. This is technically too smal l to characterize but favors a cyst. There is a punctate stone within the lower pole of the left kidn ey. Heterogeneous enhancement within the upper pole of the left kidney favors scarring. A pyelonephri tis could also have a similar appearance. The main portal vein is patent. Normal caliber abdominal ao rta. The bladder is decompressed by a suprapubic catheter. Bladder wall thickening and multiple bladd er stones are noted. No retroperitoneal lymphadenopathy. Small amount of pelvic free fluid. A left lo wer quadrant colostomy is again noted. Thickened loops of small bowel within the deep pelvis may be d ue to underdistention. A low-grade enteritis could also have a similar appearance. Mildly distended a nd fluid-filled esophagus. Postoperative changes suggestive of a prior distal gastrectomy with gastro jejunostomy anastomosis. The residual stomach and proximal jejunostomy loop are severely distended an d filled with fluid. There is a focal transition point at the proximal jejunostomy loop on image 262 proximal to an area of mesenteric twisting. Therefore, this likely represents a high-grade proximal s mall bowel obstruction due to an internal hernia. Mesenteric edema is present. This suspected interna l hernia is located within the right midabdomen. IMPRESSION: 1. High-grade proximal small bowel obstruction with twisting of the mesentery within the right midabd omen resulting in the transition point at the proximal gastrojejunostomy loop. Therefore, this is hig hly suspicious for an internal hernia. Urgent surgical consultation recommended. 2. Questionable thickening of the distal small bowel loops within the pelvis with mesenteric edema. T his is likely due to underdistention. A low-grade enteritis is not excluded. 3. Slight progression of the acute on chronic osteomyelitis within the sacrum/coccyx and right ischia l tuberosity. 4. Patchy areas of decreased enhancement within the upper pole of the left kidney which favors scarri ng. A pyelonephritis could also have a similar appearance. Recommend correlate with urinalysis. 5. The bladder is decompressed by a suprapubic catheter. There are multiple bladder stones and bladde r wall thickening noted. 6. Small amount of pelvic free fluid. 7. Additional findings as described above. ACT 112: Negative or not required by law. Electronically signed by: Oleg Murdock M.D. 07/03/2022 8:35 AM
[2022-07-03 08:37] LABS: Basophils # (auto) 0.05 K/uL (0-0.2); Basophils % (auto) 0.3 %; Hematocrit (blood only) 35.3 % (42.0-52.0); Hemoglobin 11.3 g/dl (14.0-18.0); Immature Granulocytes # (auto) 0.06 K/uL (0.01-0.20); Immature Granulocytes % (auto) 0.4 %; Lymphocytes # (auto) 0.96 K/uL (1.2-3.4); Lymphocytes % (auto) 6.1 %; Mean Corpuscular Volume 87.4 fL (80.0-100.0); Mean Platelet Volume 9.4 fL (9.4-12.4); Monocytes # (auto) 1.17 K/uL (0.11-0.59); Monocytes % (auto) 7.5 %; Neutrophils # (auto) 13.38 K/uL (1.40-6.50); Neutrophils % (auto) 85.7 %; Platelet Count 369 K/uL (130-400); RDW Coefficient of Variation 14.8 % (11.5-14.5); RDW Standard Deviation 47.8 fL (36.4-46.3); Red Blood Count 4.04 M/uL (4.70-6.10); White Blood Count 15.62 K/ul (4.8-10.8)
[2022-07-03] MEDS ORDERED: PIPERACILLIN/TAZOBACTAM 4.5 GM/120 ML BAG IV ONE (08:42)
[2022-07-03 08:54] LABS: Albumin Level 3.4 gm/dl (3.4-5.0); BUN Creatinine Ratio 18.9 (10-20); Bilirubin Direct 0.1 mg/dl (0-0.2); Bilirubin,Total 0.6 mg/dl (0.2-1.0); Calcium 8.9 mg/dl (8.5-10.1); Est GFR (African American) 128.4 ml/min; Est GFR (Non-African American) 110.8 ml/min; Magnesium 1.7 mg/dl (1.7-2.4); Potassium 3.7 mmol/L (3.5-5.1); Total Protein 7.1 gm/dl (6.0-8.3)
[2022-07-03 09:00] LABS: Troponin I High Sensitivity 9.2 pg/ml (0-20)
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
[2022-07-03] MEDS ORDERED: fentaNYL citrate 100 MCG/2 ML VIAL IV PRN (10:07)
[2022-07-03] MEDS ORDERED: ONDANSETRON INJ 2 MG/ML 2 ML VIAL IV PRN ×2 (10:07→13:45)
[2022-07-03] MEDS ORDERED: PROMETHAZINE HCL 6.25 MG in SODIUM CHLORIDE 0.9% 50 ML IV PRN (10:07)
[2022-07-03] MEDS ORDERED: HYDROmorphone INJ 2 MG/ML SYR/VIAL IV PRN (10:07)
[2022-07-03] MEDS ORDERED: ePHEDrine sulfate 50 MG/ML AMP IV PRN (10:07)
[2022-07-03] MEDS ORDERED: ATROPINE SULFATE 0.1 MG/ML 10ML SYR IV PRN (10:07)
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
--- NOTE | 2022-07-03 10:18 | Electrocardiogram Report ---
Test Reason : Blood Pressure : / mmHG Vent. Rate : 155 BPM Atrial Rate : 155 BPM P-R Int : 128 ms QRS Dur : 074 ms QT Int : 266 ms P-R-T Axes : 078 063 074 degrees QTc Int : 427 ms Poor data quality, interpretation may be adversely affected Sinus tachycardia RSR' or QR pattern in V1 suggests right ventricular conduction delay Nonspecific ST abnormality Abnormal ECG When compared with ECG of 16-OCT-2021 19:42, ST more depressed Inferior leads ST now depressed in Anterior leads Confirmed by Tristan Nunez ([id number]) on 07/03/2022 10:17:57 AM Referred By: REFERRED SELF Confirmed By:Tristan Nunez
[2022-07-03] MEDS ORDERED: fentaNYL citrate 100 MCG/2 ML VIAL ONE (10:19)
[2022-07-03] MEDS ORDERED: MIDAZOLAM HCL 1 MG/ML 2ML VIAL ONE (10:19)
[2022-07-03] MEDS ORDERED: ALBUMIN HUMAN 5% 12.5 GM/250 ML VIAL IV ONE (10:24)
[2022-07-03] MEDS ORDERED: PROPOFOL IV EMULSION 10 MG/ML 20 ML VIAL IV ONE (11:18)
[2022-07-03] MEDS ORDERED: ONDANSETRON INJ 2 MG/ML 2 ML VIAL ONE (11:18)
[2022-07-03] MEDS ORDERED: PHENYLEPHRINE HCL 10 MG/ML VIAL ONE (11:18)
[2022-07-03] MEDS ORDERED: ROCURONIUM BROMIDE 10 MG/ML 5 ML VIAL IV ONE ×4 (11:18→12:02)
[2022-07-03] MEDS ORDERED: VASOPRESSIN 20 UNIT/ML VIAL ONE (11:33)
[2022-07-03 13:28] LABS: iSTAT Arterial Blood Gas HCO3 26 meg/L (19-24); iSTAT Arterial Blood Gas pCO2 48 mmHg (35-46); iSTAT Arterial Blood Gas pH 7.34 (7.35-7.45); iSTAT Arterial Blood Gas pO2 139 mmHg (80-95); iSTAT Carbon Dioxide 27 mmol/L (24-31); iSTAT Hematocrit 32 % (42-52); iSTAT Hemoglobin 10.9 g/dl (14.0-18.0); iSTAT Sodium 141 mmol/L (135-144)
[2022-07-03] MEDS ORDERED: ACETAMINOPHEN 1,000 MG/100 ML VIAL IV PRN (13:45)
[2022-07-03] MEDS ORDERED: MIDAZOLAM HCL 125 MG/250 ML BAG IV PRN (13:47)
[2022-07-03] MEDS ORDERED: STAT IV Infusion **Titration per Protocol STA ×2 (13:47→14:11)
[2022-07-03] MEDS ORDERED: MIDAZOLAM BOLUS FROM BAG IV PRN (13:47)
[2022-07-03] MEDS ORDERED: fentaNYL BOLUS from BAG IV PRN (13:49)
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
[2022-07-03] MEDS ORDERED: fentaNYL citrate 2,500 MCG/250 ML BAG IV ONE (13:54)
[2022-07-03] MEDS ORDERED: PIPERACILLIN/TAZOBACTAM 3.375 GM in DEXTROSE 5% 100 ML IV SCH (14:00)
[2022-07-03] MEDS: fentaNYL citrate 2,500 MCG/250 ML BAG IV SCH (14:03)
--- NOTE | 2022-07-03 14:05 | Anesthesiology Progress Note ---
Date of Service July 03, 2022 Anesthesia Post Procedure Vital Signs Vital Signs: Temp Pulse Pulse Resp BP BP Pulse Ox 07/03/22 13:50 102 H 18 100 07/03/22 13:43 99 H 18 100 07/03/22 13:43 141/101 H 07/03/22 13:40 99 07/03/22 13:38 98 07/03/22 13:38 106/70 07/03/22 13:37 99 07/03/22 10:20 36.5 C 137 H 18 104/79 97 07/03/22 10:09 138 H 17 96 07/03/22 10:09 104/79 07/03/22 10:00 140 H 18 93 07/03/22 10:00 110/77 07/03/22 09:45 141 H 21 96 07/03/22 09:45 113/79 07/03/22 09:30 137 H 17 99 07/03/22 09:30 110/75 07/03/22 09:15 135 H 16 98 07/03/22 09:15 121/86 07/03/22 09:00 139 H 18 89 L 07/03/22 09:00 118/84 07/03/22 08:45 137 H 19 95 07/03/22 08:45 124/90 07/03/22 08:30 130 H 16 96 07/03/22 08:30 143/97 H 07/03/22 08:15 121 H 16 97 07/03/22 08:00 137 H 16 95 07/03/22 08:00 131/87 07/03/22 07:57 139 H 20 97 07/03/22 07:57 127/88 07/03/22 07:56 137 H 19 97 07/03/22 07:30 149 H 22 96 07/03/22 07:30 122/89 07/03/22 07:20 150 H 19 96 07/03/22 07:20 111/73 07/03/22 07:15 152 H 26 H 96 07/03/22 07:05 154 H 19 98 07/03/22 07:05 117/88 07/03/22 07:00 152 H 22 97 07/03/22 06:57 145 H 21 96 07/03/22 08:50 138 H 24 92 07/03/22 06:59 141 H 07/03/22 06:43 36.8 C 159 H 20 82/65 L 97 O2 Del Method O2 Flow Rate FiO2 07/03/22 13:50 Mechanical Vent 70 07/03/22 13:43 07/03/22 13:43 07/03/22 13:40 07/03/22 13:38 07/03/22 13:38 07/03/22 13:37 Mechanical Vent 70 07/03/22 10:20 Oxymask 3 07/03/22 10:09 Oxymask 4 07/03/22 10:09 07/03/22 10:00 Oxymask 4 07/03/22 10:00 07/03/22 09:45 Oxymask 4 07/03/22 09:45 07/03/22 09:30 Oxymask 2 07/03/22 09:30 07/03/22 09:15 Oxymask 2 07/03/22 09:15 07/03/22 09:00 Room Air 07/03/22 09:00 07/03/22 08:45 Room Air 07/03/22 08:45 07/03/22 08:30 Room Air 07/03/22 08:30 07/03/22 08:15 Room Air 07/03/22 08:00 Room Air 07/03/22 08:00 07/03/22 07:57 Room Air 07/03/22 07:57 07/03/22 07:56 Room Air 07/03/22 07:30 Room Air 07/03/22 07:30 07/03/22 07:20 Room Air 07/03/22 07:20 07/03/22 07:15 Room Air 07/03/22 07:05 Room Air 07/03/22 07:05 07/03/22 07:00 Room Air 07/03/22 06:57 Room Air 07/03/22 08:50 Room Air 07/03/22 06:59 07/03/22 06:43 Room Air Transfer of Care Handoff Completed per policy Notes Mental Status: see notes below Patient Amnestic to Procedure: Yes Nausea / Vomiting: adequately controlled Pain: adequately controlled Airway Patency, RR, SpO2: see Notes below BP & HR: see Notes below Hydration State: stable & adequate Anesthetic Complications: no major complications apparent Notes: Patient brought to ICU intubated and on monitor. PIV's in situ but I also placed R radial arterial line intraoperatively. Patient received both crystalloid and colloid for volume replacement. BP supported intraoperatively although required less support near the end of the procedure. Initial NG tube was in situ but removed as surgeon performed intraop EGD. NG replaced afterwards under guidance of surgeon and placed to suction. Patient in critial condition and ICU physician had already been briefed on his condition in the OR.
[2022-07-03] MEDS ORDERED: NOREPINEPHRINE/D5W 4 MG/250 ML IV ONE (14:13)
[2022-07-03] MEDS: LACTATED RINGER'S 1,000 ML IV SCH ×2 (14:14→21:13)
[2022-07-03] MEDS: NOREPINEPHRINE/D5W 4 MG/250 ML PLCT IV SCH (14:15)
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
[2022-07-03] MEDS ORDERED: CASPOFUNGIN 70 MG in SODIUM CHLORIDE 0.9% 250 ML IV ONE (15:30)
[2022-07-03] MEDS: MEROPENEM 500 MG in SYRINGE 0 ML IV SCH ×2 (15:54→21:53)
[2022-07-03] MEDS ORDERED: FLUARIX QUADRIVALENT 0.5 ML SYR IM ONE (16:27)
[2022-07-03] MEDS: DAPTOmycin 350 MG in SYRINGE 0 ML IV SCH (16:43)
[2022-07-03 22:23] LABS: Anion Gap 6 (3-11); BUN Creatinine Ratio 23.5 (10-20); Blood Urea Nitrogen 16 mg/dl (6-23); Calcium 8.3 mg/dl (8.5-10.1); Carbon Dioxide 29 mmol/L (21-32); Chloride 107 mmol/L (98-107); Creatinine Clr Calc Pharmacy 131.8 ml/min; Est GFR (African American) > 150.0 ml/min; Est GFR (Non-African American) 132.7 ml/min; Glucose 115 mg/dl (70-99(Fasting)); Potassium 3.5 mmol/L (3.5-5.1); Sodium 142 mmol/L (136-145)
[2022-07-04] MEDS ORDERED: POTASSIUM CHLORIDE / WTR 20 MEQ/100 ML PLCT IV SCH (01:00)
[2022-07-04] MEDS: POTASSIUM CHLORIDE / WTR 10 MEQ/100 ML PLCT IV SCH ×4 (01:19→05:40)
[2022-07-04] MEDS ORDERED: NORMOSOL-R 1,000 ML IV ONE (01:30)
[2022-07-04] MEDS ORDERED: ALBUMIN 25% 100 mL 25 GM/100 ML VIAL IV ONE (01:31)
[2022-07-04 02:29] LABS: Appearance Urine Turbid (Clear); Bacteria Urine Automated 2+ (Negative); Bilirubin Urine Negative (Negative); Blood Urine Negative (Negative); Color Urine Yellow; Epithelial Cell Urine Auto 20-30 /lpf (0-5); Glucose Urine UA Negative (Negative); Ketones Urine Trace (Negative); Leukocyte Esterase Urine 1+ (Negative); Nitrite Urine Positive (Negative); Specific Gravity Urine > 1.045 (1.000-1.030); Urobilinogen Urine Negative (Negative); WBC Urine Automated >30 /hpf (0-5); pH Urine 7.5 (4.5-7.5)
[2022-07-04 02:31] LABS: Protein Urine 1+ (Negative)
[2022-07-04 02:44] LABS: RBC Urine Automated 0-4 /hpf (0-4)
[2022-07-04] MEDS: MEROPENEM 500 MG in SYRINGE 0 ML IV SCH ×4 (03:55→21:31)
[2022-07-04] MEDS: LACTATED RINGER'S 1,000 ML IV SCH ×2 (05:40→14:01)
[2022-07-04 05:44] LABS: iSTAT Art Bld Gas pCO2 Correct 48 mmHg (35-46); iSTAT Art Bld Gas pH Corrected 7.388 (7.35-7.45); iSTAT Arterial Blood Gas HCO3 28 meg/L (19-24); iSTAT Arterial Blood Gas pCO2 45 mmHg (35-46); iSTAT Arterial Blood Gas pH 7.41 (7.35-7.45); iSTAT Arterial Blood Gas pO2 68 mmHg (80-95); iSTAT Arterial Blood Gas pO2 C 76; iSTAT Carbon Dioxide 30 mmol/L (24-31); iSTAT FiO2 35 %; iSTAT Hematocrit 26 % (42-52); iSTAT Hemoglobin 8.8 g/dl (14.0-18.0); iSTAT Potassium 3.7 mmol/L (3.3-5.0); iSTAT Site Art Line; iSTAT Sodium 143 mmol/L (135-144)
[2022-07-04] MEDS: NOREPINEPHRINE/D5W 4 MG/250 ML PLCT IV SCH (07:49)
--- NOTE | 2022-07-04 08:17 | XRay Report ---
XR chest 1V portable HISTORY: 27 years-old Male Resp failure acute respiratory failure COMPARISON: Chest radiograph 07/03/2022 TECHNIQUE: AP view of the chest FINDINGS: Mild mid thoracic dextroscoliosis redemonstrated. The cardiomediastinal and hilar silhouettes are unc hanged. There is no pneumothorax, pleural effusion, overt pulmonary edema. Ill-defined right midlung opacity may be secondary to loculated fluid versus atelectasis. Enteric tube is present with distal tip projected over the mid stomach. A subtle subdiaphragmatic timmy ency is noted. Cervical thoracic fusion hardware. IMPRESSION: 1. Distal tip of enteric tube projects over the stomach. 2. Mild atelectasis versus small amount of loculated fluid projects of the right midlung. 3. Findings suggestive of trace pneumoperitoneum. Correlation with surgical status recommended. ACT 112: Negative or not required by law. The above report was generated using voice recognition software. It may contain grammatical, syntax o r spelling errors. Electronically signed by: Porfirio Arvizu M.D. 07/04/2022 8:15 AM
--- NOTE | 2022-07-04 08:28 | Surgery Progress Note ---
Date of Service July 04, 2022 Assessment & Plan (1) Perforated abdominal viscus: Plan: Postoperative day #1. Doing as expected Continue to wean pressors and wean to extubate according to ICU team Okay to initiate tube feeds via the jejunostomy tube and critical care desires (2) Septic shock: (3) Small bowel obstruction: (4) Internal hernia: Admission and Anticipated Discharge Date Admission Date: July 03, 2022 Subjective Patient seen. Sedated on vent. According to nursing she is weaning him off his pressors without much difficulty. Having reasonable urine output. Physical Exam Physical Exam: Sedated on vent [place] with primarily serous output Dressings clean and dry Results & Data ([facility]) Vital Signs (Past 12 Hours) Vital Signs Temp Pulse Resp BP Pulse Ox O2 Del Method FiO2 07/04/22 08:00 35 07/04/22 08:04 Mechanical Vent 35 07/04/22 07:17 101 H 15 96 35 07/04/22 06:15 126 H 14 94 07/04/22 06:15 120/71 07/04/22 06:00 128 H 9 L 94 07/04/22 06:00 117/71 07/04/22 05:45 130 H 11 L 94 07/04/22 05:45 114/70 07/04/22 05:30 119/76 07/04/22 05:30 137 H 16 92 07/04/22 05:00 141 H 24 96 07/04/22 04:45 156/90 H 07/04/22 04:45 131 H 13 94 07/04/22 04:30 136 H 13 93 07/04/22 04:30 120/69 07/04/22 04:15 135 H 11 L 95 07/04/22 04:15 113/68 07/04/22 04:00 136 H 11 L 93 07/04/22 04:00 116/66 07/04/22 03:45 136 H 11 L 94 07/04/22 03:45 108/62 07/04/22 03:30 134 H 11 L 94 07/04/22 03:30 123/74 07/04/22 03:15 138 H 12 94 07/04/22 03:15 119/79 07/04/22 03:00 139 H 10 L 94 07/04/22 03:00 127/83 03/01/23 02:45 137 H 14 91 07/04/22 02:45 127/84 07/04/22 02:30 141 H 12 93 07/04/22 02:30 117/82 07/04/22 02:15 141 H 11 L 93 07/04/22 02:15 105/73 07/04/22 02:00 143 H 11 L 93 07/04/22 02:00 113/73 07/04/22 01:45 143 H 12 93 07/04/22 01:45 106/77 07/04/22 01:30 140 H 14 93 07/04/22 01:30 108/75 07/04/22 01:15 137 H 14 95 07/04/22 01:15 116/74 07/04/22 01:00 137 H 14 95 07/04/22 01:00 113/80 07/04/22 00:45 135 H 12 95 07/04/22 00:45 123/75 07/04/22 00:30 102/69 07/04/22 00:30 135 H 14 95 07/04/22 00:15 135 H 14 95 07/04/22 00:15 116/75 07/04/22 00:00 135 H 14 94 07/04/22 00:00 106/70 07/03/22 23:45 132 H 14 95 07/04/22 06:32 37.6 C H 07/04/22 04:00 35 07/04/22 03:09 Mechanical Vent 35 07/04/22 03:07 38.6 C H 07/04/22 00:00 35 07/04/22 02:57 140 H 17 99 35 07/03/22 22:30 128 H 15 99 35 PG Care Time/CCT Total # of Minutes Spent Total Time Spent with Patient: Total time spent is greater than 50% in coordination of care (as documented) at patient's floor/unit and/or counseling patient: Coding Level of Care Code 19453 Post Operative Follow-Up Diagnoses Perforated abdominal viscus R19.8 Septic shock A41.9; R65.21 Small bowel obstruction K56.609 Internal hernia K45.8
[2022-07-04] MEDS: fentaNYL citrate 2,500 MCG/250 ML BAG IV SCH (08:33)
[2022-07-04] MEDS: THIAMINE HCL 100 MG in SYRINGE 9 ML IV SCH (08:36)
[2022-07-04] MEDS: CASPOFUNGIN 50 MG in SODIUM CHLORIDE 0.9% 250 ML IV SCH (08:36)
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
[2022-07-04 10:28] LABS: Hematocrit (blood only) 26.9 % (42.0-52.0); Hemoglobin 8.6 g/dl (14.0-18.0); Mean Corpuscular Hemoglobin 27.9 pg (25.0-34.0); Mean Corpuscular Volume 87.3 fL (80.0-100.0); Mean Platelet Volume 9.8 fL (9.4-12.4); Platelet Count 331 K/uL (130-400); RDW Coefficient of Variation 15.3 % (11.5-14.5); RDW Standard Deviation 48.8 fL (36.4-46.3); Red Blood Count 3.08 M/uL (4.70-6.10); White Blood Count 11.59 K/ul (4.8-10.8)
[2022-07-04 10:51] LABS: Basophils # (auto) 0.03 K/uL (0-0.2); Basophils % (auto) 0.3 %; Immature Granulocytes # (auto) 0.04 K/uL (0.01-0.20); Immature Granulocytes % (auto) 0.3 %; Lymphocytes # (auto) 1.58 K/uL (1.2-3.4); Lymphocytes % (auto) 13.6 %; Monocytes # (auto) 1.03 K/uL (0.11-0.59); Monocytes % (auto) 8.9 %; Neutrophils # (auto) 8.91 K/uL (1.40-6.50); Neutrophils % (auto) 76.9 %; RBC Morphology Unremarkable
[2022-07-04] MEDS: ENOXAPARIN INJ 30 MG/0.3 ML SYR SQ SCH (11:15)
[2022-07-04] MEDS: PEPTAMEN INTENSE VHP 1.0 CAL 1,000 ML BAG JT SCH (12:43)
[2022-07-04] MEDS: TUBE FEEDING WATER FLUSH JT SCH ×3 (12:43→19:28)
--- NOTE | 2022-07-04 12:49 | Infectious Disease Consult ---
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 (RT-PCR) 07/04/22 14:33 WBC RBC Hgb POC Hgb Hct POC Hct MCV MCH MCHC RDW Std Deviation RDW Coeff of Stephen Plt Count MPV Immature Gran % (Auto) Neut % (Auto) Lymph % (Auto) Luna % (Auto) Eos % (Auto) Baso % (Auto) Neut # (Auto) Lymph # (Auto) Luna # (Auto) Eos # (Auto) Baso # (Auto) Immature Gran # (Auto) RBC Morphology Sample Site POC pH POC pCO2 POC pO2 POC HCO3 POC Base Excess ABG pH (Temp Correct) ABG pCO2 (Temp Corrct POC ABG pO2 at Pt Temp POC ABG O2 Sat Romain Test O2 Delivery Device POC O2 Rate POC FiO2 Tidal Volume PEEP POC Sodium Sodium 140 POC Potassium Potassium 4.1 POC Chloride Chloride 106 Carbon Dioxide 29 POC Total CO2 Anion Gap 5 POC Anion Gap POC BUN BUN Creatinine POC Creatinine Est Cr Clr Drug Dosing Est GFR ( Amer) Est GFR (Non-Af Amer) BUN/Creatinine Ratio Glucose POC Glucose POC Glucose (other) Lactate Calcium 8.7 POC Ioniz Calcium Skyler Magnesium 1.6 L Total Bilirubin Direct Bilirubin AST ALT Alkaline Phosphatase Troponin I High Sens Total Protein Albumin Procalcitonin Random Cortisol Urine Color Urine Appearance Urine pH Ur Specific Waban Urine Protein Urine Glucose (UA) Urine Ketones Urine Blood Urine Nitrite Urine Bilirubin Urine Urobilinogen Ur Leukocyte Esterase Urine WBC (Auto) Urine RBC (Auto) U Hyaline Cast (Auto) U Epithel Cells (Auto) Urine Bacteria (Auto) Urine Crystals Nasal Screen MRSA (PCR) SARS-CoV-2 (PCR) Influenza Type A (PCR) Influenza Type B (PCR) RSV (RT-PCR) Microbiology 07/03/22 08:13 Blood Aerobic Blood Culture - Preliminary No growth in Aerobic bottle after 24 hours. 07/03/22 08:13 Blood Anaerobic Blood Culture - Preliminary No growth in Anaerobic bottle after 24 hours. 07/03/22 07:15 Blood Aerobic Blood Culture - Preliminary No growth in Aerobic bottle after 24 hours. 07/03/22 07:15 Blood Anaerobic Blood Culture - Preliminary No growth in Anaerobic bottle after 24 hours. Medications Administered Current Inpatient Medications Enoxaparin Sodium (Enoxaparin Inj 30 Mg/0.3 Ml Syr) 30 mg SQ DAILY [facility] Stop: 08/03/22 10:59 Last Admin: 07/04/22 11:15 Dose: 30 mg Lactated Ringer's (Lr) 1,000 mls @ 80 mls/hr IV .[id number] [facility] Stop: 08/02/22 13:44 Last Admin: 07/04/22 14:01 Dose: 125 mls/hr Acetaminophen (Ofirmev) 1,000 mg in 100 mls @ 400 mls/hr IV Q8H PRN PRN Reason: Mild Pain (Scale 1, 2, 3) Stop: 07/06/22 13:44 Last Infusion: 07/04/22 03:54 Dose: Infused Norepinephrine Bitartrate (Levophed/D5w) 4 mg in 250 mls @ 10.369 mls/hr IV . Q24H [facility]; Protocol Stop: 08/02/22 14:14 Last Titration: 07/04/22 13:00 Dose: 0 mcg/kg/min, 0 mls/hr Thiamine HCl 100 mg/ Syringe 10 mls @ 2 mls/min IV QAM [facility] Stop: 08/03/22 08:59 Last Admin: 07/04/22 08:36 Dose: 2 mls/min Caspofungin 50 mg/ Sodium (Chloride) 257.1429 mls @ 257.143 mls/hr IV DAILY [facility] Stop: 07/14/22 08:59 Last Infusion: 07/04/22 10:56 Dose: Infused Daptomycin 350 mg/ Syringe 7 mls @ 0 mls/min IV Q24H [facility]; Protocol Stop: 08/14/22 15:59 Last Admin: 07/03/22 16:43 Dose: 7 mls/min Meropenem 500 mg/ Syringe 10 mls @ 2 mls/min IV Q6H [facility]; Protocol Stop: 07/13/22 15:59 Last Admin: 07/04/22 10:10 Dose: 2 mls/min Morphine Sulfate (Morphine Sulfate 4 Mg/Ml 1 Ml Carp\Vial) 4 mg IV Q3H PRN PRN Reason: Pain (6,7,8,9,10) Stop: 07/17/22 13:44 Morphine Sulfate (Morphine Sulfate 2 Mg/Ml Carp) 2 mg IV Q3H PRN PRN Reason: Pain (1,2,3,4,5) & Pre PT Stop: 07/17/22 13:44 Multivitamins/Minerals (Multi Vit W/Minerals Liquid 15 Ml Udp) 15 ml JT QAM [facility] Stop: 08/04/22 08:59 Nutritional Formula (Peptamen Intense Vhp 1.0 Ritesh 1,000 Ml Bag) 1,000 ml [place] [facility] [place] Stop: 08/03/22 11:59 Last Admin: 07/04/22 12:43 Dose: 1,000 ml Ondansetron HCl (Ondansetron Inj 2 Mg/Ml 2 Ml Vial) 4 mg IV Q4H PRN PRN Reason: Nausea And Vomiting Stop: 08/02/22 13:44 Sterile Water (Tube Feeding Water Flush) 30 ml JT Q4H [facility] Stop: 08/03/22 11:59 Last Admin: 07/04/22 12:43 Dose: 30 ml
[2022-07-04 15:01] LABS: Anion Gap 5 (3-11); Calcium 8.7 mg/dl (8.5-10.1); Carbon Dioxide 29 mmol/L (21-32); Chloride 106 mmol/L (98-107); Magnesium 1.6 mg/dl (1.7-2.4); Potassium 4.1 mmol/L (3.5-5.1); Sodium 140 mmol/L (136-145)
[2022-07-04 15:07] LABS: BUN Creatinine Ratio 25.5 (10-20); Blood Urea Nitrogen 14 mg/dl (6-23); Creatinine Clr Calc Pharmacy 172.2 ml/min; Est GFR (African American) > 150.0 ml/min; Est GFR (Non-African American) 144.8 ml/min; Glucose 94 mg/dl (70-99(Fasting)); Phosphorus 2.2 mg/dl (2.5-4.9)
[2022-07-04] MEDS: DAPTOmycin 350 MG in SYRINGE 0 ML IV SCH (16:02)
[2022-07-04] MEDS: MoRPHine SULFATE 2 MG/ML CARP IV PRN (17:43)
[2022-07-04] MEDS: MoRPHine SULFATE 4 MG/ML 1 ML CARP\\VIAL IV PRN (20:45)
[2022-07-05] MEDS: TUBE FEEDING WATER FLUSH JT SCH ×7 (00:26→23:13)
[2022-07-05] MEDS: LACTATED RINGER'S 1,000 ML IV SCH ×3 (01:34→21:28)
[2022-07-05] MEDS: MoRPHine SULFATE 4 MG/ML 1 ML CARP\\VIAL IV PRN ×6 (01:35→21:28)
[2022-07-05 05:07] LABS: Basophils # (auto) 0.03 K/uL (0-0.2); Basophils % (auto) 0.3 %; Eosinophils # (auto) 0.06 K/uL (0-0.50); Eosinophils % (auto) 0.7 %; Hematocrit (blood only) 24.5 % (42.0-52.0); Hemoglobin 7.7 g/dl (14.0-18.0); Immature Granulocytes # (auto) 0.06 K/uL (0.01-0.20); Immature Granulocytes % (auto) 0.7 %; Lymphocytes % (auto) 17.2 %; Mean Corpuscular Hemoglobin 27.6 pg (25.0-34.0); Mean Corpuscular Hgb Conc 31.4 g/dL (32.0-36.0); Mean Corpuscular Volume 87.8 fL (80.0-100.0); Mean Platelet Volume 9.5 fL (9.4-12.4); Monocytes # (auto) 0.54 K/uL (0.11-0.59); Monocytes % (auto) 6.2 %; Neutrophils # (auto) 6.53 K/uL (1.40-6.50); Neutrophils % (auto) 74.9 %; Platelet Count 253 K/uL (130-400); Red Blood Count 2.79 M/uL (4.70-6.10); White Blood Count 8.72 K/ul (4.8-10.8)
[2022-07-05] MEDS: MEROPENEM 500 MG in SYRINGE 0 ML IV SCH ×4 (05:08→21:27)
[2022-07-05 05:27] LABS: Anion Gap 6 (3-11); BUN Creatinine Ratio 32.5 (10-20); Blood Urea Nitrogen 13 mg/dl (6-23); Calcium 8.7 mg/dl (8.5-10.1); Carbon Dioxide 31 mmol/L (21-32); Chloride 103 mmol/L (98-107); Creatinine Clr Calc Pharmacy 242.4 ml/min; Est GFR (African American) > 150.0 ml/min; Est GFR (Non-African American) > 150.0 ml/min; Glucose 77 mg/dl (70-99(Fasting)); Potassium 3.3 mmol/L (3.5-5.1); Sodium 140 mmol/L (136-145)
[2022-07-05 05:34] LABS: Magnesium 1.7 mg/dl (1.7-2.4); Phosphorus 1.5 mg/dl (2.5-4.9)
[2022-07-05 05:36] LABS: RBC Morphology Unremarkable
[2022-07-05] MEDS ORDERED: POTASSIUM PHOS 3 MMOL/1 ML INFUSION IV STA (05:41)
[2022-07-05] MEDS ORDERED: POTASSIUM PHOSPHATE 40 MMOL in SODIUM CHLORIDE 0.9% 1000ML 1,000 ML IV ONE (06:00)
[2022-07-05] MEDS: MAGNESIUM SULFATE / D5W 1 GM/100 ML BAG IV SCH ×2 (06:04→08:08)
[2022-07-05] MEDS: ENOXAPARIN INJ 30 MG/0.3 ML SYR SQ SCH (08:09)
[2022-07-05] MEDS: CASPOFUNGIN 50 MG in SODIUM CHLORIDE 0.9% 250 ML IV SCH (08:09)
[2022-07-05] MEDS: MULTI VIT W/MINERALS LIQUID 15 ML UDP JT SCH (08:10)
[2022-07-05] MEDS: THIAMINE HCL 100 MG in SYRINGE 9 ML IV SCH (08:10)
--- NOTE | 2022-07-05 08:15 | Surgery Progress Note ---
Date of Service July 05, 2022 Assessment & Plan (1) H/O exploratory laparotomy: Plan: All things considered he is doing well for postoperative day #2. He is extubated. Vitals look good. Tolerating tube feeds slowly at this point we can slowly advance those. Awaiting return of bowel function. Need to keep NG tube at least another couple of days. Pain control appears adequate. Admission and Anticipated Discharge Date Admission Date: July 03, 2022 Subjective Patient seen. He is extubated. He is doing remarkably well. He has a small amount of abdominal pain. Physical Exam Physical Exam: Alert and oriented. No acute distress Abdomen is soft. His incision looks as expected. [place] drain with small amount of serous output. Stoma not functioning yet. Feeding tube in place. He is obtaining trickle tube feeds. Results & Data ([facility]) Vital Signs (Past 12 Hours) Vital Signs Temp Pulse Resp BP Pulse Ox 07/05/22 06:30 99 H 13 95 07/05/22 06:20 106 H 13 94 07/05/22 06:10 100 H 13 94 07/05/22 06:00 102 H 14 93 07/05/22 06:00 118/62 07/05/22 05:50 103 H 14 94 07/05/22 05:40 105 H 14 94 07/05/22 05:30 104 H 15 94 07/05/22 05:20 109 H 13 93 07/05/22 05:10 112 H 15 92 07/05/22 05:00 100 H 17 97 07/05/22 05:00 117/65 07/05/22 04:50 114 H 21 94 07/05/22 04:40 102 H 15 93 07/05/22 04:30 104 H 14 93 07/05/22 04:20 102 H 14 93 07/05/22 04:10 104 H 14 93 07/05/22 04:00 98 H 13 95 07/05/22 04:00 103/53 L 07/05/22 03:50 101 H 13 92 07/05/22 03:40 97 H 13 92 07/05/22 03:30 94 H 13 92 07/05/22 03:20 104 H 12 92 07/05/22 03:10 115 H 19 94 07/05/22 03:00 101 H 13 92 07/05/22 03:00 108/55 L 07/05/22 02:50 94 H 14 92 07/05/22 02:40 90 17 92 07/05/22 02:30 104 H 13 88 L 07/05/22 02:20 107 H 14 89 L 07/05/22 02:10 100 H 13 90 07/05/22 02:00 105 H 13 91 07/05/22 02:00 99/50 L 07/05/22 01:50 101 H 18 92 07/05/22 01:40 103 H 15 92 07/05/22 01:30 107 H 24 93 07/05/22 01:30 113/63 07/05/22 01:20 101 H 18 91 07/05/22 01:15 103 H 16 82 L 07/05/22 01:15 114/80 07/05/22 01:10 106 H 21 91 07/05/22 01:00 91 H 14 91 07/05/22 01:00 108/65 07/05/22 00:50 82 17 93 07/05/22 00:45 91 H 15 92 07/05/22 00:45 112/61 07/05/22 00:40 89 14 92 07/05/22 00:30 100 H 14 90 07/05/22 00:30 103/53 L 07/05/22 00:20 93 H 13 91 07/05/22 00:15 98 H 13 91 07/05/22 00:15 104/56 L 07/05/22 00:10 89 13 93 07/05/22 00:00 97 H 13 91 07/05/22 00:00 98/56 L 07/04/22 23:50 90 14 93 07/04/22 23:45 96 H 15 92 07/04/22 23:45 104/57 L 07/04/22 23:40 103 H 18 90 07/04/22 23:30 109 H 20 92 07/04/22 23:30 111/62 07/04/22 23:20 111 H 16 88 L 07/04/22 23:15 102 H 15 86 L 07/04/22 23:15 101/49 L 07/04/22 23:10 98 H 12 89 L 07/04/22 23:00 98 H 15 90 07/04/22 23:00 107/52 L 07/04/22 22:50 97 H 16 87 L 07/04/22 22:45 97 H 12 89 L 07/04/22 22:45 101/50 L 07/04/22 22:40 88 13 91 07/04/22 22:30 100 H 13 91 07/04/22 22:30 109/53 L 07/04/22 22:20 94 H 16 92 07/04/22 22:15 100 H 18 91 07/04/22 22:15 104/47 L 07/04/22 22:10 103 H 13 91 07/04/22 22:00 102 H 16 91 07/04/22 22:00 112/60 07/04/22 21:50 97 H 12 89 L 07/04/22 21:45 110 H 21 90 07/04/22 21:45 92/52 L 07/04/22 21:40 104 H 12 92 07/04/22 21:30 102 H 13 91 07/04/22 21:30 109/54 L 07/04/22 21:20 103 H 13 91 07/04/22 21:15 104 H 14 90 07/04/22 21:15 105/50 L 07/04/22 21:10 103 H 14 91 07/04/22 21:00 110 H 14 90 07/04/22 21:00 103/51 L 07/04/22 20:50 113 H 19 91 07/05/22 00:00 101 H 07/05/22 00:29 36.6 C 07/04/22 20:45 108 H 21 92 07/04/22 20:45 116/61 07/04/22 20:40 120 H 17 90 07/04/22 20:30 109 H 21 97 07/04/22 20:30 117/70 07/04/22 20:20 107 H 15 92 07/04/22 20:15 103 H 16 93 07/04/22 20:15 117/60 07/04/22 20:50 36.7 C PG Care Time/CCT Total # of Minutes Spent Total Time Spent with Patient: Total time spent is greater than 50% in coordination of care (as documented) at patient's floor/unit and/or counseling patient: Coding Level of Care Code 24634 Post Operative Follow-Up Diagnoses H/O exploratory laparotomy Z98.890
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
[2022-07-05] MEDS: METOCLOPRAMIDE HCL INJ 5 MG/ML 2 ML VIAL IV SCH ×2 (11:02→18:10)
[2022-07-05] MEDS: NOREPINEPHRINE/D5W 4 MG/250 ML PLCT IV SCH (12:41)
[2022-07-05] MEDS: DAPTOmycin 350 MG in SYRINGE 0 ML IV SCH (15:20)
[2022-07-06] MEDS: TUBE FEEDING WATER FLUSH JT SCH ×6 (01:35→23:23)
[2022-07-06] MEDS: METOCLOPRAMIDE HCL INJ 5 MG/ML 2 ML VIAL IV SCH (01:35)
[2022-07-06] MEDS: MEROPENEM 500 MG in SYRINGE 0 ML IV SCH ×4 (01:35→23:20)
[2022-07-06] MEDS: MoRPHine SULFATE 4 MG/ML 1 ML CARP\\VIAL IV PRN ×7 (01:35→22:25)
[2022-07-06 05:15] LABS: Basophils # (auto) 0.01 K/uL (0-0.2); Basophils % (auto) 0.1 %; Eosinophils # (auto) 0.06 K/uL (0-0.50); Eosinophils % (auto) 0.8 %; Hematocrit (blood only) 25.9 % (42.0-52.0); Hemoglobin 8.2 g/dl (14.0-18.0); Immature Granulocytes # (auto) 0.06 K/uL (0.01-0.20); Immature Granulocytes % (auto) 0.8 %; Lymphocytes # (auto) 1.21 K/uL (1.2-3.4); Lymphocytes % (auto) 15.7 %; Mean Corpuscular Hemoglobin 27.6 pg (25.0-34.0); Mean Corpuscular Hgb Conc 31.7 g/dL (32.0-36.0); Mean Corpuscular Volume 87.2 fL (80.0-100.0); Mean Platelet Volume 9.5 fL (9.4-12.4); Monocytes # (auto) 0.54 K/uL (0.11-0.59); Neutrophils # (auto) 5.84 K/uL (1.40-6.50); Neutrophils % (auto) 75.6 %; Platelet Count 273 K/uL (130-400); RDW Coefficient of Variation 14.7 % (11.5-14.5); RDW Standard Deviation 47.3 fL (36.4-46.3); Red Blood Count 2.97 M/uL (4.70-6.10); White Blood Count 7.72 K/ul (4.8-10.8)
[2022-07-06 05:31] LABS: Anion Gap 9 (3-11); Blood Urea Nitrogen 9 mg/dl (6-23); Calcium 8.3 mg/dl (8.5-10.1); Carbon Dioxide 30 mmol/L (21-32); Chloride 99 mmol/L (98-107); Est GFR (African American) > 150.0 ml/min; Est GFR (Non-African American) > 150.0 ml/min; Glucose 85 mg/dl (70-99(Fasting)); Magnesium 1.7 mg/dl (1.7-2.4); Potassium 3.3 mmol/L (3.5-5.1); Sodium 138 mmol/L (136-145)
[2022-07-06] MEDS ORDERED: POTASSIUM PHOS 3 MMOL/1 ML INFUSION IV STA (05:48)
[2022-07-06] MEDS ORDERED: POTASSIUM PHOSPHATE 6 MMOL in 0.9 % SODIUM CHLORIDE 100 ML IV ONE (06:15)
[2022-07-06] MEDS: MAGNESIUM SULFATE / D5W 1 GM/100 ML BAG IV SCH ×2 (06:27→08:32)
[2022-07-06] MEDS: ENOXAPARIN INJ 30 MG/0.3 ML SYR SQ SCH (08:09)
[2022-07-06] MEDS: MULTI VIT W/MINERALS LIQUID 15 ML UDP JT SCH (08:09)
[2022-07-06] MEDS: ASCORBIC ACID 500 MG TAB PO SCH (08:09)
[2022-07-06] MEDS: THIAMINE HCL 100 MG TAB PO SCH (08:10)
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
--- NOTE | 2022-07-06 08:55 | Surgery Progress Note ---
Date of Service July 06, 2022 Assessment & Plan (1) H/O exploratory laparotomy: Plan: Postoperative day 3 Doing as well as we could hope I went to keep the NG tube in place until early next week. We will then need to perform an upper GI to make sure his anastomosis is healing before removing the NG tube and beginning liquids. Continue tube feeds We can probably transfer to the floor today. Admission and Anticipated Discharge Date Admission Date: July 03, 2022 Subjective Patient seen. Awake alert and reasonably comfortable. He reports no new complaints. He does admit to a sensation of feeling hungry. Physical Exam Physical Exam: Alert and oriented no acute distress NG tube in place putting out bilious fluid [place] drain intact putting out serous fluid Colostomy with minimal output Jejunostomy tube in place and functioning with slow tube feeds Midline incision clean dry intact. No sign of infection and no drainage Results & Data ([facility]) Vital Signs (Past 12 Hours) Vital Signs Temp Pulse Resp BP Pulse Ox 07/06/22 06:20 96 H 15 96 07/06/22 06:10 103 H 14 96 07/06/22 06:00 104 H 15 96 07/06/22 06:00 103/57 L 07/06/22 05:50 107 H 15 96 07/06/22 05:40 100 H 14 95 07/06/22 05:30 106 H 16 95 07/06/22 05:20 120 H 16 94 07/06/22 05:10 107 H 15 95 07/06/22 05:00 113 H 19 97 07/06/22 05:00 136/91 07/06/22 04:50 105 H 16 96 07/06/22 04:40 105 H 17 95 07/06/22 04:30 106 H 17 93 07/06/22 04:20 113 H 18 94 07/06/22 04:10 115 H 16 97 07/06/22 04:00 99 H 15 97 07/06/22 04:00 130/82 07/06/22 03:50 92 H 16 96 07/06/22 03:40 102 H 17 96 07/06/22 03:30 101 H 14 95 07/06/22 03:20 122 H 23 96 07/06/22 03:10 109 H 15 96 07/06/22 03:00 103 H 16 95 07/06/22 03:00 121/75 07/06/22 02:50 110 H 15 96 07/06/22 02:40 108 H 15 95 07/06/22 02:30 110 H 16 96 07/06/22 02:20 105 H 15 96 07/06/22 02:10 105 H 15 95 07/06/22 02:00 114 H 15 94 07/06/22 02:00 105/60 07/06/22 01:50 121 H 15 94 07/06/22 01:40 117 H 14 95 07/06/22 01:30 126 H 18 90 07/06/22 01:20 98 H 16 90 07/06/22 01:10 116 H 23 88 L 07/06/22 01:00 104 H 15 90 07/06/22 01:00 107/54 L 07/06/22 00:50 106 H 16 89 L 07/06/22 00:40 106 H 16 90 07/06/22 00:30 111 H 16 90 07/06/22 00:20 99 H 16 90 07/06/22 04:00 37.5 C 07/06/22 00:24 104 H 07/06/22 00:10 108 H 16 89 L 07/06/22 00:00 111 H 15 89 L 07/06/22 00:00 116/63 07/05/22 23:50 114 H 16 88 L 07/05/22 23:40 115 H 17 92 07/05/22 23:30 113 H 15 90 07/05/22 23:20 105 H 15 90 07/05/22 23:10 105 H 14 90 07/05/22 23:00 107 H 14 90 07/05/22 23:00 108/58 L 07/05/22 22:50 115 H 20 90 07/05/22 22:40 109 H 16 87 L 07/05/22 22:30 98 H 15 90 07/05/22 22:20 102 H 15 89 L 07/05/22 22:10 108 H 17 89 L 07/05/22 22:00 108 H 14 92 07/05/22 22:00 110/62 07/05/22 21:50 113 H 15 91 07/05/22 21:40 109 H 14 91 07/05/22 21:30 110 H 14 92 07/05/22 21:20 98 H 17 93 07/05/22 21:10 108 H 15 93 07/05/22 21:00 99 H 15 92 07/05/22 21:00 110/60 07/06/22 00:16 37.6 C H PG Care Time/CCT Total # of Minutes Spent Total Time Spent with Patient: Total time spent is greater than 50% in coordination of care (as documented) at patient's floor/unit and/or counseling patient: Coding Level of Care Code 14639 Post Operative Follow-Up Diagnoses H/O exploratory laparotomy Z98.890
[2022-07-06] MEDS: CASPOFUNGIN 50 MG in SODIUM CHLORIDE 0.9% 250 ML IV SCH (09:13)
[2022-07-06] MEDS: LACTATED RINGER'S 1,000 ML IV SCH (09:15)
[2022-07-06] MEDS ORDERED: BACLOFEN 10 MG TAB PO PRN (09:29)
[2022-07-06] MEDS ORDERED: OXYBUTYNIN CHLORIDE 5 MG TAB PO PRN (09:32)
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
[2022-07-06] MEDS: OXANDROLONE 10 MG TABLET PO SCH ×2 (10:24→22:46)
[2022-07-06] MEDS: PEPTAMEN INTENSE VHP 1.0 CAL 1,000 ML BAG JT SCH (11:50)
[2022-07-06] MEDS: BACLOFEN 10 MG TAB PO SCH ×2 (12:07→21:59)
[2022-07-06] MEDS: DAPTOmycin 350 MG in SYRINGE 0 ML IV SCH (15:28)
[2022-07-06] MEDS: MoRPHine SULFATE 2 MG/ML CARP IV PRN (15:47)
[2022-07-06] MEDS ORDERED: ACETAMINOPHEN SUSP 325 MG/10.15 ML UDC GT PRN (17:39)
[2022-07-06] MEDS: MIRTAZAPINE TAB 15 MG TAB JT SCH (21:59)
[2022-07-07] MEDS: MoRPHine SULFATE 4 MG/ML 1 ML CARP\\VIAL IV PRN ×7 (02:04→23:28)
[2022-07-07] MEDS: TUBE FEEDING WATER FLUSH JT SCH ×5 (04:02→19:52)
[2022-07-07] MEDS: MEROPENEM 500 MG in SYRINGE 0 ML IV SCH ×4 (04:02→23:20)
[2022-07-07] MEDS: LACTATED RINGER'S 1,000 ML IV SCH ×2 (05:25→18:15)
[2022-07-07 07:53] LABS: Basophils # (auto) 0.01 K/uL (0-0.2); Basophils % (auto) 0.1 %; Eosinophils # (auto) 0.25 K/uL (0-0.50); Eosinophils % (auto) 3.1 %; Hemoglobin 8.1 g/dl (14.0-18.0); Immature Granulocytes # (auto) 0.03 K/uL (0.01-0.20); Immature Granulocytes % (auto) 0.4 %; Lymphocytes # (auto) 1.13 K/uL (1.2-3.4); Lymphocytes % (auto) 13.8 %; Mean Corpuscular Hemoglobin 27.6 pg (25.0-34.0); Mean Corpuscular Hgb Conc 32.4 g/dL (32.0-36.0); Mean Corpuscular Volume 85.3 fL (80.0-100.0); Monocytes % (auto) 9.8 %; Neutrophils # (auto) 5.96 K/uL (1.40-6.50); Neutrophils % (auto) 72.8 %; Platelet Count 251 K/uL (130-400); RDW Coefficient of Variation 14.6 % (11.5-14.5); RDW Standard Deviation 45.4 fL (36.4-46.3); Red Blood Count 2.93 M/uL (4.70-6.10); White Blood Count 8.18 K/ul (4.8-10.8)
[2022-07-07] MEDS: MULTI VIT W/MINERALS LIQUID 15 ML UDP JT SCH (08:34)
[2022-07-07] MEDS: THIAMINE HCL 100 MG TAB PO SCH (08:34)
[2022-07-07] MEDS: ENOXAPARIN INJ 30 MG/0.3 ML SYR SQ SCH (08:34)
[2022-07-07] MEDS: BACLOFEN 10 MG TAB PO SCH ×3 (08:35→19:51)
[2022-07-07] MEDS: ASCORBIC ACID 500 MG TAB PO SCH (08:35)
[2022-07-07] MEDS: OXANDROLONE 10 MG TABLET PO SCH ×2 (08:43→19:51)
[2022-07-07] MEDS: PEPTAMEN INTENSE VHP 1.0 CAL 1,000 ML BAG JT SCH (09:47)
[2022-07-07] MEDS: CASPOFUNGIN 50 MG in SODIUM CHLORIDE 0.9% 250 ML IV SCH (09:47)
[2022-07-07 10:07] LABS: Anion Gap 4 (3-11); BUN Creatinine Ratio 33.3 (10-20); Blood Urea Nitrogen 10 mg/dl (6-23); Calcium 8.1 mg/dl (8.5-10.1); Carbon Dioxide 34 mmol/L (21-32); Chloride 96 mmol/L (98-107); Creatinine Clr Calc Pharmacy 341.3 ml/min; Est GFR (African American) > 150.0 ml/min; Est GFR (Non-African American) > 150.0 ml/min; Glucose 104 mg/dl (70-99(Fasting)); Magnesium 1.7 mg/dl (1.7-2.4); Phosphorus 2.1 mg/dl (2.5-4.9); Potassium 3.1 mmol/L (3.5-5.1); Sodium 134 mmol/L (136-145)
--- NOTE | 2022-07-07 11:47 | Surgery Progress Note ---
Date of Service July 07, 2022 Assessment & Plan (1) H/O exploratory laparotomy: Plan: con't ngt good pain control con't feeds Admission and Anticipated Discharge Date Admission Date: July 03, 2022 Subjective pain controlled no complaints Review of Systems Constitutional: no fever and no chills Respiratory: no dyspnea Gastrointestinal: + abdominal pain; no nausea and no vomiting Genitourinary: no dysuria Neurologic: + generalized weakness Physical Exam Constitutional: + thin Neck: trachea midline Respiratory: normal respiratory effort, lungs clear to auscultation Cardiovascular: RRR, no murmur, no edema Gastrointestinal (Abdomen): Inspection/Auscultation: normal bowel sounds, + abdominal surgical incision (clean and dry) and + abdominal surgical drain present (serous); abdomen not distended Percussion/Palpation: + abdomen tender and abdomen soft; no guarding and abdomen not rigid j-tube in place colostomy working Results & Data ([facility]) Vital Signs (Past 12 Hours) Vital Signs Temp Pulse Resp BP Pulse Ox O2 Del Method 07/07/22 09:00 Room Air 07/07/22 07:40 36.6 C 90 16 98/62 L 95 07/07/22 02:41 36.9 C 101 H 16 100/59 L 90 07/07/22 00:00 98 H 07/07/22 00:04 37.0 C 94 H 20 96/55 L 95
[2022-07-07] MEDS ORDERED: POTASSIUM PHOS 3 MMOL/1 ML INFUSION IV STA (15:59)
--- NOTE | 2022-07-07 16:02 | Hospitalist Progress Note ---
Date of Service July 07, 2022 Assessment & Plan (1) H/O exploratory laparotomy: Plan: - Exploratory laparotomy, revision of gastrojejunostomy, partial bowel resection, intraoperative esophagogastroduodenoscopy, placement of jejunum tube feeding, enterolysis,repair of internal hernia -Procedure performed 07/03/2022 - NGT, [place] drain, and TF per primary service colostomy is draining hopefully get NG tube out sometime - Pain control per primary service (2) Septic shock: Plan: - Secondary to perforated abdominal viscus - Remains on broad spectrum abx - Weaned off pressors on 07/03 and extubated 07/04 - This issue has now resolved (3) Stage III pressure ulcer of left hip: Plan: - History of multiple pressure wounds, sacral decubitus ulcer, stage IV, pressure ulcer of ischium, stage 3, pressure ulcer of toe of left foot, stage 3 - Follows with outpatient wound clinic - Findings of acute on chronic osteomyelitis on 07/03 CT - H/o MRSA and VRE - Currently on broad spectrum antibiotics - Daptomycin, Meropenem, and Capsofungin, day 4 - Per ID will complete on 07/10 and can transition back to Dalbavancin on 07/17 - Blood cultures from 07/03 NGTD - Resume outpatient care with Dr. Villar - Recommend combine operator consult if not already done (4) Severe protein-calorie malnutrition: Plan: Unfortunately the root cause of majority of his issues - J-tube in place for supplemental feeding - Tolerating feeds, advance to goal - Clinical Application Specialist is recommending oxandrolone which he started 07/06 (5mg BID) (5) Hypokalemia: Plan: Dustman phosphorus are low repleted by K-Phos 07/07/2022 (6) Neurogenic bowel: Plan: - With diverting colostomy (7) Neurogenic bladder: Plan: - Suprapubic catheter in place - Urine w/o gross sediment - Continue Oxybutynin 5mg BID prn (8) Mood disorder: Plan: - Resume meds as soon as diet is advanced - Continue Mirtazapine 7.5mg daily (9) Anemia: Plan: - Chronic/stable Admission and Anticipated Discharge Date Admission Date: July 03, 2022 Subjective Patient is without significant plaints NG tube is bothering him. He says that he is having abdominal pain. Nursing reports ostomy output has improved Physical Exam Physical Exam: Patient is markedly underweight and chronically ill 6 foot 341 pounds BMI of 17 NG tube in right nare draining liquid through low to mid suction Exam is regular lungs are clear abdomen is with dressings in place is tender ostomy is functioning Results & Data Results & Data ([facility]) Vital Signs (Past 12 Hours) Vital Signs Temp Pulse Resp BP Pulse Ox O2 Del Method 07/07/22 15:48 98.6 F 100 H 18 101/54 L 95 07/07/22 12:49 97.9 F 90 17 98/61 L 96 07/07/22 09:00 Room Air 07/07/22 07:40 97.9 F 90 16 98/62 L 95 Laboratory Results Reviewed chemistries and phosphorus both potassium and phosphorus alone require augmentation PG Care Time/CCT Total # of Minutes Spent Total Time Spent with Patient: Total time spent is greater than 50% in coordination of care (as documented) at patient's floor/unit and/or counseling patient: Coding Level of Care Code 48821 SUB INP/OBS CARE 2/35MIN Diagnoses H/O exploratory laparotomy Z98.890 Septic shock A41.9; R65.21 Stage III pressure ulcer of left hip L89.223 Severe protein-calorie malnutrition E43 Hypokalemia E87.6 Neurogenic bowel K59.2 Neurogenic bladder N31.9 Mood disorder F39 Anemia D64.9
[2022-07-07] MEDS ORDERED: POTASSIUM PHOSPHATE 21 MMOL in SODIUM CHLORIDE 0.9% 500 ML IV ONE (16:15)
[2022-07-07] MEDS: DAPTOmycin 350 MG in SYRINGE 0 ML IV SCH (16:26)
[2022-07-07] MEDS: MIRTAZAPINE TAB 15 MG TAB JT SCH (19:51)
[2022-07-08] MEDS: MoRPHine SULFATE 4 MG/ML 1 ML CARP\\VIAL IV PRN ×6 (03:25→21:34)
[2022-07-08] MEDS: MEROPENEM 500 MG in SYRINGE 0 ML IV SCH ×4 (03:25→21:35)
[2022-07-08] MEDS: TUBE FEEDING WATER FLUSH JT SCH ×7 (03:25→23:58)
[2022-07-08] MEDS: PEPTAMEN INTENSE VHP 1.0 CAL 1,000 ML BAG JT SCH ×2 (03:26→21:08)
[2022-07-08 07:39] LABS: Basophils # (auto) 0.02 K/uL (0-0.2); Basophils % (auto) 0.3 %; Eosinophils # (auto) 0.21 K/uL (0-0.50); Eosinophils % (auto) 2.8 %; Hematocrit (blood only) 26.7 % (42.0-52.0); Hemoglobin 8.6 g/dl (14.0-18.0); Immature Granulocytes # (auto) 0.05 K/uL (0.01-0.20); Immature Granulocytes % (auto) 0.7 %; Lymphocytes # (auto) 1.53 K/uL (1.2-3.4); Lymphocytes % (auto) 20.3 %; Mean Corpuscular Hemoglobin 27.2 pg (25.0-34.0); Mean Corpuscular Hgb Conc 32.2 g/dL (32.0-36.0); Mean Corpuscular Volume 84.5 fL (80.0-100.0); Mean Platelet Volume 9.6 fL (9.4-12.4); Monocytes # (auto) 0.78 K/uL (0.11-0.59); Monocytes % (auto) 10.4 %; Neutrophils # (auto) 4.93 K/uL (1.40-6.50); Neutrophils % (auto) 65.5 %; Platelet Count 296 K/uL (130-400); RDW Coefficient of Variation 14.6 % (11.5-14.5); RDW Standard Deviation 45.1 fL (36.4-46.3); Red Blood Count 3.16 M/uL (4.70-6.10); White Blood Count 7.52 K/ul (4.8-10.8)
[2022-07-08 07:58] LABS: Anion Gap 4 (3-11); BUN Creatinine Ratio 33.3 (10-20); Blood Urea Nitrogen 10 mg/dl (6-23); Calcium 8.3 mg/dl (8.5-10.1); Carbon Dioxide 33 mmol/L (21-32); Chloride 99 mmol/L (98-107); Creatinine Clr Calc Pharmacy 340.7 ml/min; Est GFR (African American) > 150.0 ml/min; Est GFR (Non-African American) > 150.0 ml/min; Glucose 94 mg/dl (70-99(Fasting)); Potassium 3.3 mmol/L (3.5-5.1); Sodium 136 mmol/L (136-145)
[2022-07-08] MEDS: BACLOFEN 10 MG TAB PO SCH ×2 (09:16→12:12)
[2022-07-08] MEDS: THIAMINE HCL 100 MG TAB PO SCH (09:17)
[2022-07-08] MEDS: ASCORBIC ACID 500 MG TAB PO SCH (09:17)
[2022-07-08] MEDS: ENOXAPARIN INJ 30 MG/0.3 ML SYR SQ SCH (09:23)
[2022-07-08] MEDS: MULTI VIT W/MINERALS LIQUID 15 ML UDP JT SCH (09:24)
[2022-07-08] MEDS: OXANDROLONE 10 MG TABLET PO SCH ×2 (09:31→21:08)
[2022-07-08] MEDS: LACTATED RINGER'S 1,000 ML IV SCH ×2 (09:33→21:39)
[2022-07-08] MEDS: CASPOFUNGIN 50 MG in SODIUM CHLORIDE 0.9% 250 ML IV SCH (10:10)
--- NOTE | 2022-07-08 12:28 | Surgery Progress Note ---
Date of Service July 08, 2022 Assessment & Plan (1) H/O exploratory laparotomy: Plan: patient inadvertently removed ngt did not replace b/c of recent gastrojejunostomy UGI possible tomorrow NPO con't TF Present on Admission?: Yes Admission and Anticipated Discharge Date Admission Date: July 03, 2022 Subjective patient without compaints Review of Systems Constitutional: no fever and no chills Respiratory: no cough and no dyspnea Cardiovascular: no chest pain Gastrointestinal: + abdominal pain; no nausea and no vomiting Physical Exam Constitutional: + thin Respiratory: normal respiratory effort, lungs clear to auscultation Cardiovascular: RRR, no murmur, no edema Gastrointestinal (Abdomen): Inspection/Auscultation: abdomen normal to inspection and normal bowel sounds; abdomen not distended Percussion/Palpation: + abdomen tender and abdomen soft; no guarding and abdomen not rigid ostomy working well tube feeds Results & Data ([facility]) Vital Signs (Past 12 Hours) Vital Signs Temp Pulse Resp BP Pulse Ox 07/08/22 07:50 91 H 07/08/22 07:20 36.6 C 94 H 18 112/73 97 07/08/22 02:52 37.3 C 101 H 18 118/71 96
--- NOTE | 2022-07-08 15:45 | Hospitalist Progress Note ---
Date of Service July 08, 2022 Assessment & Plan (1) H/O exploratory laparotomy: Plan: - Acute with serious risk, exploratory laparotomy, revision of gastrojejunostomy, partial bowel resection, intraoperative esophagogastroduodenoscopy, placement of jejunum tube feeding, enterolysis,repair of internal hernia -Procedure performed 07/03/2022 - NGT, [place] drain, and TF per primary service colostomy is draining hopefully get NG tube out sometime - Pain control per primary service Risk remains as patient's oral intake is variable continues with supportive care (2) Septic shock: Plan: - Acute serious risk now resolved -secondary to perforated abdominal viscus - Remains on broad spectrum abx - Weaned off pressors on 07/03 and extubated 07/04 - (3) Stage III pressure ulcer of left hip: Plan: - Chronic uncontrolled continued significant risk the patient -history of multiple pressure wounds, sacral decubitus ulcer, stage IV, pressure ulcer of ischium, stage 3, pressure ulcer of toe of left foot, stage 3 - Follows with outpatient wound clinic - Findings of acute on chronic osteomyelitis on 07/03 CT - H/o MRSA and VRE - Currently on broad spectrum antibiotics - Daptomycin, Meropenem, and Capsofungin, day 4 - Per ID will complete on 07/10 and can transition back to Dalbavancin on 07/17 - Blood cultures from 07/03 NGTD - Resume outpatient care with Dr. Villar - Recommend rn bsn consult if not already done (4) Severe protein-calorie malnutrition: Plan: Unfortunately the root cause of majority of his issues - J-tube in place for supplemental feeding - Tolerating feeds, advance to goal - Tubular Stock Glass Bulb Machine Former is recommending oxandrolone which he started 07/06 (5mg BID) (5) Hypokalemia: Plan: Both low potassium and phosphorus are low repleted by K-Phos Additional potassium ordered on 07/08/2022 (6) Neurogenic bowel: Plan: - With diverting colostomy (7) Neurogenic bladder: Plan: - Suprapubic catheter in place - Urine w/o gross sediment - Continue Oxybutynin 5mg BID prn (8) Mood disorder: Plan: - Resume meds as soon as diet is advanced - Continue Mirtazapine 7.5mg daily (9) Anemia: Plan: - Chronic/stable Admission and Anticipated Discharge Date Admission Date: July 03, 2022 Subjective patient without compaints patient accidentally remove the NG tube. This was not replaced due to the recent gastrojejunostomy. Surgery did review and feels it susceptible to leave this tube out. Surgery however did recommend continue n.p.o. status. Patient states pain is in good control with pain medications. Physical Exam Physical Exam: Patient is markedly underweight and chronically ill 6 foot 3, 141 pounds BMI of 17 NG tube has been removed patient is tolerating this Exam is regular lungs are clear abdomen is with dressings in place is tender ostomy is functioning Results & Data Results & Data ([facility]) Vital Signs (Past 12 Hours) Vital Signs Temp Pulse Resp BP Pulse Ox 07/08/22 15:31 98.7 F 103 H 18 100/56 L 95 07/08/22 15:23 98 H 07/08/22 12:29 97.9 F 95 H 18 113/77 98 07/08/22 07:50 91 H 07/08/22 07:20 97.9 F 94 H 18 112/73 97 Laboratory Results Reviewed CBC Reviewed PRP PG Care Time/CCT Total # of Minutes Spent Total Time Spent with Patient: Total time spent is greater than 50% in coordination of care (as documented) at patient's floor/unit and/or counseling patient: Coding Level of Care Code 28283 SUB INP/OBS CARE 2/35MIN Diagnoses H/O exploratory laparotomy Z98.890 Septic shock A41.9; R65.21 Stage III pressure ulcer of left hip L89.223 Severe protein-calorie malnutrition E43 Hypokalemia E87.6 Neurogenic bowel K59.2 Neurogenic bladder N31.9 Mood disorder F39 Anemia D64.9
[2022-07-08] MEDS: DAPTOmycin 350 MG in SYRINGE 0 ML IV SCH (17:17)
[2022-07-08] MEDS: POTASSIUM CHLORIDE / WTR 10 MEQ/100 ML PLCT IV SCH ×3 (18:27→20:23)
[2022-07-08] MEDS: BACLOFEN 10 MG TAB GT SCH (21:08)
[2022-07-08] MEDS: MIRTAZAPINE TAB 15 MG TAB JT SCH (21:24)
[2022-07-09] MEDS: MoRPHine SULFATE 4 MG/ML 1 ML CARP\\VIAL IV PRN ×7 (01:40→23:11)
[2022-07-09] MEDS: TUBE FEEDING WATER FLUSH JT SCH ×6 (04:52→23:46)
[2022-07-09] MEDS: MEROPENEM 500 MG in SYRINGE 0 ML IV SCH ×4 (04:52→21:51)
[2022-07-09 06:26] LABS: Basophils # (auto) 0.04 K/uL (0-0.2); Basophils % (auto) 0.4 %; Eosinophils # (auto) 0.35 K/uL (0-0.50); Eosinophils % (auto) 3.5 %; Hematocrit (blood only) 29.5 % (42.0-52.0); Hemoglobin 9.4 g/dl (14.0-18.0); Immature Granulocytes # (auto) 0.09 K/uL (0.01-0.20); Immature Granulocytes % (auto) 0.9 %; Lymphocytes # (auto) 1.95 K/uL (1.2-3.4); Lymphocytes % (auto) 19.6 %; Mean Corpuscular Hemoglobin 27.3 pg (25.0-34.0); Mean Corpuscular Hgb Conc 31.9 g/dL (32.0-36.0); Mean Corpuscular Volume 85.8 fL (80.0-100.0); Mean Platelet Volume 9.8 fL (9.4-12.4); Monocytes # (auto) 1.16 K/uL (0.11-0.59); Monocytes % (auto) 11.6 %; Neutrophils # (auto) 6.38 K/uL (1.40-6.50); Platelet Count 360 K/uL (130-400); RDW Coefficient of Variation 14.9 % (11.5-14.5); RDW Standard Deviation 46.3 fL (36.4-46.3); Red Blood Count 3.44 M/uL (4.70-6.10); White Blood Count 9.97 K/ul (4.8-10.8)
[2022-07-09 06:39] LABS: Anion Gap 3 (3-11); BUN Creatinine Ratio 23.5 (10-20); Blood Urea Nitrogen 8 mg/dl (6-23); Calcium 8.6 mg/dl (8.5-10.1); Carbon Dioxide 31 mmol/L (21-32); Chloride 102 mmol/L (98-107); Creatinine Clr Calc Pharmacy 300.7 ml/min; Est GFR (African American) > 150.0 ml/min; Est GFR (Non-African American) > 150.0 ml/min; Glucose 85 mg/dl (70-99(Fasting)); Phosphorus 2.1 mg/dl (2.5-4.9); Potassium 3.6 mmol/L (3.5-5.1); Sodium 136 mmol/L (136-145)
[2022-07-09] MEDS ORDERED: POTASSIUM PHOS 3 MMOL/1 ML INFUSION IV STA (07:19)
[2022-07-09] MEDS ORDERED: POTASSIUM PHOSPHATE 15 MMOL in SODIUM CHLORIDE 0.9% 250 ML IV ONE (07:30)
[2022-07-09] MEDS: THIAMINE HCL 100 MG TAB PO SCH (07:59)
[2022-07-09] MEDS: BACLOFEN 10 MG TAB PO SCH ×2 (07:59→15:54)
[2022-07-09] MEDS: ASCORBIC ACID 500 MG TAB PO SCH (07:59)
[2022-07-09] MEDS: MULTI VIT W/MINERALS LIQUID 15 ML UDP JT SCH (08:00)
[2022-07-09] MEDS: ENOXAPARIN INJ 30 MG/0.3 ML SYR SQ SCH (08:01)
[2022-07-09] MEDS: OXANDROLONE 10 MG TABLET PO SCH ×2 (08:17→21:51)
--- NOTE | 2022-07-09 09:17 | Surgery Progress Note ---
Date of Service July 09, 2022 Assessment & Plan (1) H/O exploratory laparotomy: Plan: POD#6 exlap, revision of gastrojejunostomy, repair of internal hernia WBC 9, Hbg 9.4. Overall doing fairly well NGT pulled out over wknd accidentally, okay to leave out. will obtain CT a/p today to eval for integrity of GJ anastomosis....if no evidence of leak patient may start on clear liquids Continue on TEN via J tube until able to have meaningful oral intake Dressing changes daily and as needed if become saturated Continue on IV abx plan per ID Appreciate hospitalists following along with us As above. Overall feeling pretty well. He is hungry. He is tolerating tube feeds and is getting bowel function. Contrast study ordered today to evaluate his anastomosis. If this looks okay we will start clear liquids. Admission and Anticipated Discharge Date Admission Date: July 03, 2022 Subjective Patient is doing well. Reports hunger. No n/v. Pain controlled. Ostomy functioning. Tolerating TEN. Physical Exam Physical Exam: awake/alert, no distress Gastrointestinal (Abdomen): Inspection/Auscultation: + abdominal surgical incision (c/d/i, serous drainage on dressings) and + abdominal surgical drain present (serous); abdomen not distended Percussion/Palpation: abdomen soft; abdomen nontender Results & Data ([facility]) Vital Signs (Past 12 Hours) Vital Signs Temp Pulse Resp BP Pulse Ox O2 Del Method 07/09/22 07:26 36.7 C 100 H 16 97/62 L 97 Room Air 07/08/22 21:30 37.0 C 90 16 103/66 97 Room Air PG Care Time/CCT Total # of Minutes Spent Total Time Spent with Patient: Total time spent is greater than 50% in coordination of care (as documented) at patient's floor/unit and/or counseling patient: Coding Level of Care Code 85776 Post Operative Follow-Up Diagnoses H/O exploratory laparotomy Z98.890
[2022-07-09] MEDS: LACTATED RINGER'S 1,000 ML IV SCH ×2 (10:57→23:10)
--- NOTE | 2022-07-09 11:09 | CT Scan Report ---
CT SCAN OF THE ABDOMEN AND PELVIS WITHOUT IV CONTRAST CLINICAL HISTORY: Status post revision of gastrojejunal anastomosis. Assess for leak. COMPARISON STUDY: Abdominal CT dated 07/03/2022. TECHNIQUE: CT scan of the abdomen and pelvis is performed from the lung bases to the proximal femora. Images are reviewed in the axial, sagittal, and coronal planes. IV contrast was not administered for this examination. Note that the examination is suboptimal without IV contrast. Oral contrast was uti lized. A dose lowering technique was utilized adhering to the principles of ALARA. CT DOSE: 383.89 mGycm FINDINGS: Lung bases: The heart is normal in size and without pericardial effusion. There are gckmo-eh-xiuzwlzd pleural effusions with dependent atelectasis. Liver: The unenhanced liver is normal in size, contour, and attenuation. There is no intrahepatic marquez iary ductal dilatation. Gallbladder: Contracted. Spleen: Normal in size and attenuation. Pancreas: The unenhanced pancreas is grossly unremarkable. Adrenal glands: Unremarkable. Kidneys: The unenhanced kidneys are normal in size and without hydronephrosis. There are punctate non obstructing left renal calculi. No right renal calculi are identified. There is no evidence of contou r deforming renal mass lesion. Abdominal vasculature: The abdominal aorta is normal in course and caliber. Hyperdense thrombus is grove ggested throughout the left iliac vein. Bowel: Again seen is postsurgical change from a double barrel colostomy in the left lower quadrant. T here is also postsurgical change from distal gastrectomy with gastrojejunostomy. A jejunostomy tube i s in place. There are numerous distended and thick-walled loops of small bowel. The enteric contrast column reaches the distal jejunum. The stomach is distended and filled with enteric contrast. There i s no clear evidence of extraluminal contrast/leakage at the gastrojejunostomy site. No transition poi nt is clearly identified. Peritoneum: A surgical drain is coiled in the left upper quadrant from a left mid abdominal approach. A pqknm-fz-rpjrabex volume of ascites is seen in the pelvis with associated peritoneal thickening. T here is minimal layering hyperdense fluid within the pelvic ascites seen on axial image 353. There is trace upper abdominal ascites. No intraperitoneal free air is clearly seen. Lymphadenopathy: None. Pelvic viscera: The bladder is decompressed around a suprapubic catheter. There are numerous bladder calculi. There is nonspecific gas within the bladder lumen. The bladder wall appears thickened. The p rostate gland is diminutive and heterogeneous. Skeletal structures: The skeletal structures appear osteopenic. A decubitus ulcer is again seen overl aydee the right ischium. There is bony sclerosis within the ischium. There are similar appearing scler osis within the posterior aspect of the medial ilium bilaterally. There is also sclerotic change and destruction of the sacrum. These findings suggest chronic osteomyelitis and are similar to previous. No lytic or blastic lesions are seen. Soft tissues: There is body wall edema. Midline skin clips are in place. A catheter is present in the right abdominal wall. A decubitus ulceration overlies the right ischial tuberosity. IMPRESSION: 1. Extensive postsurgical changes as above. 2. There is no clear evidence of extraluminal contrast/leakage at the gastrojejunostomy site as clini apoorva queried. 3. The stomach is distended and filled with enteric contrast. There are also thick walled and distend ed loops of small bowel. These findings favor expected postoperative change/ileus. Obstruction is con sidered less likely but not entirely excluded. Clinical correlation is essential. 4. Sslij-tt-kwkzsnku volume of pelvic ascites with associated peritoneal thickening. This contains a small amount of layering hyperdense material that could represent blood products. 5. There is no evidence of organized/drainable fluid collection on this unenhanced examination. 6. Hyperdense thrombus is suggested throughout the left iliac vein. 7. Large decubitus ulceration overlying the right ischium with evidence of chronic osteomyelitis in t he posterior pelvis as above. 8. Small to moderate pleural effusions with dependent atelectasis. These are new from 07/03/2022. 9. There is anasarca of the body wall indicating fluid overload. 10. The bladder is decompressed around a suprapubic catheter, contains calcifications, and appears th ick walled. Correlate with urinalysis. 11. Additional findings as above. ACT 112: Negative or not required by law. Electronically signed by: Tramaine Garcia M.D. 07/09/2022 11:08 AM
[2022-07-09] MEDS ORDERED: Heparin IV Adult Wt-Based Standard WITH Bolus Protocol IV STA (11:17)
[2022-07-09] MEDS ORDERED: HEPARIN SOD (PORCINE) 1000 UNIT/ML IV ONE ×2 (11:32→20:49)
[2022-07-09] MEDS: CASPOFUNGIN 50 MG in SODIUM CHLORIDE 0.9% 250 ML IV SCH (11:51)
[2022-07-09] MEDS ORDERED: Heparin IV Adult Wt-Based Standard WITH Bolus Protocol IV SCH (12:00)
[2022-07-09] MEDS ORDERED: HEPARIN IV BOLUS 5,000 UNITS in SYRINGE 0 ML IV ONE (12:45)
[2022-07-09] MEDS: HEPARIN SODIUM/DEXTROSE 25,000 UNITS/500 ML BAG IV SCH (13:34)
--- NOTE | 2022-07-09 15:36 | Hospitalist Progress Note ---
Date of Service July 09, 2022 Assessment & Plan (1) H/O exploratory laparotomy: Plan: - Acute with serious risk, exploratory laparotomy, revision of gastrojejunostomy, partial bowel resection, intraoperative esophagogastroduodenoscopy, placement of jejunum tube feeding, enterolysis,repair of internal hernia -Procedure performed 07/03/2022 - NGT, [place] drain, and TF per primary service colostomy is draining hopefully get NG tube out sometime - Pain control per primary service Risk remains as patient's oral intake is variable continues with supportive care (2) Septic shock: Plan: - Acute serious risk now resolved -secondary to perforated abdominal viscus - Remains on broad spectrum abx - Weaned off pressors on 07/03 and extubated 07/04 - (3) Iliac DVT (deep venous thrombosis): Plan: Acute left leg DVT seen on CT abdomen pelvis on 07/09/2022 initiated on heparin therapeutic parenteral drip with likely conversion oral medications once reassured bleeding is stable in the postoperative state (4) Stage III pressure ulcer of left hip: Plan: - Chronic uncontrolled continued significant risk the patient -history of multiple pressure wounds, sacral decubitus ulcer, stage IV, pressure ulcer of ischium, stage 3, pressure ulcer of toe of left foot, stage 3 -CT scan abdomen pelvis on 07/09/2022 suggest osteomyelitis is chronic and stable - - H/o MRSA and VRE - Currently on broad spectrum antibiotics - Daptomycin, Meropenem, and Capsofungin, day 4 - Per ID will complete on 07/10 and can transition back to Dalbavancin on 07/17 unclear of gap between and 07/17 - Blood cultures from 07/03 NGTD - Resume outpatient care with Dr. Villar - Recommend calender supervisor consult if not already done (5) Severe protein-calorie malnutrition: Plan: Unfortunately the root cause of majority of his issues - J-tube in place for supplemental feeding - Tolerating feeds, advance to goal - Bag Adjuster is recommending oxandrolone which he started 07/06 (5mg BID) (6) Hypokalemia: Plan: Both low potassium and phosphorus are low repleted by K-Phos Additional phosphorus ordered on 07/09/2022 (7) Neurogenic bowel: Plan: - With diverting colostomy (8) Neurogenic bladder: Plan: - Suprapubic catheter in place - Urine w/o gross sediment - Continue Oxybutynin 5mg BID prn (9) Mood disorder: Plan: - Resume meds as soon as diet is advanced - Continue Mirtazapine 7.5mg daily (10) Anemia: Plan: - Chronic/stable Admission and Anticipated Discharge Date Admission Date: July 03, 2022 Subjective Patient is doing well. Reports hunger. No n/v. Pain controlled. Ostomy functioning. Ct of abdomen and pelvis shows intact anastomoses and no abscess, however Hyperdense thrombus is suggested throughout the left iliac vein, considered acute DVT Physical Exam Physical Exam: Patient is markedly underweight and chronically ill 6 foot 3, 141 pounds BMI of 17 abdominal pain is tolerable Exam is regular lungs are clear abdomen is with dressings in place is tender ostomy is functioning Results & Data Results & Data ([facility]) Vital Signs (Past 12 Hours) Vital Signs Temp Pulse Resp BP BP Pulse Ox O2 Del Method 07/09/22 15:17 98.1 F 96 H 16 96/62 L 98 Room Air 07/09/22 07:26 98.1 F 100 H 16 97/62 L 97 Room Air Laboratory Results Reviewed CBC Reviewed chemistry Reviewed phosphoruslow repleted Initiated parenteral heparin therapy PG Care Time/CCT Total # of Minutes Spent Total Time Spent with Patient: Total time spent is greater than 50% in coordination of care (as documented) at patient's floor/unit and/or counseling patient: Coding Level of Care Code 25811 SUB INP/OBS CARE 3/50MIN Diagnoses H/O exploratory laparotomy Z98.890 Septic shock A41.9; R65.21 Iliac DVT (deep venous thrombosis) I82.429 Stage III pressure ulcer of left hip L89.223 Severe protein-calorie malnutrition E43 Hypokalemia E87.6 Neurogenic bowel K59.2 Neurogenic bladder N31.9 Mood disorder F39 Anemia D64.9
[2022-07-09] MEDS: DAPTOmycin 350 MG in SYRINGE 0 ML IV SCH (15:54)
[2022-07-09 20:38] LABS: Partial Thromboplastin Ratio 1.1; Partial Thromboplastin Time 30.1 Seconds (21.0-31.0)
[2022-07-09] MEDS: BACLOFEN 10 MG TAB GT SCH (21:51)
[2022-07-09] MEDS: MIRTAZAPINE TAB 15 MG TAB JT SCH (21:51)
[2022-07-10 03:36] LABS: Basophils # (auto) 0.02 K/uL (0-0.2); Basophils % (auto) 0.2 %; Eosinophils # (auto) 0.31 K/uL (0-0.50); Eosinophils % (auto) 3.3 %; Hematocrit (blood only) 25.9 % (42.0-52.0); Hemoglobin 8.3 g/dl (14.0-18.0); Immature Granulocytes # (auto) 0.09 K/uL (0.01-0.20); Lymphocytes # (auto) 2.65 K/uL (1.2-3.4); Mean Corpuscular Hemoglobin 26.7 pg (25.0-34.0); Mean Corpuscular Volume 83.3 fL (80.0-100.0); Mean Platelet Volume 9.7 fL (9.4-12.4); Monocytes # (auto) 1.12 K/uL (0.11-0.59); Monocytes % (auto) 11.9 %; Neutrophils # (auto) 5.26 K/uL (1.40-6.50); Neutrophils % (auto) 55.6 %; Platelet Count 306 K/uL (130-400); RDW Coefficient of Variation 15.1 % (11.5-14.5); RDW Standard Deviation 45.8 fL (36.4-46.3); Red Blood Count 3.11 M/uL (4.70-6.10); White Blood Count 9.45 K/ul (4.8-10.8)
[2022-07-10] MEDS: MoRPHine SULFATE 4 MG/ML 1 ML CARP\\VIAL IV PRN ×6 (03:44→22:43)
[2022-07-10 03:49] LABS: Anion Gap 4 (3-11); BUN Creatinine Ratio 15.6 (10-20); Blood Urea Nitrogen 5 mg/dl (6-23); Calcium 7.9 mg/dl (8.5-10.1); Carbon Dioxide 29 mmol/L (21-32); Chloride 102 mmol/L (98-107); Creatinine Clr Calc Pharmacy 296.5 ml/min; Est GFR (African American) > 150.0 ml/min; Est GFR (Non-African American) > 150.0 ml/min; Glucose 100 mg/dl (70-99(Fasting)); Potassium 3.4 mmol/L (3.5-5.1); Sodium 135 mmol/L (136-145)
[2022-07-10 04:06] LABS: Partial Thromboplastin Ratio 1.4; Partial Thromboplastin Time 39.4 Seconds (21.0-31.0)
[2022-07-10] MEDS: MEROPENEM 500 MG in SYRINGE 0 ML IV SCH ×4 (04:29→21:28)
[2022-07-10] MEDS: TUBE FEEDING WATER FLUSH JT SCH ×5 (04:30→20:53)
[2022-07-10] MEDS: MULTI VIT W/MINERALS LIQUID 15 ML UDP JT SCH (07:49)
[2022-07-10] MEDS: ASCORBIC ACID 500 MG TAB PO SCH (07:49)
[2022-07-10] MEDS: THIAMINE HCL 100 MG TAB PO SCH (07:49)
[2022-07-10] MEDS: ENOXAPARIN INJ 30 MG/0.3 ML SYR SQ SCH (07:50)
[2022-07-10] MEDS: CASPOFUNGIN 50 MG in SODIUM CHLORIDE 0.9% 250 ML IV SCH (08:05)
[2022-07-10] MEDS: BACLOFEN 10 MG TAB PO SCH ×2 (08:06→12:51)
[2022-07-10] MEDS: HEPARIN SODIUM/DEXTROSE 25,000 UNITS/500 ML BAG IV SCH ×2 (08:17→11:42)
[2022-07-10] MEDS: POTASSIUM CHLORIDE / WTR 10 MEQ/100 ML PLCT IV SCH ×2 (08:38→09:39)
[2022-07-10] MEDS: OXANDROLONE 10 MG TABLET PO SCH ×2 (09:18→21:29)
[2022-07-10] MEDS: PEPTAMEN INTENSE VHP 1.0 CAL 1,000 ML BAG JT SCH (10:50)
--- NOTE | 2022-07-10 11:01 | Surgery Progress Note ---
Date of Service July 10, 2022 Assessment & Plan (1) H/O exploratory laparotomy: Plan: All things considered he is doing quite well. We will advance him to full liquids. He is on heparin drip currently. We will reach out to vascular surgery to see if they would be interested in putting a vena cava filter in while he is here and off oral anticoagulation. He will be a lifelong risk for DVT and obviously currently has 1. If he continues to do well potential di scharge by the end of the week (2) Iliac DVT (deep venous thrombosis): Admission and Anticipated Discharge Date Admission Date: July 03, 2022 Subjective Patient seen. Overall feeling well. He is hungry. He is tolerating clear liquids at this point Physical Exam Physical Exam: Alert. No acute distress Incisions look good Tube feed running at goal Stoma functioning Results & Data ([facility]) Vital Signs (Past 12 Hours) Vital Signs Temp Pulse Resp BP Pulse Ox O2 Del Method 07/10/22 07:37 36.7 C 94 H 18 107/59 L 98 Room Air 07/09/22 23:07 36.9 C 91 H 18 127/93 98 Room Air PG Care Time/CCT Total # of Minutes Spent Total Time Spent with Patient: Total time spent is greater than 50% in coordination of care (as documented) at patient's floor/unit and/or counseling patient: Coding Level of Care Code 71298 Post Operative Follow-Up Diagnoses H/O exploratory laparotomy Z98.890 Iliac DVT (deep venous thrombosis) I82.429
[2022-07-10 11:22] LABS: Partial Thromboplastin Ratio 1.2
[2022-07-10] MEDS ORDERED: ENOXAPARIN 1.5 MG/KG SQ SCH (12:30)
[2022-07-10] MEDS ORDERED: ENOXAPARIN 100 MG/1ML SYR SQ SCH (13:00)
[2022-07-10] MEDS ORDERED: oxyCODONE HCL IR 5 MG TAB (IMMEDIATE RELEASE) PO PRN (15:06)
[2022-07-10] MEDS: DAPTOmycin 350 MG in SYRINGE 0 ML IV SCH (15:48)
[2022-07-10] MEDS: MoRPHine SULFATE 2 MG/ML CARP IV PRN (15:53)
--- NOTE | 2022-07-10 18:21 | Hospitalist Progress Note ---
Date of Service July 10, 2022 Assessment & Plan (1) H/O exploratory laparotomy: Plan: - Acute with serious risk, exploratory laparotomy, revision of gastrojejunostomy, partial bowel resection, intraoperative esophagogastroduodenoscopy, placement of jejunum tube feeding, enterolysis,repair of internal hernia -Procedure performed 07/03/2022 - NGT, [place] drain, and TF per primary service colostomy is draining hopefully get NG tube out sometime - Pain control per primary service Risk remains as patient's oral intake is variable continues with supportive care (2) Septic shock: Plan: - Acute serious risk now resolved -secondary to perforated abdominal viscus - Remains on broad spectrum abx - Weaned off pressors on 07/03 and extubated 07/04 - (3) Iliac DVT (deep venous thrombosis): Plan: Acute left leg DVT seen on CT abdomen pelvis on 07/09/2022 initiated on heparin therapeutic will transition to lovenox 1.5 mg /kg once daily (4) Stage III pressure ulcer of left hip: Plan: - Chronic uncontrolled continued significant risk the patient -history of multiple pressure wounds, sacral decubitus ulcer, stage IV, pressure ulcer of ischium, stage 3, pressure ulcer of toe of left foot, stage 3 -CT scan abdomen pelvis on 07/09/2022 suggest osteomyelitis is chronic and stable - - H/o MRSA and VRE - Currently on broad spectrum antibiotics - Daptomycin, Meropenem, and Capsofungin, day 4 - Per ID will complete on 07/10 and can transition back to Dalbavancin on 07/17 un clear of gap between and 07/17 - Blood cultures from 07/03 NGTD - Resume outpatient care with Dr. Villar - Recommend golf club manager consult if not already done (5) Severe protein-calorie malnutrition: Plan: Unfortunately the root cause of majority of his issues - J-tube in place for supplemental feeding - Tolerating feeds, advance to goal - Optical Coating Technician is recommending oxandrolone which he started 07/06 (5mg BID) (6) Hypokalemia: Plan: Both low potassium and phosphorus are low repleted by K-Phos Additional phosphorus ordered on 07/09/2022 (7) Neurogenic bowel: Plan: - With diverting colostomy (8) Neurogenic bladder: Plan: - Suprapubic catheter in place - Urine w/o gross sediment - Continue Oxybutynin 5mg BID prn (9) Mood disorder: Plan: - Resume meds as soon as diet is advanced - Continue Mirtazapine 7.5mg daily (10) Anemia: Plan: - Chronic/stable Admission and Anticipated Discharge Date Admission Date: July 03, 2022 Subjective Patient seen. Overall feeling well. He is hungry. He is tolerating clear liquids at this point pt understands about DVT and we discussed home lovenox as was on this before Physical Exam Physical Exam: Patient is markedly underweight and chronically ill 6 foot 3, 141 pounds BMI of 17 abdominal pain is tolerable Exam is regular lungs are clear abdomen is with dressings in place is tender ostomy is functioning Results & Data Results & Data ([facility]) Vital Signs (Past 12 Hours) Vital Signs Temp Pulse Resp BP Pulse Ox O2 Del Method 07/10/22 15:40 99.1 F 106 H 18 99/62 L 98 Room Air 07/10/22 07:37 98.1 F 94 H 18 107/59 L 98 Room Air PG Care Time/CCT Total # of Minutes Spent Total Time Spent with Patient: Total time spent is greater than 50% in coordination of care (as documented) at patient's floor/unit and/or counseling patient: Coding Level of Care Code 10512 SUB INP/OBS CARE 2/35MIN Diagnoses H/O exploratory laparotomy Z98.890 Septic shock A41.9; R65.21 Iliac DVT (deep venous thrombosis) I82.429 Stage III pressure ulcer of left hip L89.223 Severe protein-calorie malnutrition E43 Hypokalemia E87.6 Neurogenic bowel K59.2 Neurogenic bladder N31.9 Mood disorder F39 Anemia D64.9
[2022-07-10] MEDS: MIRTAZAPINE TAB 15 MG TAB JT SCH (21:28)
[2022-07-10] MEDS: oxyCODONE HCL IR 5 MG TAB (IMMEDIATE RELEASE) PO PRN (21:30)
[2022-07-10] MEDS: BACLOFEN 10 MG TAB GT SCH (21:30)
[2022-07-11] MEDS: TUBE FEEDING WATER FLUSH JT SCH ×6 (00:07→20:28)
[2022-07-11] MEDS: oxyCODONE HCL IR 5 MG TAB (IMMEDIATE RELEASE) PO PRN ×3 (02:26→20:30)
[2022-07-11] MEDS: MoRPHine SULFATE 4 MG/ML 1 ML CARP\\VIAL IV PRN (03:56)
[2022-07-11] MEDS: PEPTAMEN INTENSE VHP 1.0 CAL 1,000 ML BAG JT SCH (03:56)
[2022-07-11 07:43] LABS: Basophils # (auto) 0.05 K/uL (0-0.2); Basophils % (auto) 0.4 %; Eosinophils # (auto) 0.45 K/uL (0-0.50); Eosinophils % (auto) 3.8 %; Hematocrit (blood only) 27.8 % (42.0-52.0); Hemoglobin 8.6 g/dl (14.0-18.0); Immature Granulocytes # (auto) 0.12 K/uL (0.01-0.20); Lymphocytes # (auto) 3.36 K/uL (1.2-3.4); Lymphocytes % (auto) 28.5 %; Mean Corpuscular Hemoglobin 26.7 pg (25.0-34.0); Mean Corpuscular Hgb Conc 30.9 g/dL (32.0-36.0); Mean Corpuscular Volume 86.3 fL (80.0-100.0); Mean Platelet Volume 9.8 fL (9.4-12.4); Monocytes # (auto) 1.24 K/uL (0.11-0.59); Monocytes % (auto) 10.5 %; Neutrophils # (auto) 6.56 K/uL (1.40-6.50); Neutrophils % (auto) 55.8 %; Platelet Count 448 K/uL (130-400); RDW Coefficient of Variation 15.3 % (11.5-14.5); RDW Standard Deviation 48.6 fL (36.4-46.3); Red Blood Count 3.22 M/uL (4.70-6.10); White Blood Count 11.78 K/ul (4.8-10.8)
[2022-07-11 07:55] LABS: Anion Gap 4 (3-11); BUN Creatinine Ratio 11.1 (10-20); Blood Urea Nitrogen 4 mg/dl (6-23); Carbon Dioxide 33 mmol/L (21-32); Chloride 100 mmol/L (98-107); Est GFR (African American) > 150.0 ml/min; Est GFR (Non-African American) > 150.0 ml/min; Glucose 83 mg/dl (70-99(Fasting)); Potassium 4.1 mmol/L (3.5-5.1); Sodium 137 mmol/L (136-145)
[2022-07-11] MEDS: ASCORBIC ACID 500 MG TAB PO SCH (08:27)
[2022-07-11] MEDS: BACLOFEN 10 MG TAB PO SCH ×2 (08:27→12:35)
[2022-07-11] MEDS: THIAMINE HCL 100 MG TAB PO SCH (08:27)
[2022-07-11] MEDS: OXANDROLONE 10 MG TABLET PO SCH ×2 (08:29→20:28)
--- NOTE | 2022-07-11 08:56 | Surgery Progress Note ---
Date of Service July 11, 2022 Assessment & Plan (1) H/O exploratory laparotomy: Plan: Doing okay. Slight bump in his WBC. We will check a urinalysis. No sign of wound infection. Will advance to low residue diet. We will also pull his [place] drain. If he continues to do well potential discharge tomorrow or Saturday Admission and Anticipated Discharge Date Admission Date: July 03, 2022 Subjective Patient seen. Feeling well. Tolerating full liquid diet yesterday. No new complaints. Physical Exam Physical Exam: Alert. No acute distress Abdomen is soft. Incision looks good with no sign of infection. Stoma functioning nicely. [place] with scant output Results & Data ([facility]) Vital Signs (Past 12 Hours) Vital Signs Temp Pulse Resp BP Pulse Ox O2 Del Method 07/11/22 08:18 36.4 C L 85 18 125/81 99 Room Air 07/10/22 23:33 100 H 103/54 L 98 Room Air 07/10/22 21:41 37 C 100 H 18 98/57 L 100 Room Air PG Care Time/CCT Total # of Minutes Spent Total Time Spent with Patient: Total time spent is greater than 50% in coordination of care (as documented) at patient's floor/unit and/or counseling patient: Coding Level of Care Code 75632 Post Operative Follow-Up Diagnoses H/O exploratory laparotomy Z98.890
[2022-07-11 09:31] LABS: Appearance Urine Turbid (Clear); Bilirubin Urine Negative (Negative); Blood Urine Negative (Negative); Color Urine Yellow; Epithelial Cell Urine Auto >30 /lpf (0-5); Glucose Urine UA Negative (Negative); Ketones Urine Negative (Negative); Leukocyte Esterase Urine Trace (Negative); Nitrite Urine Negative (Negative); Specific Gravity Urine 1.013 (1.000-1.030); Urobilinogen Urine Negative (Negative); pH Urine 7.5 (4.5-7.5)
[2022-07-11 09:39] LABS: Protein Urine Trace (Negative)
[2022-07-11 09:45] LABS: RBC Urine Automated 0-4 /hpf (0-4)
[2022-07-11 09:48] LABS: Bacteria Urine Automated 1+ (Negative)
[2022-07-11 09:50] LABS: Amorphous Sediment Urine Present (None Prsent); Cast Urine Automated 0 /lpf (0-5); Mucus Urine Present (None Prsent)
[2022-07-11 10:43] LABS: Albumin Level 3.1 gm/dl (3.4-5.0)
[2022-07-11] MEDS: ENOXAPARIN 100 MG/1ML SYR SQ SCH (11:01)
--- NOTE | 2022-07-11 16:55 | Hospitalist Progress Note ---
Date of Service July 11, 2022 Assessment & Plan (1) H/O exploratory laparotomy: Plan: - Acute with serious risk, exploratory laparotomy, revision of gastrojejunostomy, partial bowel resection, intraoperative esophagogastroduodenoscopy, placement of jejunum tube feeding, enterolysis,repair of internal hernia -Procedure performed 07/03/2022 -NG tube removed. Patient does not want home tube feeding at this time colostomy is working well and he is taking oral intake - Pain control per primary service (2) Septic shock: Plan: - Acute serious risk now resolved -secondary to perforated abdominal viscus -Patient is to complete a course of antibiotics - (3) Iliac DVT (deep venous thrombosis): Plan: Acute left leg DVT seen on CT abdomen pelvis on 07/09/2022 initiated on heparin therapeutic will transition to lovenox 1.5 mg /kg once daily recommend 3-month treatment (4) Stage III pressure ulcer of left hip: Plan: - Chronic uncontrolled continued significant risk the patient -history of multiple pressure wounds, sacral decubitus ulcer, stage IV, pressure ulcer of ischium, stage 3, pressure ulcer of toe of left foot, stage 3 -CT scan abdomen pelvis on 07/09/2022 suggest osteomyelitis is chronic and stable - - H/o MRSA and VRE - Currently on broad spectrum antibiotics - Daptomycin, Meropenem, and Capsofungin, day 4 - Per ID will complete on 07/10 and can transition back to Dalbavancin weekly starting on 07/12/2022 at that medical treatment unit. Patient needs to be discharged by 1300 hrs. - Blood cultures from 07/03 NGTD - Resume outpatient care with Dr. Villar - Recommend field enumerator consult if not already done (5) Severe protein-calorie malnutrition: Plan: Unfortunately the root cause of majority of his issues - J-tube in place for supplemental feeding - Tolerating feeds, advance to goal - Energy Professional is recommending oxandrolone which he started 07/06 (5mg BID) this does not need to be continued at discharge (6) Hypokalemia: Plan: Both low potassium and phosphorus are low repleted by K-Phos Additional phosphorus ordered on 07/09/2022 (7) Neurogenic bowel: Plan: - With diverting colostomy (8) Neurogenic bladder: Plan: - Suprapubic catheter in place - Urine w/o gross sediment - Continue Oxybutynin 5mg BID prn (9) Mood disorder: Plan: - Resume meds as soon as diet is advanced - Continue Mirtazapine 7.5mg daily (10) Anemia: Plan: - Chronic/stable Admission and Anticipated Discharge Date Admission Date: July 03, 2022 Subjective Patient seen. Feeling well. Tolerating full liquid diet yesterday. No new complaints. Physical Exam Physical Exam: Patient is markedly underweight and chronically ill 6 foot 3, 141 pounds BMI of 17 abdominal pain is tolerable Exam is regular lungs are clear abdomen is with dressings in place is tender ostomy is functioning Results & Data Results & Data ([facility]) Vital Signs (Past 12 Hours) Vital Signs Temp Pulse Resp BP Pulse Ox O2 Del Method 07/11/22 08:18 97.5 F L 85 18 125/81 99 Room Air PG Care Time/CCT Total # of Minutes Spent Total Time Spent with Patient: Total time spent is greater than 50% in coordination of care (as documented) at patient's floor/unit and/or counseling patient: Coding Level of Care Code 52704 SUB INP/OBS CARE 2/35MIN Diagnoses H/O exploratory laparotomy Z98.890 Septic shock A41.9; R65.21 Iliac DVT (deep venous thrombosis) I82.429 Stage III pressure ulcer of left hip L89.223 Severe protein-calorie malnutrition E43 Hypokalemia E87.6 Neurogenic bowel K59.2 Neurogenic bladder N31.9 Mood disorder F39 Anemia D64.9
[2022-07-11] MEDS: MIRTAZAPINE TAB 15 MG TAB JT SCH (20:28)
[2022-07-11] MEDS: BACLOFEN 10 MG TAB GT SCH (20:28)
[2022-07-12] MEDS: MoRPHine SULFATE 2 MG/ML CARP IV PRN ×4 (01:44→20:40)
[2022-07-12] MEDS: TUBE FEEDING WATER FLUSH JT SCH ×6 (01:45→21:20)
[2022-07-12] MEDS: oxyCODONE HCL IR 5 MG TAB (IMMEDIATE RELEASE) PO PRN ×2 (05:25→16:54)
[2022-07-12 06:42] LABS: Basophils # (auto) 0.04 K/uL (0-0.2); Basophils % (auto) 0.3 %; Eosinophils # (auto) 0.41 K/uL (0-0.50); Eosinophils % (auto) 3.2 %; Hematocrit (blood only) 24.1 % (42.0-52.0); Hemoglobin 7.7 g/dl (14.0-18.0); Immature Granulocytes # (auto) 0.14 K/uL (0.01-0.20); Immature Granulocytes % (auto) 1.1 %; Lymphocytes % (auto) 21.5 %; Mean Corpuscular Hemoglobin 26.8 pg (25.0-34.0); Monocytes # (auto) 1.14 K/uL (0.11-0.59); Monocytes % (auto) 8.8 %; Neutrophils # (auto) 8.48 K/uL (1.40-6.50); Neutrophils % (auto) 65.1 %; Platelet Count 433 K/uL (130-400); RDW Coefficient of Variation 15.4 % (11.5-14.5); RDW Standard Deviation 47.4 fL (36.4-46.3); Red Blood Count 2.87 M/uL (4.70-6.10); White Blood Count 13.01 K/ul (4.8-10.8)
[2022-07-12 06:52] LABS: Anion Gap 5 (3-11); Blood Urea Nitrogen 10 mg/dl (6-23); Calcium 8.1 mg/dl (8.5-10.1); Carbon Dioxide 33 mmol/L (21-32); Chloride 98 mmol/L (98-107); Creatinine Clr Calc Pharmacy 249.1 ml/min; Est GFR (African American) > 150.0 ml/min; Est GFR (Non-African American) > 150.0 ml/min; Glucose 120 mg/dl (70-99(Fasting)); Potassium 3.3 mmol/L (3.5-5.1); Sodium 136 mmol/L (136-145)
[2022-07-12 07:41] LABS: Polychromasia 1+
[2022-07-12] MEDS: OXANDROLONE 10 MG TABLET PO SCH ×2 (09:45→20:39)
[2022-07-12] MEDS: BACLOFEN 10 MG TAB PO SCH ×2 (09:45→13:44)
[2022-07-12] MEDS ORDERED: POTASSIUM CHLORIDE CRTAB 20 MEQ TABCR PO STA (09:50)
[2022-07-12] MEDS: ASCORBIC ACID 500 MG TAB PO SCH (09:50)
[2022-07-12] MEDS: THIAMINE HCL 100 MG TAB PO SCH (09:50)
--- NOTE | 2022-07-12 10:08 | Surgery Progress Note ---
Date of Service July 12, 2022 Assessment & Plan (1) H/O exploratory laparotomy: Plan: Doing well clinically however his white blood cell count went up again today and his hemoglobin dropped in the face of being on Lovenox. Unclear etiology of either. He does not appear to be bleeding actively anywhere and I do not identify a source of infection. He is scheduled to get Dalvance today and I will contact pharmacy to see if we can get that for him as an inpatient. I would like to watch him 1 more day with possible discharge tomorrow as long as his hemoglobin is stable and he does not exhibit any signs of worsening infection. Admission and Anticipated Discharge Date Admission Date: July 03, 2022 Subjective Patient seen. Feels great and would like to go home. Tolerating a diet. Physical Exam Physical Exam: Alert. No acute distress. Appears comfortable. This is the best he has looked Gastrointestinal (Abdomen): Abdomen is soft. His incision is clean dry and intact with no erythema or sign of infection. Feeding tube in place. Stoma functioning. Results & Data ([facility]) Vital Signs (Past 12 Hours) Vital Signs Temp Pulse Resp BP Pulse Ox O2 Del Method 07/12/22 08:32 36.7 C 110 H 18 99/58 L 99 Room Air 07/12/22 00:41 103 H 18 102/61 96 Room Air 07/11/22 22:38 36.6 C 106 H 16 99/62 L 96 Room Air PG Care Time/CCT Total # of Minutes Spent Total Time Spent with Patient: Total time spent is greater than 50% in coordination of care (as documented) at patient's floor/unit and/or counseling patient: Coding Level of Care Code 50980 Post Operative Follow-Up Diagnoses H/O exploratory laparotomy Z98.890
[2022-07-12] MEDS: ENOXAPARIN 100 MG/1ML SYR SQ SCH (11:40)
[2022-07-12] MEDS: MIRTAZAPINE TAB 15 MG TAB JT SCH (20:39)
[2022-07-12] MEDS: BACLOFEN 10 MG TAB GT SCH (20:39)
[2022-07-13] MEDS: TUBE FEEDING WATER FLUSH JT SCH ×7 (01:27→22:59)
[2022-07-13] MEDS: MoRPHine SULFATE 2 MG/ML CARP IV PRN ×5 (03:08→22:42)
[2022-07-13] MEDS: oxyCODONE HCL IR 5 MG TAB (IMMEDIATE RELEASE) PO PRN ×2 (05:41→10:11)
[2022-07-13 06:29] LABS: Basophils # (auto) 0.06 K/uL (0-0.2); Basophils % (auto) 0.4 %; Eosinophils # (auto) 0.36 K/uL (0-0.50); Eosinophils % (auto) 2.3 %; Hematocrit (blood only) 27.3 % (42.0-52.0); Hemoglobin 8.5 g/dl (14.0-18.0); Immature Granulocytes # (auto) 0.26 K/uL (0.01-0.20); Immature Granulocytes % (auto) 1.7 %; Lymphocytes # (auto) 2.87 K/uL (1.2-3.4); Lymphocytes % (auto) 18.3 %; Mean Corpuscular Hemoglobin 26.6 pg (25.0-34.0); Mean Corpuscular Hgb Conc 31.1 g/dL (32.0-36.0); Mean Corpuscular Volume 85.3 fL (80.0-100.0); Mean Platelet Volume 9.7 fL (9.4-12.4); Monocytes # (auto) 1.22 K/uL (0.11-0.59); Monocytes % (auto) 7.8 %; Neutrophils % (auto) 69.5 %; Platelet Count 616 K/uL (130-400); RDW Coefficient of Variation 15.7 % (11.5-14.5); RDW Standard Deviation 48.5 fL (36.4-46.3); White Blood Count 15.67 K/ul (4.8-10.8)
[2022-07-13 06:52] LABS: Anion Gap 4 (3-11); Blood Urea Nitrogen 8 mg/dl (6-23); Carbon Dioxide 35 mmol/L (21-32); Chloride 99 mmol/L (98-107); Creatinine Clr Calc Pharmacy 195.2 ml/min; Est GFR (African American) > 150.0 ml/min; Est GFR (Non-African American) > 150.0 ml/min; Glucose 88 mg/dl (70-99(Fasting)); Potassium 4.5 mmol/L (3.5-5.1); Sodium 138 mmol/L (136-145)
[2022-07-13] MEDS: BACLOFEN 10 MG TAB PO SCH ×2 (09:08→12:25)
[2022-07-13] MEDS: THIAMINE HCL 100 MG TAB PO SCH (09:14)
[2022-07-13] MEDS: ASCORBIC ACID 500 MG TAB PO SCH (09:14)
[2022-07-13] MEDS: ENOXAPARIN 100 MG/1ML SYR SQ SCH (10:03)
[2022-07-13] MEDS: OXANDROLONE 10 MG TABLET PO SCH ×2 (10:09→19:37)
--- NOTE | 2022-07-13 10:55 | Surgery Progress Note ---
Date of Service July 13, 2022 Assessment & Plan (1) H/O exploratory laparotomy: Plan: Status post exploratory laparotomy with revision of his gastrojejunal anastomosis. From my standpoint he appears to clinically be doing very well and wants to go home. However his white blood cell count continues to increase. He is afebrile. Potentially could be his sacral decub which is not being treated with Dalvance as he was scheduled to have an outpatient treatment yesterday. We will reach out to infectious disease to get their opinion. Also going to go ahead and order a CT scan of the abdomen out of caution. We may need to start some empiric antibiotics. I am okay with him going home once his white blood cell count starts trending down. Dr. Gutierres covering for the weekend. Admission and Anticipated Discharge Date Admission Date: July 03, 2022 Subjective Patient seen. He is feeling very well and looks great. This is the best he has felt or looked since we had urgently operated on him. He is eating stoma is functioning Physical Exam Physical Exam: Alert. No acute distress. Wound looks good. Stoma functioning. Results & Data ([facility]) Vital Signs (Past 12 Hours) Vital Signs Temp Pulse Resp BP Pulse Ox O2 Del Method 07/13/22 07:29 37.0 C 117 H 18 118/65 99 Room Air PG Care Time/CCT Total # of Minutes Spent Total Time Spent with Patient: Total time spent is greater than 50% in coordination of care (as documented) at patient's floor/unit and/or counseling patient: Coding Level of Care Code 85696 Post Operative Follow-Up Diagnoses H/O exploratory laparotomy Z98.890
[2022-07-13] MEDS ORDERED: OPTIRAY 320 100ml IV ONE (12:13)
--- NOTE | 2022-07-13 12:31 | CT Scan Report ---
ABDOMEN AND PELVIS CT WITH IV AND ORAL CONTRAST CT DOSE: 273.11 mGycm HISTORY: Leukocytosis with tachycardia. Follow-up study in a patient with gastrojejunostomy Increasi ng WBC, tachycardia. s/p revision of GJ TECHNIQUE: Multiaxial CT images of the abdomen and pelvis were performed following the IV administrat ion of 89 cc of Optiray and oral contrast. A dose lowering technique was utilized adhering to the pr inciples of LTOTIE. COMPARISON STUDY: 07/09/2022 FINDINGS: Small left pleural effusion with mild dependent left basilar consolidation favoring atelect asis. Small amount of pneumoperitoneum. A right anterior abdominal wall surgical drainage catheter is present. A gastrojejunostomy tube is also present. Interval removal of the left abdominal surgical d rainage catheter. The spleen is upper limits of normal in size. Unremarkable pancreas and adrenal glands. Contracted ga llbladder. Unremarkable liver. Patency of the hepatic and portal veins. No hydronephrosis. 1.3 cm cys t within the interpolar right kidney. A suprapubic catheter is present within a decompressed urinary bladder. Numerous dependent urinary bladder calculi redemonstrated. There is decreased abdominal pelv ic ascites compared to the prior study. Peripherally enhancing fluid collection of the left hemipelvi s on image 337 measures 7.3 x 14 x 9.5 cm with extension into the left anterior mid abdomen. Postoper ative changes of the barrel colostomy in the left lower quadrant with distal gastrectomy and gastroje junostomy. There is decreased distention and wall thickening of the bowel compared to the prior study . Persistent chronic small bowel dilation within the left upper quadrant. Mild gaseous distention of the large bowel. Enteric contrast within the cecum. Large decubitus ulcer with chronic osteomyelitis of the right ischium and right iliac bone. Chronic s acrococcygeal deformity with osseous erosion. IMPRESSION: 1. Small amount of pneumoperitoneum with interval removal of the intra-abdominal surgical drainage ca theter. 2. Loculated fluid collection within the left hemipelvis measuring up to 14 cm suggestive of an absce ss. 3. Persistent small bowel dilation with wall thickening has improved from the prior study without moisés dence of obstruction. 4. Decreased abdominal pelvic ascites. 5. Extensive postoperative changes as above. 6. Large decubitus ulcer with chronic pelvic osteomyelitis. 7. Small left pleural effusion. ACT 112: Negative or not required by law. The above report was generated using voice recognition software. It may contain grammatical, syntax o r spelling errors. Electronically signed by: Porfirio Arvizu M.D. 07/13/2022 12:30 PM
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
[2022-07-13 14:54] LABS: INR 1.2 (0.9-1.1); Partial Thromboplastin Ratio 1.1; Partial Thromboplastin Time 30.2 Seconds (21.0-31.0); Prothrombin Time 12.7 Seconds (9.0-12.0)
--- NOTE | 2022-07-13 16:07 | Ultrasound Report ---
Ultrasound guided left lower quadrant abscess drain placement INDICATION: 14 cm complex fluid collection left lower quadrant PROCEDURE: Procedure and risks were explained. Informed consent was obtained. A final timeout was com pleted. The left lower quadrant was prepped and draped in sterile fashion. 1% buffered lidocaine was utilized for skin anesthesia. The patient received 2 mg morphine IV during the procedure for pain. Utilizing ultrasound guidance, an 18-gauge Chiba needle was advanced into the complex left lower quad rant fluid collection. Ultrasound images were obtained. A 0.035 Amplatz wire was introduced through t he entry needle and exchanged out over the wire for an 8 Burkinan dilator, 12 Burkinan dilator, and final ly a 14 Burkinan locking pigtail catheter. Approximately 40 mL of serosanguineous fluid was aspirated a nd sent to the lab for cultures. An additional 200 mL was drained at the time of the procedure. The c atheter was sutured to the skin with 2-0 silk and placed to suction bag drainage. A sterile dressing was applied over the pigtail catheter. The patient tolerated the procedure well. Vital signs will be monitored on the floor post procedure. IMPRESSION: Left lower quadrant abscess drain placement as detailed above. Performed, dictated, and signed by Ilir Brown PA-C; to be co-signed by Dr. Yossi Arechiga. Electronically signed by: Yossi Arechiga M.D. 07/13/2022 4:09 PM
[2022-07-13] MEDS: MEROPENEM 500 MG in SYRINGE 0 ML IV SCH ×2 (17:53→22:42)
[2022-07-13] MEDS: DAPTOmycin 375 MG in SYRINGE 0 ML IV SCH (18:29)
[2022-07-13] MEDS: BACLOFEN 10 MG TAB GT SCH (19:38)
[2022-07-13] MEDS: MIRTAZAPINE TAB 15 MG TAB JT SCH (19:38)
[2022-07-14] MEDS: MoRPHine SULFATE 2 MG/ML CARP IV PRN ×3 (03:10→10:28)
[2022-07-14] MEDS: TUBE FEEDING WATER FLUSH JT SCH (03:17)
[2022-07-14] MEDS: MEROPENEM 500 MG in SYRINGE 0 ML IV SCH ×4 (04:42→22:55)
[2022-07-14 06:30] LABS: Basophils # (auto) 0.06 K/uL (0-0.2); Basophils % (auto) 0.5 %; Eosinophils % (auto) 2.3 %; Hematocrit (blood only) 24.5 % (42.0-52.0); Hemoglobin 7.8 g/dl (14.0-18.0); Immature Granulocytes # (auto) 0.15 K/uL (0.01-0.20); Immature Granulocytes % (auto) 1.2 %; Lymphocytes # (auto) 2.56 K/uL (1.2-3.4); Lymphocytes % (auto) 19.9 %; Mean Corpuscular Hemoglobin 27.2 pg (25.0-34.0); Mean Corpuscular Hgb Conc 31.8 g/dL (32.0-36.0); Mean Corpuscular Volume 85.4 fL (80.0-100.0); Mean Platelet Volume 9.5 fL (9.4-12.4); Monocytes # (auto) 1.13 K/uL (0.11-0.59); Monocytes % (auto) 8.8 %; Neutrophils # (auto) 8.64 K/uL (1.40-6.50); Neutrophils % (auto) 67.3 %; Platelet Count 515 K/uL (130-400); RDW Coefficient of Variation 15.6 % (11.5-14.5); RDW Standard Deviation 48.4 fL (36.4-46.3); Red Blood Count 2.87 M/uL (4.70-6.10); White Blood Count 12.84 K/ul (4.8-10.8)
[2022-07-14 06:39] LABS: Anion Gap 5 (3-11); BUN Creatinine Ratio 28.9 (10-20); Blood Urea Nitrogen 13 mg/dl (6-23); Calcium 8.6 mg/dl (8.5-10.1); Carbon Dioxide 32 mmol/L (21-32); Chloride 101 mmol/L (98-107); Creatinine Clr Calc Pharmacy 216.9 ml/min; Est GFR (African American) > 150.0 ml/min; Est GFR (Non-African American) > 150.0 ml/min; Glucose 90 mg/dl (70-99(Fasting)); Magnesium 1.9 mg/dl (1.7-2.4); Potassium 3.8 mmol/L (3.5-5.1); Sodium 138 mmol/L (136-145)
[2022-07-14 06:50] LABS: RBC Morphology Unremarkable
--- NOTE | 2022-07-14 08:51 | Surgery Progress Note ---
Date of Service July 14, 2022 Assessment & Plan (1) H/O exploratory laparotomy: Plan: 07/13/2022 1 day s/p Ultrasound guided left lower quadrant abscess drain placement POD # 11 s/p Exploratory laparotomy, revision of gastrojejunostomy, partial bowel resection, intraoperative esophagogastroduodenoscopy, placement of jejunum tube feeding, enterolysis, repair of internal hernia Overall, he is doing well today. WBC improved this AM, 12.84. He is afebrile. Meropenem + Dapto restarted yesterday. He denies pain or discomfort. He is tolerating a regular diet. +ostomy functioning. Continue current management. Plan is to keep patient for weekend, with possible discharge early next week. 07/13/2022 Status post exploratory laparotomy with revision of his gastrojejunal anastomosis. From my standpoint he appears to clinically be doing very well and wants to go home. However his white blood cell count continues to increase. He is afebrile. Potentially could be his sacral decub which is not being treated with Dalvance as he was scheduled to have an outpatient treatment yesterday. We will reach out to infectious disease to get their opinion. Also going to go ahead and order a CT scan of the abdomen out of caution. We may need to start some empiric antibiotics. I am okay with him going home once his white blood cell count starts trending down. Dr. Gutierres covering for the weekend. Admission and Anticipated Discharge Date Admission Date: July 03, 2022 Supervising Physician Co-Signing Physician Notes Dr. Duron placed in left lower quadrant draining bloody serous fluid Patient slowly improving Continue supportive care and IV antibiotics Subjective is resting comfortable in bed, eating breakfast. He reports that he is overall doing well. He denies any pain or discomfort. Review of Systems Constitutional: no fever and no chills Respiratory: no cough and no dyspnea Cardiovascular: no chest pain Gastrointestinal: no abdominal pain, no nausea and no vomiting Physical Exam Physical Exam: Wound is stable. Stoma functioning without issue. Drain in left lower quadrant- placed by IR on 07/13/22 Constitutional: WD/WN, vitals as above +tachycardic Respiratory: normal respiratory effort; no respiratory distress and no labored breathing Psychiatric: A+Ox3, euthymic affect Results & Data ([facility]) Vital Signs (Past 12 Hours) Vital Signs Temp Pulse Resp BP Pulse Ox O2 Del Method 07/14/22 07:57 36.8 C 104 H 18 110/74 99 Room Air 07/13/22 23:03 37 C 96 H 14 128/71 99 Room Air PG Care Time/CCT Total # of Minutes Spent Total Time Spent with Patient: Total time spent is greater than 50% in coordination of care (as documented) at patient's floor/unit and/or counseling patient: Coding Level of Care Code 38318 Post Operative Follow-Up Diagnoses H/O exploratory laparotomy Z98.890
[2022-07-14] MEDS: BACLOFEN 10 MG TAB PO SCH ×2 (08:53→13:46)
[2022-07-14] MEDS: OXANDROLONE 10 MG TABLET PO SCH ×2 (08:54→20:15)
[2022-07-14] MEDS: THIAMINE HCL 100 MG TAB PO SCH (08:54)
[2022-07-14] MEDS: ASCORBIC ACID 500 MG TAB PO SCH (08:54)
[2022-07-14] MEDS: ENOXAPARIN 100 MG/1ML SYR SQ SCH (11:52)
[2022-07-14] MEDS: oxyCODONE HCL IR 5 MG TAB (IMMEDIATE RELEASE) PO PRN ×2 (13:47→22:55)
[2022-07-14] MEDS: DAPTOmycin 375 MG in SYRINGE 0 ML IV SCH (17:51)
[2022-07-14] MEDS: MIRTAZAPINE TAB 15 MG TAB JT SCH (20:16)
[2022-07-14] MEDS: BACLOFEN 10 MG TAB GT SCH (20:16)
[2022-07-15] MEDS: MEROPENEM 500 MG in SYRINGE 0 ML IV SCH ×4 (04:36→22:29)
[2022-07-15 07:08] LABS: Basophils # (auto) 0.06 K/uL (0-0.2); Basophils % (auto) 0.6 %; Eosinophils # (auto) 0.31 K/uL (0-0.50); Eosinophils % (auto) 2.9 %; Hematocrit (blood only) 24.6 % (42.0-52.0); Hemoglobin 7.7 g/dl (14.0-18.0); Immature Granulocytes # (auto) 0.12 K/uL (0.01-0.20); Immature Granulocytes % (auto) 1.1 %; Lymphocytes % (auto) 27.4 %; Mean Corpuscular Hemoglobin 26.6 pg (25.0-34.0); Mean Corpuscular Hgb Conc 31.3 g/dL (32.0-36.0); Mean Corpuscular Volume 84.8 fL (80.0-100.0); Mean Platelet Volume 9.3 fL (9.4-12.4); Monocytes # (auto) 1.07 K/uL (0.11-0.59); Monocytes % (auto) 10.1 %; Neutrophils # (auto) 6.12 K/uL (1.40-6.50); Neutrophils % (auto) 57.9 %; Platelet Count 602 K/uL (130-400); RDW Coefficient of Variation 15.7 % (11.5-14.5); RDW Standard Deviation 48.9 fL (36.4-46.3); White Blood Count 10.58 K/ul (4.8-10.8)
[2022-07-15 07:40] LABS: Polychromasia 1+
[2022-07-15 08:06] LABS: Anion Gap 2 (3-11); Calcium 8.4 mg/dl (8.5-10.1); Carbon Dioxide 34 mmol/L (21-32); Chloride 103 mmol/L (98-107); Magnesium 1.9 mg/dl (1.7-2.4); Potassium 4.4 mmol/L (3.5-5.1); Sodium 139 mmol/L (136-145)
[2022-07-15 08:12] LABS: BUN Creatinine Ratio 31.3 (10-20); Blood Urea Nitrogen 15 mg/dl (6-23); Creatinine Clr Calc Pharmacy 203.3 ml/min; Est GFR (African American) > 150.0 ml/min; Est GFR (Non-African American) > 150.0 ml/min; Glucose 74 mg/dl (70-99(Fasting))
--- NOTE | 2022-07-15 09:11 | Surgery Progress Note ---
Date of Service July 15, 2022 Assessment & Plan (1) H/O exploratory laparotomy: Plan: 07/15/2022 2 days s/p Ultrasound guided left lower quadrant abscess drain placement POD # 12 s/p Exploratory laparotomy, revision of gastrojejunostomy, partial bowel resection, intraoperative esophagogastroduodenoscopy, placement of jejunum tube feeding, enterolysis, repair of internal hernia Overall, he is doing well today. WBC improved once again this AM and is now within normal limits. He remains afebrile. He denies pain or discomfort. He is tolerating a regular diet. +ostomy functioning. Continue current management. Plan is to keep patient for weekend, with possible discharge early next week. 07/14/2022 1 day s/p Ultrasound guided left lower quadrant abscess drain placement POD # 11 s/p Exploratory laparotomy, revision of gastrojejunostomy, partial bowel resection, intraoperative esophagogastroduodenoscopy, placement of jejunum tube feeding, enterolysis, repair of internal hernia Overall, he is doing well today. WBC improved this AM, 12.84. He is afebrile. Meropenem + Dapto restarted yesterday. He denies pain or discomfort. He is tolerating a regular diet. +ostomy functioning. Continue current management. Plan is to keep patient for weekend, with possible discharge early next week. 07/13/2022 Status post exploratory laparotomy with revision of his gastrojejunal anastomosis. From my standpoint he appears to clinically be doing very well and wants to go home. However his white blood cell count continues to increase. He is afebrile. Potentially could be his sacral decub which is not being treated with Dalvance as he was scheduled to have an outpatient treatment yesterday. We will reach out to infectious disease to get their opinion. Also going to go ahead and order a CT scan of the abdomen out of caution. We may need to start some empiric antibiotics. I am okay with him going home once his white blood cell count starts trending down. Dr. Gutierres covering for the weekend. Admission and Anticipated Discharge Date Admission Date: July 03, 2022 Supervising Physician Co-Signing Physician Notes Dr. Gutierrespatient doing much better and eating very well Drain with bloody serous drainage, no growth so far Overall making good improvements Subjective is resting comfortably in bed. He reports that he is still doing well. No acute changes overnight. Review of Systems Constitutional: no fever and no chills Respiratory: no cough and no dyspnea Cardiovascular: no chest pain Gastrointestinal: no abdominal pain, no nausea and no vomiting Physical Exam Physical Exam: Wound is stable. Stoma functioning without issue. Drain in left lower quadrant- placed by IR on 07/13/22 with bloody, serous output. Constitutional: WD/WN, vitals as above Respiratory: normal respiratory effort; no respiratory distress and no labored breathing Psychiatric: A+Ox3, euthymic affect Results & Data ([facility]) Vital Signs (Past 12 Hours) Vital Signs Temp Pulse Resp BP Pulse Ox O2 Del Method 07/15/22 07:58 36.8 C 18 103/60 99 Room Air 07/15/22 00:05 36.9 C 97 H 16 113/73 97 Room Air PG Care Time/CCT Total # of Minutes Spent Total Time Spent with Patient: Total time spent is greater than 50% in coordination of care (as documented) at patient's floor/unit and/or counseling patient: Coding Level of Care Code 68358 Post Operative Follow-Up Diagnoses H/O exploratory laparotomy Z98.890
[2022-07-15] MEDS: oxyCODONE HCL IR 5 MG TAB (IMMEDIATE RELEASE) PO PRN ×2 (09:18→19:49)
[2022-07-15] MEDS: BACLOFEN 10 MG TAB PO SCH ×2 (09:19→12:43)
[2022-07-15] MEDS: OXANDROLONE 10 MG TABLET PO SCH ×2 (09:19→19:45)
[2022-07-15] MEDS: ASCORBIC ACID 500 MG TAB PO SCH (09:20)
[2022-07-15] MEDS: THIAMINE HCL 100 MG TAB PO SCH (09:20)
[2022-07-15] MEDS: ENOXAPARIN 100 MG/1ML SYR SQ SCH (10:20)
[2022-07-15] MEDS: DAPTOmycin 375 MG in SYRINGE 0 ML IV SCH (18:17)
[2022-07-15] MEDS: BACLOFEN 10 MG TAB GT SCH (19:46)
[2022-07-15] MEDS: MIRTAZAPINE TAB 15 MG TAB JT SCH (19:46)
[2022-07-16] MEDS: MEROPENEM 500 MG in SYRINGE 0 ML IV SCH ×2 (04:28→11:29)
[2022-07-16 06:36] LABS: Basophils # (auto) 0.07 K/uL (0-0.2); Basophils % (auto) 0.7 %; Eosinophils # (auto) 0.31 K/uL (0-0.50); Eosinophils % (auto) 2.9 %; Hematocrit (blood only) 24.5 % (42.0-52.0); Hemoglobin 7.8 g/dl (14.0-18.0); Immature Granulocytes # (auto) 0.11 K/uL (0.01-0.20); Lymphocytes # (auto) 3.15 K/uL (1.2-3.4); Mean Corpuscular Hemoglobin 26.9 pg (25.0-34.0); Mean Corpuscular Hgb Conc 31.8 g/dL (32.0-36.0); Mean Corpuscular Volume 84.5 fL (80.0-100.0); Mean Platelet Volume 9.1 fL (9.4-12.4); Monocytes # (auto) 1.02 K/uL (0.11-0.59); Monocytes % (auto) 9.7 %; Neutrophils # (auto) 5.85 K/uL (1.40-6.50); Neutrophils % (auto) 55.7 %; Platelet Count 643 K/uL (130-400); RDW Coefficient of Variation 15.9 % (11.5-14.5); RDW Standard Deviation 49.1 fL (36.4-46.3); White Blood Count 10.51 K/ul (4.8-10.8)
[2022-07-16 06:52] LABS: Anion Gap 7 (3-11); BUN Creatinine Ratio 28.6 (10-20); Blood Urea Nitrogen 14 mg/dl (6-23); Calcium 8.2 mg/dl (8.5-10.1); Carbon Dioxide 29 mmol/L (21-32); Chloride 102 mmol/L (98-107); Creatinine Clr Calc Pharmacy 199.2 ml/min; Est GFR (African American) > 150.0 ml/min; Est GFR (Non-African American) > 150.0 ml/min; Glucose 82 mg/dl (70-99(Fasting)); Magnesium 1.7 mg/dl (1.7-2.4); Potassium 3.6 mmol/L (3.5-5.1); Sodium 138 mmol/L (136-145)
[2022-07-16 07:27] LABS: Polychromasia 1+
[2022-07-16] MEDS: BACLOFEN 10 MG TAB PO SCH ×2 (08:44→12:24)
[2022-07-16] MEDS: THIAMINE HCL 100 MG TAB PO SCH (08:45)
[2022-07-16] MEDS: OXANDROLONE 10 MG TABLET PO SCH (08:45)
[2022-07-16] MEDS: ASCORBIC ACID 500 MG TAB PO SCH (08:45)
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
--- NOTE | 2022-07-16 10:05 | Surgery Progress Note ---
Date of Service July 16, 2022 Assessment & Plan (1) H/O exploratory laparotomy: Plan: Culture growing yeast. Will discuss with infectious disease regarding home antibiotics. He is about ready for discharge potentially later today if we get everything arranged. He will not need to use the feeding tube but it will need to remain in place for 6 to 8 weeks before I remove it. Since the drain is no longer putting anything out and his white blood cell count has normalized we will go ahead and remove the drain prior to discharge. We will also remove his incisional Hieu drain. Discharge planning. Admission and Anticipated Discharge Date Admission Date: July 03, 2022 Subjective Patient seen. Feeling well. He really wants to go home. Over the weekend after getting his drain placed his white blood cell count has normalized and he is afebrile. He is eating and stoma is working. He has no complaint Physical Exam Physical Exam: Alert. No acute distress Incision looks good. Stoma functioning Pelvic drain has not put anything out over the last day or so. There are several 100 cc of red serous looking fluid. Results & Data ([facility]) Vital Signs (Past 12 Hours) Vital Signs Temp Pulse Resp BP Pulse Ox O2 Del Method 07/16/22 08:38 36.8 C 95 H 16 114/63 99 Room Air PG Care Time/CCT Total # of Minutes Spent Total Time Spent with Patient: Total time spent is greater than 50% in coordination of care (as documented) at patient's floor/unit and/or counseling patient: Coding Level of Care Code 48272 Post Operative Follow-Up Diagnoses H/O exploratory laparotomy Z98.890
[2022-07-16] MEDS: ENOXAPARIN 100 MG/1ML SYR SQ SCH (11:29)
[2022-07-16] MEDS ORDERED: CASPOFUNGIN 50 MG in SODIUM CHLORIDE 0.9% 250 ML IV SCH (12:00)
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
== END 2022-07-16 14:27 | disposition home health service (06) | DRG 853 ==
LOC: ED 06:40 → OR 10:08 → 1E 13:36 → 2W 07-06 16:58 → 3E 07-08 18:15
DX: E43 Unspecified severe protein-calorie malnutrition; D64.9 Anemia, unspecified; R65.21 Severe sepsis with septic shock; F17.210 Nicotine dependence, cigarettes, uncomplicated; E87.6 Hypokalemia; A41.9 Sepsis, unspecified organism; F39 Unspecified mood [affective] disorder; K66.0 Peritoneal adhesions (postprocedural) (postinfection); N31.9 Neuromuscular dysfunction of bladder, unspecified; M87.08 Idiopathic aseptic necrosis of bone, other site; G82.20 Paraplegia, unspecified; L89.154 Pressure ulcer of sacral region, stage 4; V89.2XXS Person injured in unspecified motor-vehicle accident, traffic, sequela; Z93.59 Other cystostomy status; M86.68 Other chronic osteomyelitis, other site; Z93.3 Colostomy status; B95.61 Methicillin susceptible Staphylococcus aureus infection as the cause of diseases classified elsewhere; I95.1 Orthostatic hypotension; K45.0 Other specified abdominal hernia with obstruction, without gangrene; K91.89 Other postprocedural complications and disorders of digestive system; I82.422 Acute embolism and thrombosis of left iliac vein; G82.54 Quadriplegia, C5-C7 incomplete; Y83.8 Other surgical procedures as the cause of abnormal reaction of the patient, or of later complication, without mention of misadventure at the time of the procedure; F19.10 Other psychoactive substance abuse, uncomplicated; E87.20 Acidosis, unspecified; Z98.1 Arthrodesis status; E86.0 Dehydration; Z93.4 Other artificial openings of gastrointestinal tract status

== ENCOUNTER 2022-07-21 19:08 | Inpatient (IN) ==
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
--- NOTE | 2022-07-21 21:34 | Ultrasound Report ---
Exam(s): US VENOUS LEFT LOWER EXTREMITY EXAM: US Duplex Left Lower Extremity Veins CLINICAL HISTORY: Reason for exam: dvt, increased swelling. TECHNIQUE: Real-time duplex ultrasound scan of the left lower extremity veins integrating B-mode two-dimensional vascular structure, Doppler spectral analysis, color flow Doppler imaging and compression. COMPARISON: No relevant prior studies available. FINDINGS: Deep veins: There is partially occlusive echogenic thrombus noted in the left common femoral vein. There is occlusive echogenic thrombus noted within the proximal profunda femoral and throughout the left femoral vein. There is occlusive thrombus noted in the left popliteal vein. The interrogated proximal calf veins are patent. Superficial veins: There is vascular flow in the saphenofemoral junction. Soft tissues: No acute findings. No popliteal cyst. IMPRESSION: 1. Extensive occlusive deep vein thrombosis noted within the left femoral vein, extending to the popliteal vein distally. 2. Partially occlusive thrombus noted in the left common femoral vein. Electronically signed by: Ilir Miranda MD 07/21/22 21:33 PM
[2022-07-21] MEDS ORDERED: Heparin IV Adult Wt-Based Standard *NO* Bolus Protocol IV ONE (21:37)
[2022-07-21] MEDS: HEPARIN SODIUM/DEXTROSE 25,000 UNITS/500 ML BAG IV SCH (21:58)
[2022-07-21 22:29] LABS: Hematocrit (blood only) 26.5 % (42.0-52.0); Hemoglobin 8.2 g/dl (14.0-18.0); Mean Corpuscular Hemoglobin 26.3 pg (25.0-34.0); Mean Corpuscular Hgb Conc 30.9 g/dL (32.0-36.0); Mean Corpuscular Volume 84.9 fL (80.0-100.0); Mean Platelet Volume 9.2 fL (9.4-12.4); Platelet Count 614 K/uL (130-400); RDW Coefficient of Variation 15.8 % (11.5-14.5); RDW Standard Deviation 48.3 fL (36.4-46.3); Red Blood Count 3.12 M/uL (4.70-6.10); White Blood Count 10.97 K/ul (4.8-10.8)
[2022-07-21 22:38] LABS: Anion Gap 7 (3-11); BUN Creatinine Ratio 47.7 (10-20); Blood Urea Nitrogen 21 mg/dl (6-23); Calcium 8.9 mg/dl (8.5-10.1); Carbon Dioxide 29 mmol/L (21-32); Chloride 100 mmol/L (98-107); Creatinine Clr Calc Pharmacy 216.7 ml/min; Est GFR (African American) > 150.0 ml/min; Est GFR (Non-African American) > 150.0 ml/min; Glucose 108 mg/dl (70-99(Fasting)); Potassium 4.1 mmol/L (3.5-5.1); Sodium 136 mmol/L (136-145)
[2022-07-21 22:48] LABS: INR 1.1 (0.9-1.1); Partial Thromboplastin Ratio 1.3; Partial Thromboplastin Time 34.5 Seconds (21.0-31.0); Prothrombin Time 11.4 Seconds (9.0-12.0)
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
[2022-07-22] MEDS ORDERED: ALUMINUM/MAGNESIUM SUSP 30 ML UDC PO PRN (01:47)
[2022-07-22] MEDS ORDERED: ACETAMINOPHEN 500 MG TAB PO PRN (01:47)
[2022-07-22] MEDS ORDERED: MIRTAZAPINE TAB 15 MG TAB PO PRN (01:47)
[2022-07-22] MEDS ORDERED: ONDANSETRON INJ 2 MG/ML 2 ML VIAL IV PRN (01:47)
[2022-07-22] MEDS ORDERED: GABAPENTIN 300 MG CAP PO PRN (01:47)
[2022-07-22] MEDS: BACLOFEN 10 MG TAB PO SCH ×4 (01:59→20:35)
[2022-07-22 04:43] LABS: Hematocrit (blood only) 24.7 % (42.0-52.0); Hemoglobin 7.5 g/dl (14.0-18.0); Mean Corpuscular Hgb Conc 30.4 g/dL (32.0-36.0); Mean Corpuscular Volume 85.8 fL (80.0-100.0); Mean Platelet Volume 9.2 fL (9.4-12.4); Platelet Count 569 K/uL (130-400); RDW Coefficient of Variation 15.8 % (11.5-14.5); RDW Standard Deviation 49.1 fL (36.4-46.3); Red Blood Count 2.88 M/uL (4.70-6.10); White Blood Count 9.99 K/ul (4.8-10.8)
[2022-07-22 05:03] LABS: Alanine Aminotransferase 28 U/L (7-52); Albumin Globulin Ratio 0.8 (0.9-2); Alkaline Phosphatase 72 U/L (34-104); Anion Gap 8 (3-11); Aspartate Aminotransferase 13 U/L (13-39); BUN Creatinine Ratio 36.7 (10-20); Bilirubin,Total 0.3 mg/dl (0.2-1.0); Blood Urea Nitrogen 18 mg/dl (6-23); Calcium 8.4 mg/dl (8.5-10.1); Carbon Dioxide 28 mmol/L (21-32); Chloride 102 mmol/L (98-107); Creatinine Clr Calc Pharmacy 197.9 ml/min; Est GFR (African American) > 150.0 ml/min; Est GFR (Non-African American) > 150.0 ml/min; Globulin 3.9 gm/dl (2.5-4.0); Glucose 117 mg/dl (70-99(Fasting)); Iron 14 mcg/dl (35-175); Magnesium 1.9 mg/dl (1.7-2.4); Potassium 3.2 mmol/L (3.5-5.1); Sodium 138 mmol/L (136-145); Total Protein 6.9 gm/dl (6.0-8.3)
[2022-07-22] MEDS ORDERED: POTASSIUM CHLORIDE CRTAB 20 MEQ TABCR PO ONE (05:07)
[2022-07-22 05:09] LABS: Partial Thromboplastin Ratio 1.3; Partial Thromboplastin Time 36.1 Seconds (21.0-31.0)
[2022-07-22] MEDS ORDERED: HEPARIN SOD (PORCINE) 1000 UNIT/ML IV ONE (05:30)
[2022-07-22] MEDS: OXYBUTYNIN CHLORIDE 5 MG TAB PO SCH ×2 (08:47→20:36)
[2022-07-22 10:39] LABS: Partial Thromboplastin Ratio 1.4; Partial Thromboplastin Time 37.5 Seconds (21.0-31.0)
[2022-07-22] MEDS ORDERED: HEPARIN IV BOLUS 2,000 UNITS in SYRINGE 0 ML IV ONE ×2 (11:30→19:00)
--- NOTE | 2022-07-22 13:53 | Hospitalist Progress Note ---
Date of Service July 22, 2022 Assessment & Plan (1) DVT (deep venous thrombosis): Plan: Patient is a 27-year-old male with past medical history of paraplegia, neurogenic bladder, severe protein calorie malnutrition, sinus tachycardia, recent history of SBO and iliac DVT who presents to the hospital for concern of worsening DVT. It seems patient failed outpatient Lovenox therapy. IV heparin was initiated on admission. -Continue heparin drip. Consider consultation with hematology tomorrow to discuss possible DOAC therapy. -US of LLE confirming extensive DVT -Suspect DVT is in the setting of immobility and recent exploratory laparotomy with surgery -Failed outpatient Lovenox. -We will hold off hypercoagulability work-up as this does seem provoked. -Vascular consulted for possible IVC filter placement as well. (2) Failure of outpatient treatment: Plan: - See above (3) Paraplegia: Plan: - Activity as tolerated -Consult physical therapy (4) Anemia: Plan: - Chronic issue -A.m. folate, iron, vitamin B12 level -Replete as necessary (5) Severe protein-calorie malnutrition: Plan: - Dietitian consult placed, appreciate recommendations. Initiate [employer] Protein supplememt in the interim. (6) Decubitus ulcer of sacral region, stage 4: (7) Pressure ulcer of ischium, stage 3: (8) Stage III pressure ulcer of left hip: Plan: Patient will chronic pressure ulcers of the left hip, sacrum, and right ischium. - Hx of chronic osteomyelitis of the sacrum. Has followed with [facility] in the past. Most recently saw Dr. Villar on 06/19/22, and IV Dalvance was initiated prior to last admission. Unclear if he received all doses recommended. Will need f/u with her and re-evaluation once discharged. - S/p split-thickness skin grafting tothe sacral pressure ulcer and left hip pressure ulcer, and debridement of right ischial ulcer performed on 01/01/[address] Quevedo. Unfortunately, the grafts failed. - Follows with [facility]. Will need f/u after discharge. - Consult wound care nurse. Wounds will be dressed with Aquacel AG daily. - Will order low air loss mattress, waffle boots, reposition q2hrs. (9) Neurogenic bladder: Plan: SP tube in place. Last changed ~6 weeks ago per patient. -RN called stating patient was leaking around SP tube this afternoon. -RN asked to reposition catheter to ensure if was not pulling and causing a spasm. -UA with reflex culture ordered. -Extra dose of oxybutynin 5mg ordered to help with spasms. -Will consult urology to change SP tube tomorrow while inpatient. Plan Disposition: Admit to [facility] with telemetry Diet: Regular with dietary consult DVT prophylaxis: Heparin CODE STATUS: Full code Admission and Anticipated Discharge Date Admission Date: July 21, 2022 Subjective 27 year old male admitted for worsening DVT of the LLE despite Lovenox injections. Patient is currently on a heparin drip. He has no new complaints today. He states his leg pain is improving. Abdominal pain improved since surgery with Dr. Stanley last admission as well. Review of Systems Review of Systems: All systems reviewed & are unremarkable except as noted in HPI & below Physical Exam Constitutional: + thin; no acute distress Eyes: + anicteric sclerae ENMT: Ears: no hearing impairment Neck: normal visual inspection Respiratory: normal respiratory effort, lungs clear to auscultation Cardiovascular: Rate/Rhythm: regular rate and regular rhythm Gastrointestinal (Abdomen): Inspection/Auscultation: normal bowel sounds Percussion/Palpation: abdomen soft; abdomen nontender Musculoskeletal: Head/Neck/Chest: normocephalic and head atraumatic Psychiatric: A+Ox3, euthymic affect Results & Data Results & Data Vital Signs (Past 12 Hours) Vital Signs Temp Pulse Pulse Resp BP Pulse Ox O2 Del Method 07/22/22 12:28 36.8 C 109 H 16 110/64 100 Room Air 07/22/22 07:42 36.7 C 91 H 16 104/68 99 Room Air 07/22/22 06:59 114 H 07/22/22 03:03 37.1 C 110 H 18 100/61 97 Room Air 07/22/22 01:59 38.1 C H PG Care Time/CCT Total # of Minutes Spent Total Time Spent with Patient: Total time spent is greater than 50% in coordination of care (as documented) at patient's floor/unit and/or counseling patient: Coding Level of Care Code 88975 SUB INP/OBS CARE 3/50MIN History Detailed Exam Detailed Medical Decision Making High Complexity Diagnoses DVT (deep venous thrombosis) I82.402 Affected thrombotic vein of extremity: unspecified vein of extremity Chronicity: acute DVT location: lower extremity Laterality: left Failure of outpatient treatment Z78.9 Paraplegia G82.20 Anemia D64.9 Severe protein-calorie malnutrition E43 Decubitus ulcer of sacral region, stage 4 L89.154 Pressure ulcer of ischium, stage 3 L89.303 Stage III pressure ulcer of left hip L89.223 Neurogenic bladder N31.9 (1) DVT (deep venous thrombosis) Affected thrombotic vein of extremity: unspecified vein of extremity Chronicity: acute DVT location: lower extremity Laterality: left Qualified Code(s): I82.402 - Acute embolism and thrombosis of unspecified deep veins of left lower extremity
[2022-07-22] MEDS: PROSOURCE NO CARB 30 ML/PKT PO SCH ×2 (14:36→20:33)
[2022-07-22] MEDS ORDERED: OXYBUTYNIN CHLORIDE 5 MG TAB PO ONE (15:33)
[2022-07-22 16:28] LABS: Appearance Urine Cloudy (Clear); Bacteria Urine Automated Negative (Negative); Bilirubin Urine Negative (Negative); Blood Urine 2+ (Negative); Color Urine Orange; Epithelial Cell Urine Auto 20-30 /lpf (0-5); Glucose Urine UA Negative (Negative); Ketones Urine Negative (Negative); Leukocyte Esterase Urine Trace (Negative); Nitrite Urine Negative (Negative); Specific Gravity Urine 1.012 (1.000-1.030); Urobilinogen Urine Negative (Negative); pH Urine 8.5 (4.5-7.5)
[2022-07-22 16:49] LABS: Protein Urine Trace (Negative)
[2022-07-22 17:05] LABS: Calcium Oxalate Crystals Urine Present (None Prsent)
[2022-07-22 18:36] LABS: Partial Thromboplastin Ratio 1.2
[2022-07-22] MEDS: HEPARIN SODIUM/DEXTROSE 25,000 UNITS/500 ML BAG IV SCH (18:44)
--- NOTE | 2022-07-22 19:17 | Billing Data ---
Date of Service July 22, 2022 Coding Level of Care Code 45254 INT INP/OBS CARE
[2022-07-23 01:19] LABS: Partial Thromboplastin Ratio 1.3; Partial Thromboplastin Time 36.2 Seconds (21.0-31.0)
[2022-07-23] MEDS ORDERED: HEPARIN SOD (PORCINE) 1000 UNIT/ML IV STA (01:57)
[2022-07-23 06:40] VITALS: O2SAT 98
[2022-07-23 07:48] LABS: Partial Thromboplastin Ratio 1.3
[2022-07-23] MEDS: BACLOFEN 10 MG TAB PO SCH ×2 (09:02→14:06)
[2022-07-23] MEDS: PROSOURCE NO CARB 30 ML/PKT PO SCH (09:03)
[2022-07-23] MEDS: OXYBUTYNIN CHLORIDE 5 MG TAB PO SCH (09:03)
[2022-07-23 09:34] LABS: Partial Thromboplastin Ratio 1.3; Partial Thromboplastin Time 35.9 Seconds (21.0-31.0)
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
[2022-07-23] MEDS ORDERED: HEPARIN SOD (PORCINE) 1000 UNIT/ML IV ONE (10:00)
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
[2022-07-23] MEDS: HEPARIN SODIUM/DEXTROSE 25,000 UNITS/500 ML BAG IV SCH (12:28)
--- NOTE | 2022-07-23 13:06 | Communication Note ---
Date of Service: July 23, 2022 Patient admitted to the hospital on 07/21/22 with left leg swelling with concern for progressed DVT. Patient is going to be transitioned from lovenox to oral xarelto upon discharge. He is known to our service as he underwent an exploratory laparotomy, repair of internal hernia, revision of gastrojejunostomy with partial bowel resection, and placement of J tube on 07/03/22. He was suppose to follow up in clinic today with Dr. Stanley for a routine post operative follow up, however is currently admitted to the hospital. Patient reports since discharge to home he has been doing well from abdominal standpoint. He is tolerating a diet, reports no nausea/pain in abdomen, and ostomy has been functioning well. He is on just Tylenol as needed for pain at this point. Patient is >2 weeks out from his operation therefore I was able to remove his midline abdominal ace at bedside and placed steri strips. Wound is healing well, no signs of infection. Patient reports he has a couple doses of antibiotic to complete at home with removal of US guided PIV tomorrow. Patient may re-schedule his follow up with Dr. Stanley in 1-2 weeks.
--- NOTE | 2022-07-23 13:44 | Hospitalist Progress Note ---
Date of Service July 23, 2022 Assessment & Plan (1) DVT (deep venous thrombosis): Plan: Patient is a 27-year-old male with past medical history of paraplegia, neurogenic bladder, severe protein calorie malnutrition, sinus tachycardia, recent history of SBO and iliac DVT who presents to the hospital for concern of worsening DVT. It seems patient failed outpatient Lovenox therapy due to very small amount of subcutaneous fat making absorption of Lovenox subpar. For this reason he will be admitted and started on IV heparin drip. Patient is currently hemodynamically stable. -Admit to med surg with tele -Continue heparin drip -US of LLE confirming extensive DVT -Suspect DVT is in the setting of immobility and recent exploratory laparotomy with surgery -Suspect that failure of outpatient treatment with Lovenox was likely due to lack of subcutaneous fat preventing good absorption of medication -May have to utilize other modalities such as DOAC or warfarin, may want to discuss with hematology -We will hold off hypercoagulability work-up as this does seem provoked -Consult vascular surgery to evaluate for IVC filter need placement, appreciate recommendation (2) Failure of outpatient treatment: Plan: - See above (3) Paraplegia: Plan: - Activity as tolerated -Consult physical therapy (4) Anemia: Plan: - Chronic issue -A.m. folate, iron, vitamin B12 level -Replete as necessary (5) Severe protein-calorie malnutrition: Plan: - Dietitian consult placed, appreciate recommendations Plan Disposition: Admit to [facility] with telemetry Diet: Regular with dietary consult DVT prophylaxis: Heparin CODE STATUS: Full code Admission and Anticipated Discharge Date Admission Date: July 21, 2022 Results & Data Results & Data Vital Signs (Past 12 Hours) Vital Signs Temp Pulse Pulse Resp BP Pulse Ox O2 Del Method 07/23/22 08:45 Room Air 07/23/22 07:47 103 H 07/23/22 06:34 37.7 C H 112 H 18 94/56 L 98 Room Air 07/23/22 03:00 37.0 C 111 H 20 94/53 L 97 Room Air PG Care Time/CCT Total # of Minutes Spent Total Time Spent with Patient: Total time spent is greater than 50% in coordination of care (as documented) at patient's floor/unit and/or counseling patient: Coding Diagnoses DVT (deep venous thrombosis) I82.402 Affected thrombotic vein of extremity: unspecified vein of extremity Chronicity: acute DVT location: lower extremity Laterality: left Failure of outpatient treatment Z78.9 Paraplegia G82.20 Anemia D64.9 Severe protein-calorie malnutrition E43 (1) DVT (deep venous thrombosis) Affected thrombotic vein of extremity: unspecified vein of extremity Chronicity: acute DVT location: lower extremity Laterality: left Qualified Code(s): I82.402 - Acute embolism and thrombosis of unspecified deep veins of left lower extremity
[2022-07-23] MEDS ORDERED: RIVAROXABAN 15 MG TAB PO SCH (14:00)
--- NOTE | 2022-07-23 14:16 | Discharge Summary ---
Date of Service July 23, 2022 Admission HPI Per Admitting Provider Patient is a 27-year-old male with past medical history of paraplegia, neurogenic bladder, severe protein calorie malnutrition, sinus tachycardia, recent history of SBO and iliac DVT who presents to the hospital for concern of worsening DVT. He was recently discharged from the hospital from the general surgery service on July 18, approximately 5 days ago, after being found to have a small bowel obstruction. Under observation under observation during his last hospitalization he underwent an exploratory laparotomy, repair of an internal hernia, revision of the gastrojejunostomy with partial bowel resection and placement of jejunostomy tube by Dr. Stanley. This procedure had no complications. During his stay it was noted that the patient had an left iliac and common femoral DVT. He was discharged on subcutaneous Lovenox that he was supposed to take for 3 months which the patient reports he was taking accordingly. Patient was concerned as the swelling in his left leg continued to get worse and is concerned that it is getting bigger and not resolving. He denies any chest pain or shortness of breath currently. He has been eating and drinking without difficulty with p.o. and tube feeds. Denies any nausea or vomiting. Denies any erythema or discharge of the lower extremities that he has noticed. Denies any pain but he does not have full sensation of his lower extremities due to the paraplegia. Otherwise patient overall has no other complaints at this time just wants to make sure the DVT resolves appropriately. ED Course: Lab were taken was significant for anemia with a hemoglobin of 8.2 which seems to be chronic, and an aPTT of 34.5. Ultrasound of the left lower extremity was taken confirming extensive DVT. Patient was started on heparin drip after Lovenox was discontinued and our service was consulted for admission. Principal Diagnosis Worsening left iliac DVT Discharge Exam GENERAL: 27 yo thin/cachectic WM. NAD. LUNGS: Clear to auscultation bilaterally. CARDIOVASCULAR: Regular rate and rhythm. ABDOMEN: Soft, non-tender and non-distended. Recent surgical incision site is dressed. No bleeding/drainage. bs normoactive x 4 quad. ostomy site noted with small amount of stool in bag. GJ tube noted. EXTREMITIES: left groin/upper thigh swelling noted Discharge Data Allergies Allergy/AdvReac Type Severity Reaction Status Date / Time nickel Allergy Mild Rash (from Verified 07/21/22 21:34 jewel) Consultations 07/21/22 21:35 ED Decision to Admit Stat 07/22/22 01:47 Consult Vascular Surgery Routine 07/23/22 07:00 Consult Urology Routine Ordered Studies Venous Doppler Study 07/21/22 19:28 Exam(s): US VENOUS LEFT LOWER EXTREMITY EXAM: US Duplex Left Lower Extremity Veins CLINICAL HISTORY: Reason for exam: dvt, increased swelling. TECHNIQUE: Real-time duplex ultrasound scan of the left lower extremity veins integrating B-mode two-dimensional vascular structure, Doppler spectral analysis, color flow Doppler imaging and compression. COMPARISON: No relevant prior studies available. FINDINGS: Deep veins: There is partially occlusive echogenic thrombus noted in the left common femoral vein. There is occlusive echogenic thrombus noted within the proximal profunda femoral and throughout the left femoral vein. There is occlusive thrombus noted in the left popliteal vein. The interrogated proximal calf veins are patent. Superficial veins: There is vascular flow in the saphenofemoral junction. Soft tissues: No acute findings. No popliteal cyst. IMPRESSION: 1. Extensive occlusive deep vein thrombosis noted within the left femoral vein, extending to the popliteal vein distally. 2. Partially occlusive thrombus noted in the left common femoral vein. Electronically signed by: Ilir Miranda MD 07/21/22 21:33 PM Hospital Course (1) DVT (deep venous thrombosis): Patient is a 27-year-old male with past medical history of paraplegia, neurogenic bladder, severe protein calorie malnutrition, sinus tachycardia, recent history of SBO and iliac DVT who presents to the hospital for concern of worsening DVT. It seems patient failed outpatient Lovenox therapy. IV heparin was initiated on admission. - Continue heparin drip-still not therapeutic despite boluses given - US of LLE confirming extensive DVT - Suspect DVT is in the setting of immobility and recent exploratory laparotomy with surgery - We will hold off hypercoagulability work-up as this does seem provoked. - Vascular consulted for possible IVC filter placement, seen by Dolly Combs PA-C who did not feel that vascular intervention was warranted at this time - Could consider if pt needs further surgery in the next 3 months or would develop active bleeding - Discussed case with Dr. Sears. Other than Lovenox, the options for DVT treatment are limited. Given his abdominal/surgical history, would not recommend Coumadin. Do not believe that this patient truly failed Lovenox, but rather has not been using it correctly, if at all. Examination of the patient's abdomen reveals NO needle liu to indicate that he has been receiving/giving himself the injections. - Alternative treatment options from Coumadin or Lovenox include DOACs. Given the patient's recent partial bowel resection, Xarelto is preferred to Eliquis as it is more absorbed in the stomach as opposed to the intestine. - Subsequently, patient will be transitioned to Xarelto 15mg BID x 21 days and then transition to 20mg daily. - First dose of Xarelto 15mg PO x1 given in house today. Dc heparin gtt 2 hours after dose. - Rx has been sent to patient's preferred pharmacy on file. - Patient has been counseled on importance of compliance with this medication. Failure to comply with taking medications appropriately could result in worsening DVT or piece of clot breaking off and traveling to other vital organs which could result in . (2) Paraplegia: - Activity as tolerated - Consult physical therapy (3) Anemia: - Chronic issue - A.m. folate, iron, vitamin B12 level (4) Severe protein-calorie malnutrition: - Dietitian consult placed, appreciate recommendations. - Initiate Pro[employer] Protein supplement in the interim, ordered placed, but pt refusing Plan Patient is medically and hemodynamically stable for discharge home today. Resumption of home health services. A new post surgery follow up has been scheduled since he missed today's appointment with Dr. Stanley. Arul removed at bedside by surgery PAShae. Patient will be discharged home this afternoon. Follow up with PCP as outpatient and other subspecialists as previously arranged. Pt is going to have stepfather transport him home. Above plan of care has been d/w Dr. Swan. Total Time Total Time Spent Total Time Spent (In Minutes): >30 minutes Discharge Plan Discharge Items Patient Disposition: Home - Home Health Services Reason For Visit: LLE SWELLING Discharge Diagnosis: left groin blood clot Condition on Discharge: Good Activity: Resume your previous activity Non-emergency contact: Primary Care Provider and Surgeon Call non-emergency contact if: you have any medication questions and your symptoms worsen Follow-up/Referrals: Pacheco Schultz MD [Primary Care Provider] - Ilir Stanley DO [Surgeon] - 07/30/22 9:30 am (You have follow up with Dr. Stanley on 07/30/22 at 10:30am) Diet: Regular Addtl Attending Provider Instructions: You were hospitalized due to worsening swelling in your left groin which is due to a previously known blood clot. This blood clot has increased in size. Unfortunately, you have limited options for treatment so you are being transitioned to a medication that you can take by mouth called Xarelto. You will take it as follows: Xarelto 15mg, one tablet twice a day x 21 days. Once you complete the 21 days, you will transition to Xarelto 20mg, one tablet once a day in the evening, take with dinner. Take this medication DIRECTED will be very important. You cannot miss or skip doses. Doing so could lead to the clot becoming larger or risk part of it breaking off and becoming lodged in other vital organs which could cause . Since you missed your appointment for your surgery follow up today (07/23), a new appointment has been made for you with Dr. Stanley on 07/30. Please keep this appointment as scheduled. You will need to follow up with your family doctor within 1 week. Home health services will begin following you again upon your return home. Keep all other scheduled specialists visits as scheduled. If you have any questions or concerns following your discharge from the hospital, please call the nonemergency number listed on your discharge paperwork. In the event of a medical emergency, call 911. Pending Studies at Discharge: No Stand-Alone Forms: My [facility] [employer], Smoking Cessation Medications and DC Order Prescriptions: New Xarelto DVT-PE Treat 30d Start 15 mg (42)- 20 mg (9) tablets,dose pack See Rx Instructions .ROUTE .COMPLEX Qty: 51 0RF Rx Instructions: take one-15 mg tablet twice daily for 21 days, then one-20 mg tablet once daily; must take with meal/food Continued baclofen 5 mg tablet 5 - 10 mg PO UD Rx Instructions: 5 mg in the morning, 5 mg in the afternoon, 10mg at night oxybutynin chloride 5 mg tablet 5 mg PO BID Qty: 60 5RF acetaminophen [Tylenol Extra Strength] 500 mg Tablet 1,000 mg PO Q6H PRN (Reason: Pain) mirtazapine 7.5 mg tablet 7.5 mg PO DAILY PRN (Reason: Sleep) gabapentin 300 mg capsule 300 mg PO Q6H PRN (Reason: nerve pain) Discontinued enoxaparin 100 mg/mL syringe 0 mg subcut DAILY Rx Instructions: Take 0.9ml Discharge Orders: Discharge Order (Routine); Ordered 07/23/22 Ordered By: Silvia Crandall Admission Data Admit Date/Time: 07/21/22 23:46 Attending Provider: Glynn Swan Admit Provider: Randy Contreras Primary Care Provider: Pacheco Schultz V. Other Providers: Dave Jamison ; [facility] [place] ; [facility] ; Keiry Stanley Coding Level of Care Code 40571 INP/OBS DISCH >30 MIN Diagnoses DVT (deep venous thrombosis) I82.402 Affected thrombotic vein of extremity: unspecified vein of extremity Chronicity: acute DVT location: lower extremity Laterality: left Paraplegia G82.20 Anemia D64.9 Severe protein-calorie malnutrition E43
[2022-07-23 14:38] VITALS: BP 104/58; TEMP 98.8
[2022-07-23 15:33] VITALS: PULSE 121
== END 2022-07-23 17:26 | disposition home health service (06) | DRG 299 ==
LOC: ED 19:08 → SUATTDRO 23:46 → 2W 23:46

== ENCOUNTER 2023-02-26 16:09 | Inpatient (IN) ==
[2023-02-26] MEDS ORDERED: fentaNYL citrate PF 100 MCG/2 ML VIAL IV STA (16:46)
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
[2023-02-26 17:12] LABS: Basophils # (auto) 0.06 K/uL (0.00-0.20); Basophils % (auto) 0.4 %; Eosinophils # (auto) 0.13 K/uL (0.00-0.50); Eosinophils % (auto) 0.9 %; Hematocrit (blood only) 35.1 % (42.0-52.0); Hemoglobin 10.4 g/dl (14.0-18.0); Immature Granulocytes # (auto) 0.06 K/uL (0.01-0.20); Immature Granulocytes % (auto) 0.4 %; Lymphocytes # (auto) 2.02 K/uL (1.20-3.40); Mean Corpuscular Hemoglobin 21.8 pg (25.0-34.0); Mean Corpuscular Hgb Conc 29.6 g/dL (32.0-36.0); Mean Corpuscular Volume 73.6 fL (80.0-100.0); Mean Platelet Volume 9.1 fL (9.4-12.4); Monocytes # (auto) 1.03 K/uL (0.11-0.59); Monocytes % (auto) 7.1 %; Neutrophils # (auto) 11.13 K/uL (1.40-6.50); Neutrophils % (auto) 77.2 %; Platelet Count 655 K/uL (130-400); RDW Standard Deviation 44.9 fL (36.4-46.3); Red Blood Count 4.77 M/uL (4.70-6.10); White Blood Count 14.43 K/ul (4.8-10.8)
[2023-02-26] MEDS ORDERED: SODIUM CHLORIDE 0.9% 2,000 ML IV ONE (17:12)
--- NOTE | 2023-02-26 17:18 | XRay Report ---
XR chest 1V portable HISTORY: 27 years-old Male Sepsis acute sepsis COMPARISON: 07/04/2022 TECHNIQUE: AP view of the chest FINDINGS: Cardiomediastinal and hilar silhouettes are within normal limits. There is no pneumothorax, pleural e ffusion, airspace consolidation or pulmonary edema. Midthoracic dextroscoliosis. Cervical thoracic fu marine hardware. IMPRESSION: No acute process of the chest. ACT 112: Negative or not required by law. The above report was generated using voice recognition software. It may contain grammatical, syntax o r spelling errors. Electronically signed by: Porfirio Arvizu M.D. 02/26/2023 5:17 PM
[2023-02-26] MEDS ORDERED: HYDROmorphone INJ 0.5 MG/0.5 ML SYR IV STA ×2 (17:27→20:48)
[2023-02-26 17:32] LABS: Alanine Aminotransferase 17 U/L (7-52); Albumin Globulin Ratio 0.8 (0.9-2); Albumin Level 3.7 gm/dl (3.4-5.0); Alkaline Phosphatase 117 U/L (34-104); Anion Gap 10 (3-11); Aspartate Aminotransferase 18 U/L (13-39); BUN Creatinine Ratio 40.4 (10-20); Bilirubin,Total 0.4 mg/dl (0.2-1.0); Blood Urea Nitrogen 19 mg/dl (6-23); Calcium 9.7 mg/dl (8.6-10.3); Carbon Dioxide 24 mmol/L (21-32); Chloride 99 mmol/L (98-107); Creatinine Clr Calc Pharmacy 176.7 ml/min; Est GFR (African American) > 150.0 ml/min; Est GFR (Non-African American) > 150.0 ml/min; Globulin 4.7 gm/dl (2.5-4.0); Glucose 132 mg/dl (70-99(Fasting)); Magnesium 1.7 mg/dl (1.7-2.4); Potassium 3.6 mmol/L (3.5-5.1); Sodium 133 mmol/L (136-145); Total Protein 8.4 gm/dl (6.0-8.3)
--- NOTE | 2023-02-26 17:32 | XRay Report ---
XR hip RT 2V w pelvis CLINICAL HISTORY: pressure ulcers TECHNIQUE: 2 views of the right hip and single frontal view of the pelvis were obtained. Comparison: None available at the time of this dictation. FINDINGS: There is irregularity about the right inferior pubic ramus, progressed from prior exam. Joint spaces are well-preserved. Soft tissue swelling is seen. IMPRESSION: Irregularity and erosion and erosion about the right inferior pubic ramus which may represent osteomy elitis. If there is clinical uncertainty, MRI is a more sensitive modality. ACT 112: Negative or not required by law. Electronically signed by: Yossi Arechiga M.D. 02/26/2023 5:30 PM
[2023-02-26 17:37] LABS: Troponin I High Sensitivity 4.6 pg/ml (0-20)
[2023-02-26 17:41] LABS: INR 1.1 (0.9-1.1); Partial Thromboplastin Ratio 1.1; Partial Thromboplastin Time 29.8 Seconds (21.0-31.0); Prothrombin Time 11.9 Seconds (9.0-12.0)
[2023-02-26] MEDS ORDERED: VANCOMYCIN HCL 1,250 MG in SODIUM CHLORIDE 0.9% 500 ML IV ONE (18:08)
[2023-02-26] MEDS ORDERED: VANCOMYCIN CONSULT ACTIVE PRN (18:08)
[2023-02-26] MEDS ORDERED: cefTRIAXone SODIUM 2,000 MG/50 ML BAG IV STA (18:08)
[2023-02-26] MEDS ORDERED: SODIUM CHLORIDE 0.9% 1,000 ML IV ONE (18:09)
--- NOTE | 2023-02-26 19:00 | Ultrasound Report ---
US venous doppler LE RT HISTORY: 27 years-old Male RLE swelling; paraplegic acute pain and swelling of the right lower extre mity COMPARISON: None TECHNIQUE: Multiple real-time sonographic images of the right lower extremity deep venous structures were obtained assessing grayscale appearance, color and spectral flow. FINDINGS: Occlusive thrombus within the right superficial femoral vein extends proximally to distally. Addition al occlusive thrombus within the popliteal and peroneal veins. No additional deep or superficial veno us thrombus identified. Subcutaneous edema. IMPRESSION: Likely acute DVT as above. ACT 112: Negative or not required by law. The above report was generated using voice recognition software. It may contain grammatical, syntax o r spelling errors. Electronically signed by: Porfirio Arvizu M.D. 02/26/2023 6:58 PM
[2023-02-26] MEDS ORDERED: CEFEPIME 2,000 MG in SYRINGE 0 ML IV SCH (21:00)
[2023-02-26] MEDS ORDERED: ERTAPENEM SODIUM 1,000 MG in SYRINGE 0 ML IV SCH (21:00)
[2023-02-26 21:31] LABS: C Reactive Protein 11.21 mg/dl (0-0.5)
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
[2023-02-26] MEDS ORDERED: Heparin IV Adult Wt-Based Low-Dose *NO* Bolus Protocol IV SCH (22:48)
[2023-02-26 22:54] LABS: Appearance Urine Clear (Clear); Bacteria Urine Automated Negative (Negative); Bilirubin Urine Negative (Negative); Blood Urine Negative (Negative); Color Urine Yellow; Epithelial Cell Urine Auto >30 /lpf (0-5); Glucose Urine UA Negative (Negative); Ketones Urine Negative (Negative); Leukocyte Esterase Urine 1+ (Negative); Nitrite Urine Negative (Negative); Protein Urine Trace (Negative); RBC Urine Automated 0-4 /hpf (0-4); Specific Gravity Urine 1.019 (1.000-1.030); Urobilinogen Urine Negative (Negative); WBC Urine Automated >30 /hpf (0-5); pH Urine 6.5 (4.5-7.5)
[2023-02-27] MEDS: LACTATED RINGER'S 1,000 ML IV SCH ×2 (00:21→14:11)
[2023-02-27 00:35] LABS: Calcium Oxalate Crystals Urine Present (None Prsent)
[2023-02-27] MEDS ORDERED: ACETAMINOPHEN 1,000 MG/100 ML VIAL IV PRN (00:35)
[2023-02-27] MEDS ORDERED: ONDANSETRON 4 MG OD TAB PO PRN (00:35)
[2023-02-27 00:36] LABS: Mucus Urine Present (None Prsent)
[2023-02-27] MEDS: HEPARIN SODIUM/DEXTROSE 25,000 UNITS/500 ML BAG IV SCH ×2 (00:41→17:37)
[2023-02-27 04:40] LABS: Basophils # (auto) 0.03 K/uL (0.00-0.20); Basophils % (auto) 0.3 %; Eosinophils # (auto) 0.08 K/uL (0.00-0.50); Eosinophils % (auto) 0.8 %; Hematocrit (blood only) 29.1 % (42.0-52.0); Hemoglobin 8.7 g/dl (14.0-18.0); Immature Granulocytes # (auto) 0.04 K/uL (0.01-0.20); Immature Granulocytes % (auto) 0.4 %; Lymphocytes # (auto) 2.24 K/uL (1.20-3.40); Lymphocytes % (auto) 21.9 %; Mean Corpuscular Hemoglobin 21.5 pg (25.0-34.0); Mean Corpuscular Hgb Conc 29.9 g/dL (32.0-36.0); Mean Platelet Volume 8.8 fL (9.4-12.4); Monocytes # (auto) 0.89 K/uL (0.11-0.59); Monocytes % (auto) 8.7 %; Neutrophils # (auto) 6.94 K/uL (1.40-6.50); Neutrophils % (auto) 67.9 %; Platelet Count 515 K/uL (130-400); RDW Standard Deviation 43.6 fL (36.4-46.3); Red Blood Count 4.04 M/uL (4.70-6.10); White Blood Count 10.22 K/ul (4.8-10.8)
[2023-02-27 04:57] LABS: Alanine Aminotransferase 15 U/L (7-52); Albumin Globulin Ratio 0.8 (0.9-2); Albumin Level 3.1 gm/dl (3.4-5.0); Alkaline Phosphatase 103 U/L (34-104); Anion Gap 6 (3-11); Aspartate Aminotransferase 17 U/L (13-39); BUN Creatinine Ratio 27.9 (10-20); Bilirubin,Total 0.3 mg/dl (0.2-1.0); Blood Urea Nitrogen 12 mg/dl (6-23); C Reactive Protein 13.04 mg/dl (0-0.5); Carbon Dioxide 27 mmol/L (21-32); Chloride 102 mmol/L (98-107); Creatinine Clr Calc Pharmacy 193.2 ml/min; Est GFR (African American) > 150.0 ml/min; Est GFR (Non-African American) > 150.0 ml/min; Globulin 3.8 gm/dl (2.5-4.0); Glucose 94 mg/dl (70-99(Fasting)); Magnesium 1.7 mg/dl (1.7-2.4); Potassium 3.6 mmol/L (3.5-5.1); Sodium 135 mmol/L (136-145); Total Protein 6.9 gm/dl (6.0-8.3)
--- NOTE | 2023-02-27 06:01 | Ultrasound Report ---
Exam(s): US VENOUS LEFT LOWER EXTREMITY EXAM: US Duplex Left Lower Extremity Veins CLINICAL HISTORY: Reason for exam: r/o DVT. TECHNIQUE: Real-time duplex ultrasound scan of the left lower extremity veins integrating B-mode two-dimensional vascular structure, Doppler spectral analysis, color flow Doppler imaging and compression. COMPARISON: No relevant prior studies available. FINDINGS: Deep veins: Unremarkable. No DVT in the visualized common femoral, femoral, proximal deep femoral or popliteal veins. The veins demonstrate normal color flow, are normally compressible, with normal phasic flow and/or augmentation response. Superficial veins: Unremarkable. No thrombus in the visualized great saphenous vein. Soft tissues: No acute findings. No popliteal cyst. IMPRESSION: No evidence of acute deep venous thrombosis in the left lower extremity Electronically signed by: Leon Mcnair MD 02/27/23 06:00 AM
[2023-02-27] MEDS: HYDROmorphone INJ 0.5 MG/0.5 ML SYR IV PRN ×4 (06:15→22:58)
[2023-02-27] MEDS: BACLOFEN 10 MG TAB PO SCH ×2 (08:02→15:45)
[2023-02-27 08:46] LABS: Partial Thromboplastin Ratio 1.2; Partial Thromboplastin Time 32.5 Seconds (21.0-31.0)
[2023-02-27] MEDS ORDERED: MEGESTROL ACETATE SUSP 400 MG/10 ML UDC PO SCH (09:00)
[2023-02-27] MEDS ORDERED: HEPARIN SOD (PORCINE) 1000 UNIT/ML IV ONE ×2 (09:02→17:33)
[2023-02-27] MEDS ORDERED: diphenhydrAMINE 50 MG/ML VIAL IV STA (09:05)
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
[2023-02-27] MEDS ORDERED: GADOBUTROL 65ML VIAL IV ONE (11:22)
--- NOTE | 2023-02-27 12:25 | Magnetic Resonance Report ---
MR pelvis wo/w con CLINICAL HISTORY: Pressure ulcers. Evaluate for acute osteomyelitis. COMPARISON STUDY: Pelvis MRI May 10, 2022. CT of the abdomen and pelvis 2022. Pelvis and right hip radiographs February 26, 2023. TECHNIQUE: Utilizing a 1.5 Nadja magnet and dedicated coil, multiplanar, multiecho imaging of the pel vis and hips was performed pre and postcontrast administration. Intravenous injection of 5 cc of Gada vist was uneventful. FINDINGS: Suprapubic catheter is in place. There is a left lower quadrant ostomy. Multiple loops of d ilated fluid-filled small bowel are incidentally noted. The sacroiliac joints and symphysis pubis are intact. Diffuse muscular edema within the pelvis, hips and thighs is noted. There is a small rim-enh ancing fluid collection anterior to the symphysis that measures 6.2 x 0.8 cm. Muscular edema has sign ificantly progressed when compared to previous MRI May 10, 2022. Deep ulcers overlying the greater trochanter of the left femur, right ischial tuberosity and sacrum and coccyx are again noted. Associ ated increased T2 marrow signal and diminished T1 signal is noted consistent with chronic persistent osteomyelitis. The extent of marrow signal abnormality within the right ischial tuberosity and right inferior pubic ramus has increased since MRI of May 10, 2022. Sacroiliac and coccygeal bony erosio n is similar to prior exam. Findings suggest early osteomyelitis within the greater trochanter of the left femur. An additional ulcer with associated fluid overlying the left ischial tuberosity is noted . There is associated marrow signal abnormality. Of note, a large right hip joint effusion has develo ped with interval subluxation of the right femoral head. Marrow signal abnormality within the adjacen t acetabulum is noted. There is synovial enhancement of the right hip. There is also a moderate sized left hip joint effusion with synovial enhancement. There is mild adjacent marrow signal abnormality. IMPRESSION: 1. Ulcerations overlying the greater trochanter of the left femur, bilateral ischial tuberosities and sacrum/coccyx. Associated marrow signal abnormality/bony erosion consistent with persistent chronic osteomyelitis. Osteomyelitis within the right ischial tuberosity and inferior pubic ramus has increas ed in extent since MRI May 10, 2022. 2. Interval development of a large right hip joint effusion with synovial enhancement and adjacent ma rrow signal abnormality within the right acetabulum and proximal right femur. Subluxation of the righ t femoral head, also new since prior exam. The findings are highly suggestive of septic arthritis of the right hip with associated osteomyelitis. 3. Moderate left hip joint effusion with synovial enhancement and adjacent marrow signal abnormality. The findings are suspicious for septic arthritis of the left hip. 4. Multifocal muscular T2 hyperintensity with associated enhancement within the pelvis, hips and thig hs. This could represent an infectious myositis or be related to denervation. Small 6.2 x 0.8 cm rim- enhancing fluid collection anterior to the symphysis. This is suspicious for a small developing absce ss. 5. Multiple loops of significantly dilated, fluid-filled small bowel, a nonspecific finding, suboptim ally assessed by MRI. ACT 112: Negative or not required by law. Electronically signed by: Akshat Eli M.D. 02/27/2023 12:24 PM
[2023-02-27] MEDS ORDERED: VANCOMYCIN CONSULT ACTIVE PRN (15:00)
--- NOTE | 2023-02-27 15:10 | Hospitalist Progress Note ---
Date of Service February 27, 2023 Assessment & Plan (1) Osteomyelitis: Plan: 27yo male with PMHx of paraplegia, neurogenic bladder, severe protein calorie malnutrition, insomnia, anemia, depression, recurrent decubitus ulcers with osteomyelitis, and iliac DVT who presentswith R hip pain. #Osteomyelitis -patient with recurrent decubitus ulcers and chronic osteomyelitis 2/2 paraplegia. Presented with 1 day R hip pain. Has been dealing with decubitus ulcer in this area. Wound cx (02/11) with +ESBL e. coli and proteus. Was started on augmentin as an outpatient 1-2 wks ago for this. Follows with wound care. Cannot exclude pain extending from RLE SVT/DVT as below. -XR R Hip/pelvis: Irregularity and erosion and erosion about the right inferior pubic ramus which may represent osteomyelitis -MRI pelvis shows worsening osteomyelitis on the left hip, osteomyelitis on the right hip and ulcer, with possible septic arthritis and effusion -ortho consulted for possible biopsy and/or I&D, however, the surgery is deemed very ccomplex and patient will need to be transferred to a tertiary center. patient prefferes [facility] -wound cx sensitive to ertapenem which has been started, dora also add Vancomycin on account of osteomyelitis -wound care, pain control -ID consult #Sepsis -as above, patient did meet SIRS criteria (tachycardia, leukocytosis) on admission. Suspect osteomyelitis as source. WBC 14. Lactate 2.9, improved with IVF. Blood cx pending. UA pending. CXR unremarkable. Afebrile. -started on vancomycin and Rocephin in ED. Given wound cx as above, start on Ertapenam. MRSA nares pending. #RLE DVT, acute #H/o iliac DVT -Initial DVT early 2022 and was started on Xarelto. Patient was depressed last week and stopped taking his home medications including the xarelto. -CXR unremarkable. Tachycardic, however, without sob or hypoxia. Low suspicion for PE. -US venous doppler RLE: Occlusive thrombus within the right superficial femoral vein extends proximally to distally. Additional occlusive thrombus within the popliteal and peroneal veins. -will start on heparin gtt in case for surgery; can restart xarelto after -ordered US venous doppler LLE #Paraplegic #Neurogenic bladder #Neurogenic bowel -s/p colostomy, indwelling catheter -cont. oxybutynin -cont. baclofen #Protein calorie malnutrition -cont.megestrol #Insomnia #Depression -cont. mirtazapine DVT ppx: heparin gtt Regular diet Code Status: full Dispo: PCU (2) Sepsis: (3) Deep vein thrombosis (DVT) of right lower extremity: (4) Iliac DVT (deep venous thrombosis): (5) Anemia: (6) Paraplegia: (7) Stage III pressure ulcer of left buttock: (8) Stage III pressure ulcer of left hip: (9) Depression: (10) Neurogenic bowel: (11) Neurogenic bladder: (12) Severe protein-calorie malnutrition: (13) Insomnia: Plan Transfer to a tertiary center Admission and Anticipated Discharge Date Admission Date: February 26, 2023 Subjective patient seen and examined, will need transferred to a tertiary institution for surgery Review of Systems Review of Systems: All systems reviewed are negative, apart from the ones contained in the history. Physical Exam Physical Exam: The patient is awake, alert and oriented 3,chronically ill looking. HEENT--PERRL, EOMI, mucous membranes and oropharynx mildly dry Neck--supple. No JVD. No bruits. Thyroid normal, trachea midline, no adenopathy. Heart--normal S1 and S2. No murmurs, rubs or gallops. Lungs--clear bilaterally, no respiratory distress, no accessory muscle use. Abdomen--normal bowel sounds and soft. Mild epigastric and left sided abdominal pain Extremities--contracted, poor muscle tone Dermatologic--normal skin turgor, normal color, no abnormal lymph nodes, no rash. Neurologic--cranial nerves II through XII grossly intact. Rheumatologic--normal range of motion. Psychiatric--normal affect. Results & Data Results & Data Vital Signs (Past 12 Hours) Vital Signs Temp Pulse Pulse Resp BP BP Pulse Ox 02/27/23 08:26 98.4 F 88 17 125/75 98 02/27/23 06:30 101 H 12 97/66 L 96 02/27/23 06:00 104 H 15 91/60 L 96 02/27/23 05:30 109 H 20 95 02/27/23 05:30 91/57 L 02/27/23 05:06 105 H 15 97 02/27/23 05:06 97/55 L 02/27/23 05:01 105/61 02/27/23 05:01 101 H 14 02/27/23 05:00 108 H 14 02/27/23 05:00 80/43 L 02/27/23 04:32 100 H 15 101/60 98 02/27/23 03:30 115 H 27 H 101/60 O2 Del Method 02/27/23 08:26 Room Air 02/27/23 06:30 02/27/23 06:00 02/27/23 05:30 02/27/23 05:30 02/27/23 05:06 02/27/23 05:06 02/27/23 05:01 02/27/23 05:01 02/27/23 05:00 02/27/23 05:00 02/27/23 04:32 02/27/23 03:30 PG Care Time/CCT Total # of Minutes Spent Total Time Spent with Patient: Total time spent is greater than 50% in coordination of care (as documented) at patient's floor/unit and/or counseling patient: Coding Level of Care Code 16487 SUB INP/OBS CARE 2/35MIN Diagnoses Osteomyelitis M86.9 Sepsis A41.9 Deep vein thrombosis (DVT) of right lower extremity I82.401 Iliac DVT (deep venous thrombosis) I82.429 Anemia D64.9 Paraplegia G82.20 Stage III pressure ulcer of left buttock L89.323 Stage III pressure ulcer of left hip L89.223 Depression F32.9 Neurogenic bowel K59.2 Neurogenic bladder N31.9 Severe protein-calorie malnutrition E43 Insomnia G47.00 Time Spent (min) 35
[2023-02-27] MEDS ORDERED: VANCOMYCIN HCL 1,000 MG in SODIUM CHLORIDE 0.9% 500 ML IV STA (15:31)
[2023-02-27] MEDS ORDERED: VANCOMYCIN HCL 1,000 MG in SODIUM CHLORIDE 0.9% 250 ML IV STA (15:33)
[2023-02-27 16:01] LABS: Anion Gap 8 (3-11); BUN Creatinine Ratio 28.2 (10-20); Blood Urea Nitrogen 11 mg/dl (6-23); Calcium 8.7 mg/dl (8.6-10.3); Carbon Dioxide 25 mmol/L (21-32); Chloride 102 mmol/L (98-107); Est GFR (African American) > 150.0 ml/min; Est GFR (Non-African American) > 150.0 ml/min; Glucose 82 mg/dl (70-99(Fasting)); Potassium 3.5 mmol/L (3.5-5.1); Sodium 135 mmol/L (136-145)
[2023-02-27 16:14] LABS: Partial Thromboplastin Ratio 1.1; Partial Thromboplastin Time 31.5 Seconds (21.0-31.0)
[2023-02-27] MEDS ORDERED: MIRTAZAPINE TAB 15 MG TAB PO SCH (21:00)
[2023-02-27] MEDS ORDERED: BACLOFEN 10 MG TAB PO SCH (21:00)
--- NOTE | 2023-02-27 22:11 | Billing Data ---
Date of Service February 27, 2023 Coding Level of Care Code 73439 INT INP/OBS CARE
--- NOTE | 2023-02-27 22:53 | Electrocardiogram Report ---
Test Reason : Blood Pressure : / mmHG Vent. Rate : 143 BPM Atrial Rate : 143 BPM P-R Int : 116 ms QRS Dur : 078 ms QT Int : 282 ms P-R-T Axes : 064 062 046 degrees QTc Int : 435 ms Sinus tachycardia Nonspecific T wave abnormality When compared with ECG of 03-JUL-2022 07:02, No significant change was found Confirmed by Sreedhar Jenkins ([id number]) on 02/27/2023 10:53:16 PM Referred By: REFERRED SELF Confirmed By:Sreedhar Jenkins
[2023-02-27] MEDS ORDERED: VANCOMYCIN HCL 750 MG in SODIUM CHLORIDE 0.9% 250 ML IV SCH (23:00)
[2023-02-28] MEDS ORDERED: ERTAPENEM SODIUM 1,000 MG in SYRINGE 0 ML IV SCH
[2023-02-28 00:38] LABS: Partial Thromboplastin Ratio 1.1; Partial Thromboplastin Time 30.1 Seconds (21.0-31.0)
[2023-02-28] MEDS ORDERED: HEPARIN SOD (PORCINE) 1000 UNIT/ML IV ONE (01:15)
--- NOTE | 2023-02-28 07:39 | Discharge Summary ---
Date of Service February 28, 2023 Principal Diagnosis osteomyelitis, septic arthritis Discharge Exam The patient is awake, alert and oriented 3,chronically ill looking. HEENT--PERRL, EOMI, mucous membranes and oropharynx mildly dry Neck--supple. No JVD. No bruits. Thyroid normal, trachea midline, no adenopathy. Heart--normal S1 and S2. No murmurs, rubs or gallops. Lungs--clear bilaterally, no respiratory distress, no accessory muscle use. Abdomen--normal bowel sounds and soft. Mild epigastric and left sided abdominal pain Extremities--contracted, poor muscle tone Dermatologic--normal skin turgor, normal color, no abnormal lymph nodes, no rash. Neurologic--cranial nerves II through XII grossly intact. Rheumatologic--normal range of motion. Psychiatric--normal affect. Discharge Data Allergies Allergy/AdvReac Type Severity Reaction Status Date / Time nickel Allergy Mild Rash (from Verified 01/11/23 14:44 jewelry) Consultations 02/26/23 19:20 ED Decision to Admit Stat 02/26/23 23:56 Consult Orthopedic Surgery Routine 02/27/23 09:07 Consult Infectious Diseases Routine Ordered Studies 02/26/23 17:27 US venous duplex leg [US venous doppler LE RT] Stat 02/26/23 23:41 US venous doppler LE LT Stat 02/27/23 00:04 MR pelvis wo/w con Routine Hospital Course (1) Osteomyelitis: 27yo male with PMHx of paraplegia, neurogenic bladder, severe protein calorie malnutrition, insomnia, anemia, depression, recurrent decubitus ulcers with osteomyelitis, and iliac DVT who presentswith R hip pain. #Osteomyelitis -patient with recurrent decubitus ulcers and chronic osteomyelitis 2/2 paraplegia. Presented with 1 day R hip pain. Has been dealing with decubitus ulcer in this area. Wound cx (02/11) with +ESBL e. coli and proteus. Was started on augmentin as an outpatient 1-2 wks ago for this. Follows with wound care. Cannot exclude pain extending from RLE SVT/DVT as below. -XR R Hip/pelvis: Irregularity and erosion and erosion about the right inferior pubic ramus which may represent osteomyelitis -MRI pelvis shows worsening osteomyelitis on the left hip, osteomyelitis on the right hip and ulcer, with possible septic arthritis and effusion -ortho consulted for possible biopsy and/or I&D, however, the surgery is deemed very ccomplex and patient will need to be transferred to a tertiary center. patient prefferes [facility] -wound cx sensitive to ertapenem which has been started, dora also add Vancomycin on account of osteomyelitis -wound care, pain control -ID consult #Sepsis -as above, patient did meet SIRS criteria (tachycardia, leukocytosis) on admission. Suspect osteomyelitis as source. WBC 14. Lactate 2.9, improved with IVF. Blood cx pending. UA pending. CXR unremarkable. Afebrile. -started on vancomycin and Rocephin in ED. Given wound cx as above, start on Ertapenam. MRSA nares pending. #RLE DVT, acute #H/o iliac DVT -Initial DVT early 2022 and was started on Xarelto. Patient was depressed last week and stopped taking his home medications including the xarelto. -CXR unremarkable. Tachycardic, however, without sob or hypoxia. Low suspicion for PE. -US venous doppler RLE: Occlusive thrombus within the right superficial femoral vein extends proximally to distally. Additional occlusive thrombus within the popliteal and peroneal veins. -will start on heparin gtt in case for surgery; can restart xarelto after -ordered US venous doppler LLE #Paraplegic #Neurogenic bladder #Neurogenic bowel -s/p colostomy, indwelling catheter -cont. oxybutynin -cont. baclofen #Protein calorie malnutrition -cont.megestrol #Insomnia #Depression -cont. mirtazapine DVT ppx: heparin gtt Regular diet Code Status: full Dispo: PCU (2) Sepsis: (3) Deep vein thrombosis (DVT) of right lower extremity: (4) Iliac DVT (deep venous thrombosis): (5) Anemia: (6) Paraplegia: (7) Stage III pressure ulcer of left buttock: (8) Stage III pressure ulcer of left hip: (9) Depression: (10) Neurogenic bowel: (11) Neurogenic bladder: (12) Severe protein-calorie malnutrition: (13) Insomnia: Plan Transfer to a tertiary center Total Time Total Time Spent Total Time Spent (In Minutes): 35 Discharge Plan Discharge Items Patient Disposition: Transfer Acute Care Hospital Reason For Visit: OSTEOMYELITIS Discharge Diagnosis: osteomyelitis, septic arthritis Activity: Resume your previous activity Non-emergency contact: Primary Care Provider Call non-emergency contact if: you have any medication questions Follow-up/Referrals: Pacheco Schultz MD [Primary Care Provider] - Diet: Regular Addtl Attending Provider Instructions: please make appointment to follow up with your regular PCP Pending Studies at Discharge: No Stand-Alone Forms: My [facility] Skilled Items Patient informed of condition?: Yes DNR: No Discharge Level of Care: Other Communicable Disease: No Discharge Prognosis: Stable Lines: None Urinary Catheter: No Medications and DC Order Prescriptions: Continued oxybutynin chloride 5 mg tablet 5 mg PO BID Qty: 60 5RF Ferretts 325 mg (106 mg iron) tablet 325 mg PO BID Qty: 60 5RF acetaminophen [Tylenol Extra Strength] 500 mg Tablet 1,000 mg PO Q6H PRN (Reason: Pain) gabapentin 300 mg capsule 300 mg PO Q6H PRN (Reason: nerve pain) Xarelto 20 mg tablet 20 mg PO QPM Rx Instructions: must administer with evening meal megestrol 400 mg/10 mL (40 mg/mL) suspension 800 mg PO DAILY Rx Instructions: for 30 days...ordered 02/13/23 amoxicillin-pot clavulanate 875-125 mg tablet 1 tab PO Q12 Rx Instructions: take for 10 days....ordered 02/13/23 baclofen 10 mg tablet See Rx Instructions .ROUTE .COMPLEX Rx Instructions: take 1/2 tablet by mouth 2 times a day at 8 am & 1 pm, then take 1 tablet prior to bedtime mirtazapine 7.5 mg tablet 7.5 mg PO HS Discharge Orders: Discharge Order (Routine); Ordered 02/27/23 Ordered By: Samira Murray Admission Data Admit Date/Time: 02/26/23 22:40 Attending Provider: Samira Murray Admit Provider: Dakota Shane Primary Care Provider: Pacheco Schultz V. Other Providers: Dave Jamison ; Mendel Cruz ; Norma Brock ; Julito Zeng ; Danii Cooper ; Mary Casanova ; Constanza Kirby ; Kalie Xie ; Rebekah Lucia ; Savannah Villalpando ; Inga De Santiago ; Pebbles Messina Coding Level of Care Code 95314 INP/OBS DISCH >30 MIN Diagnoses Osteomyelitis M86.9 Sepsis A41.9 Deep vein thrombosis (DVT) of right lower extremity I82.401 Iliac DVT (deep venous thrombosis) I82.429 Anemia D64.9 Paraplegia G82.20 Stage III pressure ulcer of left buttock L89.323 Stage III pressure ulcer of left hip L89.223 Depression F32.9 Neurogenic bowel K59.2 Neurogenic bladder N31.9 Severe protein-calorie malnutrition E43 Insomnia G47.00 Time Spent (min) 35
--- NOTE | 2023-02-28 14:32 | Electrocardiogram Report ---
Test Reason : Blood Pressure : / mmHG Vent. Rate : 128 BPM Atrial Rate : 128 BPM P-R Int : 114 ms QRS Dur : 090 ms QT Int : 244 ms P-R-T Axes : 061 022 065 degrees QTc Int : 356 ms Sinus tachycardia Biatrial enlargement Nonspecific T wave abnormality Abnormal ECG When compared with ECG of 26-FEB-2023 17:06, ST no longer depressed in Inferior leads Nonspecific T wave abnormality now evident in Lateral leads Confirmed by Sreedhar Jenkins ([id number]) on 02/28/2023 2:31:39 PM Referred By: REFERRED SELF Confirmed By:Sreedhar Jenkins
== END 2023-02-28 01:30 | disposition short-term general hospital (02) | DRG 871 ==
LOC: ED 16:09 → SUATTDRO 22:40 → EDINP 22:40

== ENCOUNTER 2023-07-06 16:05 | Inpatient (IN) ==
--- NOTE | 2023-07-06 16:30 | Emergency Department Note ---
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 (80.0-100.0) fL MCH (25.0-34.0) pg MCHC (32.0-36.0) g/dL RDW Std Deviation (36.4-46.3) fL RDW Coeff of Stephen (11.5-14.5) % Plt Count (130-400) K/uL MPV (9.4-12.4) fL Immature Gran % (Auto) % Neut % (Auto) % Lymph % (Auto) % Schleicher % (Auto) % Eos % (Auto) % Baso % (Auto) % Neut # (Auto) (1.40-6.50) K/uL Lymph # (Auto) (1.20-3.40) K/uL Schleicher # (Auto) (0.11-0.59) K/uL Eos # (Auto) (0.00-0.50) K/uL Baso # (Auto) (0.00-0.20) K/uL Immature Gran # (Auto) (0.01-0.20) K/uL Hypochromasia ESR (0-15) mm/hr PT (9.0-12.0) Seconds INR (0.9-1.1) APTT (21-31) Seconds PTT Ratio Sodium (136-145) mmol/L Potassium (3.5-5.1) mmol/L Chloride (98-107) mmol/L Carbon Dioxide (21-32) mmol/L Anion Gap (3-11) BUN (6-23) mg/dl Creatinine (0.6-1.4) mg/dl Est Cr Clr Drug Dosing ml/min Est GFR ( Amer) ml/min Est GFR (Non-Af Amer) ml/min BUN/Creatinine Ratio (10-20) Glucose (70-99(Fasting)) mg/dl Lactate 2.2 H* (0.4-2.0) mmol/L Calcium (8.6-10.3) mg/dl Magnesium (1.7-2.4) mg/dl Total Bilirubin (0.2-1.0) mg/dl Direct Bilirubin (0-0.2) mg/dl AST (13-39) U/L ALT (7-52) U/L Alkaline Phosphatase (34-104) U/L Troponin I High Sens (0-20) pg/ml C-Reactive Protein (0-0.5) mg/dl Total Protein (6.0-8.3) gm/dl Albumin (3.4-5.0) gm/dl Procalcitonin (0-0.5) ng/ml Urine Color Urine Appearance (Clear) Urine pH (4.5-7.5) Ur Specific [place] (1.000-1.030) Urine Protein (Negative) Urine Glucose (UA) (Negative) Urine Ketones (Negative) Urine Blood (Negative) Urine Nitrite (Negative) Urine Bilirubin (Negative) Urine Urobilinogen (Negative) Ur Leukocyte Esterase (Negative) Urine WBC (Auto) (0-5) /hpf Urine RBC (Auto) (0-4) /hpf U Hyaline Cast (Auto) (0-5) /lpf U Epithel Cells (Auto) (0-5) /lpf Urine Bacteria (Auto) (Negative) Urine Yeast Adenovirus (PCR) (NotDetected) B. pertussis DNA (PCR) (NotDetected) B.parapertussis DNA PCR (NotDetected) C. pneumoniae DNA (PCR) (NotDetected) Coronavirus OC43 (PCR) (NotDetected) Coronavirus HKU1 (PCR) (NotDetected) Coronavirus 229E (PCR) (NotDetected) SARS-CoV-2 (PCR) (NotDetected) Coronavirus NL63 (PCR) (NotDetected) Human Metapneumovir PCR (NotDetected) Influenza Type A (PCR) (NotDetected) Influenza Type B (PCR) (NotDetected) M. pneumoniae (PCR) (NotDetected) Parainfluenza 1 (PCR) (NotDetected) Parainfluenza 2 (PCR) (NotDetected) Parainfluenza 3 (PCR) (NotDetected) Parainfluenza 4 (PCR) (NotDetected) RSV (PCR) (NotDetected) Entero/Rhino (PCR) (NotDetected) Blood Type A Negative Antibody Screen NEGATIVE Crossmatch See Detail Imaging Data Radiologist's Impression: Chest X-Ray 07/06/23 16:27 XR chest 1V portable HISTORY: 28 years-old Male Sepsis acute sepsis COMPARISON: 02/26/2023 TECHNIQUE: AP view of the chest FINDINGS: Cardiomediastinal and hilar silhouettes are within normal limits. No pneumothorax, pleural effusion, airspace consolidation or pulmonary. Midthoracic dextroscoliosis. Cervicothoracic spinal fusion hardware. Bones appear grossly intact. IMPRESSION: No acute process. ACT 112: Negative or not required by law. The above report was generated using voice recognition software. It may contain grammatical, syntax or spelling errors. Electronically signed by: Porfirio Arvizu M.D. 07/06/2023 5:57 PM Abdomen/Pelvis CT 07/06/23 17:[address] WITH IV CONTRAST CT DOSE: 572.14 mGy.cm HISTORY: Sacral decubitus ulcer. sacral wound, sepsis TECHNIQUE: Multiaxial CT images of the abdomen and pelvis were performed following the IV administration of 88 cc of Optiray, A dose lowering technique was utilized adhering to the principles of ALARA. COMPARISON STUDY: MRI pelvis 02/27/2023, CT 07/13/2022 FINDINGS: Clear lung bases. No free air. The spleen is upper limits of normal in size. Unremarkable pancreas and adrenal glands. Mildly contracted gallbladder. Unremarkable liver. Patency of the hepatic and portal veins. No hydronephrosis. Possible punctate right nephrolithiasis. Suprapubic urinary bladder catheter. The urinary bladder is decompressed containing coarse calcifications measuring over 2 cm in mild retroperitoneal lymphadenopathy with lymph nodes measuring up to 10 mm. Mildly enlarged inguinal and iliac chain lymph nodes measure up to 12 mm. 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 Fluid-filled loops of small bowel are noted. No high-grade small bowel obstruction. Noninflamed appendix. Large sacral decubitus ulcer measures up to 10 cm transversely. There is progression of the acute on chronic sacrococcygeal osteomyelitis with bony erosion/destruction. Additional chronic ulcers are noted lateral to the left proximal femur and right ischial tuberosity. There is progressive acute on chronic osteomyelitis of the right ischial tuberosity and left greater trochanter. Large bilateral hip joint effusions with posterior subluxation of the left presacral edema. Femoral acetabular joint. Asymmetric heterogeneity in the right proximal thigh musculature containing calcifications. The right hip joint effusion peripherally enhances. IMPRESSION: 1. No bowel obstruction or bowel wall thickening. 2. Large ulcers are noted superficial to the sacrum, right ischial tuberosity and left greater trochanter. There is progressive acute on chronic sacrococcygeal, right ischial tuberosity and left greater trochanter osteomyelitis. 3. Bilateral hip joint effusions with probable upper thigh myositis and new left hip subluxation. 4. Periaortic, iliac and inguinal chain lymphadenopathy, likely reactive. 5. Additional findings as above. ACT 112: Negative or not required by law. The above report was generated using voice recognition software. It may contain grammatical, syntax or spelling errors. Electronically signed by: Porfirio Arvizu M.D. 07/06/2023 7:12 PM MDM Narrative Patient was seen and evaluated as above in room C06. Review was performed of triage nursing notes and vital signs. I did review pertinent previous visits and patient history. After obtaining a thorough history and physical examination the above work up was performed. Patient presents to us today for evaluation of possible urinary tract infection as he notes darkening urine within the collection bag as well as worsening pain to his sacral ulcers. Patient is noted to be tachycardic on arrival as well as hypotensive. Concern is for infectious etiology and sepsis. Options of care were discussed with the patient. EKG was obtained. This reveals sinus tachycardia at a rate of 122 bpm. QTc 430. QRS 84. No ST elevation. IV access was established. Labs were drawn. Fluid resuscitation was initiated at just over 30 mL/kg of NSS via order of 2L NSS, as well as broad-spectrum empiric antibiotics tailored to previous cultures and at this time we will proceed with vancomycin and Zosyn. Although meropenem was initially ordered, based on previous culture this was canceled as there was recent resistance noted. There is leukocytosis 12.62. Anemia noted with hemoglobin of 7.6 which has down trended compared to previous. There is elevation of ESR and CRP. INR 1.2. Hyponatremia 133. No evidence of kidney failure. Hyperglycemia 127. Lactate noted to be just over 2. Urinalysis is concerning for urinary tract infection with 4+ bacteria. This is more bacteria than his previous urine assessments here. BioFire negative. Chest x-ray negative for acute process. CT scan was performed of the abdomen/pelvis. This revealed large ulcers superficial to the sacrum, right ischial tuberosity and left greater trochanter. There is progressive acute on chronic sacrococcygeal, right ischial tuberosity and left greater trochanter osteomyelitis. Bilateral hip joint effusions with probable upper thigh myositis and new left hip subluxation. Periaortic, iliac and inguinal chain lymphadenopathy, likely reactive. I will note there is no evidence of left hip dislocation. Patient's pain is not in his left hip, rather spans overlying the low back and sacral area. At this time I do believe the patient requires hospitalization. The patient's blood pressure did improve compared to his initial presentation and heart rate did improve as well with fluid resuscitation. Patient also noted that his blood pressure at baseline does run on the lower side. He is not dizzy or lightheaded. Case discussed with the hospitalist service, Dr. Meyers. He recommended transfer to [facility] where the patient was following with wound care clinic with follow-up scheduled with orthopedics. I then called [facility] and spoke with Dr. Ledesma at 8:39 PM. He is will accept the patient but did ask if we had orthopedics available here as that would be the specialty service the patient would require for intervention noting the osteomyelitis. I then noted I would speak to our orthopedic service on-call to review the case. Dr. Ledesma noted he would accept the patient if orthopedics is not able to manage the patient in our facility. I did discuss all of these recommendations with the patient. He was amenable to plan. I then spoke with Dr. ulrich of orthopedics at 9:15 PM on 07/06/2023. He did recommend proceeding with the transfer to [facility]. I then asked our staff to reach back out to [facility] to let them know of the current plan. The patient was started on maintenance fluids Plasma-Lyte A at 100 MLS per hour. Although he has been accepted to [facility], there is no bed availability yet, per [facility] this will likely be in the a.m. I do believe it is in the patient's best interest to be managed here by the hospitalist service pending bed availability at [facility]. Hospitalist service will admit the patient. Please refer to further documentation regarding his stay. In working with the patient, once his blood pressure was felt to be stable, I did agree to order additional IV analgesics as the initial IV acetaminophen did not fully alleviate his lower sacral region pain. IV fentanyl was ordered. Please refer to further documentation regarding his stay. Additionally, will note that upon multiple reassessments the patient's urinary output appeared to be minimal despite fluid resuscitation here. Bladder scan was ordered. The catheter appear to be in good position. No retention noted. Shortly thereafter will note the patient did begin producing urine into the urine bag. No signs of fluid or volume overload. Upon multiple reassessments he continues to appear well and he notes that he feels well. Repeat H&H was also ordered per recommendation of hospitalist at time of admission. This came back at 6.5. I reviewed this with the hospitalist. Patient was consented for blood. Patient admitted at this time and blood will be ordered by the hospitalist service. Please refer to further documentation regarding his stay. Case was discussed with the attending physician. GCS: 15 In the evaluation and treatment of this patient the following differential diagnoses were entertained: Fracture, dislocation, subluxation, contusion, UTI, pyelonephritis, septic hip, osteomyelitis, among others. Impression & Plan Sepsis, Osteomyelitis, UTI (urinary tract infection) Discharge Plan Visit Data Chief Complaint: Urinary Symptoms Stated Complaint: UTI, PRESSURE SORE ON REAR ED Provider: Bonita Gonzalez ED Midlevel Provider: Stan Randall Discharge Problem: Sepsis, Osteomyelitis, UTI (urinary tract infection) Patient Disposition: Admitted As Inpatient Condition: Good Discharge Instructions Interventions: ED Discharge Assessment Last Done: 07/06/23 23:46
[2023-07-06] MEDS ORDERED: MEROPENEM 500 MG in SYRINGE 0 ML IV STA (16:32)
[2023-07-06] MEDS ORDERED: VANCOMYCIN CONSULT ACTIVE PRN ×2 (16:32→23:45)
[2023-07-06] MEDS: SODIUM CHLORIDE 0.9% 1,000 ML IV SCH (16:54)
[2023-07-06 17:11] LABS: Hematocrit (blood only) 27.1 % (42.0-52.0); Hemoglobin 7.6 g/dl (14.0-18.0); Mean Corpuscular Hemoglobin 21.5 pg (25.0-34.0); Mean Corpuscular Volume 76.8 fL (80.0-100.0); Mean Platelet Volume 8.5 fL (9.4-12.4); Platelet Count 750 K/uL (130-400); RDW Standard Deviation 49.8 fL (36.4-46.3); Red Blood Count 3.53 M/uL (4.70-6.10); White Blood Count 12.62 K/ul (4.8-10.8)
[2023-07-06 17:20] LABS: Alanine Aminotransferase 14 U/L (7-52); Albumin Level 2.6 gm/dl (3.4-5.0); Alkaline Phosphatase 178 U/L (34-104); Anion Gap 10 (3-11); Aspartate Aminotransferase 22 U/L (13-39); Bilirubin Direct 0.1 mg/dl (0-0.2); Bilirubin,Total 0.2 mg/dl (0.2-1.0); Blood Urea Nitrogen 16 mg/dl (6-23); C Reactive Protein 13.92 mg/dl (0-0.5); Calcium 8.1 mg/dl (8.6-10.3); Carbon Dioxide 24 mmol/L (21-32); Chloride 99 mmol/L (98-107); Creatinine Clr Calc Pharmacy 315.7 ml/min; Est GFR (African American) > 150.0 ml/min; Est GFR (Non-African American) > 150.0 ml/min; Glucose 127 mg/dl (70-99(Fasting)); Magnesium 1.8 mg/dl (1.7-2.4); Potassium 3.5 mmol/L (3.5-5.1); Sodium 133 mmol/L (136-145); Total Protein 7.2 gm/dl (6.0-8.3)
[2023-07-06] MEDS: PIPERACILLIN/TAZOBACTAM 4.5 GM/100 ML BAG IV ONE (17:25)
[2023-07-06 17:26] LABS: Troponin I High Sensitivity 4.8 pg/ml (0-20)
[2023-07-06 17:28] LABS: Basophils # (auto) 0.06 K/uL (0.00-0.20); Basophils % (auto) 0.5 %; Eosinophils # (auto) 0.17 K/uL (0.00-0.50); Eosinophils % (auto) 1.3 %; Hypochromasia Present; Immature Granulocytes # (auto) 0.06 K/uL (0.01-0.20); Immature Granulocytes % (auto) 0.5 %; Lymphocytes # (auto) 2.16 K/uL (1.20-3.40); Lymphocytes % (auto) 17.1 %; Monocytes # (auto) 0.91 K/uL (0.11-0.59); Monocytes % (auto) 7.2 %; Neutrophils # (auto) 9.26 K/uL (1.40-6.50); Neutrophils % (auto) 73.4 %
[2023-07-06 17:29] LABS: INR 1.2 (0.9-1.1); Partial Thromboplastin Ratio 1.2; Partial Thromboplastin Time 35 Seconds (21-31); Prothrombin Time 12.6 Seconds (9.0-12.0)
[2023-07-06 17:44] LABS: Adenovirus PCR Not Detected (NotDetected); Bordetella parapertussis PCR Not Detected (NotDetected); Bordetella pertussis PCR Not Detected (NotDetected); Chlamydia pneumoniae PCR Not Detected (NotDetected); Coronavirus 229E PCR Not Detected (NotDetected); Coronavirus CoV-2 (COVID19)PCR Not Detected (NotDetected); Coronavirus HKU1 PCR Not Detected (NotDetected); Coronavirus NL63 PCR Not Detected (NotDetected); Coronavirus OC43PCR Not Detected (NotDetected); Human Metapneumovirus PCR Not Detected (NotDetected); Influenza A PCR Not Detected (NotDetected); Influenza B PCR Not Detected (NotDetected); Mycoplasma pneumoniae PCR Not Detected (NotDetected); Parainfluenza Virus 1 PCR Not Detected (NotDetected); Parainfluenza Virus 2 PCR Not Detected (NotDetected); Parainfluenza Virus 3 PCR Not Detected (NotDetected); Parainfluenza Virus 4 PCR Not Detected (NotDetected); Respiratory Syncytial VirusPCR Not Detected (NotDetected); Rhinovirus/Enterovirus PCR Not Detected (NotDetected)
[2023-07-06] MEDS: VANCOMYCIN HCL 1,500 MG in SODIUM CHLORIDE 0.9% 500 ML IV ONE (17:45)
[2023-07-06 17:56] LABS: Appearance Urine Turbid (Clear); Bacteria Urine Automated 4+ (Negative); Blood Urine 2+ (Negative); Color Urine Dark Yellow; Epithelial Cell Urine Auto >30 /lpf (0-5); Glucose Urine UA Negative (Negative); Ketones Urine Negative (Negative); Leukocyte Esterase Urine 3+ (Negative); Nitrite Urine Positive (Negative); Protein Urine 2+ (Negative); RBC Urine Automated >30 /hpf (0-4); Specific Gravity Urine 1.024 (1.000-1.030); Urobilinogen Urine Positive (Negative); WBC Urine Automated >30 /hpf (0-5)
--- NOTE | 2023-07-06 17:58 | XRay Report ---
XR chest 1V portable HISTORY: 28 years-old Male Sepsis acute sepsis COMPARISON: 02/26/2023 TECHNIQUE: AP view of the chest FINDINGS: Cardiomediastinal and hilar silhouettes are within normal limits. No pneumothorax, pleural effusion, airspace consolidation or pulmonary. Midthoracic dextroscoliosis. Cervicothoracic spinal fusion hardw are. Bones appear grossly intact. IMPRESSION: No acute process. ACT 112: Negative or not required by law. The above report was generated using voice recognition software. It may contain grammatical, syntax o r spelling errors. Electronically signed by: Porfirio Arvizu M.D. 07/06/2023 5:57 PM
[2023-07-06 17:59] LABS: Bilirubin Urine 1+ (Negative)
[2023-07-06] MEDS: ACETAMINOPHEN 1000 MG/100 ML IV IV ONE (18:02)
[2023-07-06 18:15] LABS: Cast Urine Automated 0 /lpf (0-5)
[2023-07-06] MEDS: OPTIRAY 320 500ml IV ONE (18:45)
--- NOTE | 2023-07-06 19:15 | CT Scan Report ---
ABDOMEN AND PELVIS CT WITH IV CONTRAST CT DOSE: 572.14 mGy.cm HISTORY: Sacral decubitus ulcer. sacral wound, sepsis TECHNIQUE: Multiaxial CT images of the abdomen and pelvis were performed following the IV administrat ion of 88 cc of Optiray, A dose lowering technique was utilized adhering to the principles of ALARA. COMPARISON STUDY: MRI pelvis 02/27/2023, CT 07/13/2022 FINDINGS: Clear lung bases. No free air. The spleen is upper limits of normal in size. Unremarkable p ancreas and adrenal glands. Mildly contracted gallbladder. Unremarkable liver. Patency of the hepatic and portal veins. No hydronephrosis. Possible punctate right nephrolithiasis. Suprapubic urinary mir dder catheter. The urinary bladder is decompressed containing coarse calcifications measuring over 2 cm in mild retroperitoneal lymphadenopathy with lymph nodes measuring up to 10 mm. Mildly enlarged in guinal and iliac chain lymph nodes measure up to 12 mm. Postoperative changes of a double barrel colostomy within the left lower quadrant with distal gastrec huang and gastrojejunostomy. Fluid-filled loops of small bowel are noted. No high-grade small bowel ob struction. Noninflamed appendix. Large sacral decubitus ulcer measures up to 10 cm transversely. Ther e is progression of the acute on chronic sacrococcygeal osteomyelitis with bony erosion/destruction. Additional chronic ulcers are noted lateral to the left proximal femur and right ischial tuberosity. There is progressive acute on chronic osteomyelitis of the right ischial tuberosity and left greater trochanter. Large bilateral hip joint effusions with posterior subluxation of the left presacral constantino a. Femoral acetabular joint. Asymmetric heterogeneity in the right proximal thigh musculature contain ing calcifications. The right hip joint effusion peripherally enhances. IMPRESSION: 1. No bowel obstruction or bowel wall thickening. 2. Large ulcers are noted superficial to the sacrum, right ischial tuberosity and left greater trocha nter. There is progressive acute on chronic sacrococcygeal, right ischial tuberosity and left greater trochanter osteomyelitis. 3. Bilateral hip joint effusions with probable upper thigh myositis and new left hip subluxation. 4. Periaortic, iliac and inguinal chain lymphadenopathy, likely reactive. 5. Additional findings as above. ACT 112: Negative or not required by law. The above report was generated using voice recognition software. It may contain grammatical, syntax o r spelling errors. Electronically signed by: Porfirio Arvizu M.D. 07/06/2023 7:12 PM
[2023-07-06] MEDS: PLASMA-LYTE A 1,000 ML IV SCH (20:48)
[2023-07-06] MEDS: fentaNYL citrate PF 100 MCG/2 ML VIAL IV STA (22:33)
[2023-07-06 23:30] LABS: Hematocrit (blood only) 22.8 % (42.0-52.0); Hemoglobin 6.5 g/dl (14.0-18.0)
[2023-07-06] MEDS ORDERED: GABAPENTIN 300 MG CAP PO PRN (23:45)
[2023-07-06] MEDS ORDERED: ONDANSETRON INJ 2 MG/ML 2 ML VIAL IV PRN (23:45)
[2023-07-07] MEDS: ACETIC ACID 0.25% IRRIG SOLN 1000 ML PLCT IR SCH (00:56)
[2023-07-07] MEDS: VANCOMYCIN HCL 1,000 MG in SODIUM CHLORIDE 0.9% 250 ML IV SCH (01:00)
[2023-07-07] MEDS: fentaNYL citrate PF 100 MCG/2 ML VIAL IV PRN (02:00)
[2023-07-07] MEDS: PIPERACILLIN/TAZOBACTAM 4.5 GM in DEXTROSE 5% MINI-B 100 ML IV SCH (02:27)
[2023-07-07] MEDS ORDERED: SODIUM CHLORIDE 0.9% 250 ML IV PRN ×3 (04:31→07:23)
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
[2023-07-07] MEDS: ACETAMINOPHEN 500 MG TAB PO PRN (05:45)
[2023-07-07] MEDS ORDERED: VANCOMYCIN HCL 1,000 MG in SODIUM CHLORIDE 0.9% 500 ML IV SCH (07:00)
[2023-07-07 07:11] LABS: Hematocrit (blood only) 20.2 % (42.0-52.0); Hemoglobin 5.9 g/dl (14.0-18.0)
[2023-07-07 07:12] LABS: Mean Corpuscular Hemoglobin 21.8 pg (25.0-34.0); Mean Corpuscular Hgb Conc 29.2 g/dL (32.0-36.0); Mean Corpuscular Volume 74.5 fL (80.0-100.0); Mean Platelet Volume 8.4 fL (9.4-12.4); Platelet Count 551 K/uL (130-400); RDW Coefficient of Variation 17.9 % (11.5-14.5); RDW Standard Deviation 48.6 fL (36.4-46.3); Red Blood Count 2.71 M/uL (4.70-6.10); White Blood Count 9.98 K/ul (4.8-10.8)
[2023-07-07 07:26] LABS: Albumin Level 2.2 gm/dl (3.4-5.0); Anion Gap 4 (3-11); Calcium 7.2 mg/dl (8.6-10.3); Carbon Dioxide 26 mmol/L (21-32); Chloride 102 mmol/L (98-107); Magnesium 1.6 mg/dl (1.7-2.4); Sodium 132 mmol/L (136-145)
[2023-07-07 07:32] LABS: BUN Creatinine Ratio 33.3 (10-20); Blood Urea Nitrogen 10 mg/dl (6-23); Creatinine Clr Calc Pharmacy 332.5 ml/min; Est GFR (African American) > 150.0 ml/min; Est GFR (Non-African American) > 150.0 ml/min; Glucose 86 mg/dl (70-99(Fasting)); Phosphorus 2.1 mg/dl (2.5-4.9)
[2023-07-07 07:37] LABS: Anisocytosis Present; Basophils # (auto) 0.04 K/uL (0.00-0.20); Basophils % (auto) 0.4 %; Immature Granulocytes # (auto) 0.08 K/uL (0.01-0.20); Immature Granulocytes % (auto) 0.8 %; Lymphocytes # (auto) 2.84 K/uL (1.20-3.40); Lymphocytes % (auto) 28.5 %; Monocytes # (auto) 1.02 K/uL (0.11-0.59); Monocytes % (auto) 10.2 %; Neutrophils % (auto) 58.1 %
[2023-07-07 07:46] LABS: Blood Urine Negative (Negative); RBC Urine Automated 0-4 /hpf (0-4)
[2023-07-07] MEDS: oxyBUTYnin chloride 5 MG TAB PO SCH (08:33)
--- NOTE | 2023-07-07 08:33 | Electrocardiogram Report ---
Test Reason : Blood Pressure : / mmHG Vent. Rate : 122 BPM Atrial Rate : 122 BPM P-R Int : 114 ms QRS Dur : 084 ms QT Int : 302 ms P-R-T Axes : 056 075 071 degrees QTc Int : 430 ms Sinus tachycardia Biatrial enlargement Incomplete right bundle branch block Nonspecific T wave abnormality Inferior leads Abnormal ECG When compared with ECG of 27-FEB-2023 16:43, No significant change Confirmed by Joshua Novoa ([id number]) on 07/07/2023 8:32:56 AM Referred By: REFERRED SELF Confirmed By:Joshua Novoa
[2023-07-07] MEDS: BACLOFEN 10 MG TAB PO SCH (08:34)
[2023-07-07] MEDS: MEGESTROL ACETATE SUSP 400 MG/10 ML UDC PO SCH (08:34)
[2023-07-07] MEDS: FERROUS SULFATE 325 MG TAB PO SCH (08:34)
--- NOTE | 2023-07-07 12:42 | Pharmacy Report ---
Pharmacy PK ABX Note - Date of Service July 07, 2023 - Assessment and Plan Assessment 28 year old M receiving vancomycin/zosyn for treatment of sespis/ UTI/osteo. Pertinent microbiologic data includes: Hx of multiple resistant organisms including MRSA, Psuedomonas (last culture from right hip resistant to meropenem), ESBL E. coli. Current urine culture growing gram negative bacilli. Patient has complex medical history including quadriplegia. Difficult to determine true clearance with SCr. Currently dosed 15 mg/kg every 8 hours- obtain early level if patient still in our facility- plans to transfer to [facility] when bed available. Plan Vancomycin * Loading dose: 1500 mg IV x 1 * Maintenance dose: 1000 mg IV every 8 hours * Regimen is predicted to achieve target AUC/CARMEN of 400-600 mg/L.hr * Random level / @ 0800 Pharmacy will continue to follow and will adjust dose/frequency as necessary. Thank you. Pharmacy has transitioned to AUC monitoring for vancomycin. AUC/CARMEN is the preferred PK/PD target and is associated with decreased risk of nephrotoxicity compared to traditional trough targets.
--- NOTE | 2023-07-07 13:38 | Emergency Department Note ---
ED Visit Note I agree with the diagnosis and management decisions and have been personally involved in the case. Patient appears to be septic from urine and potentially chronic osteomyelitis of his pressure wounds. He is also noted to be anemic. Case was discussed with hospitalist service who requested transfer to [facility]. They do not have any bed availability at this time. Patient will be admitted to our medicine service for stabilization pending bed availability. Please see Stan Randall PA-C's notes for further details of the history, physical and visit. .
[2023-07-07] MEDS ORDERED: CEROVITE ADV FORMULA TAB PO SCH (15:00)
[2023-07-07] MEDS ORDERED: RIVAROXABAN 20 MG TAB PO SCH (16:30)
[2023-07-07] MEDS ORDERED: MIRTAZAPINE TAB 15 MG TAB PO SCH (21:00)
[2023-07-08] MEDS ORDERED: VANCOMYCIN LEVEL ONE (08:00)
--- NOTE | 2023-07-08 08:02 | Discharge Summary ---
Date of Service July 08, 2023 Admission HPI Per Admitting Provider The patient is a C5-C7 quadriplegic, with osteomyelitis stage III pressure ulcer of buttock, DVT, indwelling Dewitt catheter, neurogenic bowel and bladder, recurrent urinary tract infections, DVT of right lower extremity, iliac DVT, nicotine dependence, severe protein calorie malnutrition and orthostatic hypotension. The patient was brought to the emergency department due to concerns regarding worsening pressures sore in his lower back buttock area, and urinary tract infection. The patient's most recent urinary tract infection from 04/01/2023 was growing MRSA and Pseudomonas, that is sensitive to vancomycin and Zosyn IV which has begun in the ED Patient does have a chronically infected hip osteomyelitis, and had missed an appointment at [place] where he was to have an orthopedic evaluation for possible surgery. Patient has been accepted at [facility] in [place], but did not immediately have bed available, it is expected to be available sometime next 24 hours Admission Exam Per Admitting Provider The patient is awake, alert and oriented 3, normocephalic and atraumatic, lying in bed and in no acute distress. HEENT--PERRL, EOMI, mucous membranes and oropharynx dry. Neck--supple. No JVD. No bruits. Thyroid normal, trachea midline, no adenopathy. Heart--normal S1 and S2. No murmurs, rubs or gallops. Lungs--clear bilaterally, no respiratory distress, no accessory muscle use. Abdomen--normal bowel sounds and soft. Nontender. Nondistended Extremities--No edema. There are good distal pulses b/l. Dermatologic--skin exam is noted and ED records Neurologic--C5-C7 quadriplegia Rheumatologic--C5 7 quadriplegia Psychiatric--normal affect. Principal Diagnosis Urinary tract infection/neurogenic bladder/suprapubic catheter Multiple ulcers and osteomyelitis of hip, transferred to [facility] Discharge Exam not done. Patient was never seen by me. I am completed the dc summary as it was not done at the time of discharge Discharge Data Allergies Allergy/AdvReac Type Severity Reaction Status Date / Time nickel Allergy Mild Rash (from Verified 05/17/23 14:03 jewelry) Consultations 07/06/23 19:36 ED Decision to Admit Stat Ordered Studies 07/06/23 17:54 CT abd pelvis IV con only Stat Hospital Course (1) UTI (urinary tract infection): (2) Pressure ulcer of ischium, stage 4: (3) Stage IV pressure ulcer of left hip: (4) Stage IV pressure ulcer of hip: (5) Decubitus ulcer of sacral region, stage 4: (6) Septic arthritis of hip: (7) Osteomyelitis, pelvis: (8) Deep vein thrombosis (DVT) of right lower extremity: (9) Iliac DVT (deep venous thrombosis): (10) Neurogenic bladder: (11) Neurogenic bowel: Plan Urinary tract infection/neurogenic bladder/suprapubic catheter- Follow urine culture sensitivity patient has grown MRSA and Pseudomonas most recently Continue vancomycin IV and Zosyn IV begun in the ED Status post normal saline 1 L bolus in ED Continue Plasma-Lyte at 100 mL/h Anemia- Hemoglobin 7.6 upon admission, with follow-up 6.5 Transfuse 1 unit PRBCs, recheck laboratories 1 hour later Multiple ulcers and osteomyelitis as noted IV antibiotics as noted above Has been accepted to [facility] in [place] for possible surgery Continue supportive therapy in the interim Multiple DVT history- Continue Xarelto Total Time Total Time Spent Total Time Spent (In Minutes): 25 Discharge Plan Discharge Items Patient Disposition: Transfer Acute Care Hospital Reason For Visit: UTI, OSTEOMYELITIS HIP Discharge Diagnosis: UTI, OSTEOMYELITIS HIP Condition on Discharge: Good Activity: Per Instructions section Non-emergency contact: Primary Care Provider Call non-emergency contact if: you have any medication questions and your symptoms worsen Follow-up/Referrals: Pahceco Schultz MD [Primary Care Provider] - Diet: Regular Addtl Attending Provider Instructions: Urinary tract infection/neurogenic bladder/suprapubic catheter- Follow urine culture sensitivity patient has grown MRSA and Pseudomonas most recently Continue vancomycin IV and Zosyn IV begun in the ED Status post normal saline 1 L bolus in ED Continue Plasma-Lyte at 100 mL/h Anemia- Hemoglobin 7.6 upon admission, with follow-up 6.5 Transfuse 1 unit PRBCs, recheck laboratories 1 hour later Multiple ulcers and osteomyelitis as noted IV antibiotics as noted above Has been accepted to [facility] in [place] for possible surgery Continue supportive therapy in the interim Multiple DVT history- Continue Xarelto Pending Studies at Discharge: No Stand-Alone Forms: My [facility] Skilled Items Patient informed of condition?: Yes DNR: No Discharge Level of Care: Other Communicable Disease: No Discharge Prognosis: Stable Lines: None Urinary Catheter: No Medications and DC Order Prescriptions: Continued Medical marijuana See Rx Instructions .ROUTE .COMPLEX Rx Instructions: as directed acetic acid 0.25 % solution 1 irrig irrigation Q3H Rx Instructions: soak x 20 minutes to all wounds oxybutynin chloride 5 mg tablet 5 mg PO BID Qty: 60 5RF Ferretts 325 mg (106 mg iron) tablet 325 mg PO BID Qty: 60 5RF acetaminophen [Tylenol Extra Strength] 500 mg Tablet 1,000 mg PO Q6H PRN (Reason: Pain) gabapentin 300 mg capsule 300 mg PO Q6H PRN (Reason: nerve pain) Xarelto 20 mg tablet 20 mg PO QPM Rx Instructions: must administer with evening meal megestrol 400 mg/10 mL (40 mg/mL) suspension 800 mg PO DAILY Rx Instructions: for 30 days...ordered 02/13/23 mirtazapine 7.5 mg tablet 7.5 mg PO HS baclofen 10 mg tablet See Rx Instructions .ROUTE .COMPLEX Rx Instructions: take 2 tablet by mouth in AM, then two tablets in the PM Discharge Orders: Discharge Order (Routine); Ordered 07/08/23 Ordered By: Xiomara Lester Admission Data Admit Date/Time: 07/06/23 23:18 Attending Provider: Samira Murray Admit Provider: Dave Jamison Primary Care Provider: Pacheco Schultz V. Other Providers: Dave Jamison Coding Level of Care Code INP/OBS EV SAME DAY LV 1,45MIN Diagnoses UTI (urinary tract infection) N39.0 Pressure injury of right ischium, stage 4 L89.314 Laterality: right Stage IV pressure ulcer of left hip L89.224 Stage IV pressure ulcer of hip L89.204 Decubitus ulcer of sacral region, stage 4 L89.154 Septic arthritis of hip M00.9 Osteomyelitis, pelvis M86.9 Deep vein thrombosis (DVT) of right lower extremity I82.401 Iliac DVT (deep venous thrombosis) I82.429 Neurogenic bladder N31.9 Neurogenic bowel K59.2
--- NOTE | 2023-07-19 07:51 | Coding Query ---
CODING QUERY To promote full compliance with coding requirements relating to patient care, provider participation is requested in all cases of kiln remover uncertainty. Please assist us with the question(s) below: In the record, it states that the patient has an UTI. Please clarify below the cause of the UTI if applicable. Thank you. ( ) The chronic palmer was the cause of the UTI. ( ) Other urinary cath/device was the cause of the UTI. ( x ) UTI, unspecified cause. ( ) Self-catheterization was the cause of the UTI. ( ) Other (Specify): Principal Diagnosis: "that condition established after study, to be chiefly responsible for occasioning the admission of the patient to the hospital for care." Co-Existing Principal Diagnosis: "when two or more diagnoses equally meet the criteria for principal diagnosis as determined by the circumstances of admission, diagnostic work up, and/or therapy provided, and the Alphabetic Index, Tabular List, or another coding guideline does not provide sequencing direction, any one of the diagnoses may be sequenced first." "When the physician has documented what appears to be a current diagnosis in the body of the record, but has not included the diagnosis in the final diagnostic statement, the physician should be asked whether the diagnosis should be added." (Source Coding [facility] 2 QTR90. p3-4) ZACHARY
== END 2023-07-07 12:40 | disposition short-term general hospital (02) | DRG 689 ==
LOC: ED 16:05 → SUATTDRO 23:18 → EDINP 23:18

== ENCOUNTER 2023-10-04 21:44 | Inpatient (IN) ==
--- NOTE | 2023-10-04 22:23 | Emergency Department Note ---
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 Ur Methadone, Qual (Neg) Urine Fentanyl Screen (Neg) Urine Barbiturates (Neg) Ur Phencyclidine (PCP) (Neg) U Amphetamin/Meth Scrn (Neg) MDMA (Ecstasy) Screen (Neg) U Benzodiazepines Scrn (Neg) Ur Cocaine Metabolite (Neg) U Marijuana (THC) Screen (Neg) Adenovirus (PCR) (NotDetected) B. pertussis DNA (PCR) (NotDetected) B.parapertussis DNA PCR (NotDetected) C. pneumoniae DNA (PCR) (NotDetected) Coronavirus OC43 (PCR) (NotDetected) Coronavirus HKU1 (PCR) (NotDetected) Coronavirus 229E (PCR) (NotDetected) SARS-CoV-2 (PCR) (NotDetected) Coronavirus NL63 (PCR) (NotDetected) Human Metapneumovir PCR (NotDetected) Influenza Type A (PCR) (NotDetected) Influenza Type B (PCR) (NotDetected) M. pneumoniae (PCR) (NotDetected) Parainfluenza 1 (PCR) (NotDetected) Parainfluenza 2 (PCR) (NotDetected) Parainfluenza 3 (PCR) (NotDetected) Parainfluenza 4 (PCR) (NotDetected) RSV (PCR) (NotDetected) Entero/Rhino (PCR) (NotDetected) Administered Medications Acetaminophen (Acetaminophen 500 Mg Tab) 1,000 mg PO Q8H PRN PRN Reason: Pain Stop: 11/04/23 04:44 Last Admin: 10/05/23 05:58 Dose: 1,000 mg Documented By: PORFIRIO Lactated Ringer's (Lr) 1,000 mls @ 100 mls/hr IV .Q10H JASMIN Stop: 10/06/23 00:44 Last Admin: 10/05/23 05:11 Dose: 100 mls/hr Documented By: ADRIENNE Rivaroxaban (Rivaroxaban 20 Mg Tab) 20 mg PO QPM JASMIN Stop: 11/04/23 04:44 Last Admin: 10/05/23 05:58 Dose: 20 mg Documented By: PORFIRIO Discontinued Medications Sodium Chloride (Nss) 1,000 mls @ 999 mls/hr IV .Q1H1M JASMIN Stop: 10/04/23 23:15 Last Infusion: 10/05/23 01:07 Dose: Infused Documented By: Admin: 10/04/23 23:08 Dose: 999 mls/hr Documented By: PORFIRIO Sodium Chloride (Nss) 1,000 mls @ 999 mls/hr IV .Q1H1M [facility] Stop: 10/05/23 00:15 Last Infusion: 10/05/23 02:22 Dose: Infused Documented By: Admin: 10/05/23 01:00 Dose: 999 mls/hr Documented By: Infusion: 10/05/23 00:10 Dose: Infused Documented By: Admin: 10/04/23 23:09 Dose: 999 mls/hr Documented By: PORFIRIO Acetaminophen (Ofirmev) 1,000 mg in 100 mls @ 400 mls/hr IV NOW STA Stop: 10/04/23 22:50 Last Infusion: 10/04/23 23:30 Dose: Infused Documented By: Admin: 10/04/23 23:16 Dose: 400 mls/hr Documented By: PORFIRIO Piperacillin Sod/Tazobactam Sod (Zosyn) 4.5 gm in 100 mls @ 200 mls/hr IV NOW ONE Stop: 10/04/23 23:12 Last Infusion: 10/05/23 00:40 Dose: Infused Documented By: Admin: 10/05/23 00:07 Dose: 200 mls/hr Documented By: PORFIRIO Vancomycin HCl 1,750 mg/ (Sodium Chloride) 535 mls @ 200 mls/hr IV NOW ONE Stop: 10/05/23 01:29 Last Infusion: 10/05/23 04:00 Dose: Infused Documented By: Admin: 10/05/23 01:17 Dose: 200 mls/hr Documented By: PORFIRIO Ioversol (Optiray 320 100ml) 95 ml IV ONCE ONE Stop: 10/04/23 23:51 Last Admin: 10/04/23 23:51 Dose: 95 ml Documented By: SRIRAM Morphine Sulfate (Morphine Sulfate 4 Mg/Ml 1 Ml Carp\Vial) 4 mg IV NOW STA Stop: 10/05/23 00:18 Last Admin: 10/05/23 01:00 Dose: 4 mg Documented By: PORFIRIO Morphine Sulfate (Morphine Sulfate 2 Mg/Ml Carp) 2 mg IV NOW STA Stop: 10/05/23 02:20 Last Admin: 10/05/23 02:36 Dose: 2 mg Documented By: PORFIRIO Ondansetron HCl (Ondansetron Inj 2 Mg/Ml 2 Ml Vial) 4 mg IV NOW STA Stop: 10/04/23 22:17 Last Admin: 10/04/23 23:08 Dose: 4 mg Documented By: PORFIRIO Imaging Data Radiologist's Impression: Abdomen/Pelvis CT 10/04/23 22:09 Exam(s): CT ABDOMEN + PELVIS With Contrast IV Amt: 95 ml opti 320 EXAM: CT Abdomen and Pelvis With Intravenous Contrast CLINICAL HISTORY: Reason for exam: Abdominal pain; N/V. TECHNIQUE: Axial computed tomography images of the abdomen and pelvis with intravenous contrast. CTDI is 10.43 mGy and DLP is 563.36 mGy-cm. Automated exposure control was utilized for the study. A dose lowering technique was utilized adhering to the principles of ALARA. CONTRAST: Patient received 95 ml opti 320 of IV contrast COMPARISON: MRI dated 02/27/2023 FINDINGS: Lung bases: Unremarkable. No mass. No consolidation. ABDOMEN: Liver: Unremarkable. No mass. Gallbladder and bile ducts: Unremarkable. No calcified stones. No ductal dilation. Pancreas: Unremarkable. No mass. No ductal dilation. Spleen: Unremarkable. No splenomegaly. Adrenals: Unremarkable. No mass. Kidneys and ureters: Unremarkable. No solid mass. No hydronephrosis. Stomach and bowel: Postoperative changes of the:: With left lower quadrant colostomy. There is marked dilatation of the small bowel with no transition point. No mucosal thickening. PELVIS: Appendix: No findings to suggest acute appendicitis. Bladder: Unremarkable. No mass. Reproductive: Unremarkable as visualized. ABDOMEN and PELVIS: Intraperitoneal space: Unremarkable. No free air. No significant fluid collection. Bones/joints: Disarticulation of the left hip. Since the prior MRI there has been resection of the right femoral head. No acute fracture. No dislocation. Soft tissues: Unremarkable. Vasculature: Unremarkable. No abdominal aortic aneurysm. Lymph nodes: Unremarkable. No enlarged lymph nodes. IMPRESSION: Findings consistent with an ileus Postoperative changes of partial colectomy with left lower quadrant colostomy Disarticulation of the left hip since the prior MRI. Interval resection of the right femoral head Electronically signed by: Cooper Burroughs MD 10/05/23 01:51 AM Discharge Plan Visit Data Chief Complaint: Vomiting Stated Complaint: VOMITING, CAN'T KEEP ANYTHING DOWN ED Provider: Kusum Mendez ED Midlevel Provider: Minerva Mendez Discharge Problem: Sepsis, Stage III pressure ulcer of left hip, Paraplegia, Pressure ulcer of ischium, stage 4, Ileus, Acute UTI Patient Disposition: Admitted As Inpatient Condition: Fair Discharge Instructions Interventions: ED Discharge Assessment Last Done: 10/05/23 04:46
[2023-10-04 22:42] LABS: Hematocrit (blood only) 32.7 % (42.0-52.0); Hemoglobin 9.1 g/dl (14.0-18.0); Mean Corpuscular Hemoglobin 21.8 pg (25.0-34.0); Mean Corpuscular Hgb Conc 27.8 g/dL (32.0-36.0); Mean Corpuscular Volume 78.2 fL (80.0-100.0); Platelet Count 1351 K/uL (130-400); RDW Coefficient of Variation 18.9 % (11.5-14.5); RDW Standard Deviation 52.1 fL (36.4-46.3); Red Blood Count 4.18 M/uL (4.70-6.10); White Blood Count 19.85 K/ul (4.8-10.8)
[2023-10-04 22:44] LABS: Basophils # (auto) 0.08 K/uL (0.00-0.20); Basophils % (auto) 0.4 %; Eosinophils # (auto) 0.14 K/uL (0.00-0.50); Eosinophils % (auto) 0.7 %; Immature Granulocytes % (auto) 0.5 %; Lymphocytes # (auto) 4.47 K/uL (1.20-3.40); Lymphocytes % (auto) 22.5 %; Monocytes # (auto) 1.25 K/uL (0.11-0.59); Monocytes % (auto) 6.3 %; Neutrophils # (auto) 13.81 K/uL (1.40-6.50); Neutrophils % (auto) 69.6 %; Polychromasia 3+
[2023-10-04 22:57] LABS: Alanine Aminotransferase 26 U/L (7-52); Albumin Level 3.2 gm/dl (3.4-5.0); Alkaline Phosphatase 355 U/L (34-104); Anion Gap 10 (3-11); Aspartate Aminotransferase 28 U/L (13-39); BUN Creatinine Ratio 41.2 (10-20); Bilirubin,Total 0.6 mg/dl (0.2-1.0); Blood Urea Nitrogen 21 mg/dl (6-23); Calcium 9.2 mg/dl (8.6-10.3); Carbon Dioxide 28 mmol/L (21-32); Chloride 97 mmol/L (98-107); Est GFR (African American) > 150.0 ml/min; Est GFR (Non-African American) 148.4 ml/min; Glucose 103 mg/dl (70-99(Fasting)); Lipase 11 U/L (11-82); Magnesium 2.1 mg/dl (1.7-2.4); Potassium 4.1 mmol/L (3.5-5.1); Sodium 135 mmol/L (136-145); Total Protein 9.6 gm/dl (6.0-8.3); Troponin I High Sensitivity 8.7 pg/ml (0-20)
[2023-10-04] MEDS ORDERED: VANCOMYCIN CONSULT ACTIVE PRN (23:00)
[2023-10-04 23:07] LABS: HCO3 VBG 29 mmol/L; Oxygen Saturation VBG < 60.0 %; PCO2 VBG 49 mmHg (38-50); PO2 VBG 32 mmHg; pH VBG 7.38 (7.36-7.41)
[2023-10-04] MEDS: SODIUM CHLORIDE 0.9% 1,000 ML IV SCH ×2 (23:08→23:09)
[2023-10-04] MEDS: ONDANSETRON INJ 2 MG/ML 2 ML VIAL IV STA (23:08)
[2023-10-04] MEDS: ACETAMINOPHEN 1,000 MG/100 ML VIAL IV STA (23:16)
[2023-10-04 23:38] LABS: Appearance Urine Turbid (Clear); Bacteria Urine Automated 4+ (None Seen); Bilirubin Urine Negative (Negative); Blood Urine 3+ (Negative); Cast Urine Automated >20 /lpf (0-2); Color Urine Orange; Epithelial Cell Urine Auto 0-2 /hpf (0-2); Glucose Urine UA Negative (Negative); Ketones Urine Negative (Negative); Leukocyte Esterase Urine 3+ (Negative); Nitrite Urine Positive (Negative); Protein Urine 2+ (Negative); RBC Urine Automated >20 /hpf (0-2); Specific Gravity Urine 1.014 (1.000-1.030); Urobilinogen Urine Negative (Negative); WBC Urine Automated >50 /hpf (0-5); pH Urine 6.5 (4.5-7.5)
[2023-10-04 23:40] LABS: Adenovirus PCR Not Detected (NotDetected); Bordetella parapertussis PCR Not Detected (NotDetected); Bordetella pertussis PCR Not Detected (NotDetected); Chlamydia pneumoniae PCR Not Detected (NotDetected); Coronavirus 229E PCR Not Detected (NotDetected); Coronavirus CoV-2 (COVID19)PCR Not Detected (NotDetected); Coronavirus HKU1 PCR Not Detected (NotDetected); Coronavirus NL63 PCR Not Detected (NotDetected); Coronavirus OC43PCR Not Detected (NotDetected); Human Metapneumovirus PCR Not Detected (NotDetected); Influenza A PCR Not Detected (NotDetected); Influenza B PCR Not Detected (NotDetected); Mycoplasma pneumoniae PCR Not Detected (NotDetected); Parainfluenza Virus 1 PCR Not Detected (NotDetected); Parainfluenza Virus 2 PCR Not Detected (NotDetected); Parainfluenza Virus 3 PCR Not Detected (NotDetected); Parainfluenza Virus 4 PCR Not Detected (NotDetected); Respiratory Syncytial VirusPCR Not Detected (NotDetected); Rhinovirus/Enterovirus PCR Not Detected (NotDetected)
[2023-10-04 23:50] LABS: INR 1.2 (0.9-1.1)
[2023-10-04] MEDS: OPTIRAY 320 100ml IV ONE (23:51)
[2023-10-05 00:04] LABS: Amphetamines+Metham, Urine Pos (Neg); Barbiturates, Urine Neg (Neg); Benzodiazepine, Urine Neg (Neg); Cocaine, Urine Neg (Neg); Fentanyl, Urine Neg (Neg); MDMA (Ecstacy), Urine Pos (Neg); Marijuana, Urine Pos (Neg); Methadone, Urine Neg (Neg); Opiate, Urine Neg (Neg); Phencyclidine, Urine Neg (Neg)
[2023-10-05] MEDS: PIPERACILLIN/TAZOBACTAM 4.5 GM/100 ML BAG IV ONE (00:07)
[2023-10-05 00:09] LABS: Mucus Urine Present (None Prsent)
[2023-10-05] MEDS: MoRPHine SULFATE 4 MG/ML 1 ML CARP\\VIAL IV STA (01:00)
[2023-10-05] MEDS: VANCOMYCIN HCL 1,750 MG in SODIUM CHLORIDE 0.9% 500 ML IV ONE (01:17)
--- NOTE | 2023-10-05 01:52 | CT Scan Report ---
Exam(s): CT ABDOMEN + PELVIS With Contrast IV Amt: 95 ml opti 320 EXAM: CT Abdomen and Pelvis With Intravenous Contrast CLINICAL HISTORY: Reason for exam: Abdominal pain; N/V. TECHNIQUE: Axial computed tomography images of the abdomen and pelvis with intravenous contrast. CTDI is 10.43 mGy and DLP is 563.36 mGy-cm. Automated exposure control was utilized for the study. A dose lowering technique was utilized adhering to the principles of ALARA. CONTRAST: Patient received 95 ml opti 320 of IV contrast COMPARISON: MRI dated 02/27/2023 FINDINGS: Lung bases: Unremarkable. No mass. No consolidation. ABDOMEN: Liver: Unremarkable. No mass. Gallbladder and bile ducts: Unremarkable. No calcified stones. No ductal dilation. Pancreas: Unremarkable. No mass. No ductal dilation. Spleen: Unremarkable. No splenomegaly. Adrenals: Unremarkable. No mass. Kidneys and ureters: Unremarkable. No solid mass. No hydronephrosis. Stomach and bowel: Postoperative changes of the:: With left lower quadrant colostomy. There is marked dilatation of the small bowel with no transition point. No mucosal thickening. PELVIS: Appendix: No findings to suggest acute appendicitis. Bladder: Unremarkable. No mass. Reproductive: Unremarkable as visualized. ABDOMEN and PELVIS: Intraperitoneal space: Unremarkable. No free air. No significant fluid collection. Bones/joints: Disarticulation of the left hip. Since the prior MRI there has been resection of the right femoral head. No acute fracture. No dislocation. Soft tissues: Unremarkable. Vasculature: Unremarkable. No abdominal aortic aneurysm. Lymph nodes: Unremarkable. No enlarged lymph nodes. IMPRESSION: Findings consistent with an ileus Postoperative changes of partial colectomy with left lower quadrant colostomy Disarticulation of the left hip since the prior MRI. Interval resection of the right femoral head Electronically signed by: Cooper Burroughs MD 10/05/23 01:51 AM
[2023-10-05] MEDS: MoRPHine SULFATE 2 MG/ML CARP IV STA (02:36)
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
[2023-10-05] MEDS: LACTATED RINGER'S 1,000 ML IV SCH (05:11)
[2023-10-05] MEDS: RIVAROXABAN 20 MG TAB PO SCH (05:58)
[2023-10-05] MEDS: ACETAMINOPHEN 500 MG TAB PO PRN (05:58)
[2023-10-05 07:21] LABS: Hematocrit (blood only) 23.8 % (42.0-52.0); Hemoglobin 6.5 g/dl (14.0-18.0); Mean Corpuscular Hemoglobin 21.6 pg (25.0-34.0); Mean Corpuscular Hgb Conc 27.3 g/dL (32.0-36.0); Mean Corpuscular Volume 79.1 fL (80.0-100.0); Mean Platelet Volume 8.9 fL (9.4-12.4); Platelet Count 815 K/uL (130-400); RDW Coefficient of Variation 18.5 % (11.5-14.5); RDW Standard Deviation 53.1 fL (36.4-46.3); Red Blood Count 3.01 M/uL (4.70-6.10); White Blood Count 11.27 K/ul (4.8-10.8)
[2023-10-05 07:31] LABS: Albumin Level 2.3 gm/dl (3.4-5.0); Anion Gap 7 (3-11); Bilirubin,Total 0.4 mg/dl (0.2-1.0); Calcium 7.9 mg/dl (8.6-10.3); Carbon Dioxide 25 mmol/L (21-32); Chloride 105 mmol/L (98-107); Magnesium 1.7 mg/dl (1.7-2.4); Potassium 3.6 mmol/L (3.5-5.1); Sodium 137 mmol/L (136-145)
[2023-10-05] MEDS ORDERED: SODIUM CHLORIDE 0.9% 250 ML IV PRN (07:32)
[2023-10-05 07:39] LABS: Alanine Aminotransferase 18 U/L (7-52); Albumin Globulin Ratio 0.5 (0.9-2); Alkaline Phosphatase 254 U/L (34-104); Aspartate Aminotransferase 17 U/L (13-39); BUN Creatinine Ratio 48.6 (10-20); Blood Urea Nitrogen 17 mg/dl (6-23); Creatinine Clr Calc Pharmacy 273.2 ml/min; Est GFR (African American) > 150.0 ml/min; Est GFR (Non-African American) > 150.0 ml/min; Globulin 4.4 gm/dl (2.5-4.0); Glucose 87 mg/dl (70-99(Fasting)); Total Protein 6.7 gm/dl (6.0-8.3)
[2023-10-05 07:42] LABS: Basophils # (auto) 0.04 K/uL (0.00-0.20); Basophils % (auto) 0.4 %; Eosinophils # (auto) 0.21 K/uL (0.00-0.50); Eosinophils % (auto) 1.9 %; Hypochromasia Present; Immature Granulocytes # (auto) 0.06 K/uL (0.01-0.20); Immature Granulocytes % (auto) 0.5 %; Lymphocytes # (auto) 2.29 K/uL (1.20-3.40); Lymphocytes % (auto) 20.3 %; Monocytes # (auto) 0.86 K/uL (0.11-0.59); Monocytes % (auto) 7.6 %; Neutrophils # (auto) 7.81 K/uL (1.40-6.50); Neutrophils % (auto) 69.3 %; Stomatocytes 1+
--- NOTE | 2023-10-05 08:12 | XRay Report ---
XR chest 1V portable HISTORY: Sepsis COMPARISON: Chest 07/06/2023. FINDINGS: No pneumothorax. No pleural effusions. The heart is normal in size. The lungs are clear. Ce rvicothoracic spinal fusion hardware again noted. IMPRESSION: No acute process. ACT 112: Negative or not required by law. Electronically signed by: Oleg Murdock M.D. 10/05/2023 8:11 AM
[2023-10-05] MEDS: HYDROmorphone INJ 1 MG/ML SYRINGE IV PRN (08:32)
[2023-10-05] MEDS: PIPERACILLIN/TAZOBACTAM 4.5 GM in DEXTROSE 5% MINI-B 100 ML IV SCH (08:33)
[2023-10-05] MEDS: oxyBUTYnin chloride 5 MG TAB PO SCH (09:08)
[2023-10-05] MEDS: PANTOprazole 40 MG TAB PO SCH (09:08)
[2023-10-05] MEDS: MULTIVITAMIN TAB PO SCH (09:08)
[2023-10-05] MEDS: BACLOFEN 10 MG TAB PO SCH (09:08)
--- NOTE | 2023-10-05 11:30 | Pharmacy Report ---
Pharmacy PK ABX Note - Date of Service October 05, 2023 - Assessment and Plan Assessment 28 year old M receiving vancomycin/zosyn empirically. Blood, urine, hip and abdomen cultures pending. Day # 1 of antimicrobial therapy. Plan Vancomycin * Loading dose: 1750 mg IV x 1 * Maintenance dose: 1750 mg IV every 12 hours * Regimen is predicted to achieve target AUC/CARMEN of 400-600 mg/L.hr * Random level will be ordered if therapy to continue past current 48 hour duration. Pharmacy will continue to follow and will adjust dose/frequency as necessary. Thank you. Pharmacy has transitioned to AUC monitoring for vancomycin. AUC/CARMEN is the preferred PK/PD target and is associated with decreased risk of nephrotoxicity compared to traditional trough targets.
[2023-10-05] MEDS: VANCOMYCIN HCL 1,750 MG in SODIUM CHLORIDE 0.9% 500 ML IV SCH (13:06)
[2023-10-05 13:32] LABS: Hematocrit (blood only) 25.3 % (42.0-52.0); Hemoglobin 7.4 g/dl (14.0-18.0); Mean Corpuscular Hemoglobin 23.3 pg (25.0-34.0); Mean Corpuscular Hgb Conc 29.2 g/dL (32.0-36.0); Mean Corpuscular Volume 79.6 fL (80.0-100.0); Mean Platelet Volume 8.7 fL (9.4-12.4); Platelet Count 793 K/uL (130-400); RDW Coefficient of Variation 18.8 % (11.5-14.5); RDW Standard Deviation 54.8 fL (36.4-46.3); Red Blood Count 3.18 M/uL (4.70-6.10)
--- NOTE | 2023-10-05 14:46 | Hospitalist Progress Note ---
Date of Service October 05, 2023 Assessment & Plan (1) Sepsis: Plan: (2) Pressure ulcer of ischium, stage 4: (3) Thrombocytosis: (4) Anemia: (5) Paraplegia: (6) Neurogenic bladder: Plan: - continue ocybutyin (7) Ileus: (8) History of DVT (deep vein thrombosis): Plan #Sepsis SIRS+ with leukocytosis and tachycardia source likely urinary; UA: +blood, nitrite, LE vancomycin and Zosyn; f/u blood/urine cultures continue maintenance fluids- LR@100mL/hr #Stage 4 pressure ulcer multiple chronic pressure ulcers, follows with wound care history of osteomyelitis- follows with infectious disease and completed course of ertapenem plan for vanc/zosyn for now consult wound nurse surgery consult to eval for debridement #Thrombocytosis history of chronic thrombocytosis platelets on admission 1341--> 793 s/p fluid resuscitation peripheral smear pending #Anemia chronic microcytic anemia with baseline hemoglobin ~9 Hgb 6.5 s/p fluid resuscitation s/p 1 u PRBCs Hb 7.4 CBC q8h, will check ferritin #Ileus noted on CT, history of neurogenic bowel/bladder improvement in nausea/vomiting with IVF no signs of SBO, advance diet as tolerated #Paraplegia/Spasticity Baclofen #Hx DVT Xarelto FENGI: advance as tolerated Code status: full DVT prophylaxis: xarelto Isolation: none Disposition: med/tele Admission and Anticipated Discharge Date Admission Date: October 05, 2023 Supervising Physician Co-Signing Physician Notes Attending Physician Supervision Note: I independently interviewed and examined the patient and verified the connolly history and physical, reviewed labs and image studies and agree with findings and care plan noted above. in addition - continue ostomy and suprapubic catheter care. Subjective Patient seen and evaluated at bedside this morning. No acute events overnight. Complains of pain in abdomen, mild nausea, pain in region of sacral ulcers, little appetite Review of Systems Review of Systems: reviewed, per HPI Physical Exam Physical Exam: Constitutional: ill-appearing, pale, no acute distress HEENT: NCAT, no conjunctival injection CV: regular rhythm, no murmur appreciated, pale throughout, no LE edema Resp: CTABL, no wheezes/rales/rhonchi appreciated, no increased work of breathing GI: soft, nondistended, nontender MSK: no gross deformities appreciated Skin: warm, dry, no rash appreciated, sacral wounds not examined Neuro: alert, oriented, no focal neurologic deficit appreciated Results & Data Results & Data Vital Signs (Past 12 Hours) Vital Signs Temp Pulse Resp BP Pulse Ox Pulse Ox O2 Del Method 10/05/23 11:23 36.5 C 93 H 14 119/71 100 10/05/23 11:05 36.9 C 88 14 119/73 100 10/05/23 10:05 36.6 C 91 H 18 99/55 L 98 10/05/23 09:35 36.5 C 90 18 106/59 L 99 10/05/23 09:20 36.4 C L 79 18 119/67 99 10/05/23 09:09 95 H 14 96 10/05/23 09:01 36.5 C 106 H 18 87/50 L 96 10/05/23 09:00 87/50 L 10/05/23 08:51 86 10/05/23 07:03 101 H 14 100 10/05/23 07:00 93/60 L 10/05/23 04:45 Room Air 10/05/23 04:45 97 10/05/23 04:24 102 H O2 Del Method 10/05/23 11:23 10/05/23 11:05 10/05/23 10:05 10/05/23 09:35 10/05/23 09:20 10/05/23 09:09 10/05/23 09:01 10/05/23 09:00 10/05/23 08:51 10/05/23 07:03 10/05/23 07:00 10/05/23 04:45 10/05/23 04:45 Room Air 10/05/23 04:24 Resident Activity Tracking Resident Involvement: Resident Care Provided Care Provided: Adult [facility] Medicine
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
[2023-10-05 17:15] LABS: A calco-baum cmplx NotReported Not Detected (NotDetected); Bact fragilis Not Reported Not Detected (NotDetected); Blood Culture Id Panel See PCR Comment (NotDetected); C auris Not Reported Not Detected (NotDetected); Calbicans Not Reported Not Detected (NotDetected); Candida glabrata Not Reported Not Detected (NotDetected); Candida krusei Not Reported Not Detected (NotDetected); Cneoformans/gatti Not Reported Not Detected (NotDetected); Cparapsilosis Not Reported Not Detected (NotDetected); E cloacae compx Not Reported Not Detected (NotDetected); Efaecalis Not Reported Not Detected (NotDetected); Efaecium Not Reported Not Detected (NotDetected); Enterobacterales Not Reported Not Detected (NotDetected); Escherichia coli Not Reported Not Detected (NotDetected); H influenzae Not Reported Not Detected (NotDetected); K aerogenes Not Reported Not Detected (NotDetected); Koxytoca Not Reported Not Detected (NotDetected); Kpneumoniae grp Not Reported Not Detected (NotDetected); Lmonocyt Not Reported Not Detected (NotDetected); N meningitidis Not Reported Not Detected (NotDetected); P aeruginosa Not Reported Not Detected (NotDetected); Proteus spp Not Reported Not Detected (NotDetected); Salmonella spp Not Reported Not Detected (NotDetected); Smarcescens Not Reported Not Detected (NotDetected); Staph lugdunensis Not Reported Not Detected (NotDetected); Staph spp. Not Reported DETECTED (NotDetected); Staphaureus Not Reported Not Detected (NotDetected); Staphepi Not Reported Not Detected (NotDetected); Stenmaltophilia Not Reported Not Detected (NotDetected); Strep agal(GrpB) Not Reported Not Detected (NotDetected); Strep pneum Not Reported Not Detected (NotDetected); Strep pyog (GrpA) Not Reported Not Detected (NotDetected); Strep spp Not Reported Not Detected (NotDetected)
[2023-10-05 17:17] LABS: Staphylococcus spp. DETECTED (NotDetected)
[2023-10-05] MEDS: HYDROmorphone INJ 0.5 MG/0.5 ML SYR IV PRN (19:22)
[2023-10-05] MEDS: DAKIN'S SOLN 0.25% HALF STRENGTH 473ML BTL EXT SCH (19:43)
--- NOTE | 2023-10-05 19:48 | Billing Data ---
Date of Service October 05, 2023 Coding Level of Care Code 12185 INT INP/OBS CARE
[2023-10-05] MEDS: MIRTAZAPINE TAB 15 MG TAB PO SCH (21:08)
[2023-10-05] MEDS: BACLOFEN 20 MG TAB PO SCH (21:08)
[2023-10-05 21:13] LABS: Basophils # (auto) 0.05 K/uL (0.00-0.20); Basophils % (auto) 0.4 %; Eosinophils # (auto) 0.28 K/uL (0.00-0.50); Eosinophils % (auto) 2.5 %; Hematocrit (blood only) 25.8 % (42.0-52.0); Hemoglobin 7.4 g/dl (14.0-18.0); Immature Granulocytes # (auto) 0.05 K/uL (0.01-0.20); Immature Granulocytes % (auto) 0.4 %; Lymphocytes # (auto) 1.43 K/uL (1.20-3.40); Lymphocytes % (auto) 12.5 %; Mean Corpuscular Hemoglobin 23.1 pg (25.0-34.0); Mean Corpuscular Hgb Conc 28.7 g/dL (32.0-36.0); Mean Corpuscular Volume 80.4 fL (80.0-100.0); Mean Platelet Volume 8.9 fL (9.4-12.4); Monocytes # (auto) 0.55 K/uL (0.11-0.59); Monocytes % (auto) 4.8 %; Neutrophils # (auto) 9.05 K/uL (1.40-6.50); Neutrophils % (auto) 79.4 %; Platelet Count 777 K/uL (130-400); RDW Coefficient of Variation 18.6 % (11.5-14.5); RDW Standard Deviation 54.5 fL (36.4-46.3); Red Blood Count 3.21 M/uL (4.70-6.10); White Blood Count 11.41 K/ul (4.8-10.8)
[2023-10-05 22:18] LABS: Polychromasia 1+
[2023-10-06] MEDS ORDERED: ACETAMINOPHEN 500 MG TAB PO PRN (04:11)
[2023-10-06 05:32] LABS: Adenovirus F 40/41 PCR Not Detected (NotDetected); Astrovirus PCR Not Detected (NotDetected); Campylobacter PCR Not Detected (NotDetected); Cryptosporidium PCR Not Detected (NotDetected); Cyclospora cayetanensis PCR Not Detected (NotDetected); Entamoeba histolytica PCR Not Detected (NotDetected); Enteroaggregative E.coli(EAEC) Not Detected (NotDetected); Enteropathogenic E.coli (EPEC) Not Detected (NotDetected); Enterotoxigenic E.coli (ETEC) Not Detected (NotDetected); Giardia lamblia PCR Not Detected (NotDetected); Norovirus GI/GII PCR Not Detected (NotDetected); Plesiomonas shigelloides PCR Not Detected (NotDetected); Rotavirus A PCR Not Detected (NotDetected); Salmonella PCR Not Detected (NotDetected); Sapovirus PCR Not Detected (NotDetected); Shiga-like Toxin E.coli (STEC) Not Detected (NotDetected); Shigella/Enteroinvasive E.coli Not Detected (NotDetected); Vibrio cholerae PCR Not Detected (NotDetected); Vibrio species PCR Not Detected (NotDetected); Yersinia enterocolitica PCR Not Detected (NotDetected)
[2023-10-06 06:31] LABS: Basophils # (auto) 0.04 K/uL (0.00-0.20); Basophils % (auto) 0.3 %; Eosinophils # (auto) 0.37 K/uL (0.00-0.50); Eosinophils % (auto) 3.1 %; Hematocrit (blood only) 28.2 % (42.0-52.0); Hemoglobin 8.1 g/dl (14.0-18.0); Immature Granulocytes # (auto) 0.08 K/uL (0.01-0.20); Immature Granulocytes % (auto) 0.7 %; Lymphocytes # (auto) 2.24 K/uL (1.20-3.40); Lymphocytes % (auto) 18.8 %; Mean Corpuscular Hemoglobin 22.8 pg (25.0-34.0); Mean Corpuscular Hgb Conc 28.7 g/dL (32.0-36.0); Mean Corpuscular Volume 79.2 fL (80.0-100.0); Mean Platelet Volume 8.7 fL (9.4-12.4); Monocytes # (auto) 0.83 K/uL (0.11-0.59); Neutrophils # (auto) 8.38 K/uL (1.40-6.50); Neutrophils % (auto) 70.1 %; Platelet Count 952 K/uL (130-400); RDW Coefficient of Variation 18.3 % (11.5-14.5); Red Blood Count 3.56 M/uL (4.70-6.10); White Blood Count 11.94 K/ul (4.8-10.8)
[2023-10-06 07:13] LABS: Alanine Aminotransferase 15 U/L (7-52); Albumin Globulin Ratio 0.5 (0.9-2); Albumin Level 2.4 gm/dl (3.4-5.0); Alkaline Phosphatase 222 U/L (34-104); Anion Gap 9 (3-11); Aspartate Aminotransferase 13 U/L (13-39); BUN Creatinine Ratio 16.7 (10-20); Bilirubin,Total 0.3 mg/dl (0.2-1.0); Blood Urea Nitrogen 8 mg/dl (6-23); Carbon Dioxide 23 mmol/L (21-32); Chloride 104 mmol/L (98-107); Creatinine Clr Calc Pharmacy 219.4 ml/min; Est GFR (African American) > 150.0 ml/min; Est GFR (Non-African American) > 150.0 ml/min; Globulin 4.6 gm/dl (2.5-4.0); Glucose 131 mg/dl (70-99(Fasting)); Magnesium 1.6 mg/dl (1.7-2.4); Phosphorus 2.5 mg/dl (2.5-4.9); Potassium 3.3 mmol/L (3.5-5.1); Sodium 136 mmol/L (136-145)
--- NOTE | 2023-10-06 07:32 | Electrocardiogram Report ---
Test Reason : Blood Pressure : / mmHG Vent. Rate : 072 BPM Atrial Rate : 072 BPM P-R Int : 122 ms QRS Dur : 090 ms QT Int : 384 ms P-R-T Axes : 061 064 053 degrees QTc Int : 420 ms Normal sinus rhythm Normal ECG When compared with ECG of 06-JUL-2023 16:39, Vent. rate has decreased BY 50 BPM Confirmed by Sreedhar Jenkins ([id number]) on 10/06/2023 7:32:17 AM Referred By: REFERRED SELF Confirmed By:Sreedhar Jenkins
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
--- NOTE | 2023-10-06 12:36 | Surgery Progress Note ---
<Statement entered by Kristie Cook, - 10/06/23 13:16> I have seen this patient with the orthopedic surgeon and general surgery PA, I agree with this note Date of Service October 06, 2023 Assessment & Plan (1) Pressure ulcer of left hip: Plan: Patient see and examined with Dr. Cook and Dr. Crain. After much discussion, patient would benefit from transfer to tertiary facility for evaluation and management. Patient is already established with [facility] in [place]. No bedside debridement performed. General Surgery will sign off at this time. Admission and Anticipated Discharge Date Admission Date: October 05, 2023 Subjective is resting in bed- no new concerns overnight. Review of Systems Constitutional: as per Subjective / HPI; no fever and no chills Integumentary: as per Subjective / HPI Physical Exam Physical Exam: Patient seen and examined with Orthopedics, Dr. Crain. 6 cm full-thickness ulcer on the lateral aspect of the hip. There is obvious exposed bone in the wound that feels like it is likely the greater trochanter of the left femur. It is quite soft. Constitutional: WD/WN, vitals as above Respiratory: normal respiratory effort; no respiratory distress and no labored breathing Results & Data Vital Signs (Past 12 Hours) Vital Signs Temp Pulse Pulse Resp BP Pulse Ox O2 Del Method 10/06/23 12:23 36.9 C 111 H 20 90/39 L 98 Room Air 10/06/23 08:29 36.8 C 104 H 16 100/55 L 96 Room Air 10/06/23 07:17 105 H 10/06/23 06:59 Room Air 10/06/23 05:03 36.7 C 107 H 10/06/23 04:01 131 H 16 109/60 96 Room Air 10/06/23 03:55 38.4 C H PG Care Time/CCT Total # of Minutes Spent Total Time Spent with Patient: Total time spent is greater than 50% in coordination of care (as documented) at patient's floor/unit and/or counseling patient: Coding Level of Care Code 30446 SUB INP/OBS CARE 1/25MIN Diagnoses Pressure ulcer of left hip L89.229
--- NOTE | 2023-10-06 13:49 | Discharge Summary ---
Date of Service October 06, 2023 Admission HPI Per Admitting Provider 28 year old male with a past medical history of paraplegia, neurogenic bladder, severe protein calorie malnutrition, insomnia, anemia, depression, recurrent decubitus ulcers with osteomyelitis, and iliac DVT presenting with nausea/vomiting. Poor PO intake over the past 2 days. Denies fever/chills. Some yellow d/c from suprapubic catheter site. Change in ostomy output; initially watery now a little more solid. Noted dark urine. Recently admitted at [facility] with SBO and sepsis secondary to osteomyelitis. Completed IV ertapenem on 08/18. ED Course Significant for: Hypotensive/Tachycardic on arrival. Improved s/p 3L IVF. Leukocytosis= 19.8, Thrombocytosis= 1351. UA + blood, nitrites, LE. CT A&P with ileus. Vanc/Zosyn started in ED. Admission Exam Per Admitting Provider Constitutional: well-appearing, no acute distress HEENT: NCAT, no conjunctival injection CV: regular rhythm, no murmur appreciated, extremities well-perfused, no LE ed stewart Resp: CTABL, no wheezes/rales/rhonchi appreciated, no increased work of breathing GI: soft, nondistended, nontender MSK: no gross deformities appreciated Neuro: alert, oriented Principal Diagnosis UTI, L hip disarticulation, pressure ulcer of b/l hip, sacrum Discharge Exam Constitutional: ill-appearing, pale, no acute distress HEENT: NCAT, no conjunctival injection CV: regular rhythm, no murmur appreciated, pale throughout, no LE edema Resp: CTABL, no wheezes/rales/rhonchi appreciated, no increased work of breathing GI: soft, nondistended, nontender : suprapubic catheter in place Skin: warm, dry, no rash appreciated, sacral wounds not examined Neuro: alert, oriented, paraplegic. Discharge Data Allergies Allergy/AdvReac Type Severity Reaction Status Date / Time nickel Allergy Mild Rash (from Verified 10/04/23 23:11 jewelry) Consultations 10/05/23 03:54 ED Decision to Admit Stat 10/05/23 13:35 Consult General Surgery Routine 10/06/23 09:19 Consult Orthopedic Surgery Routine Ordered Studies 10/04/23 22:09 CT Abd and Pelvis [CT abd pelvis IV con only] Stat Hospital Course (1) Sepsis: (2) Pressure ulcer of ischium, stage 4: (3) Thrombocytosis: (4) Anemia: (5) Paraplegia: (6) Neurogenic bladder: - continue ocybutyin (7) Ileus: (8) History of DVT (deep vein thrombosis): Plan 28 yo male PMHx paraplegia, neurogenic bladder w/ suprapubic catheter in place, protein calorie malnutrition, insomnia, chronic microcytic anemia, depression, recurrent decubitus ulcers with hx of osteomyelitis, 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 #Sepsis SIRS+ with leukocytosis and tachycardia source likely urinary - UCx growing proteus spp. 1/2 blood cultures with gram positive cocci in clusters TTE obtained day of transfer: "probable small mobile echodensity involving the tricuspid valve" - will need confirmatory TREVON vancomycin and Zosyn #Stage 4 pressure ulcer multiple chronic pressure ulcers, follows with wound care history of osteomyelitis- follows with infectious disease and completed course of ertapenem On Vanc/Zosyn at time of discharge General/Orthopedic Surgery Consults Initially planned for bedside debridement Ortho evaluated L hip disarticulation, found trochanter of femur protruding through L hip wound Recommend transfer to tertiary center for interdisciplinary planning/approach to repair Transfer to [facility] arranged #Thrombocytosis history of chronic thrombocytosis platelets on admission 1341--> 793 s/p fluid resuscitation peripheral smear pending at time of transfer #Anemia chronic microcytic anemia with baseline hemoglobin ~9 Hgb 6.5 s/p fluid resuscitation s/p 1 u PRBCs with resultant increase to 7.4 Hb 8.1 at time of transfer Ferritin 324 #Ileus noted on CT, history of neurogenic bowel/bladder improvement in nausea/vomiting with IVF Tolerating regular diet at discharge #Paraplegia/Spasticity/Neurogenic bladder Baclofen Suprapubic catheter in place #Hx DVT Xarelto FENGI: advance as tolerated Code status: full DVT prophylaxis: xarelto Isolation: none Disposition: med/tele Total Time Total Time Spent Total Time Spent (In Minutes): see attending documentation Discharge Plan Discharge Items Patient Disposition: Transfer Acute Care Hospital Reason For Visit: SEPSIS Discharge Diagnosis: b/l hip, sacral wounds, 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 You were found to have a urinary tract infection and were treated with antibiotics. While you were here we asked general surgery to evaluate your wounds. They asked us to consult orthopedic surgery for your left hip dislocation. When orthopedics evaluated you they found that part of your hip bone was exposed through the wound. Repair of this injury is going to require coordination of multiple specialties that are not available at our institution. Therefore, it was felt that the best next step was to transfer you to a higher level of care. . A discharge summary will be sent to your primary care physician to ensure continuity of care. Please bring this discharge summary with you to your next office appointment so that your provider can review it at that time. Follow-up appointments: Make a follow-up appointment with your PCP within the next week. It is very important that you follow up with them shortly after discharge from the hospital. Keep all your follow-up appointments as already scheduled. If you cannot make an appointment, notify your provider. Take your medications as instructed; do not skip a dose of your medicines. Make sure all of your doctors know every medicine you are taking (including [id number] medicines, vitamins, and supplements). Call your primary care provider before taking any new medicines (including [id number]-[id number] medicines, vitamins, and supplements), because some of these may interact with your current medications, or may make your symptoms worse. Tell your primary care provider if you cannot afford your medications. CONTACT YOUR PRIMARY CARE PROVIDER if you experience any of the following: Difficulty following your treatment plan, or difficulty taking medications CALL 911 OR GO TO THE EMERGENCY DEPARTMENT if you experience any of the following: Sudden, severe abdominal pain or nausea/vomiting Severe chest pain, or chest pain that radiates (moves) to your jaw or arm Sudden, severe shortness of breath or difficulty breathing Thank you for allowing us to participate in your care. Pending Studies at Discharge: Yes Studies:: Urine culture sensitivities Stand-Alone Forms: [facility] Skilled Items Patient informed of condition?: Yes DNR: No Discharge Level of Care: Other Communicable Disease: No Discharge Prognosis: Stable Lines: None Urinary Catheter: Yes (Suprapubic) Medications and DC Order Prescriptions: Continued Medical marijuana 1 dose inhalation DIRECTED PRN (Reason: NEEDED) Rx Instructions: as directed oxybutynin chloride 5 mg tablet 5 mg PO BID Qty: 60 5RF baclofen 10 mg tablet 5 mg PO BID ertapenem 1 gram recon soln 1 g IM Q24H Rx Instructions: last dose 08/18 pantoprazole 40 mg tablet,delayed release (DR/EC) 40 mg PO DAILY multivitamin Tablet 1 tab PO DAILY Dakin's Solution 0.25 % solution 1 applic topical DAILY Rx Instructions: for wound care Ischemia, sacrum and hip baclofen 20 mg tablet 20 mg PO HS acetaminophen [Tylenol Extra Strength] 500 mg Tablet 1,000 mg PO Q6H PRN (Reason: Pain) Xarelto 20 mg tablet 20 mg PO QPM Rx Instructions: must administer with evening meal mirtazapine 7.5 mg tablet 7.5 mg PO HS Discharge Orders: Discharge Order (Routine); Ordered 10/06/23 Ordered By: Adilia Arauz Admission Data Admit Date/Time: 10/05/23 02:52 Attending Provider: Kira Mcnair Admit Provider: Xiomara Lester Primary Care Provider: Pacheco Schultz V. Other Providers: Dave Jamison; Kristie Cook; Duong Crain; [facility] Supervising Physician Co-Signing Physician Notes Attending Physician Supervision Note: I independently interviewed and examined the patient and verified the connolly history and physical, reviewed labs and image studies and agree with findings and care plan noted above. Resident Activity Tracking Resident Involvement: Resident Care Provided Care Provided: Adult Hospital Medicine
[2023-10-06] MEDS: POTASSIUM CHLORIDE CRTAB 20 MEQ TABCR PO STA (15:45)
--- NOTE | 2023-10-06 17:38 | Hospitalist Progress Note ---
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 #Sepsis SIRS+ with leukocytosis and tachycardia source likely urinary - UCx growing proteus spp. 1/2 blood cultures with gram positive cocci in clusters TTE obtained day of transfer: "probable small mobile echodensity involving the tricuspid valve" - will need confirmatory TREVON vancomycin and Zosyn #Stage 4 pressure ulcer multiple chronic pressure ulcers, follows with wound care history of osteomyelitis- follows with infectious disease and completed course of ertapenem On Vanc/Zosyn at time of discharge General/Orthopedic Surgery Consults Initially planned for bedside debridement Ortho evaluated L hip disarticulation, found trochanter of femur protruding through L hip wound Recommend transfer to tertiary center for interdisciplinary planning/approach to repair Transfer to [facility] arranged - awaiting transport #Thrombocytosis history of chronic thrombocytosis platelets on admission 1341--> 793 s/p fluid resuscitation peripheral smear pending at time of transfer #Anemia chronic microcytic anemia with baseline hemoglobin ~9 Hgb 6.5 s/p fluid resuscitation s/p 1 u PRBCs with resultant increase to 7.4 Hb 8.1 at time of transfer Ferritin 324 #Ileus noted on CT, history of neurogenic bowel/bladder improvement in nausea/vomiting with IVF Tolerating regular diet at discharge #Paraplegia/Spasticity/Neurogenic bladder Baclofen Suprapubic catheter in place #Hx DVT Xarelto FENGI: advance as tolerated Code status: full DVT prophylaxis: xarelto Isolation: none Disposition: med/tele Admission and Anticipated Discharge Date Admission Date: October 05, 2023 Supervising Physician Co-Signing Physician Notes Attending Physician Supervision Note: I independently interviewed and examined the patient and verified the connolly history and physical, reviewed labs and image studies and agree with findings and care plan noted above. Subjective Patient seen and evaluated at bedside this morning. No acute events overnight. Overall feeling better. UCx proteus spp. BCx 1/2 bottles growing gram + cocci Review of Systems Review of Systems: reviewed, per HPI Physical Exam Physical Exam: Constitutional: ill-appearing, pale, no acute distress HEENT: NCAT, no conjunctival injection CV: regular rhythm, no murmur appreciated, pale throughout, no LE edema Resp: CTABL, no wheezes/rales/rhonchi appreciated, no increased work of breathing GI: soft, nondistended, nontender MSK: no gross deformities appreciated : suprapubic catheter in place Skin: warm, dry, no rash appreciated, sacral wounds not examined Neuro: alert, oriented, no focal neurologic deficit appreciated Results & Data Results & Data Vital Signs (Past 12 Hours) Vital Signs Temp Pulse Pulse Pulse Resp BP BP 10/06/23 16:50 37 C 111 H 97 H 16 90/39 L 96/50 L 10/06/23 15:33 98 H 10/06/23 15:10 37 C 97 H 16 96/50 L 10/06/23 12:23 36.9 C 111 H 20 90/39 L 10/06/23 08:29 36.8 C 104 H 16 100/55 L 10/06/23 07:17 105 H 10/06/23 06:59 Pulse Ox O2 Del Method 10/06/23 16:50 97 10/06/23 15:33 10/06/23 15:10 97 Room Air 10/06/23 12:23 98 Room Air 10/06/23 08:29 96 Room Air 10/06/23 07:17 10/06/23 06:59 Room Air Resident Activity Tracking Resident Involvement: Resident Care Provided Care Provided: Adult Hospital Medicine
[2023-10-06] MEDS: MAGNESIUM SULFATE / D5W 1 GM/100 ML BAG IV SCH (18:26)
--- NOTE | 2023-10-06 19:15 | XCELERA ---
[id number] \\[id number]
== END 2023-10-06 20:05 | disposition short-term general hospital (02) | DRG 871 ==
LOC: ED 21:44 → SUATTDRO 10-05 02:52 → EDINP 10-05 02:52 → 2W 10-05 21:06
DX: K21.9 Gastro-esophageal reflux disease without esophagitis; Z87.440 Personal history of urinary (tract) infections; L89.229 Pressure ulcer of left hip, unspecified stage; F17.290 Nicotine dependence, other tobacco product, uncomplicated; Z93.3 Colostomy status; Z79.899 Other long term (current) drug therapy; E43 Unspecified severe protein-calorie malnutrition; Z11.52 Encounter for screening for COVID-19; D69.6 Thrombocytopenia, unspecified; N39.0 Urinary tract infection, site not specified; G47.00 Insomnia, unspecified; K56.7 Ileus, unspecified; R64 Cachexia; Z96.0 Presence of urogenital implants; Z68.1 Body mass index [BMI] 19.9 or less, adult; N31.9 Neuromuscular dysfunction of bladder, unspecified; A41.59 Other Gram-negative sepsis; Z86.718 Personal history of other venous thrombosis and embolism; G82.53 Quadriplegia, C5-C7 complete; D63.8 Anemia in other chronic diseases classified elsewhere; Z91.048 Other nonmedicinal substance allergy status; Z79.01 Long term (current) use of anticoagulants; L89.219 Pressure ulcer of right hip, unspecified stage; L89.154 Pressure ulcer of sacral region, stage 4

== ENCOUNTER 2024-01-27 20:30 | Observation (INO) ==
[2024-01-27] MEDS: SODIUM CHLORIDE 0.9% 1,000 ML IV SCH (21:20)
[2024-01-27] MEDS: PIPERACILLIN/TAZOBACTAM 4.5 GM/100 ML BAG IV ONE (21:21)
[2024-01-27] MEDS: ACETAMINOPHEN 1,000 MG/100 ML VIAL IV STA (21:27)
--- NOTE | 2024-01-27 21:33 | Emergency Department Note ---
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 cardiomediastinal silhouette is unremarkable. The lungs and pleural spaces are clear. No pneumothorax is seen. The bony thorax is grossly intact. Fusion hardware is seen at the cervicothoracic junction. IMPRESSION: No active disease in the chest. ACT 112: Negative or not required by law. Electronically signed by: Tramaine Garcia M.D. 01/28/2024 9:03 AM Abdomen/Pelvis CT 01/27/24 23:08 Exam(s): CT ABDOMEN + PELVIS With Contrast IV Amt: 91 cc opti 320 EXAM: CT Abdomen and Pelvis With Intravenous Contrast CLINICAL HISTORY: Reason for exam: multiple press wounds, foul odor/drainage, osteo?. TECHNIQUE: Axial computed tomography images of the abdomen and pelvis with intravenous contrast. Automated exposure control was utilized for the study. A dose lowering technique was utilized adhering to the principles of ALARA. CONTRAST: Patient received 91 cc opti 320 of IV contrast COMPARISON: No relevant prior studies available. FINDINGS: Lung bases: Unremarkable. No mass. No consolidation. ABDOMEN: Liver: Unremarkable. No mass. Gallbladder and bile ducts: Unremarkable. No calcified stones. No ductal dilation. Pancreas: Unremarkable. No mass. No ductal dilation. Spleen: Unremarkable. No splenomegaly. Adrenals: Unremarkable. No mass. Kidneys and ureters: Unremarkable. No solid mass. No hydronephrosis. Stomach and bowel: Anastomotic sutures in the upper abdomen and LEFT lower quadrant, correlate with surgical history. LEFT lower quadrant colostomy. Moderate fecal retention, correlate for constipation. No obstruction. No mucosal thickening. PELVIS: Appendix: No findings to suggest acute appendicitis. Bladder: Suprapubic catheter terminates in the urinary bladder. Reproductive: Unremarkable as visualized. ABDOMEN and PELVIS: Intraperitoneal space: Unremarkable. No free air. No significant fluid collection. Bones/joints: Extensive bilateral stage IV decubitus ulceration extending to the femurs with chronic osteomyelitis of the bilateral hip joints. Bilateral septic arthritis cannot be excluded, especially given the presence of soft tissue air throughout the areas of infection. On the RIGHT it extends into the RIGHT side of the pelvis. Stage IV decubitus ulcer also involves the sacrum. No acute fracture. No dislocation. Soft tissues: Unremarkable. Vasculature: Unremarkable. No abdominal aortic aneurysm. Lymph nodes: Unremarkable. No enlarged lymph nodes. IMPRESSION: 1. Extensive bilateral stage IV decubitus ulceration extending to the femurs with chronic osteomyelitis of the bilateral hip joints. Bilateral septic arthritis cannot be excluded, especially given the presence of soft tissue air throughout the areas of infection. On the RIGHT it extends into the RIGHT side of the pelvis. 2. Anastomotic sutures in the upper abdomen and LEFT lower quadrant, correlate with surgical history. LEFT lower quadrant colostomy. Moderate fecal retention, correlate for constipation. 3. Stage IV decubitus ulcer also involves the sacrum. Electronically signed by: Gerry Henley MD 01/28/24 03:08 AM Discharge Plan Visit Data Chief Complaint: Urinary Symptoms Stated Complaint: LEAKING CATH, PRESSURE SORES, HEMATURIA ED Provider: Bonita Gonzalez Discharge Problem: Sepsis, Catheter-associated urinary tract infection, Anemia, Chronic paraplegia, Decubitus ulcer of sacral region, unstageable Patient Disposition: Admitted As Inpatient Discharge Instructions Interventions: ED Discharge Assessment Last Done: 01/28/24 01:25 Discharge Problem: Sepsis Qualifiers: Sepsis type: sepsis due to unspecified organism Sepsis acute organ dysfunction status: without acute organ dysfunction Qualified Code(s): A41.9 - Sepsis, unspecified organism Catheter-associated urinary tract infection Qualifiers: Indwelling urinary catheter type: cystostomy catheter Encounter type: initial encounter Qualified Code(s): T83.510A - Infection and inflammatory reaction due to cystostomy catheter, initial encounter Anemia Qualifiers: Anemia type: iron deficiency Iron deficiency anemia type: chronic blood loss Q ualified Code(s): D50.0 - Iron deficiency anemia secondary to blood loss (chronic)
[2024-01-27 21:38] LABS: Alanine Aminotransferase 18 U/L (7-52); Albumin Level 2.3 gm/dl (3.4-5.0); Alkaline Phosphatase 228 U/L (34-104); Anion Gap 12 (3-11); Aspartate Aminotransferase 25 U/L (13-39); BUN Creatinine Ratio 28.6 (10-20); Bilirubin,Total 0.3 mg/dl (0.2-1.0); Blood Urea Nitrogen 16 mg/dl (6-23); Calcium 7.9 mg/dl (8.6-10.3); Carbon Dioxide 23 mmol/L (21-32); Chloride 102 mmol/L (98-107); Creatinine Clr Calc Pharmacy 179.5 ml/min; Est GFR (African American) > 150.0 ml/min; Est GFR (Non-African American) 142.8 ml/min; Glucose 154 mg/dl (70-99(Fasting)); Magnesium 1.6 mg/dl (1.7-2.4); Potassium 3.3 mmol/L (3.5-5.1); Sodium 137 mmol/L (136-145); Total Protein 6.8 gm/dl (6.0-8.3)
[2024-01-27 21:45] LABS: Troponin I High Sensitivity 5.7 pg/ml (0-20)
[2024-01-27 22:09] LABS: Hematocrit (blood only) 23.3 % (42.0-52.0); Hemoglobin 6.9 g/dl (14.0-18.0); Mean Corpuscular Hemoglobin 24.7 pg (25.0-34.0); Mean Corpuscular Hgb Conc 29.6 g/dL (32.0-36.0); Mean Corpuscular Volume 83.5 fL (80.0-100.0); Mean Platelet Volume 9.1 fL (9.4-12.4); Platelet Count 665 K/uL (130-400); RDW Coefficient of Variation 16.7 % (11.5-14.5); RDW Standard Deviation 50.3 fL (36.4-46.3); Red Blood Count 2.79 M/uL (4.70-6.10); White Blood Count 11.85 K/ul (4.8-10.8)
[2024-01-27] MEDS ORDERED: SODIUM CHLORIDE 0.9% 250 ML IV PRN (22:11)
[2024-01-27 22:31] LABS: Basophils # (auto) 0.04 K/uL (0.00-0.20); Basophils % (auto) 0.3 %; Eosinophils # (auto) 0.07 K/uL (0.00-0.50); Eosinophils % (auto) 0.6 %; Immature Granulocytes # (auto) 0.15 K/uL (0.01-0.20); Immature Granulocytes % (auto) 1.3 %; Lymphocytes # (auto) 2.43 K/uL (1.20-3.40); Lymphocytes % (auto) 20.5 %; Monocytes # (auto) 1.16 K/uL (0.11-0.59); Monocytes % (auto) 9.8 %; Neutrophils % (auto) 67.5 %; Polychromasia 2+
[2024-01-27] MEDS ORDERED: VANCOMYCIN CONSULT ACTIVE PRN (23:02)
[2024-01-27] MEDS: MAGNESIUM SULFATE / D5W 1 GM/100 ML BAG IV SCH (23:06)
[2024-01-27] MEDS: SODIUM CHLORIDE 0.9% 600 ML IV ONE (23:07)
[2024-01-27 23:09] LABS: Appearance Urine Turbid (Clear); Bacteria Urine Automated 4+ (None Seen); Bilirubin Urine Negative (Negative); Blood Urine 3+ (Negative); Cast Urine Automated >20 /lpf (0-2); Color Urine Yellow; Epithelial Cell Urine Auto 0-2 /hpf (0-2); Glucose Urine UA Negative (Negative); Ketones Urine Negative (Negative); Leukocyte Esterase Urine 2+ (Negative); Nitrite Urine Positive (Negative); Protein Urine 2+ (Negative); RBC Urine Automated >20 /hpf (0-2); Specific Gravity Urine 1.028 (1.000-1.030); Urobilinogen Urine Negative (Negative); WBC Urine Automated >50 /hpf (0-5); pH Urine 8.5 (4.5-7.5)
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
[2024-01-27] MEDS: VANCOMYCIN HCL 1,250 MG in SODIUM CHLORIDE 0.9% 500 ML IV ONE (23:46)
[2024-01-28] MEDS: NSS + 20MEQ KCL 20 MEQ/1,000 ML BAG IV SCH (00:18)
[2024-01-28] MEDS: OPTIRAY 320 100ml IV ONE (01:21)
[2024-01-28] MEDS ORDERED: ONDANSETRON INJ 2 MG/ML 2 ML VIAL IV PRN (01:50)
[2024-01-28] MEDS ORDERED: VANCOMYCIN CONSULT ACTIVE PRN (01:50)
[2024-01-28] MEDS: ACETAMINOPHEN 500 MG TAB PO PRN (02:34)
--- NOTE | 2024-01-28 03:09 | CT Scan Report ---
Exam(s): CT ABDOMEN + PELVIS With Contrast IV Amt: 91 cc opti 320 EXAM: CT Abdomen and Pelvis With Intravenous Contrast CLINICAL HISTORY: Reason for exam: multiple press wounds, foul odor/drainage, osteo?. TECHNIQUE: Axial computed tomography images of the abdomen and pelvis with intravenous contrast. Automated exposure control was utilized for the study. A dose lowering technique was utilized adhering to the principles of ALARA. CONTRAST: Patient received 91 cc opti 320 of IV contrast COMPARISON: No relevant prior studies available. FINDINGS: Lung bases: Unremarkable. No mass. No consolidation. ABDOMEN: Liver: Unremarkable. No mass. Gallbladder and bile ducts: Unremarkable. No calcified stones. No ductal dilation. Pancreas: Unremarkable. No mass. No ductal dilation. Spleen: Unremarkable. No splenomegaly. Adrenals: Unremarkable. No mass. Kidneys and ureters: Unremarkable. No solid mass. No hydronephrosis. Stomach and bowel: Anastomotic sutures in the upper abdomen and LEFT lower quadrant, correlate with surgical history. LEFT lower quadrant colostomy. Moderate fecal retention, correlate for constipation. No obstruction. No mucosal thickening. PELVIS: Appendix: No findings to suggest acute appendicitis. Bladder: Suprapubic catheter terminates in the urinary bladder. Reproductive: Unremarkable as visualized. ABDOMEN and PELVIS: Intraperitoneal space: Unremarkable. No free air. No significant fluid collection. Bones/joints: Extensive bilateral stage IV decubitus ulceration extending to the femurs with chronic osteomyelitis of the bilateral hip joints. Bilateral septic arthritis cannot be excluded, especially given the presence of soft tissue air throughout the areas of infection. On the RIGHT it extends into the RIGHT side of the pelvis. Stage IV decubitus ulcer also involves the sacrum. No acute fracture. No dislocation. Soft tissues: Unremarkable. Vasculature: Unremarkable. No abdominal aortic aneurysm. Lymph nodes: Unremarkable. No enlarged lymph nodes. IMPRESSION: 1. Extensive bilateral stage IV decubitus ulceration extending to the femurs with chronic osteomyelitis of the bilateral hip joints. Bilateral septic arthritis cannot be excluded, especially given the presence of soft tissue air throughout the areas of infection. On the RIGHT it extends into the RIGHT side of the pelvis. 2. Anastomotic sutures in the upper abdomen and LEFT lower quadrant, correlate with surgical history. LEFT lower quadrant colostomy. Moderate fecal retention, correlate for constipation. 3. Stage IV decubitus ulcer also involves the sacrum. Electronically signed by: Gerry Henley MD 01/28/24 03:08 AM
[2024-01-28] MEDS: VANCOMYCIN HCL 1,250 MG in SODIUM CHLORIDE 0.9% 250 ML IV SCH (04:55)
[2024-01-28] MEDS: PIPERACILLIN/TAZOBACTAM 4.5 GM/100 ML BAG IV SCH (05:00)
[2024-01-28 05:07] LABS: Hemoglobin 5.2 g/dl (14.0-18.0); Mean Corpuscular Hemoglobin 24.3 pg (25.0-34.0); Mean Corpuscular Hgb Conc 28.9 g/dL (32.0-36.0); Mean Corpuscular Volume 84.1 fL (80.0-100.0); Platelet Count 509 K/uL (130-400); RDW Coefficient of Variation 16.8 % (11.5-14.5); RDW Standard Deviation 51.7 fL (36.4-46.3); Red Blood Count 2.14 M/uL (4.70-6.10)
[2024-01-28] MEDS ORDERED: SODIUM CHLORIDE 0.9% 250 ML IV PRN (05:12)
[2024-01-28] MEDS: LACTATED RINGER'S 1,000 ML IV ONE (05:23)
[2024-01-28] MEDS ORDERED: ALBUMIN 25% 25 GM/100 ML VIAL IV ONE (05:26)
[2024-01-28 05:27] LABS: Alanine Aminotransferase 14 U/L (7-52); Albumin Globulin Ratio 0.6 (0.9-2); Alkaline Phosphatase 171 U/L (34-104); Anion Gap 6 (3-11); Aspartate Aminotransferase 19 U/L (13-39); BUN Creatinine Ratio 33.3 (10-20); Bilirubin,Total 0.2 mg/dl (0.2-1.0); Blood Urea Nitrogen 13 mg/dl (6-23); Calcium 7.2 mg/dl (8.6-10.3); Carbon Dioxide 22 mmol/L (21-32); Chloride 108 mmol/L (98-107); Creatinine Clr Calc Pharmacy 257.8 ml/min; Est GFR (African American) > 150.0 ml/min; Est GFR (Non-African American) > 150.0 ml/min; Globulin 3.4 gm/dl (2.5-4.0); Glucose 87 mg/dl (70-99(Fasting)); Magnesium 1.9 mg/dl (1.7-2.4); Potassium 3.2 mmol/L (3.5-5.1); Sodium 136 mmol/L (136-145); Total Protein 5.4 gm/dl (6.0-8.3)
[2024-01-28 05:33] LABS: Basophils # (auto) 0.03 K/uL (0.00-0.20); Basophils % (auto) 0.3 %; Eosinophils # (auto) 0.08 K/uL (0.00-0.50); Eosinophils % (auto) 0.8 %; Immature Granulocytes # (auto) 0.12 K/uL (0.01-0.20); Immature Granulocytes % (auto) 1.2 %; Lymphocytes % (auto) 21.8 %; Monocytes # (auto) 1.12 K/uL (0.11-0.59); Monocytes % (auto) 11.1 %; Neutrophils # (auto) 6.55 K/uL (1.40-6.50); Neutrophils % (auto) 64.8 %; Polychromasia 1+
--- NOTE | 2024-01-28 05:45 | Communication Note ---
Date of Service: January 28, 2024 Notified on blood pressure of 86/34-> pt with Hgb=5.2 this morning, down from 6.9 last evening. Elevated pt at bedside- awake, alert, asymptomatic. Repeat blood pressure 83/49. Bolus 1L LR, 50gm albumin. Will give 2 units pRBC now, additional 2 units to be held. Hold Xarelto this morning.
[2024-01-28] MEDS: ACETAMINOPHEN 1,000 MG/100 ML VIAL IV STA ×2 (06:31→12:11)
[2024-01-28] MEDS: ALBUMIN 25% 25 GM/100 ML VIAL IV SCH (06:34)
--- NOTE | 2024-01-28 06:58 | Hospitalist Progress Note ---
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 Chronic osteomyelitis. Bilateral septic arthritis. Presence of soft tissue air thought infection. Right side extends into the pelvis and Stage IV decubitus ulcer also involves the sacrum. Blood cx pending s/p Vancomycin IV Zerberxa and Zosyn IV every 8 hours Consult wound care Consult infectious disease - hx MDR Pseudomonas --> broad cover to Zerberxa - His SPT also should be addressed since I think that may be an issue given the leakage. May had precipitated worsening of ulcers. Unclear regarding UTI, but with fevers and bladder spasms, will continue to treat that as well. Consult General Surgery - recommended transfer tertiary center - ir mattress with strict off loading and changing positions every 2 hours. Continue IV antibiotics. Consult Orthopedics - also concerned about infection throughout the pelvis given the anatomy. Recommended transfer to tertiary center [facility] to Dr. Ponce Recurrent urinary tract infection- History of ESBL E. coli, Pseudomonas, Klebsiella oxytoca, providentia stuartii, and coag negative staph Follow urine culture and sensitivity Vancomycin IV and Zosyn IV as noted above Symptomatic anemia- Hemoglobin 5.2 Hgb 7.2 post transfusion (2 units PRBCs) Cause associated with sepsis, draining wounds as noted, Xarelto, and decreased oral intake Hypomagnesemia- resolved hypokalemia- Magnesium 1.6 on admission, received Magnesium sulfate 2 g IV and repeat laboratories in a.m. Potassium 3.3 on admission To receive IV fluids NSS + KCl 20 mEq at 80 mL/h, and repeat laboratories in a.m. History of bilateral DVT lower extremities- Continue Xarelto C5-C7 incomplete quadriplegia/neurogenic bowel/neurogenic bladder- Continue supportive medications Admission and Anticipated Discharge Date Admission Date: January 27, 2024 Supervising Physician Co-Signing Physician Notes I personally examined the patient and verified all connolly points of history and exa m, discussed case, and agree with decision making with Dr Cal Jade feeling better than before. vitals noted nad somewhat pale breathing unlabored no accessory muscles good effort CT scans, labs, wound images noted septic shock/hemorrhagic shock - related to sacral wounds/ulcers and acute blood loss anemia - broad abx, transfusion support, surgical and orthopedic teams note need for transfer for tertiary surgical intervention - accepted at [facility] as soon as bed available Subjective Seen this morning, he was eating comfortably. He refers being asymptomatic to the low blood pressure. He refers some pain 5/10. Review of Systems Review of Systems: as per hpi Physical Exam Constitutional: + ill appearing, + thin, + disheveled, c ooperative and comfortable; no acute distress and not in distress Eyes: PERRL, conjunctivae normal, anicteric sclerae Respiratory: normal respiratory effort, lungs clear to auscultation Cardiovascular: Rate/Rhythm: + tachycardic Heart Sounds: normal S1 and normal S2 Neurologic: C5-7 paraplegia Results & Data Results & Data Vital Signs (Past 12 Hours) Vital Signs Temp Pulse Pulse Resp BP BP Pulse Ox 01/28/24 06:29 38.9 C H 106 H 18 102/59 L 98 01/28/24 06:14 39.1 C H 112 H 18 98/45 L 98 01/28/24 05:56 39.2 C H 111 H 18 102/51 L 99 01/28/24 05:14 111 H 86/34 L 01/28/24 04:00 114/47 L 01/28/24 03:55 37.3 C 120 H 69/46 L 98 01/28/24 02:02 36.8 C 106 H 20 121/74 100 01/28/24 01:44 111 H 01/27/24 23:50 103 H 14 91/58 L 100 01/27/24 23:09 107 H 13 117/66 100 01/27/24 22:41 120 H 17 100/46 L 100 01/27/24 22:23 113 H 14 88/40 L 01/27/24 21:53 128 H 24 105/56 L 99 01/27/24 21:26 139 H 18 93/50 L 100 01/27/24 21:08 130 H 01/27/24 21:06 128 H 17 100 01/27/24 21:06 37.2 C 138 H 17 108/65 100 01/27/24 20:35 38.3 C H 141 H 18 95/58 L 98 O2 Del Method 01/28/24 06:29 01/28/24 06:14 01/28/24 05:56 01/28/24 05:14 01/28/24 04:00 01/28/24 03:55 Room Air 01/28/24 02:02 Room Air 01/28/24 01:44 01/27/24 23:50 Room Air 01/27/24 23:09 Room Air 01/27/24 22:41 Room Air 01/27/24 22:23 01/27/24 21:53 Room Air 01/27/24 21:26 Room Air 01/27/24 21:08 01/27/24 21:06 Room Air 01/27/24 21:06 Room Air 01/27/24 20:35 Room Air
[2024-01-28] MEDS: MoRPHine SULFATE 2 MG/ML CARP IV STA ×2 (08:44→13:09)
[2024-01-28] MEDS: BACLOFEN 10 MG TAB PO SCH (08:46)
[2024-01-28] MEDS: PANTOprazole 40 MG TAB PO SCH (08:47)
[2024-01-28] MEDS: MULTIVITAMIN TAB PO SCH (08:47)
[2024-01-28] MEDS: oxyBUTYnin chloride 5 MG TAB PO SCH (08:47)
--- NOTE | 2024-01-28 09:04 | XRay Report ---
SINGLE VIEW CHEST CLINICAL HISTORY: Sepsis. FINDINGS: 2 AP, portable, upright chest radiographs are compared to study dated 10/04/2023. The cardio mediastinal silhouette is unremarkable. The lungs and pleural spaces are clear. No pneumothorax is se en. The bony thorax is grossly intact. Fusion hardware is seen at the cervicothoracic junction. IMPRESSION: No active disease in the chest. ACT 112: Negative or not required by law. Electronically signed by: Tramaine Garcia M.D. 01/28/2024 9:03 AM
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
[2024-01-28] MEDS: CEFTOLOZANE/TAZOBACTAM 3,000 MG in DEXTROSE 5% 100 ML IV SCH (11:25)
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
[2024-01-28 12:10] LABS: Hematocrit (blood only) 24.8 % (42.0-52.0); Hemoglobin 7.3 g/dl (14.0-18.0)
[2024-01-28 15:33] LABS: A calco-baum cmplx NotReported Not Detected (NotDetected); Bact fragilis Not Reported Not Detected (NotDetected); Blood Culture Id Panel See PCR Comment (NotDetected); C auris Not Reported Not Detected (NotDetected); Calbicans Not Reported Not Detected (NotDetected); Candida glabrata Not Reported Not Detected (NotDetected); Candida krusei Not Reported Not Detected (NotDetected); Cneoformans/gatti Not Reported Not Detected (NotDetected); Cparapsilosis Not Reported Not Detected (NotDetected); E cloacae compx Not Reported Not Detected (NotDetected); Efaecalis Not Reported Not Detected (NotDetected); Efaecium Not Reported Not Detected (NotDetected); Enterobacterales Not Reported Not Detected (NotDetected); Escherichia coli Not Reported Not Detected (NotDetected); H influenzae Not Reported Not Detected (NotDetected); K aerogenes Not Reported Not Detected (NotDetected); Koxytoca Not Reported Not Detected (NotDetected); Kpneumoniae grp Not Reported Not Detected (NotDetected); Lmonocyt Not Reported Not Detected (NotDetected); N meningitidis Not Reported Not Detected (NotDetected); P aeruginosa Not Reported Not Detected (NotDetected); Proteus spp Not Reported Not Detected (NotDetected); Salmonella spp Not Reported Not Detected (NotDetected); Staph lugdunensis Not Reported Not Detected (NotDetected); Staph spp. Not Reported DETECTED (NotDetected); Staphaureus Not Reported Not Detected (NotDetected); Staphepi Not Reported DETECTED (NotDetected); Staphylococcus spp. DETECTED (NotDetected); Stenmaltophilia Not Reported Not Detected (NotDetected); Strep agal(GrpB) Not Reported Not Detected (NotDetected); Strep pneum Not Reported Not Detected (NotDetected); Strep pyog (GrpA) Not Reported Not Detected (NotDetected); Strep spp Not Reported Not Detected (NotDetected)
[2024-01-28 15:40] VITALS: TEMP 98.1
[2024-01-28 15:43] LABS: Staphylococcus epidermidis DETECTED (NotDetected); mecAC Resistant Gene DETECTED (NotDetected)
[2024-01-28] MEDS ORDERED: RIVAROXABAN 20 MG TAB PO SCH (16:30)
--- NOTE | 2024-01-28 17:27 | Billing Data ---
Date of Service January 28, 2024 Coding Level of Care Code 50929 SUB INP/OBS CARE
[2024-01-28] MEDS: SODIUM CHLORIDE 0.9% 1,000 ML IV SCH (17:38)
[2024-01-28] MEDS: KETOROLAC TROMETHAMINE 15 MG/ML VIAL IV ONE (17:38)
--- NOTE | 2024-01-28 17:42 | Discharge Summary ---
Date of Service January 28, 2024 Admission HPI Per Admitting Provider The patient is a 28-year-old male with a past medical history including paraplegia, pressure ulcers on hips and sacrum and ischium, sepsis, pelvic osteomyelitis, right lower extremity DVT, iliac DVT, C5-C7 incomplete quadriplegia, depression, neurogenic bowel, and neurogenic bladder. The patient was referred to the medical service, for concerns regarding recurrent urinary tract infection, and worsening infected decubiti. Admission Exam Per Admitting Provider The patient is awake, alert and oriented 3, appears very thin and emaciated, normocephalic and atraumatic, lying in bed and in no acute distress. HEENT--PERRL, EOMI, mucous membranes and oropharynx dry. Neck--supple. No JVD. No bruits. Thyroid normal, trachea midline, no ad enopathy. Heart--tachycardic and regular. No murmurs, rubs or gallops. Lungs--clear bilaterally, no respiratory distress, no accessory muscle use. Abdomen--normal bowel sounds and soft. Nontender. Nondistended, no hernias or masses, no organomegaly. Extremities--No edema. Dermatologic--ischium, sacrum, hips with acute worsening of chronic decubiti, foul-smelling, with serosanguineous drainage Neurologic--cranial nerves II through XII grossly intact. [id number] paraplegia Psychiatric--normal affect. Principal Diagnosis Osteomyelitis Sacral, ischial worsening ulcer Discharge Exam Constitutional + ill appearing, + thin, + disheveled, cooperative and comfortable; no acute distress and not in distress Eyes PERRL, conjunctivae normal, anicteric sclerae Respiratory normal respiratory effort, lungs clear to auscultation Cardiovascular Rate/Rhythm: + tachycardic Heart Sounds: normal S1 and normal S2 Skin + ulcer (ischium, sacrum, hips with acute worsening of chronic decubiti) foul-smelling, with serosanguineous drainage Neurologic paraplegic Discharge Data Allergies Allergy/AdvReac Type Severity Reaction Status Date / Time nickel Allergy Mild Rash (from Verified 10/04/23 23:11 jewelry) Consultations 01/27/24 23:02 ED Decision to Admit Stat 01/28/24 01:50 Consult Infectious Diseases Routine 01/28/24 07:50 Consult General Surgery Routine 01/28/24 08:41 Consult Orthopedic Surgery Routine 01/28/24 12:55 Radiology Transfer Of Images Routine Ordered Studies 01/27/24 23:08 CT abd pelvis IV con only Stat Hospital Course (1) Sepsis: (2) Pressure ulcer of ischium, stage 4: (3) Thrombocytosis: (4) Anemia: (5) Paraplegia: (6) Neurogenic bladder: - continue ocybutyin (7) Ileus: (8) History of DVT (deep vein thrombosis): Basilia Hernandez is 28 y/o male with multiple IV sacral/ischial and hip ulcers, status post colostomy and suprapubic catheter recurrent DVT, small bowel obstruction, T 10 spinal cord injury and paraplegia Sepsis (tachy, Fever +/- hypotension) 2/2 chronic osteomyelitis of bilateral hip joints and extensive bilateral stage IV decubital extending to the femurs- Bacteremia gram + Abd/Pelv CT: Extensive bilateral stage IV decubitus extending to the femurs. Chronic osteomyelitis. Bilateral septic arthritis. Presence of soft tissue air thought infection. Right side extends into the pelvis and Stage IV decubitus ulcer also involves the sacrum. Blood cx: Gram Positive cocci (preliminary) s/p Vancomycin IV Zerberxa and Zosyn IV every 8 hours Consult wound care Consult infectious disease - hx MDR Pseudomonas --> broad cover to Zerberxa - His SPT also should be addressed since I think that may be an issue given the leakage. May had precipitated worsening of ulcers. Unclear regarding UTI, but with fevers and bladder spasms, will continue to treat that as well. Consult General Surgery - recommended transfer tertiary center - ir mattress with strict off loading and changing positions every 2 hours. Continue IV antibiotics. Consult Orthopedics - also concerned about infection throughout the pelvis given the anatomy. Recommended transfer to tertiary center [facility] to Dr. Norma Butler NSS 125 ml/hr Recurrent urinary tract infection- History of ESBL E. coli, Pseudomonas, Klebsiella oxytoca, providentia stuartii, and coag negative staph Follow urine culture and sensitivity Zerberxa IV and Zosyn IV as noted above Symptomatic anemia- Hemoglobin 5.2 Hgb 7.2 post transfusion (2 units PRBCs) Cause associated with sepsis, draining wounds as noted, Xarelto, and decreased oral intake Hypomagnesemia- resolved hypokalemia- Magnesium 1.6 on admission, received Magnesium sulfate 2 g IV and repeat laboratories in a.m. Potassium 3.3 on admission To receive IV fluids NSS + KCl 20 mEq at 80 mL/h, and repeat laboratories in a.m. History of bilateral DVT lower extremities- Continue Xarelto C5-C7 incomplete quadriplegia/neurogenic bowel/neurogenic bladder- Continue supportive medications Total Time Total Time Spent Total Time Spent (In Minutes): <30 Discharge Plan Discharge Items Patient Disposition: Transfer Acute Care Hospital Reason For Visit: UTI, SACRAL DECUBITI Discharge Diagnosis: severe sepsis secondary to progressing sacral decubitus ulcers Activity: Per Instructions section Non-emergency contact: Primary Care Provider and Surgeon Call non-emergency contact if: you have any medication questions, your symptoms worsen, your pain is worsening and you have a fever Follow-up/Referrals: Pacheco Schultz MD [Primary Care Provider] - Diet: Regular Addtl Attending Provider Instructions: is 28 y/o male with multiple IV sacral/ischial and hip ulcers, status post colostomy and suprapubic catheter recurrent DVT, small bowel obstruction, T 10 spinal cord injury and paraplegia presenting to the hospital d/t fevers and concern for worsening infection of sacral decubitus ulcers. Sepsis (tachy, fever +/- hypotension) 2/2 chronic osteomyelitis of bilateral hip joints and extensive bilateral stage IV decubital extending to the femurs Abd/Pelv CT: Extensive bilateral stage IV decubitus extending to the femurs. Chronic osteomyelitis. Bilateral septic arthritis. Presence of soft tissue air thought infection. Right side extends into the pelvis and Stage IV decubitus ulcer also involves the sacrum. Blood cx pending s/p Vancomycin IV Zerbaxa and Zosyn every 8 hours Consult wound care Consult infectious disease - hx MDR Pseudomonas --> broaden cover to Zerberxa - His suprapubic catheter also should be addressed since I think that may be an issue given the leakage. May had precipitated worsening of ulcers. Unclear regarding UTI, but with fevers and bladder spasms, will continue to treat that as well since ABX are broad spectrum Consult General Surgery - recommended transfer tertiary center - ir mattress with strict off loading and changing positions every 2 hours. Continue IV antibiotics. Consult Orthopedics - also concerned about infection throughout the pelvis given the anatomy. Recommended transfer to tertiary center [facility] (pt follows with Dr. Ponce) Recurrent urinary tract infection- History of ESBL E. coli, Pseudomonas, Klebsiella oxytoca, providentia stuartii, and coag negative staph Follow urine culture and sensitivity Zosyn and Zerbaxa as noted above Symptomatic anemia- Hemoglobin 5.2 (baseline ~8-10) Hgb 7.2 post transfusion (2 units PRBCs) Cause associated with sepsis, draining wounds as noted, Xarelto, and decreased oral intake Hypomagnesemia- resolved hypokalemia- Magnesium 1.6 on admission, received Magnesium sulfate 2 g IV Potassium 3.3 on admission Pt was on IV fluids NSS + KCl 20 mEq at 80 mL/h History of bilateral DVT lower extremities- Recommend continuation of Xarelto at earliest time pending surgical intervention C5-C7 incomplete quadriplegia/neurogenic bowel/neurogenic bladder- Continue supportive medications Pending Studies at Discharge: No Stand-Alone Forms: My [facility] Skilled Items Patient informed of condition?: Yes DNR: No Discharge Level of Care: Other Communicable Disease: No Discharge Prognosis: Stable Lines: Peripheral IV Urinary Catheter: Yes (suprapubic) Medications and DC Order Prescriptions: Continued Medical marijuana 1 dose inhalation DIRECTED PRN (Reason: NEEDED) Rx Instructions: as directed oxybutynin chloride 5 mg tablet 5 mg PO BID Qty: 60 5RF baclofen 10 mg tablet 5 mg PO BID pantoprazole 40 mg tablet,delayed release (DR/EC) 40 mg PO DAILY multivitamin Tablet 1 tab PO DAILY Dakin's Solution 0.25 % solution 1 applic topical DAILY Rx Instructions: for wound care Ischemia, sacrum and hip baclofen 20 mg tablet 20 mg PO HS acetaminophen [Tylenol Extra Strength] 500 mg Tablet 1,000 mg PO Q6H PRN (Reason: Pain) Xarelto 20 mg tablet 20 mg PO QPM Rx Instructions: must administer with evening meal mirtazapine 7.5 mg tablet 7.5 mg PO HS Discontinued ertapenem 1 gram recon soln 1 g IM Q24H Rx Instructions: last dose 08/18 Discharge Orders: Discharge Order (Routine); Ordered 01/28/24 Ordered By: Pauline Jade Admission Data Admit Date/Time: 01/27/24 23:45 Attending Provider: Cooper Vinson Admit Provider: Dave Jamison Primary Care Provider: Pacheco Schultz V. Other Providers: Dave Jamison; Danii Cooper; Kalie Xie; Rebekah Lucia; Savannah Villalpando; Inga De Santiago; Pebbles Messina; Ty Duggan; Melvin Amador Other Interventions: Discharge Summary Assessment (RN) Last Done: 01/28/24 18:13 Supervising Physician Co-Signing Physician Notes I personally examined the patient and verified all connolly points of history and exam, discussed case, and agree with decision making with Dr Cal Jade feeling better since blood. for transfer to [facility]. vitals noted, mildly pale but reasonable BP sl tachy no respiratory distress mentation intact septic shock - likely hemorrhagic shock as well- largest concern on sacral ulcer/gas in soft tissue, septic appearing joints. could also have concomitant UTI. more stable post fluids, abx, blood. for transfer to [facility] [place] for tertiary surgical management/multidisciplinary approach. otherwise as above
[2024-01-28 17:44] VITALS: BP 101/56; RESP 20; O2SAT 98
--- NOTE | 2024-01-28 18:35 | Electrocardiogram Report ---
Test Reason : Blood Pressure : */* mmHG Vent. Rate : 133 BPM Atrial Rate : 133 BPM P-R Int : 126 ms QRS Dur : 86 ms QT Int : 280 ms P-R-T Axes : 69 48 59 degrees QTcB Int : 416 ms Sinus tachycardia Otherwise normal ECG When compared with ECG of 04-Oct-2023 22:03, Vent. rate has increased by 61 bpm Confirmed by Sreedhar Jenkins ([id number]) on 01/28/2024 6:34:48 PM Referred By: REFERRED SELF Confirmed By: Sreedhar Jenkins
--- NOTE | 2024-01-28 18:46 | Billing Data ---
Date of Service January 28, 2024 Coding Level of Care Code 17737 IN/OBS DISCH 30 MIN/LESS Comment disregard [id number]
[2024-01-28 18:49] VITALS: PULSE 111
[2024-01-28] MEDS ORDERED: MIRTAZAPINE TAB 15 MG TAB PO SCH (21:00)
[2024-01-28] MEDS ORDERED: BACLOFEN 20 MG TAB PO SCH (21:00)
[2024-01-29] MEDS ORDERED: VANCOMYCIN LEVEL ONE (11:30)
== END 2024-01-28 19:20 | disposition short-term general hospital (02) ==
LOC: ED 20:30 → 2E 23:45 → INTOOBSV 23:45 → SUATTDRO 23:45 → 2E 01-28 01:25